=== PATIENT | female | born 1945 | race Caucasian/White ===

== ENCOUNTER 2016-02-08 14:08 | Emergency (ER) | payer MEDICARE, OTHER ==
[~2016-02-08 14:08] MED LIST: /AUGM875TA; /MOXI40TA; ALLE25CA; ALLO100T PO; ALPR0.5T3; AMLO5TAB2 PO; BENA25CA2 PO; BUSP10TA PO; CALC500T21 PO; CART240C PO; CLOB-24 TOP; CLOB0.0513 TOP; CLOB0.0515 EX; CYCL10TA PO; DILT180C53 PO; EPI PEN; FOLI1TAB2 PO; FURO40TA2 PO; GABA300T; HYDR-3644 PO; HYDR12.55 PO; HYDR25TA6; KLOR1TAB73 PO; LIDEX TOP; LISI20TA5; LISI40TAB PO; METH2.5TA PO; NABU500T; NEUR300C; NEUR300C PO; NEUR600T PO; NORV5TAB; NORV5TAB PO; OXYC1TAB30 PO; PEPC20TA2; PERC5TAB8; PRAV20TA2 PO; PRED10TA2; PRED20TA; PRED5TAB; SING10TA31; SING10TA32 PO; VARE05TA; VARE1TA; XANA0.5T; XANA0.5T PO; ZYBA150T; [UNRECOGNIZED DRUG - CODE] PO; [UNRECOGNIZED DRUG - CODE] TOP; [UNRECOGNIZED DRUG - OTHER]; [UNRECOGNIZED DRUG - OTHER] TOP; [UNRECOGNIZED DRUG - REMARK]; colestipol PO; combivent; potassium PO
[2016-02-08] MEDS ORDERED: PERCOCET 5MG/325MG TAB As Ordered ONE ×2 (15:42→15:45)
--- NOTE | 2016-02-08 16:20 | REP ---
Clinical: Back pain. Technique: AP, lateral, bilateral oblique and coned-down views of the lumbosacral spine. Comparison: 03/02/2013. Findings: Osteopenia along with stable moderate to advanced multilevel degenerative disc osteophyte complexes noted from the lower thoracic spine through the lumbosacral region. No acute fracture / compression injury or subluxation. Findings include osteophytosis, endplate sclerosis, and disc space narrowing along with hypertrophic facet changes. Atherosclerotic changes of the aorta noted. Impression: Osteopenia and relatively stable at the level degenerative changes. Signed by Carmelo Montiel MD 02/08/2016 04:11 P
--- NOTE | 2016-02-08 16:21 | REP ---
Clinical: Lower back pain. Technique: Single AP view of the pelvis. Findings: Age-related degenerative changes are appreciated. No acute fracture or dislocation identified. Hip joints are symmetric. Postsurgical changes in the right lower quadrant. Impression: Age-related degenerative changes. Signed by Carmelo Montiel MD 02/08/2016 04:12 P
[2016-02-08] MEDS ORDERED: predniSONE 20 MG TAB As Ordered ONE (17:27)
--- NOTE | 2016-02-08 17:37 | EDDOCDS ---
Nurse's Notes [facility] Name: Radha Chu Age: 70 yrs Sex: Female : 1945 Arrival Date: 02/08/2016 Time: 14:08 Bed PD Private MD: Timothy Bolton Diagnosis: Low back pain Presentation: 02/07 14:35 Presenting complaint: Patient states: Pt presents with left hip and leg pain onset dls yesterday denies injury. Adult Sepsis Screening: The patient does not have new or worsening altered mentation. Patient's respiratory rate is less than 22. Systolic blood pressure is greater than 100. Patient has a qSOFA score of 0- Negative Sepsis Screen. Suicide/Homicide risk assessment- the patient denies having any suicidal and/or homicidal ideations and does not present with any other emotional, behavioral or mental health complaints. 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 Transition of care: patient was not received from another setting of care. 14:35 Acuity: SURJIT Level 3 dls 14:35 Method Of Arrival: Wheelchair dls Triage Assessment: 14:38 General: Appears distressed, obese, Behavior is cooperative. Pain: Pain currently is 10 dls out of 10 on a pain scale. Historical: - Allergies: Cipro PO (Anaphylaxis); PENICILLINS (Swelling); surgery tape; - Home Meds: 1. amlodipine 5 mg Oral tab once daily 2. aspirin 81 mg Oral tab 1 tab once daily 3. atorvastatin 40 mg oral tab 1 tab once daily 4. chlorthalidone 25 mg Oral tab 0.5 tab once daily 5. cholestyramine (bulk) miscellaneous powd four times a day 6. dicyclomine 10 mg Oral cap 1 cap 3 times per day 7. meloxicam 7.5 mg oral tab 1 tab once daily 8. metformin 1,000 mg Oral tab 1 tab 2 times per day 9. nitrofurantoin macrocrystal 100 mg Oral cap bid 10. omeprazole 40 mg Oral cpDR 1 cap 2 times per day 11. Otezla 30 mg oral tab 1 tab 2 times per day 12. oxybutynin chloride 5 mg Oral tab daily 13. Vitamin D3 2,000 unit oral cap daily - PMHx: back pain; Diabetes - NIDDM: controlled; GERD; Hypertension; Sleep Apnea w/ CPAP; - PSHx: Cholecystectomy; - Social history: Smoking status: Patient/guardian denies using No barriers to communication noted, The patient speaks fluent Mohawk. - Family history: Not pertinent. - : The pt / caregiver states he / she is not on anticoagulants. Home medication list is obtained from the patient. - Exposure Risk Screening:: None identified. Screenin:33 Screening information is obtained from the patient. Fall risk: No risks identified. kcs Assistance ADL's: requires no assistance with activities of daily living. Abuse/DV Screen: The patient / caregiver reports he/she is: not in a situation that causes fear, pain or injury. Nutritional screening: No deficits noted. Advance Directives: Currently, there is no health care proxy. home support is adequate. Assessment: 16:51 Reassessment: Patient requesting another glass of water - given. States pain = 7/10.. kcs 17:33 Reassessment: Patient states pain is better at rest - still = 7/10.. General: Appears kcs comfortable, obese, well developed, well nourished, Behavior is cooperative, pleasant. Pain: Location: low back. Neurological: Level of Consciousness is awake, alert. Respiratory: Airway is patent Respiratory effort is even, unlabored, Respiratory pattern is regular, symmetrical. Derm: Skin is intact, is healthy with good turgor, Skin is dry, Skin is normal. Vital Signs: 14:09 BP 139 / 60; Pulse 92; Resp 22 S; Temp 96.3(O); Pulse Ox 96% on R/A; Weight 113.4 kg dd6 (R); Height 5 ft. 2 in. (157.48 cm) (R); 17:25 BP 128 / 58; Pulse 88; Resp 18; Temp 97.5(O); Pulse Ox 97% on R/A; Pain 7/10; ct3 14:09 Body Mass Index 45.73 (113.40 kg, 157.48 cm) dd6 Vitals: 14:09 Log In Time: February 08, 2016 at 14:07. dd6 ED Course: 14:09 Patient visited by Luis A Gil PCA. dd6 14:09 Timothy Bolton DO is Private Physician. dd6 14:09 Patient moved to Waiting dd6 14:11 Patient moved to Pre RCE dd6 14:36 Triage Initiated dls 15:20 Patient moved to Triage 1 ct3 15:26 Reagan Hale PA-C is PHCP. dk1 15:26 Nadia Bah MD is Attending Physician. dk1 15:27 Patient visited by Reagan Hale PA-C. dk1 15:32 Patient moved to PD2 / dk1 16:09 [facility] Payment Agreement was scanned into [employer] and attached to record. zo 16:19 Patient visited by Roselia Joe PCA. ct3 16:20 Spine. Lumbosacral, Complete Returned. EDMS 16:53 Pelvis Returned. EDMS 17:18 [facility] is Referral Physician. dk1 17:25 Patient visited by Roselia Joe PCA. ct3 17:33 The patient / caregiver is instructed regarding the plan of care and ED course. kcs 17:33 No IV's were initiated during this patient's visit. No procedures done that require kcs assistance. Administered Medications: 15:45 Drug: oxyCODONE-acetaminophen 2 tabs [oxycodone-acetaminophen 5 mg-325 mg tablet (2 kcs tabs)] Route: PO; 17:33 Drug: predniSONE 40 mg [prednisone 20 mg tablet (2 tabs)] Route: PO; kcs Order Results: Radiology Order: Spine. Lumbosacral, Complete Test: Spine. Lumbosacral, Complete REASON FOR EXAMINATION: back pain; Clinical: Back pain.; ; Technique: AP, lateral, bilateral oblique and coned-down views of the; lumbosacral spine.; ; Comparison: 03/02/2013.; ; Findings:; Osteopenia along with stable moderate to advanced multilevel degenerative disc; osteophyte complexes noted from the lower thoracic spine through the lumbosacral; region. No acute fracture / compression injury or subluxation. Findings include; osteophytosis, endplate sclerosis, and disc space narrowing along with; hypertrophic facet changes. Atherosclerotic changes of the aorta noted.; ; Impression:; Osteopenia and relatively stable at the level degenerative changes.; ; ; Signed by; Carmelo Montiel MD 02/08/2016 04:11 P; Radiology Order: Pelvis Test: Pelvis REASON FOR EXAMINATION: low back apin; Clinical: Lower back pain.; ; Technique: Single AP view of the pelvis.; ; Findings:; Age-related degenerative changes are appreciated. No acute fracture or; dislocation identified. Hip joints are symmetric. Postsurgical changes in the; right lower quadrant.; ; Impression:; Age-related degenerative changes.; ; ; Signed by; Carmelo Montiel MD 02/08/2016 04:12 P; Outcome: 17:18 Discharge ordered by Provider. dk1 17:33 Discharge Assessment: Patient awake, alert and oriented x 3. No cognitive and/or kcs functional deficits noted. Patient verbalized understanding of disposition instructions. Patient awake and alert. patient administered narcotics - yes. Pt provided with safe discharge. The following High Risk Discharge criteria are identified: None. Discharged to home via wheelchair, with significant other. Condition: stable. Discharge instructions given to patient, Instructed on discharge instructions, follow up and referral plans. medication usage, no driving heavy equipment, no drinking with medication, Demonstrated understanding of instructions, medications, Pt was receptive of discharge instructions/ teaching. No special radiology studies were completed. Property sent home with patient. 17:37 Patient left the ED. kcs Signatures: Dispatcher [employer] Judie Naik, MARYELLEN RN Kyra Cespedes RN RN dls Keyes, David, PA-Trent PA-C dk1 Elliott Pablo Daniell, MAT REPAIRER MAT REPAIRER dd6 Roselia Joe, MAT REPAIRER MAT REPAIRER ct3 MTDD
--- NOTE | 2016-02-08 17:37 | EDDOCDS ---
Physician Documentation [facility] Name: Radha Chu Age: 70 yrs Sex: Female : 1945 Arrival Date: 02/08/2016 Time: 14:08 Bed PD Private MD: Timothy Bolton Disposition: 02/08/16 17:18 Discharged to Home/Self Care. Impression: Low back pain. - Condition is Stable. - Discharge Instructions: Back Pain, Adult, Back Pain, Adult, [id number]. - Prescriptions for Zanaflex 4 mg Oral Tablet - take 1 tablet by ORAL route every 8 hours As needed; 20 tablet. Prednisone 20 mg Oral Tablet - take 2 tablet by ORAL route once daily for 5 days; 10 tablet. - Medication Reconciliation, Local Pharmacy Hours form. - Follow up: [facility]; When: 2 - 3 days; Reason: Continuance of care. Follow up: Emergency Department; When: As needed; Reason: Worsening of conditions. - Problem is an acute exacerbation. - Symptoms have improved. Historical: - Allergies: Cipro PO (Anaphylaxis); PENICILLINS (Swelling); surgery tape; - Home Meds: 1. amlodipine 5 mg Oral tab once daily 2. aspirin 81 mg Oral tab 1 tab once daily 3. atorvastatin 40 mg oral tab 1 tab once daily 4. chlorthalidone 25 mg Oral tab 0.5 tab once daily 5. cholestyramine (bulk) miscellaneous powd four times a day 6. dicyclomine 10 mg Oral cap 1 cap 3 times per day 7. meloxicam 7.5 mg oral tab 1 tab once daily 8. metformin 1,000 mg Oral tab 1 tab 2 times per day 9. nitrofurantoin macrocrystal 100 mg Oral cap bid 10. omeprazole 40 mg Oral cpDR 1 cap 2 times per day 11. Otezla 30 mg oral tab 1 tab 2 times per day 12. oxybutynin chloride 5 mg Oral tab daily 13. Vitamin D3 2,000 unit oral cap daily - PMHx: back pain; Diabetes - NIDDM: controlled; GERD; Hypertension; Sleep Apnea w/ CPAP; - PSHx: Cholecystectomy; - Social history: Smoking status: Patient/guardian denies using No barriers to communication noted, The patient speaks fluent Yakut. - Family history: Not pertinent. - : The pt / caregiver states he / she is not on anticoagulants. Home medication list is obtained from the patient. - Exposure Risk Screening:: None identified. Vital Signs: 02/07 14:09 BP 139 / 60; Pulse 92; Resp 22 S; Temp 96.3(O); Pulse Ox 96% on R/A; Weight 113.4 kg / dd6 250 lbs (R); Height 5 ft. 2 in. (157.48 cm) (R); 17:25 BP 128 / 58; Pulse 88; Resp 18; Temp 97.5(O); Pulse Ox 97% on R/A; Pain 7/10; ct3 14:09 Body Mass Index 45.73 (113.40 kg, 157.48 cm) dd6 MDM: 15:39 oxyCODONE-acetaminophen 5 mg-325 mg 2 tabs PO once ordered. dk1 15:40 Spine. Lumbosacral, Complete Ordered. EDMS 15:40 Pelvis Ordered. EDMS 15:46 Financial registration complete. zo 16:09 [facility] [place] was scanned into [employer] and attached to record. zo 17:19 predniSONE 40 mg PO once; administer with food or milk ordered. dk1 Administered Medications: 15:45 Drug: oxyCODONE-acetaminophen 2 tabs [oxycodone-acetaminophen 5 mg-325 mg tablet (2 kcs tabs)] Route: PO; 17:33 Drug: predniSONE 40 mg [prednisone 20 mg tablet (2 tabs)] Route: PO; kcs Signatures: Dispatcher [employer] EDJudie Robert RN RN kcs Scott, Debra, RN RN dls Keyes, David, PA-C PAElliott Chavez The chart was reviewed and I authenticate all verbal orders and agree with the evaluation and treatment provided.Attachments: 16:09 [facility] [place] zo FRANKO
--- NOTE | 2016-02-10 18:37 | EDDOCDS ---
Nurse's Notes [facility] Name: Radha Chu Age: 70 yrs Sex: Female : 1945 Arrival Date: 02/08/2016 Time: 14:08 Bed PD Private MD: Timothy Bolton Diagnosis: Low back pain Presentation: 02/07 14:35 Presenting complaint: Patient states: Pt presents with left hip and leg pain onset dls yesterday denies injury. Adult Sepsis Screening: The patient does not have new or worsening altered mentation. Patient's respiratory rate is less than 22. Systolic blood pressure is greater than 100. Patient has a qSOFA score of 0- Negative Sepsis Screen. Suicide/Homicide risk assessment- the patient denies having any suicidal and/or homicidal ideations and does not present with any other emotional, behavioral or mental health complaints. 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 Transition of care: patient was not received from another setting of care. 14:35 Acuity: SURJIT Level 3 dls 14:35 Method Of Arrival: Wheelchair dls Triage Assessment: 14:38 General: Appears distressed, obese, Behavior is cooperative. Pain: Pain currently is 10 dls out of 10 on a pain scale. Historical: - Allergies: Cipro PO (Anaphylaxis); PENICILLINS (Swelling); surgery tape; - Home Meds: 1. amlodipine 5 mg Oral tab once daily 2. aspirin 81 mg Oral tab 1 tab once daily 3. atorvastatin 40 mg oral tab 1 tab once daily 4. chlorthalidone 25 mg Oral tab 0.5 tab once daily 5. cholestyramine (bulk) miscellaneous powd four times a day 6. dicyclomine 10 mg Oral cap 1 cap 3 times per day 7. meloxicam 7.5 mg oral tab 1 tab once daily 8. metformin 1,000 mg Oral tab 1 tab 2 times per day 9. nitrofurantoin macrocrystal 100 mg Oral cap bid 10. omeprazole 40 mg Oral cpDR 1 cap 2 times per day 11. Otezla 30 mg oral tab 1 tab 2 times per day 12. oxybutynin chloride 5 mg Oral tab daily 13. Vitamin D3 2,000 unit oral cap daily - PMHx: back pain; Diabetes - NIDDM: controlled; GERD; Hypertension; Sleep Apnea w/ CPAP; - PSHx: Cholecystectomy; - Social history: Smoking status: Patient/guardian denies using No barriers to communication noted, The patient speaks fluent Sinhala. - Family history: Not pertinent. - : The pt / caregiver states he / she is not on anticoagulants. Home medication list is obtained from the patient. - Exposure Risk Screening:: None identified. Screenin:33 Screening information is obtained from the patient. Fall risk: No risks identified. kcs Assistance ADL's: requires no assistance with activities of daily living. Abuse/DV Screen: The patient / caregiver reports he/she is: not in a situation that causes fear, pain or injury. Nutritional screening: No deficits noted. Advance Directives: Currently, there is no health care proxy. home support is adequate. Assessment: 16:51 Reassessment: Patient requesting another glass of water - given. States pain = 7/10.. kcs 17:33 Reassessment: Patient states pain is better at rest - still = 7/10.. General: Appears kcs comfortable, obese, well developed, well nourished, Behavior is cooperative, pleasant. Pain: Location: low back. Neurological: Level of Consciousness is awake, alert. Respiratory: Airway is patent Respiratory effort is even, unlabored, Respiratory pattern is regular, symmetrical. Derm: Skin is intact, is healthy with good turgor, Skin is dry, Skin is normal. Vital Signs: 14:09 BP 139 / 60; Pulse 92; Resp 22 S; Temp 96.3(O); Pulse Ox 96% on R/A; Weight 113.4 kg dd6 (R); Height 5 ft. 2 in. (157.48 cm) (R); 17:25 BP 128 / 58; Pulse 88; Resp 18; Temp 97.5(O); Pulse Ox 97% on R/A; Pain 7/10; ct3 14:09 Body Mass Index 45.73 (113.40 kg, 157.48 cm) dd6 Vitals: 14:09 Log In Time: February 08, 2016 at 14:07. dd6 ED Course: 14:09 Patient visited by Luis A Gil PCA. dd6 14:09 Timothy Bolton DO is Private Physician. dd6 14:09 Patient moved to Waiting dd6 14:11 Patient moved to Pre RCE dd6 14:36 Triage Initiated dls 15:20 Patient moved to Triage 1 ct3 15:26 Reagan Hale PA-C is PHCP. dk1 15:26 Nadia Bah MD is Attending Physician. dk1 15:27 Patient visited by Reagan Hale PA-C. dk1 15:32 Patient moved to PD2 / dk1 16:09 [facility] Payment Agreement was scanned into [employer] and attached to record. zo 16:19 Patient visited by Roselia Joe PCA. ct3 16:20 Spine. Lumbosacral, Complete Returned. EDMS 16:53 Pelvis Returned. EDMS 17:18 [facility] is Referral Physician. dk1 17:25 Patient visited by Roselia Joe PCA. ct3 17:33 The patient / caregiver is instructed regarding the plan of care and ED course. kcs 17:33 No IV's were initiated during this patient's visit. No procedures done that require kcs assistance. 02/08 06:02 T-Sheet-- Draft Copy was scanned into [employer] and attached to record. lja Administered Medications: 02/07 15:45 Drug: oxyCODONE-acetaminophen 2 tabs [oxycodone-acetaminophen 5 mg-325 mg tablet (2 kcs tabs)] Route: PO; 17:33 Drug: predniSONE 40 mg [prednisone 20 mg tablet (2 tabs)] Route: PO; kcs Order Results: Radiology Order: Spine. Lumbosacral, Complete Test: Spine. Lumbosacral, Complete REASON FOR EXAMINATION: back pain; Clinical: Back pain.; ; Technique: AP, lateral, bilateral oblique and coned-down views of the; lumbosacral spine.; ; Comparison: 03/02/2013.; ; Findings:; Osteopenia along with stable moderate to advanced multilevel degenerative disc; osteophyte complexes noted from the lower thoracic spine through the lumbosacral; region. No acute fracture / compression injury or subluxation. Findings include; osteophytosis, endplate sclerosis, and disc space narrowing along with; hypertrophic facet changes. Atherosclerotic changes of the aorta noted.; ; Impression:; Osteopenia and relatively stable at the level degenerative changes.; ; ; Signed by; Carmelo Montiel MD 02/08/2016 04:11 P; Radiology Order: Pelvis Test: Pelvis REASON FOR EXAMINATION: low back apin; Clinical: Lower back pain.; ; Technique: Single AP view of the pelvis.; ; Findings:; Age-related degenerative changes are appreciated. No acute fracture or; dislocation identified. Hip joints are symmetric. Postsurgical changes in the; right lower quadrant.; ; Impression:; Age-related degenerative changes.; ; ; Signed by; Carmelo Montiel MD 02/08/2016 04:12 P; Outcome: 17:18 Discharge ordered by Provider. dk1 17:33 Discharge Assessment: Patient awake, alert and oriented x 3. No cognitive and/or kcs functional deficits noted. Patient verbalized understanding of disposition instructions. Patient awake and alert. patient administered narcotics - yes. Pt provided with safe discharge. The following High Risk Discharge criteria are identified: None. Discharged to home via wheelchair, with significant other. Condition: stable. Discharge instructions given to patient, Instructed on discharge instructions, follow up and referral plans. medication usage, no driving heavy equipment, no drinking with medication, Demonstrated understanding of instructions, medications, Pt was receptive of discharge instructions/ teaching. No special radiology studies were completed. Property sent home with patient. 17:37 Patient left the ED. kcs Signatures: Dispatcher [employer] EDMS Judie Abdul RN RN Kyra Cespedes RN RN dls Keyes, David, PA-Trent PA-C dk1 Elliott Pablo Daniell, CAST IRON DIPPER CAST IRON DIPPER dd6 Roselia Joe, CAST IRON DIPPER CAST IRON DIPPER ct3 Judith Wong Chart Complete MTDD
--- NOTE | 2016-02-10 18:37 | EDDOCDS ---
Physician Documentation [facility] Name: Radha Chu Age: 70 yrs Sex: Female : 1945 Arrival Date: 02/08/2016 Time: 14:08 Bed PD Private MD: Timothy Bolton Disposition: 02/08/16 17:18 Discharged to Home/Self Care. Impression: Low back pain. - Condition is Stable. - Discharge Instructions: Back Pain, Adult, Back Pain, Adult, [id number]. - Prescriptions for Zanaflex 4 mg Oral Tablet - take 1 tablet by ORAL route every 8 hours As needed; 20 tablet. Prednisone 20 mg Oral Tablet - take 2 tablet by ORAL route once daily for 5 days; 10 tablet. - Medication Reconciliation, Local Pharmacy Hours form. - Follow up: [facility]; When: 2 - 3 days; Reason: Continuance of care. Follow up: Emergency Department; When: As needed; Reason: Worsening of conditions. - Problem is an acute exacerbation. - Symptoms have improved. Historical: - Allergies: Cipro PO (Anaphylaxis); PENICILLINS (Swelling); surgery tape; - Home Meds: 1. amlodipine 5 mg Oral tab once daily 2. aspirin 81 mg Oral tab 1 tab once daily 3. atorvastatin 40 mg oral tab 1 tab once daily 4. chlorthalidone 25 mg Oral tab 0.5 tab once daily 5. cholestyramine (bulk) miscellaneous powd four times a day 6. dicyclomine 10 mg Oral cap 1 cap 3 times per day 7. meloxicam 7.5 mg oral tab 1 tab once daily 8. metformin 1,000 mg Oral tab 1 tab 2 times per day 9. nitrofurantoin macrocrystal 100 mg Oral cap bid 10. omeprazole 40 mg Oral cpDR 1 cap 2 times per day 11. Otezla 30 mg oral tab 1 tab 2 times per day 12. oxybutynin chloride 5 mg Oral tab daily 13. Vitamin D3 2,000 unit oral cap daily - PMHx: back pain; Diabetes - NIDDM: controlled; GERD; Hypertension; Sleep Apnea w/ CPAP; - PSHx: Cholecystectomy; - Social history: Smoking status: Patient/guardian denies using No barriers to communication noted, The patient speaks fluent Vietnamese. - Family history: Not pertinent. - : The pt / caregiver states he / she is not on anticoagulants. Home medication list is obtained from the patient. - Exposure Risk Screening:: None identified. Vital Signs: 02/07 14:09 BP 139 / 60; Pulse 92; Resp 22 S; Temp 96.3(O); Pulse Ox 96% on R/A; Weight 113.4 kg / dd6 250 lbs (R); Height 5 ft. 2 in. (157.48 cm) (R); 17:25 BP 128 / 58; Pulse 88; Resp 18; Temp 97.5(O); Pulse Ox 97% on R/A; Pain 7/10; ct3 14:09 Body Mass Index 45.73 (113.40 kg, 157.48 cm) dd6 MDM: 15:39 oxyCODONE-acetaminophen 5 mg-325 mg 2 tabs PO once ordered. dk1 15:40 Spine. Lumbosacral, Complete Ordered. EDMS 15:40 Pelvis Ordered. EDMS 15:46 Financial registration complete. zo 16:09 [facility] Payment Agreement was scanned into [employer] and attached to record. zo 17:19 predniSONE 40 mg PO once; administer with food or milk ordered. dk1 02/08 06:02 T-Sheet-- Draft Copy was scanned into [employer] and attached to record. lja Administered Medications: 02/07 15:45 Drug: oxyCODONE-acetaminophen 2 tabs [oxycodone-acetaminophen 5 mg-325 mg tablet (2 kcs tabs)] Route: PO; 17:33 Drug: predniSONE 40 mg [prednisone 20 mg tablet (2 tabs)] Route: PO; gurvinder Signatures: Dispatcher [employer] Judie Naik RN RN kcs Scott, Debra, RN RN dls Keyes, David, PA-C PA-C dk1 Olin, Zoeann zo Arel, Lisa lja The chart was reviewed and I authenticate all verbal orders and agree with the evaluation and treatment provided.Attachments: 16:09 [facility] Payment Agreement zo 02/08 06:02 T-Sheet-- Draft Copy ashley Chart Complete MTDD
--- NOTE | 2016-02-10 18:37 | EDDOCDS ---
Physician Documentation [facility] Name: Radha Chu Age: 70 yrs Sex: Female : 1945 Arrival Date: 02/08/2016 Time: 14:08 Bed PD Private MD: Timothy Bolton Disposition: 02/08/16 17:18 Discharged to Home/Self Care. Impression: Low back pain. - Condition is Stable. - Discharge Instructions: Back Pain, Adult, Back Pain, Adult, [id number]. - Prescriptions for Zanaflex 4 mg Oral Tablet - take 1 tablet by ORAL route every 8 hours As needed; 20 tablet. Prednisone 20 mg Oral Tablet - take 2 tablet by ORAL route once daily for 5 days; 10 tablet. - Medication Reconciliation, Local Pharmacy Hours form. - Follow up: [facility]; When: 2 - 3 days; Reason: Continuance of care. Follow up: Emergency Department; When: As needed; Reason: Worsening of conditions. - Problem is an acute exacerbation. - Symptoms have improved. Historical: - Allergies: Cipro PO (Anaphylaxis); PENICILLINS (Swelling); surgery tape; - Home Meds: 1. amlodipine 5 mg Oral tab once daily 2. aspirin 81 mg Oral tab 1 tab once daily 3. atorvastatin 40 mg oral tab 1 tab once daily 4. chlorthalidone 25 mg Oral tab 0.5 tab once daily 5. cholestyramine (bulk) miscellaneous powd four times a day 6. dicyclomine 10 mg Oral cap 1 cap 3 times per day 7. meloxicam 7.5 mg oral tab 1 tab once daily 8. metformin 1,000 mg Oral tab 1 tab 2 times per day 9. nitrofurantoin macrocrystal 100 mg Oral cap bid 10. omeprazole 40 mg Oral cpDR 1 cap 2 times per day 11. Otezla 30 mg oral tab 1 tab 2 times per day 12. oxybutynin chloride 5 mg Oral tab daily 13. Vitamin D3 2,000 unit oral cap daily - PMHx: back pain; Diabetes - NIDDM: controlled; GERD; Hypertension; Sleep Apnea w/ CPAP; - PSHx: Cholecystectomy; - Social history: Smoking status: Patient/guardian denies using No barriers to communication noted, The patient speaks fluent Kazakh. - Family history: Not pertinent. - : The pt / caregiver states he / she is not on anticoagulants. Home medication list is obtained from the patient. - Exposure Risk Screening:: None identified. Vital Signs: 02/07 14:09 BP 139 / 60; Pulse 92; Resp 22 S; Temp 96.3(O); Pulse Ox 96% on R/A; Weight 113.4 kg / dd6 250 lbs (R); Height 5 ft. 2 in. (157.48 cm) (R); 17:25 BP 128 / 58; Pulse 88; Resp 18; Temp 97.5(O); Pulse Ox 97% on R/A; Pain 7/10; ct3 14:09 Body Mass Index 45.73 (113.40 kg, 157.48 cm) dd6 MDM: 15:39 oxyCODONE-acetaminophen 5 mg-325 mg 2 tabs PO once ordered. dk1 15:40 Spine. Lumbosacral, Complete Ordered. EDMS 15:40 Pelvis Ordered. EDMS 15:46 Financial registration complete. zo 16:09 [facility] Payment Agreement was scanned into SureBooks and attached to record. zo 17:19 predniSONE 40 mg PO once; administer with food or milk ordered. dk1 02/08 06:02 T-Sheet-- Draft Copy was scanned into [employer] and attached to record. lja Administered Medications: 02/07 15:45 Drug: oxyCODONE-acetaminophen 2 tabs [oxycodone-acetaminophen 5 mg-325 mg tablet (2 kcs tabs)] Route: PO; 17:33 Drug: predniSONE 40 mg [prednisone 20 mg tablet (2 tabs)] Route: PO; gurvinder Signatures: Dispatcher [employer] Judie Naik RN RN kcs Scott, Debra, RN RN dls Keyes, David, PA-C PA-C dk1 Olin, Zoeann zo Arel, Lisa lja The chart was reviewed and I authenticate all verbal orders and agree with the evaluation and treatment provided.Attachments: 16:09 [facility] Payment Agreement zo 02/08 06:02 T-Sheet-- Draft Copy ashley Chart Complete MTDD
== END 2016-02-08 17:37 | disposition home or self-care (01) ==
LOC: M ED 14:08
DX: M54.5 Low back pain (principal); M85.88 Other specified disorders of bone density and structure, other site; E11.9 Type 2 diabetes mellitus without complications; K21.9 Gastro-esophageal reflux disease without esophagitis; I10 Essential (primary) hypertension; G47.30 Sleep apnea, unspecified; Z90.49 Acquired absence of other specified parts of digestive tract; Z79.82 Long term (current) use of aspirin; Z79.899 Other long term (current) drug therapy; Z88.0 Allergy status to penicillin; Z88.1 Allergy status to other antibiotic agents; Z91.09 Other allergy status, other than to drugs and biological substances

== ENCOUNTER → 2016-02-25 | Outpatient (CLI) | payer MEDICARE, BC, OTHER ==
--- NOTE | 2016-02-25 14:00 | REP ---
THREE-PHASE BONE SCAN OF THE KNEES: HISTORY: Osteoarthritis of the left knee. No comparison radiographs. TECHNIQUE: 21.5 mCi technetium 99m MDP is injected and standard three-phase imaging was acquired. SCINTIGRAPHIC FINDINGS: The anterior and posterior flow images and the blood pool images demonstrate moderate hyperemia about the left knee compared to the right. Delayed scan images demonstrate intensely increased uptake in the medial tibial plateau on the left and mildly increased uptake in the region of the tibial apophysis and lateral tibial plateau. There is slightly increased uptake in the distal femur at the knee on the left as well compared to the right side. There is an area of mildly increased soft tissue uptake in the left distal thigh laterally. Superficial venous varicosities are outlined bilaterally more prominent on the left. IMPRESSION: Hyperemia and increased uptake in the medial tibial plateau on the left. There is some asymmetric soft tissue uptake as well posterolaterally in the left thigh distally. This is nonspecific. Radiographic correlation is recommended. Medial tibial plateau fracture, aggressive bone lesion, and infection are all possibilities. Signed by Jaison Cantu MD 02/25/2016 03:10 P
== END ==
LOC: M RAD 10:09
PROVIDERS: ATTEND Orthopaedic Surgery
DX: M17.12 Unilateral primary osteoarthritis, left knee (principal)
CPT/HCPCS: 78315; A9503

== ENCOUNTER → 2016-03-08 | Outpatient (REF) | payer MEDICARE, OTHER ==
[2016-03-08 15:26] LABS: BLOOD UREA NITROGEN 18 MG/DL (7-18); CREATININE FOR GFR 0.74 MG/DL (0.55-1.02); GLOMERULAR FILTRATION RATE > 60.0 (>45)
== END ==
LOC: M LABDRAW1 13:06
PROVIDERS: ATTEND Physician Assistant
DX: M17.12 Unilateral primary osteoarthritis, left knee (principal)

== ENCOUNTER → 2016-03-10 | Outpatient (CLI) | payer MEDICARE, BC, OTHER ==
--- NOTE | 2016-03-11 11:35 | REP ---
MRI study left knee without and with IV gadolinium: History: Tibial plateau fracture versus mass. Right knee pain. No known injury. Comparison is made with three-phase bone scan from February 25, 2016. Technique: Sagittal, axial and coronal imaging planes were utilized for T1 proton density and T2-weighted scans obtain usual fashion with and without fat saturation. MRI findings: There is a subcortical irregular low T1 low T2 signal intensity fracture line in the medial tibial plateau. Since there is no history of trauma, this is indicative of an insufficiency fracture or a stress type fracture. There is surrounding marrow edema and some extra osseous soft tissue edema is seen. There is no evidence of collapse or articular surface discontinuity. Cortical and medullary bone signal intensity are otherwise normal. There is a large joint effusion. A small Salcido's cyst is seen. There is mild to moderate chondromalacia in the central patella and in the opposing femoral trochlear notch. Mild chondromalacia changes are seen in the medial femoral condyle and medial tibial plateau. There is a horizontal tear in the mid position of the medial meniscus. Abnormal signal intensity is also seen in the posterior horn of the medial meniscus indicating a degenerative tear in this position as well. There is minimal medial meniscal extrusion. There is no evidence of medial or lateral collateral ligament disruption. Patellar and quadriceps tendons are intact. Anterior and posterior cruciate ligaments have an intact appearance. No lateral meniscal tear is seen. Impression: 1. Nondisplaced subcortical insufficiency fracture in the medial tibial plateau with surrounding edema. 2. Large joint effusion small Salcido's cyst. 3. Degenerative tear midbody and posterior horn medial meniscus. 4. Medial and patellofemoral compartment chondromalacia. Signed by Jaison Cantu MD 03/11/2016 11:48 A
== END ==
LOC: M RAD 16:09
PROVIDERS: ATTEND Physician Assistant
DX: M17.2 Bilateral post-traumatic osteoarthritis of knee (principal); I10 Essential (primary) hypertension; E11.9 Type 2 diabetes mellitus without complications
CPT/HCPCS: 73723; A9576

== ENCOUNTER → 2016-03-30 | Outpatient (REF) | payer MEDICARE, OTHER ==
[~2016-03-30] MED LIST changes: +ASPI81TA85 PO; +ATOR40TA PO; +CHLO125TA PO; +CHOL4POW3 PO; +CLOB0.0513 EX; +CLOTRIMAZOLE ANTI12 TOP; +DICL1GEL3 TD; +DICY10SO PO; +LASI20TA PO; +MELO7.5T6 PO; +METF1000 PO; +OMEP40CA2 PO; +OTEZ1TAB3 PO; +OXYB10TA PO; +OXYC1TAB23 PO; +SPIR25TA2 PO; +VITA200015 PO; +[UNRECOGNIZED DRUG - OTHER]
[2016-03-30 12:45] LABS: ANION GAP 9 MEQ/L (8-16); BLOOD UREA NITROGEN 25 MG/DL (7-18); CALCIUM LEVEL 9.1 MG/DL (8.8-10.2); CARBON DIOXIDE LEVEL 30 MEQ/L (21-32); CHLORIDE LEVEL 99 MEQ/L (98-107); CREATININE FOR GFR 0.85 MG/DL (0.55-1.02); GLOMERULAR FILTRATION RATE > 60.0 (>45); GLUCOSE, FASTING 119 MG/DL (80-110); POTASSIUM SERUM 4.6 MEQ/L (3.5-5.1); SODIUM LEVEL 138 MEQ/L (136-145)
== END ==
LOC: M SFHCPLAZ 10:08
PROVIDERS: ATTEND Family Medicine
DX: I50.32 Chronic diastolic (congestive) heart failure (principal)
CPT/HCPCS: 36415; 80048; 83880; G0463

== ENCOUNTER 2016-04-18 15:42 | Inpatient (IN) | payer MEDICARE, OTHER ==
[~2016-04-18] VITALS: Ht 157.5 cm; Wt 113.4 kg
[2016-04-18] MEDS: MIRALAX *UNIT DOSE* 17GM PACKET PO SCH (09:00)
[~2016-04-18 15:42] MED LIST changes: -ASPI81TA85 PO; -ATOR40TA PO; -CHLO125TA PO; -CHOL4POW3 PO; -CLOB0.0513 EX; -CLOTRIMAZOLE ANTI12 TOP; -DICL1GEL3 TD; -DICY10SO PO; -LASI20TA PO; -MELO7.5T6 PO; -METF1000 PO; -OMEP40CA2 PO; -OTEZ1TAB3 PO; -OXYB10TA PO; -OXYC1TAB23 PO; -SPIR25TA2 PO; -VITA200015 PO; -[UNRECOGNIZED DRUG - OTHER]
[2016-04-18] MEDS ORDERED: [UNRECOGNIZED DRUG - OTHER] (16:33)
[2016-04-18] MEDS ORDERED: CHLO125TA PO (16:33)
[2016-04-18] MEDS ORDERED: CLOTRIMAZOLE ANTI12 TOP (16:33)
[2016-04-18] MEDS ORDERED: ATOR40TA PO (16:33)
[2016-04-18] MEDS ORDERED: DICY10SO PO (16:33)
[2016-04-18] MEDS ORDERED: OMEP40CA2 PO (16:33)
[2016-04-18] MEDS ORDERED: CHOL4POW3 PO (16:33)
[2016-04-18] MEDS ORDERED: OTEZ1TAB3 PO (16:33)
[2016-04-18] MEDS ORDERED: DICL1GEL3 TD (16:33)
[2016-04-18] MEDS ORDERED: MELO7.5T6 PO (16:33)
[2016-04-18] MEDS ORDERED: METF1000 PO (16:33)
[2016-04-18] MEDS ORDERED: VITA200015 PO (16:33)
[2016-04-18] MEDS ORDERED: LASI20TA PO (16:33)
[2016-04-18] MEDS ORDERED: ASPI81TA85 PO (16:33)
[2016-04-18 17:42] LABS: BASO % 0.5 % (0.0-1.0); EOS # 0.2 K/mm3 (0.0-0.50); EOS % 4.1 % (0.0-3.0); LARGE UNSTAINED CELL # 0.1 K/mm3 (0.0-0.4); LARGE UNSTAINED CELL % 1.7 % (0.0-4.0); LYMPH # 1.1 K/mm3 (1.5-4.5); LYMPH % 17.4 % (24.0-44.0); MEAN CORPUSCULAR HEMOGLOBIN 27.3 pg (27.0-33.0); MEAN CORPUSCULAR HGB CONC 33.3 g/dl (32.0-36.5); MEAN CORPUSCULAR VOLUME 82.1 fl (80.0-96.0); MONO # 0.4 K/mm3 (0.0-0.8); MONO % 6.4 % (0.0-5.0); NEUTROPHILS # 4.2 K/mm3 (1.8-7.7); NEUTROPHILS % 69.8 % (36.0-66.0); PLATELET COUNT, AUTOMATED 139 k/mm3 (150-450); RED CELL DISTRIBUTION WIDTH 13.3 % (11.5-14.5)
[2016-04-18 17:44] LABS: ANION GAP 7 MEQ/L (8-16); BLOOD UREA NITROGEN 38 MG/DL (7-18); CARBON DIOXIDE LEVEL 27 MEQ/L (21-32); CHLORIDE LEVEL 103 MEQ/L (98-107); CREATININE FOR GFR 1.12 MG/DL (0.55-1.02); GLOMERULAR FILTRATION RATE 51.3 (>45); GLUCOSE, FASTING 117 MG/DL (80-110); SODIUM LEVEL 137 MEQ/L (136-145)
[2016-04-18 17:46] LABS: POTASSIUM SERUM 5.3 MEQ/L (3.5-5.1)
[2016-04-18] MEDS ORDERED: ISOVUE-370 76% 100ML VIAL (Q9967) As Ordered ONE (18:12)
[2016-04-18] MEDS ORDERED: MORPHINE 4 MG/ML 1ML SYRINGE IV ONE (18:15)
--- NOTE | 2016-04-18 18:47 | REP ---
Portable chest x-ray: Single view: History: Dyspnea and cough. Comparison study 11/09/2015. Findings: The lungs are symmetrically aerated and clear. Pleural angles are sharp. Heart is not enlarged. The aorta is tortuous and calcific. No significant bony abnormality is seen. Impression: No acute disease seen. Signed by Jaison Cantu MD 04/18/2016 07:23 P
--- NOTE | 2016-04-18 19:47 | REP ---
CT abdomen and pelvis with IV but without oral contrast: History: Diffuse abdominal pain. Comparison CT study is from January 04, 2016. CT contrast dose: 100 ml of Isovue [address] findings: Digital preliminary raw silk grader radiograph demonstrates two loops of air-filled mildly dilated central abdominal small bowel. There is air and stool in the colon. The lung bases are clear. There is no evidence of pleural effusion. There is mild diffuse fatty infiltration of the liver. No focal liver lesion is seen. No splenic abnormalities observed other than an accessory splenule inferiorly. No adrenal lesion is seen on either side. No pancreatic abnormality is observed. Two loops of dilated air and fluid-filled proximal jejunum are seen in the left central abdomen corresponding with the raw silk grader radiographic findings. No obstructive lesion is seen. These may imply focal ileus. There are postoperative changes in the cecum consistent with previous appendectomy. There is left colonic diverticulosis in the sigmoid colon without CT evidence of diverticulitis. There is no evidence of free air. Urinary bladder is somewhat distended but intact. No abdominal wall defect is appreciated. The gallbladder is surgically absent. The kidneys enhance symmetrically and are morphologically intact. No intrarenal mass or calculus is observed. No hydronephrosis is seen. There are small cortical cysts noted bilaterally under a centimeter. Uterus is surgically absent. Impression: 1. Mild diffuse fatty infiltration of the liver. 2. There are two adjacent dilated loops of proximal jejunum, question localized ileus. 3. Left colonic diverticulosis without CT evidence of diverticulitis. 4. Status post hysterectomy, appendectomy and cholecystectomy. Signed by Jaison Cantu MD 04/18/2016 08:24 P
--- NOTE | 2016-04-18 19:55 | REP ---
CT pulmonary angiogram: With IV contrast. History: Chest pain and shortness of breath. Recent fracture. CT contrast dose: 100 ml of intravenous Isovue 370. Comparison studies: Comparison CT chest is from November 08, [address] [facility] technique: Helical scanning is acquired and overlapping 1.5 mm and contiguous 3 mm axial images are reformatted. In addition, a 3-D work station is deployed to generate thick slab maximum intensity projection images in sagittal and coronal imaging projections. CT pulmonary angiographic findings: There is good opacification of the pulmonary arterial tree. There is no CT evidence of pulmonary embolism. Maximal intensity projection images show no vessel cutoff or filling defect to suggest a pulmonary thrombus. The thoracic aorta is somewhat ectatic and tortuous with calcification, but no evidence of aneurysm or dissection is seen. No hilar or mediastinal mass or adenopathy is observed. No pleural or pericardial effusion is seen. Incidental finding is of a heterogeneous low density lesion in the right thyroid lobe at the thoracic inlet. This measures 2.7 cm in greatest diameter. It is not included in the imaging field of view of the November 08, 2012 prior study. There is a low-density lesion in the right thyroid lobe on June 10, [address] study and this is probably unchanged. No pulmonary nodule or mass lesion is seen. No infiltrate is noted. Impression: There is no CT evidence of pulmonary embolism. No active disease in the chest. Incidental note is made of a right thyroid low density lesion. This is a chronic finding. Signed by Jaison Cantu MD 04/18/2016 08:24 P
[2016-04-18] MEDS ORDERED: GLUCOSE 4 GM CHEW TABLET PO PRN (22:15)
[2016-04-18] MEDS ORDERED: SOD POLYSTYRENE SULFONATE SUSP 15 GM/60 ML UD PO ONE (22:15)
[2016-04-18] MEDS ORDERED: ONDANSETRON 4 MG TAB (S0181) PO PRN (22:15)
[2016-04-18] MEDS ORDERED: DEXTROSE 50% 50 ML SYRINGE IV PRN (22:15)
[2016-04-18] MEDS ORDERED: GLUCAGON FOR INJ 1 MG VIAL (J1610) SC PRN (22:15)
[2016-04-18] MEDS ORDERED: ACETAMINOPHEN TAB 650MG DOSE (2X325MG) PO PRN (22:15)
[2016-04-18] MEDS ORDERED: ONDANSETRON 4MG/2ML VIAL (J2405) IV PRN (22:15)
--- NOTE | 2016-04-18 22:23 | HPEPDOC ---
Medical History and Physical Date of Admission 04/18/2016 History and Physical HISTORY AND PHYSICAL Date of admission: 04/18/2016 PCP: Dr. Galicia Chief complaint: Lightheaded, and pain in her legs HPI: 70-year-old female with hypertension, psoriasis, diabetes mellitus type 2, COPD, obstructive sleep apnea noncompliant with CPAP, anxiety, history of recurrent GI bleeds, chronic fractures in her bilateral legs for which she follows with someone in orthopedics named J Carlos, who I suspect is one of the physician's assistants who presented to the emergency department after she was lightheaded and loopy after going to the bathroom today. She states, that she felt a little lightheaded and her family was concerned so they brought her to the emergency department. She also states, that her legs up and hurting her quite a bit. She evidently, has recently been diagnosed with a fracture in each leg and is following with orthopedics, who is currently recommended to her that she try to stay off her feet as much as possible, but when she needs to get up and move around, that she use a walker. Upon further questioning, she does endorse diffuse abdominal pain, but denies any nausea or vomiting. She reports a bowel movement this morning. She also reports dysuria. Past medical history: Hypertension, psoriasis, diabetes mellitus type 2, COPD, obstructive sleep apnea noncompliant with CPAP, anxiety, history of recurrent GI bleeds, chronic fractures in her bilateral legs Past surgical history: Appendectomy, hysterectomy, cholecystectomy, 1 foot of small bowel resection, tonsillectomy Family history: Diabetes mellitus, coronary artery disease, COPD Social history: The patient quit smoking approximately 10 years ago. She denies any alcohol use. She currently lives with her boyfriend. Allergies: Ciprofloxacin, lisinopril, penicillin, tape Review of systems: General: Negative for fever and chills Eyes: Negative for vision changes and ocular discharge ENT: Negative for sore throat and nose bleed Cardiovascular: Positive for palpitations. She denies any current chest pain, but does report that she intermittently has chest pain. Respiratory: Positive for cough and shortness of breath GI: Negative for nausea, vomiting. Positive for diarrhea and abdominal pain Musculoskeletal: Positive for bilateral leg pain and back pain Skin: Negative for any rashes other than her chronic psoriasis Neuro: Negative for headache, dizziness, numbness, tingling Psych: Negative for depression and suicidal ideation Endocrine: Negative for polyuria : Positive for dysuria Heme: Negative for bruising and bleeding Home meds: See below Physical exam: Vital signs: Vital Sign - Last 24 Hours 04/18/16 04/18/16 04/18/16 04/18/16 15:43 16:07 17:04 17:12 Temp 98.3 Pulse 93 86 Resp 26 B/P 151/74 132/60 Pulse Ox 99 96 O2 Delivery Room Air Room Air 04/18/16 04/18/16 04/18/16 04/18/16 17:15 17:30 17:42 17:47 Pulse 92 B/P 119/56 160/68 173/83 Pulse Ox 73 04/18/16 04/18/16 04/18/16 04/18/16 18:02 18:12 18:15 18:17 Pulse 88 Resp 21 B/P 194/78 197/84 Pulse Ox 99 99 O2 Delivery Room Air 04/18/16 04/18/16 04/18/16 04/18/16 18:27 18:30 18:42 18:45 Pulse 90 Resp 21 B/P 198/88 206/90 Pulse Ox 97 04/18/16 04/18/16 04/18/16 04/18/16 19:00 19:12 19:23 19:32 Pulse 92 Resp 20 B/P 207/79 209/88 194/86 04/18/16 04/18/16 04/18/16 04/18/16 19:40 19:45 20:00 20:10 Pulse 96 116 B/P 196/84 198/88 Pulse Ox 98 94 04/18/16 04/18/16 04/18/16 04/18/16 20:15 20:30 20:40 20:45 Pulse 100 B/P 169/87 141/66 151/72 Pulse Ox 93 04/18/16 04/18/16 04/18/16 21:00 21:15 21:30 B/P 154/70 140/70 140/63 Gen.: awake, alert, no acute distress Eyes: Extraocular movements intact, normal sclera ENT: Moist mucous membranes Cardiovascular: RRR, soft systolic murmur Lungs: clear to auscultation bilaterally, no rales, rhonchi, or wheeze Abdomen: Soft, diffuse TTP, normal BS Extremities: Pedal pulses intact Neuro: alert and oriented 3, normal speech, no focal deficits Psych: Normal mood with congruent affect Labs and radiology: See below CBC is unremarkable, as are lactate and BNP Potassium 5.3 BUN 38, creatinine 1.12 Chest x-ray unremarkable CT of the abdomen and pelvis shows fatty liver as well as possible ileus in the proximal jejunum CTA of the chest shows no PE, but does note a chronic finding of a right thyroid low-density lesion Assessment and plan: 70-year-old female with hypertension, psoriasis, diabetes mellitus type 2, COPD , obstructive sleep apnea noncompliant with CPAP, anxiety, history of recurrent GI bleeds, chronic fractures in her bilateral legs who presented for some lightheadedness, and has been found to have hyperkalemia, acute kidney injury, and possible ileus. 1. Hyperkalemia: The patient's potassium is 5.3. We will give her a dose of Kayexalate, and recheck in the morning. We will hold her home LEYDA inhibitor. 2. Acute kidney injury: The patient's baseline creatinine is usually less than 1. She presents with a BUN of 38 and creatinine of 1.12. We will hold her home LEYDA inhibitor, Lasix, metformin, and low back. We will start her on some IV fluid hydration and recheck in the morning. 3. Possible ileus: This is noted on the CT of the abdomen and pelvis. While the patient denies any nausea or vomiting, she does report some abdominal pain. We will make her nothing by mouth, and started on IV fluids. We also will start her on a bowel regimen to help move things along. 4. Right thyroid low-density lesion: This is noted on the CTA of the chest and is read as a chronic finding. The patient is unaware of any thyroid issues. We will check a TSH and free T4. 5. Intermittent chest pain: The patient denies any chest pain at the moment, but reports that she does occasionally have chest pain and has over the last several days. We will trend her troponins. 6. Dysuria: We will check a UA and urine culture. 7. Systolic murmur: We will check an echocardiogram. 8. Hypertension: Holding home LEYDA inhibitor and Lasix for hyperkalemia and acute kidney injury. We will continue home Norvasc and chlorthalidone. 9. Diabetes mellitus type 2: We will hold home metformin. Use sliding scale insulin while in-house. Continue home statin and aspirin 10. COPD: The patient's lungs are currently clear. She does not report any home medications for this. We'll continue to monitor. 11. Obstructive sleep apnea noncompliant with CPAP: The patient was asked to bring her home CPAP then, and she tells me she is not actually sure where it is. 12. Chronic fractures in her bilateral legs: The patient evidently follows with one of the local orthopedics for this. She is unable to tell me the doctor's name other than that his first name is J Carlos. I believe that this might be one of the physician's assistants with the local group. We will continue her home Neurontin and narcotic. She reports that her orthopedic is currently allowing her to use a walker to get around. DVT prophylaxis: Lovenox Dispo: admit as an inpatient to the service of Dr. Zimmerman CODE STATUS: Full code Vital Signs see above Laboratory Data Labs 24H Laboratory Tests 2 04/18/16 17:04: Anion Gap 7L, B-Type Natriuretic Peptide 8.9, White Blood Count 6.0, Red Blood Count 4.30, Hemoglobin 11.7L, Hematocrit 35.3L, Mean Corpuscular Volume 82.1, Mean Corpuscular Hemoglobin 27.3, Mean Corpuscular Hemoglobin Concent 33.3, Red Cell Distribution Width 13.3, Platelet Count 139L, Neutrophils (%) (Auto) 69.8H , Lymphocytes (%) (Auto) 17.4L, Monocytes (%) (Auto) 6.4H, Eosinophils (%) (Auto ) 4.1H, Basophils (%) (Auto) 0.5, Neutrophils # (Auto) 4.2, Lymphocytes # (Auto ) 1.1L, Monocytes # (Auto) 0.4, Eosinophils # (Auto) 0.2, Basophils # (Auto) 0.0 , Blood Urea Nitrogen 38H, Creatinine 1.12H, Sodium Level 137, Potassium Level 5.3H, Chloride Level 103, Carbon Dioxide Level 27, Calcium Level 9.0, Glomerular Filtration Rate 51.3, Large Unclassified Cells # 0.1, Large Unclassified Cells % 1.7 04/18/16 19:36: Lactic Acid (Sepsis) 1.1 CBC/BMP Laboratory Tests 04/18/16 17:04 Calcium Level 9.0, Red Blood Count 4.30, Mean Corpuscular Volume 82.1, Mean Corpuscular Hemoglobin 27.3, Mean Corpuscular Hemoglobin Concent 33.3, Red Cell Distribution Width 13.3, Neutrophils (%) (Auto) 69.8 H, Lymphocytes (%) (Auto) 17.4 L, Monocytes (%) (Auto) 6.4 H, Eosinophils (%) (Auto) 4.1 H, Basophils (%) (Auto) 0.5, Neutrophils # (Auto) 4.2, Lymphocytes # (Auto) 1.1 L, Monocytes # ( Auto) 0.4, Eosinophils # (Auto) 0.2, Basophils # (Auto) 0.0 Home Medications Scheduled (Diclofenac Sodium) 1 % Gel 1 % TD QAM ([Clobelsalic]) 6 % QAM Amlodipine Besylate (Norvasc) 5 Mg Tab 5 MG PO QAM Apremilast Base (Otezla) 30 Mg Tab 30 MG PO BID Aspirin (Aspir-81) 81 Mg Tab 81 MG PO DAILY Atorvastatin Calcium (Atorvastatin Calcium) 40 Mg Tab 40 MG PO QHS Cholecalciferol (Vitamin D) 2,000 Unit Tab 2,000 UNIT PO QAM Cholestyramine (Cholestyramine) 4 Gm/Dose Pow 4 GM PO TID Clotrimazole (Clotrimazole Antifungal) 1 % Cre 1 EA TOP QAM Dicyclomine Hcl (Dicyclomine HCl) 10 Mg/5 Ml Rosamaria 10 MG PO Q2H Furosemide (Lasix) 20 Mg Tab 20 MG PO DAILY Gabapentin (Neurontin) 600 Mg Tab 300 MG PO QHS Lisinopril (Lisinopril) 40 Mg Tab 40 MG PO DAILY Meloxicam (Meloxicam) 7.5 Mg Tab 7.5 MG PO QAM Metformin Hydrochloride (Metformin HCl) 1,000 Mg Tab 1,000 MG PO BID Omeprazole (Omeprazole) 40 Mg Cap 40 MG PO BID Scheduled PRN ([Clobe Salic Lotion]) 1 DOSE TOP BIDP PRN PRN PSORIASIS Apply to affected areas for itching Clobetasol Propionate (Clobex) 0.05 % Lot 0.05 % TOP BIDP PRN PRN scaling Appply to scalp and affected skin areas twice daily as needed for rash Oxycodone/Acetaminophen (Oxycodone/Acetaminophen 5-325 mg) 1 Ea Tab 1 EA PO Q6HP PRN PRN PAIN Miscellaneous Medications Chlorthalidone (Chlorthalidone) 12.5 Mg Halftab 12.5 MG PO Allergies Coded Allergies: Lisinopril (Verified Allergy, Severe, TOUNGE SWELLING, 08/06/13) Penicillins (Verified Allergy, Intermediate, SWELLING, 08/06/13) Penicillins Cross Reactors (Verified Allergy, Intermediate, SWELLING, ) Ciprofloxacin (Verified Allergy, Unknown, 06/14/13) TAPE (Verified Allergy, Unknown, SURGICAL TAPE, 06/14/13) MISSAEL ZIMMERMAN Apr 18, 2016 22:23
[2016-04-18] MEDS ORDERED: OXYC1TAB23 PO (22:33)
[2016-04-18] MEDS ORDERED: LISI40TAB PO (22:33)
[2016-04-18] MEDS ORDERED: CLOB0.0513 EX (22:33)
[2016-04-18] MEDS ORDERED: SPIR25TA2 PO (22:34)
[2016-04-18] MEDS ORDERED: OXYB10TA PO (22:34)
[2016-04-19] VITALS: BP 144/79
[2016-04-19] MEDS: NS 1,000 ML IV SCH ×3 (00:19→14:10)
[2016-04-19] MEDS: DOCUSATE SODIUM 100 MG CAP PO SCH ×2 (00:23→09:12)
[2016-04-19] MEDS: PERCOCET 5MG/325MG TAB PO PRN ×3 (02:17→16:00)
[2016-04-19 06:00] VITALS: BP 135/80
[2016-04-19] MEDS: HumaLOG INSULIN (NovoLOG) PER UNIT SC SCH ×4 (06:00→17:25)
[2016-04-19 07:19] LABS: BASO % 0.6 % (0.0-1.0); EOS # 0.1 K/mm3 (0.0-0.50); EOS % 3.2 % (0.0-3.0); LARGE UNSTAINED CELL # 0.1 K/mm3 (0.0-0.4); LYMPH # 1.2 K/mm3 (1.5-4.5); LYMPH % 26.9 % (24.0-44.0); MEAN CORPUSCULAR HEMOGLOBIN 26.4 pg (27.0-33.0); MEAN CORPUSCULAR HGB CONC 32.3 g/dl (32.0-36.5); MEAN CORPUSCULAR VOLUME 81.5 fl (80.0-96.0); MONO # 0.4 K/mm3 (0.0-0.8); MONO % 8.9 % (0.0-5.0); NEUTROPHILS # 2.4 K/mm3 (1.8-7.7); NEUTROPHILS % 57.4 % (36.0-66.0); PLATELET COUNT, AUTOMATED 152 k/mm3 (150-450); RED CELL DISTRIBUTION WIDTH 13.3 % (11.5-14.5); WHITE BLOOD COUNT 4.3 K/mm3 (4.0-10.0)
[2016-04-19 07:55] LABS: ANION GAP 11 MEQ/L (8-16); BLOOD UREA NITROGEN 23 MG/DL (7-18); CALCIUM LEVEL 8.6 MG/DL (8.8-10.2); CARBON DIOXIDE LEVEL 25 MEQ/L (21-32); CHLORIDE LEVEL 108 MEQ/L (98-107); GLOMERULAR FILTRATION RATE > 60.0 (>45); GLUCOSE, FASTING 125 MG/DL (80-110); MAGNESIUM LEVEL 1.4 MG/DL (1.8-2.4); POTASSIUM SERUM 4.1 MEQ/L (3.5-5.1); SODIUM LEVEL 144 MEQ/L (136-145); T UPTAKE 35 % (30-39); THYROXINE (T4) 8.6 UG/DL (4.5-12.0)
--- NOTE | 2016-04-19 08:34 | REP ---
Bilateral knee series: Eight views. History: History of medial tibial plateau fracture. Comparison radiographs are from May 03, 2011. Findings: There is mild diffuse osteopenia. Some vascular calcification is noted. There is early spurring at the superior pole of the left patella at the quadriceps tendon insertion. Minimal similar spurring is noted on the right. Four views of each knee show otherwise normal bones, joints, and soft tissues. Impression: Minimal patellar spurring. No acute bony abnormality. Signed by Jaison Cantu MD 04/19/2016 01:07 P
[2016-04-19] MEDS ORDERED: ENOXAPARIN 30 MG/0.3 ML SYR (J1650) SC SCH (09:00)
--- NOTE | 2016-04-19 09:03 | ECGEPIP ---
Stationary ECG Study [facility] - ED Test Date: 2016-04-18 Pat Name: ROOSEVELT MYERS Department: Room: [place] [address] Gender: F Legal Paraprofessional: lilian : 1945 Requested By: ROCKY Woodruff Order Number: [id number] Reading MD: June Lam Measurements Intervals [place] Rate: 92 P: 46 NV: 156 QRS: 47 QRSD: 94 T: 34 QT: 333 QTc: 413 Interpretive Statements SINUS RHYTHM POSSIBLE INFERIOR MYOCARDIAL INFARCTION, PROBABLY OLD NSTTW ABNORMALITY SIMILAR 01/04/16 Electronically Signed On 04-19-2016 9:03:24 EDT by June Lam
[2016-04-19] MEDS: MAG SULF 1GM/100ML (MAG RUN) 1 GM in APPROPRIATE DILUENT 1 EA IV SCH ×2 (09:13→10:48)
[2016-04-19] MEDS: MIRALAX *UNIT DOSE* 17GM PACKET PO SCH (09:13)
[2016-04-19 14:00] VITALS: BP 176/78
--- NOTE | 2016-04-19 14:08 | DS.PDOC ---
Discharge Summary General Date of Admission Apr 18, 2016 at 22:10 Date of Discharge 04/19/2016 Discharge Summary DATE OF ADMISSION: 04/18/2016 DATE OF DISCHARGE: 04/19/2016 PRIMARY CARE PHYSICIAN: Dr. Sepulveda DISCHARGE DIAGNOS(E)S: Hyperkalemia Acute kidney injury Ileus Right thyroid low-density lesion Systolic heart murmur HPI & HOSPITAL COURSE: 70-year-old female with hypertension, psoriasis, diabetes mellitus type 2, COPD , obstructive sleep apnea noncompliant with CPAP, anxiety, history of recurrent GI bleeds, chronic fractures in her bilateral legs who presented for some lightheadedness, and has been found to have hyperkalemia, acute kidney injury, and possible ileus. 1. Hyperkalemia: The patient's potassium was 5.3 on admit. She received one dose of Kayexalate, and K this AM was 4.1 We have held her home LEYDA inhibitor and spironolactone; she should not restart these until she and a BMP are reevaluated by her PCP. 2. Acute kidney injury: The patient's baseline creatinine is usually less than 1. She presented with a BUN of 38 and creatinine of 1.12. We held her home LEYDA inhibitor, Lasix, metformin, and spironolactone. With IVF hydration, this resolved. On discharge, we are restarting home lasix and metformin, but ACEI and spironolactone are on hold as above. 3. Possible ileus: This is noted on the CT of the abdomen and pelvis. While the patient denies any nausea or vomiting, she does report some abdominal pain. Overnight she was nothing by mouth, and started on IV fluids. We also started her on a bowel regimen to help move things along. Today, she has had a bowel movement and tolerated lunch. She was instructed to return if she begins vomiting. 4. Right thyroid low-density lesion: This is noted on the CTA of the chest and is read as a chronic finding. The patient is unaware of any thyroid issues. TSH was a bit low but free T4 was WNL. She will need outpatient follow up for this. 5. Intermittent chest pain: The patient denies any chest pain on admission, during admission, or on discharge, but reported that she does occasionally have chest pain and has over the last several days prior to admission. EKG and troponins were unremarkable. 6. Dysuria: UA was not indicative of infection; Ucx is pending. 7. Systolic murmur: Echo has been ordered and will be completed prior to discharge. She will need follow up with PCP for results. 8. Hypertension: Holding home LEYDA inhibitor and Lasix for hyperkalemia and acute kidney injury. We will continue home Norvasc and chlorthalidone. Lasix will be resumed at discharge; ACEI on hold until seen by PCP. 9. Diabetes mellitus type 2: We held home metformin. Use sliding scale insulin while in-house. Continue home statin and aspirin. Metformin will be resumed at discharge. 10. COPD: The patient's lungs are currently clear. She does not report any home medications for this. We'll continue to monitor. 11. Obstructive sleep apnea noncompliant with CPAP: The patient was asked to bring her home CPAP then, and she tells me she is not actually sure where it is. 12. Chronic fractures in her bilateral legs: The patient evidently follows with one of the local orthopedics for this. She is unable to tell me the doctor's name other than that his first name is J Carlos. I believe that this might be one of the physician's assistants with the local group. We will continue her home Neurontin and narcotic. She reports that her orthopedic is currently allowing her to use a walker to get around. DVT prophylaxis: Lovenox PHYSICAL EXAMINATION ON DISCHARGE: VITAL SIGNS: Vital Signs Date Time Temp Pulse Resp B/P Pulse Ox O2 Delivery O2 Flow Rate FiO2 04/19/16 09:42 16 Room Air 04/19/16 06:00 99.5 89 135/80 92 Gen.: awake, alert, no acute distress Eyes: Extraocular movements intact, normal sclera ENT: Moist mucous membranes Cardiovascular: RRR, soft systolic murmur Lungs: clear to auscultation bilaterally, no rales, rhonchi, or wheeze Abdomen: Soft, diffuse TTP, normal BS Extremities: Pedal pulses intact Neuro: alert and oriented 3, normal speech, no focal deficits Psych: Normal mood with congruent affect CONDITION ON DISCHARGE: The patient stated that she felt well. She denied any chest pain or trouble breathing. She tolerated lunch and did not have any nausea or vomiting. Secondary to the large snowstorm that was arriving, she really wanted to go home today, rather than wait tomorrow for her echo results. Since her admission was not for any cardiac concerns, and she reports that she has good follow-up with her PCP Dr. Sepulveda, the decision was made that the patient's echo would be completed while she was here in the hospital, but that she would see her PCP within the next week to follow up the results of this. DISPOSITION: Home DISCHARGE INSTRUCTIONS: Follow-up with PCP in one week. If symptoms return, or if you experience worsening of your symptoms ( particularly vomiting), please call your doctor or return to the emergency department. ITEMS THAT NEED OUTPATIENT FOLLOWUP: Echo results (systolic murmur heard on exam) Repeat BMP to assess K and Cr - determine if she should restart spironolactone and ACEI Further work up of thyroid low density Patient was seen and examined by me on the day of discharge, and I spent a total time of greater than 30 minutes on this discharge. Vital Signs/I&Os Vital Signs Date Time Temp Pulse Resp B/P Pulse Ox O2 Delivery O2 Flow Rate FiO2 04/19/16 09:42 16 Room Air 04/19/16 06:00 99.5 89 135/80 92 I&O- Last 24 Hours up to 6 AM 04/19/16 05:59 Intake Total 0 ml Output Total 800 ml Balance -800 ml Laboratory Data Labs 24H Laboratory Tests 2 04/18/16 17:04: Anion Gap 7L, B-Type Natriuretic Peptide 8.9, White Blood Count 6.0, Red Blood Count 4.30, Hemoglobin 11.7L, Hematocrit 35.3L, Mean Corpuscular Volume 82.1, Mean Corpuscular Hemoglobin 27.3, Mean Corpuscular Hemoglobin Concent 33.3, Red Cell Distribution Width 13.3, Platelet Count 139L, Neutrophils (%) (Auto) 69.8H , Lymphocytes (%) (Auto) 17.4L, Monocytes (%) (Auto) 6.4H, Eosinophils (%) (Auto ) 4.1H, Basophils (%) (Auto) 0.5, Neutrophils # (Auto) 4.2, Lymphocytes # (Auto ) 1.1L, Monocytes # (Auto) 0.4, Eosinophils # (Auto) 0.2, Basophils # (Auto) 0.0 , Blood Urea Nitrogen 38H, Creatinine 1.12H, Sodium Level 137, Potassium Level 5.3H, Chloride Level 103, Carbon Dioxide Level 27, Calcium Level 9.0, Total Creatine Kinase 31, Creatine Kinase MB 1.0, Creatine Kinase MB Relative Index 3.22, Glomerular Filtration Rate 51.3, Large Unclassified Cells # 0.1, Large Unclassified Cells % 1.7, Troponin I < 0.02 04/18/16 19:36: Lactic Acid (Sepsis) 1.1 04/19/16 00:12: Bedside Glucose (Misc Panel) 121H 04/19/16 06:47: Bedside Glucose (Misc Panel) 155H 04/19/16 06:51: Anion Gap 11, White Blood Count 4.3, Red Blood Count 4.07, Hemoglobin 10.7L, Hematocrit 33.1L, Mean Corpuscular Volume 81.5, Mean Corpuscular Hemoglobin 26.4L, Mean Corpuscular Hemoglobin Concent 32.3, Red Cell Distribution Width 13.3, Platelet Count 152, Neutrophils (%) (Auto) 57.4, Lymphocytes (%) (Auto) 26.9, Monocytes (%) (Auto) 8.9H, Eosinophils (%) (Auto) 3.2H, Basophils (%) ( Auto) 0.6, Neutrophils # (Auto) 2.4, Lymphocytes # (Auto) 1.2L, Monocytes # ( Auto) 0.4, Eosinophils # (Auto) 0.1, Basophils # (Auto) 0.0, Blood Urea Nitrogen 23H, Creatinine 0.80, Sodium Level 144#, Potassium Level 4.1#, Chloride Level 108H, Carbon Dioxide Level 25, Calcium Level 8.6L, Creatine Kinase MB 1.0, Creatine Kinase MB Relative Index 4.76H, Free Thyroxine Index 3.0 , Glomerular Filtration Rate > 60.0, Large Unclassified Cells # 0.1, Large Unclassified Cells % 3.0, Magnesium Level 1.4L, Thyroid Stimulating Hormone (TSH ) 0.190L, Thyroxine (T4) 8.6, Total Creatine Kinase 21L, Triiodothyronine (T3) Uptake 35, Troponin I < 0.02 04/19/16 11:58: Bedside Glucose (Misc Panel) 168H 04/19/16 12:18: Urine Amorphous Sediment , Urine Appearance CLEAR, Urine Color YELLOW, Urine pH 5.0, Urine Specific [place] 1.016, Urine Protein NEGATIVE, Urine Glucose (UA) NEGATIVE, Urine Ketones TRACEH, Urine Urobilinogen 0.2, Urine Bilirubin NEGATIVE , Urine Leukocyte Esterase NEGATIVE, Urine Bacteria (Auto) 1+H, Urine Blood NEGATIVE, Urine Calcium Carbonate Cryst(Auto) , Urine Calcium Oxalate Cryst ( Auto) , Urine Calcium Phosphate Yolanda (Auto) , Urine Cellular Casts , Urine Cystine Crystals , Urine Granular Casts (Auto) , Urine Hyaline Casts (Auto) 0, Urine Leucine Crystals , Urine Mucus (Auto) SMALL, Urine Nitrite NEGATIVE, Urine Oval Fat Bodies (Auto) , Urine RBC (Auto) 2, Urine Renal Epithelial Cells , Urine Sperm (Auto) , Urine Squamous Epithelial Cells 1, Urine Transitional Epithelial Cells , Urine Trichomonas (Auto) , Urine Triple Phosphate Cryst (Auto ) , Urine Tyrosine Crystals , Urine Uric Acid Crystals (Auto) , Urine WBC (Auto ) 2, Urine Waxy Casts (Auto) , Urine Yeast-Like Cells (Auto) CBC/BMP Laboratory Tests 04/18/16 17:04 Calcium Level 9.0, Total Creatine Kinase 31, Red Blood Count 4.30, Mean Corpuscular Volume 82.1, Mean Corpuscular Hemoglobin 27.3, Mean Corpuscular Hemoglobin Concent 33.3, Red Cell Distribution Width 13.3, Neutrophils (%) (Auto ) 69.8 H, Lymphocytes (%) (Auto) 17.4 L, Monocytes (%) (Auto) 6.4 H, Eosinophils (%) (Auto) 4.1 H, Basophils (%) (Auto) 0.5, Neutrophils # (Auto) 4.2 , Lymphocytes # (Auto) 1.1 L, Monocytes # (Auto) 0.4, Eosinophils # (Auto) 0.2, Basophils # (Auto) 0.0 04/19/16 06:51 Calcium Level 8.6 L, Red Blood Count 4.07, Mean Corpuscular Volume 81.5, Mean Corpuscular Hemoglobin 26.4 L, Mean Corpuscular Hemoglobin Concent 32.3, Red Cell Distribution Width 13.3, Neutrophils (%) (Auto) 57.4, Lymphocytes (%) (Auto ) 26.9, Monocytes (%) (Auto) 8.9 H, Eosinophils (%) (Auto) 3.2 H, Basophils (%) (Auto) 0.6, Neutrophils # (Auto) 2.4, Lymphocytes # (Auto) 1.2 L, Monocytes # ( Auto) 0.4, Eosinophils # (Auto) 0.1, Basophils # (Auto) 0.0 FSBS Laboratory Tests Test 04/19/16 00:12 04/19/16 06:47 04/19/16 11:58 Range/Units Bedside Glucose (Misc Panel) 121 155 168 80-115 MG/DL Microbiology Microbiology 04/19/16 Urine Culture, Received Pending Discharge Medications Scheduled Amlodipine Besylate (Norvasc) 5 Mg Tab 5 MG PO DAILY (Reported) Apremilast Base (Otezla) 30 Mg Tab 30 MG PO BID (Reported) Aspirin (Aspir-81) 81 Mg Tab 81 MG PO DAILY (Reported) Atorvastatin Calcium (Atorvastatin Calcium) 40 Mg Tab 40 MG PO QHS (Reported) Chlorthalidone (Chlorthalidone) 12.5 Mg Halftab 12.5 MG PO DAILY (Reported) Cholecalciferol (Vitamin D) 2,000 Unit Tab 2,000 UNIT PO DAILY (Reported) Furosemide (Lasix) 20 Mg Tab 20 MG PO DAILY (Reported) Gabapentin (Neurontin) 600 Mg Tab 300 MG PO QHS (Reported) Meloxicam (Meloxicam) 7.5 Mg Tab 7.5 MG PO DAILY (Reported) Metformin Hydrochloride (Metformin HCl) 1,000 Mg Tab 1,000 MG PO BID (Reported ) Omeprazole (Omeprazole) 40 Mg Cap 40 MG PO BID (Reported) Oxybutynin Chloride (Oxybutynin Chloride ER) 10 Mg Tab 10 MG PO DAILY (Reported ) Scheduled PRN (Diclofenac Sodium) 1 % Gel 1 DOSE TD QID PRN PRN ARTHRITIS (Reported) APPLIES TO HANDS Clobetasol Propionate (Clobex) 0.05 % Lot 0.05 % TOP BID PRN PRN PSORIASIS ( Reported) APPLY TO SCALP AND AFFECTED AREAS NEEDED Clobetasol Propionate (Clobex) 0.05 % Lot 1 DOSE EX BID PRN PRN PSORIASIS ( Reported) APPLIES TO AFFECTED AREAS THAT ITCHES Oxycodone/Acetaminophen (Oxycodone/Acetaminophen 5-325 mg) 1 Tab Tab 1 TAB PO TID PRN PRN PAIN (Reported) Allergies Coded Allergies: Lisinopril (Verified Allergy, Severe, TOUNGE SWELLING, 08/06/13) Penicillins (Verified Allergy, Intermediate, SWELLING, 08/06/13) Penicillins Cross Reactors (Verified Allergy, Intermediate, SWELLING, ) Ciprofloxacin (Verified Allergy, Unknown, 06/14/13) TAPE (Verified Allergy, Unknown, SURGICAL TAPE, 06/14/13) MISSAEL SWEENEY Apr 19, 2016 14:07
--- NOTE | 2016-04-20 15:59 | ECHO ---
DATE OF PROCEDURE: 04/19/2016 AGE: 70 GENDER: Female HEIGHT: 62 inches WEIGHT: 249 pounds BODY SURFACE AREA: 2.09 m2 PATIENT LOCATION: Inpatient, [address] [place] [address], room 5141 REFERRING PHYSICIAN: Stacy Zimmerman MD INDICATION: Murmur. 2-D MEASUREMENTS: RV: 4.0 cm LV: 4.0 cm Septum: 1.1 cm Posterior wall: 1.1 cm Aortic root: 3.1 cm LA: 4.0 cm LVEF: 75% DOPPLER MEASUREMENTS: AV: 2.4 m/s LVOT: 1.1 m/s LVOT diameter: 2.0 cm Mean AV systolic gradient: 12 mmHg MV-E: 86, A: 110, EA ratio: 0/8 Early mitral deceleration time: 95 ms E prime: 8.3, A prime: 14, E/A prime ratio: 10.3 PV: 1.2 m/s Pulmonary artery acceleration time: 67 ms RVSP: 56 mmHg IVC: 2.1 cm COMMENTS: Sinus tachycardia averaging 107 bpm. No intraventricular conduction disturbance. Mildly dilated left atrium, but normal left ventricular size. Right ventricle was at least borderline increased in size with mildly dilated right atrium. LV wall thickness was upper limits of normal. On real-time imaging from the parasternal and apical projections wall motion was symmetrical and hyperkinetic. Mildly thickened mitral annulus, but normal leaflet thickness and excursion with no posterior systolic buckling. Three equal size aortic cusps with mild - moderately thickened cusp edges, normal aortic root size. No apparent intracardiac mass and subtle fat pad, but no pericardial effusion. Color flow Doppler study taken from the parasternal and apical projection showed moderate tricuspid with trace mitral and no aortic insufficiency. Guided continuous wave Doppler of her aortic valve and pulsed Doppler study of her LV outflow tract taken from the apical long axis and five chamber projections showed an increased peak systolic velocity and mean gradient with dimensionless index of 0.41 - in keeping with a mild degree of calcific aortic stenosis. Pulsed and continuous wave Doppler of her LV inflow tract taken from the apical four-chamber projection showed normal diastolic filling velocities against mitral stenosis. There was more prominent late diastolic / atrial dependent filling pattern. A degree of LV diastolic dysfunction was confirmed using tissue Doppler of her mitral annulus with current estimated mean left atrial pressure still within normal limits. Pulsed and continuous wave Doppler of her pulmonary trunk showed a normal peak systolic velocity against RV outflow tract obstruction. Her pulmonary artery acceleration time was abbreviated consistent with an elevated pulmonary vascular resistance. Guided continuous wave Doppler of her tricuspid valve allowed our estimation of her right ventricular systolic pressure (moderately severely increased). Her IVC was upper limits of normal in size with adequate respiratory collapse suggestive of central venous pressure of approximately 10 mmHg. CONCLUSIONS: Mild calcific aortic stenosis. Mild mitral annular thickening, but no functional valvular abnormality. Normal left ventricular size and wall thickness with hyperkinetic wall motion. Mildly dilated left atrium with Doppler evidence of an impairment of LV diastolic function but currently normal estimated mean left atrial pressure. Borderline right ventricular enlargement with Doppler evidence of moderately severe pulmonary hypertension. Slightly dilated right atrium and IVC upper limits of normal in size with adequate respiratory collapse against a significantly elevated central venous pressure at this time. Based on the above test findings we would recommend a followup echocardiogram to reassess her left ventricle outflow tract obstruction in 2 years time.
== END 2016-04-19 20:30 | disposition home or self-care (01) | DRG 641 ==
LOC: M ED 17:14 → M ED INP 22:10 → M MS5PR 23:40
PROVIDERS: ADMIT Hospitalist; ATTEND Hospitalist
DX: E87.5 Hyperkalemia (principal); N17.9 Acute kidney failure, unspecified; K56.7 Ileus, unspecified; I10 Essential (primary) hypertension; L40.9 Psoriasis, unspecified; E11.9 Type 2 diabetes mellitus without complications; J44.9 Chronic obstructive pulmonary disease, unspecified; G47.33 Obstructive sleep apnea (adult) (pediatric); F41.9 Anxiety disorder, unspecified; Z90.49 Acquired absence of other specified parts of digestive tract; Z90.710 Acquired absence of both cervix and uterus; Z87.891 Personal history of nicotine dependence; Z88.0 Allergy status to penicillin; Z88.1 Allergy status to other antibiotic agents; Z88.8 Allergy status to other drugs, medicaments and biological substances; Z91.048 Other nonmedicinal substance allergy status; R30.0 Dysuria; Z79.82 Long term (current) use of aspirin; Z79.84 Long term (current) use of oral hypoglycemic drugs; Z79.899 Other long term (current) drug therapy; Z79.891 Long term (current) use of opiate analgesic

== ENCOUNTER → 2016-05-26 | Outpatient (CLI) | payer MEDICARE, OTHER ==
[~2016-05-26] MED LIST changes: +ASPI81TA85 PO; +ATOR40TA PO; +CHLO125TA PO; +CHOL4POW3 PO; +CLOB0.0513 EX; +CLOTRIMAZOLE ANTI12 TOP; +DICL1GEL3 TD; +DICY10SO PO; +LASI20TA PO; +MELO7.5T6 PO; +METF1000 PO; +OMEP40CA2 PO; +OTEZ1TAB3 PO; +OXYB10TA PO; +OXYC1TAB23 PO; +SPIR25TA2 PO; +VITA200015 PO; +[UNRECOGNIZED DRUG - OTHER]
[2016-05-26 13:27] LABS: CALCIUM LEVEL 9.2 MG/DL (8.8-10.2); CREATININE FOR GFR 1.22 MG/DL (0.55-1.02); GLOMERULAR FILTRATION RATE 46.5 (>45); POTASSIUM SERUM 5.1 MEQ/L (3.5-5.1)
== END ==
LOC: M WUC 09:32
PROVIDERS: ATTEND Family Medicine
DX: E87.5 Hyperkalemia (principal)

== ENCOUNTER → 2016-06-14 | Outpatient (REF) | payer MEDICARE, BC, OTHER ==
[~2016-06-14] MED LIST changes: -ATOR40TA PO; +ATOR40TA75 PO; -CART240C PO; +CART240C3 PO; +CARV3.12 PO; +CHLO25TA PO; +CLOT1CRE TOP; -DILT180C53 PO; +DILT180C71 PO; +FLUO0.0114 TOP; -FOLI1TAB2 PO; +FOLI1TAB4 PO; +GABA-282 PO; +LISI10TA4 PO; +MAG400TA PO; -MELO7.5T6 PO; +MELO7.5T7 PO; -METF1000 PO; +METF10004 PO; +MUPI2OI TOP; +MUPI30CR TOP; +RANI150T PO; +SENN8.6C PO; +SUCR1TAB56 PO; +VANC250C2 PO; +VITA200016 PO; +ZOFR4TAB3 PO
== END ==
LOC: M SFHCPLAZ 16:49
PROVIDERS: ATTEND Family Medicine
DX: L98.491 Non-pressure chronic ulcer of skin of other sites limited to breakdown of skin (principal); E11.40 Type 2 diabetes mellitus with diabetic neuropathy, unspecified; Z79.84 Long term (current) use of oral hypoglycemic drugs; Z79.82 Long term (current) use of aspirin
CPT/HCPCS: 87070; 87077; 87186; 87205; G0463

== ENCOUNTER 2016-06-19 13:08 | Inpatient (IN) | payer MEDICARE, BC, OTHER ==
[~2016-06-19] VITALS: Ht 157.5 cm; Wt 114.0 kg
[~2016-06-19 13:08] MED LIST changes: +ATOR40TA PO; -ATOR40TA75 PO; +CART240C PO; -CART240C3 PO; -CARV3.12 PO; -CHLO25TA PO; -CLOT1CRE TOP; +DILT180C53 PO; -DILT180C71 PO; -FLUO0.0114 TOP; +FOLI1TAB2 PO; -FOLI1TAB4 PO; -GABA-282 PO; -LISI10TA4 PO; -MAG400TA PO; +MELO7.5T6 PO; -MELO7.5T7 PO; +METF1000 PO; -METF10004 PO; -MUPI2OI TOP; -MUPI30CR TOP; -RANI150T PO; -SENN8.6C PO; -SUCR1TAB56 PO; -VANC250C2 PO; -VITA200016 PO; -ZOFR4TAB3 PO
[2016-06-19 15:03] LABS: BASO % 0.5 % (0.0-1.0); EOS # 0.1 K/mm3 (0.0-0.50); EOS % 1.6 % (0.0-3.0); LARGE UNSTAINED CELL # 0.1 K/mm3 (0.0-0.4); LARGE UNSTAINED CELL % 1.4 % (0.0-4.0); LYMPH # 1.4 K/mm3 (1.5-4.5); LYMPH % 18.8 % (24.0-44.0); MEAN CORPUSCULAR HGB CONC 32.2 g/dl (32.0-36.5); MEAN CORPUSCULAR VOLUME 83.7 fl (80.0-96.0); MONO # 0.5 K/mm3 (0.0-0.8); MONO % 6.7 % (0.0-5.0); NEUTROPHILS # 4.7 K/mm3 (1.8-7.7); NEUTROPHILS % 70.9 % (36.0-66.0); PLATELET COUNT, AUTOMATED 219 k/mm3 (150-450); RED CELL DISTRIBUTION WIDTH 14.6 % (11.5-14.5); WHITE BLOOD COUNT 6.6 K/mm3 (4.0-10.0)
[2016-06-19 15:22] LABS: ALBUMIN 3.2 GM/DL (3.2-5.2); ALBUMIN/GLOBULIN RATIO 0.94 (1.00-1.93); ALKALINE PHOSPHATASE 83 U/L (45-117); ALT/SGPT 13 U/L (12-78); ANION GAP 8 MEQ/L (8-16); AST/SGOT 10 U/L (15-37); BILIRUBIN,DIRECT < 0.1 MG/DL (0.0-0.2); BILIRUBIN,TOTAL 0.3 MG/DL (0.2-1.0); BLOOD UREA NITROGEN 63 MG/DL (7-18); CALCIUM LEVEL 8.3 MG/DL (8.8-10.2); CARBON DIOXIDE LEVEL 22 MEQ/L (21-32); CHLORIDE LEVEL 98 MEQ/L (98-107); CREATININE FOR GFR 2.41 MG/DL (0.55-1.02); GLOMERULAR FILTRATION RATE 21.1 (>39); GLUCOSE, FASTING 97 MG/DL (83-110); SODIUM LEVEL 128 MEQ/L (136-145); TOTAL PROTEIN 6.6 GM/DL (6.4-8.2)
[2016-06-19 15:24] LABS: POTASSIUM SERUM 6.2 MEQ/L (3.5-5.1)
[2016-06-19] MEDS ORDERED: HumuLIN R (REGULAR) INSULIN (NovoLIN R) **100U/ML** PER UNIT SC STA (15:25)
[2016-06-19] MEDS ORDERED: ALBUTEROL SULFATE 2.5 MG/0.5 ML INH NEB SOLN NEB ONE (15:30)
[2016-06-19] MEDS ORDERED: SOD POLYSTYRENE SULFONATE SUSP 15 GM/60 ML UD PO ONE (15:30)
[2016-06-19] MEDS ORDERED: DEXTROSE 50% 50 ML VIAL IV ONE (15:30)
[2016-06-19 17:47] LABS: CALCIUM LEVEL 8.6 MG/DL (8.8-10.2); CREATININE FOR GFR 2.28 MG/DL (0.55-1.02); GLOMERULAR FILTRATION RATE 22.5 (>39); POTASSIUM SERUM 4.8 MEQ/L (3.5-5.1)
[2016-06-19] MEDS ORDERED: GABA-282 PO (18:55)
[2016-06-19] MEDS ORDERED: MUPI30CR TOP (18:56)
[2016-06-19] MEDS ORDERED: MUPI2OI TOP (18:56)
[2016-06-19] MEDS ORDERED: LISI40TAB PO (18:57)
[2016-06-19] MEDS ORDERED: VANC250C2 PO (18:57)
[2016-06-19] MEDS ORDERED: SPIR25TA2 PO (18:57)
[2016-06-19] MEDS ORDERED: CLOTR1CR TOP (18:58)
[2016-06-19] MEDS ORDERED: FLUO0.0114 TOP (18:59)
[2016-06-19] MEDS ORDERED: ONDANSETRON 4MG/2ML VIAL (J2405) IV PRN (19:30)
[2016-06-19] MEDS ORDERED: ACETAMINOPHEN TAB 650MG DOSE (2X325MG) PO PRN (19:30)
[2016-06-19] MEDS ORDERED: DEXTROSE 50% 50 ML SYRINGE IV PRN (19:45)
[2016-06-19] MEDS ORDERED: GLUCOSE 4 GM CHEW TABLET PO PRN (19:45)
[2016-06-19] MEDS ORDERED: GLUCAGON FOR INJ 1 MG VIAL (J1610) SC PRN (19:45)
[2016-06-19] MEDS ORDERED: CLOTRIMAZOLE 1% TOPICAL CREAM 30GM TOP PRN (19:45)
[2016-06-19] MEDS: HumaLOG INSULIN (NovoLOG) PER UNIT SC SCH (21:00)
[2016-06-19 21:30] LABS: FREE T4 1.1 NG/DL (0.76-1.46)
[2016-06-19 21:40] VITALS: BP 124/79
[2016-06-19] MEDS: NYSTATIN 100,000 UNITS/GM TOPICAL PWD 15 GM TOP SCH (22:24)
[2016-06-19] MEDS: NS 1,000 ML IV SCH (22:24)
[2016-06-19] MEDS: GABAPENTIN 300 MG CAP PO SCH (22:24)
[2016-06-19] MEDS: OMEPRAZOLE 20 MG CAP PO SCH (22:24)
[2016-06-19] MEDS: HEPARIN SOD (PORCINE) 5000 UNITS/ML VIAL SC SCH (22:25)
[2016-06-19 23:36] LABS: CALCIUM LEVEL 8.4 MG/DL (8.8-10.2); CREATININE FOR GFR 1.82 MG/DL (0.55-1.02); GLOMERULAR FILTRATION RATE 29.2 (>39); POTASSIUM SERUM 4.8 MEQ/L (3.5-5.1)
[2016-06-20] VITALS: BP 104/60
[2016-06-20 04:00] VITALS: BP 122/58
[2016-06-20 05:16] LABS: MEAN CORPUSCULAR HEMOGLOBIN 27.3 pg (27.0-33.0); MEAN CORPUSCULAR HGB CONC 32.7 g/dl (32.0-36.5); MEAN CORPUSCULAR VOLUME 83.5 fl (80.0-96.0); RED CELL DISTRIBUTION WIDTH 14.9 % (11.5-14.5); WHITE BLOOD COUNT 5.3 K/mm3 (4.0-10.0)
[2016-06-20] MEDS: HEPARIN SOD (PORCINE) 5000 UNITS/ML VIAL SC SCH ×3 (05:18→21:15)
[2016-06-20 05:37] LABS: CALCIUM LEVEL 8.5 MG/DL (8.8-10.2); CREATININE FOR GFR 1.41 MG/DL (0.55-1.02); GLOMERULAR FILTRATION RATE 39.3 (>39)
[2016-06-20 05:40] LABS: POTASSIUM SERUM 5.3 MEQ/L (3.5-5.1)
[2016-06-20] MEDS ORDERED: SOD POLYSTYRENE SULFONATE SUSP 15 GM/60 ML UD PO ONE ×2 (07:30→14:00)
--- NOTE | 2016-06-20 07:34 | REP ---
CHEST, TWO VIEWS: Two views of the chest are performed and compared to prior studies most recent of which is 04/18/2016. There is interstitial fibrosis which is stable bilaterally. No acute infiltrate is seen. There is mild cardiomegaly and left ventricular prominence. There is mild calcification of the thoracic aorta. The mediastinal silhouette is unchanged. There are mild degenerative changes of the spine. IMPRESSION: Stable chronic findings without evidence of acute infiltrate. Signed by Driss Knapp MD 06/20/2016 12:17 P
[2016-06-20 07:50] LABS: MAGNESIUM LEVEL 1.5 MG/DL (1.8-2.4); PHOSPHORUS LEVEL 4.1 MG/DL (2.5-4.9)
[2016-06-20 08:00] VITALS: BP 132/67
[2016-06-20] MEDS: ASPIRIN 81 MG ENTERIC TAB PO SCH (08:02)
[2016-06-20] MEDS: VITAMIN D 1,000 INTERNATIONAL UNITS TABLET PO SCH (08:02)
[2016-06-20] MEDS: ATORVASTATIN 20 MG TAB PO SCH (08:02)
[2016-06-20] MEDS: OMEPRAZOLE 20 MG CAP PO SCH ×2 (08:02→21:15)
[2016-06-20] MEDS: amLODIPine 5 MG TAB PO SCH (08:06)
[2016-06-20] MEDS: MUPIROCIN 2% OINT 22 GM TUBE TOP SCH (08:06)
[2016-06-20] MEDS: NYSTATIN 100,000 UNITS/GM TOPICAL PWD 15 GM TOP SCH ×2 (08:07→21:17)
[2016-06-20] MEDS ORDERED: PANTOPRAZOLE 40MG TAB (PROTONIX) PO SCH (09:00)
[2016-06-20] MEDS: HumaLOG INSULIN (NovoLOG) PER UNIT SC SCH ×4 (09:25→20:43)
[2016-06-20] MEDS: NS 1,000 ML IV SCH ×2 (10:20→21:15)
[2016-06-20 12:00] VITALS: BP 142/73
[2016-06-20 12:55] LABS: CALCIUM LEVEL 9.3 MG/DL (8.8-10.2); CREATININE FOR GFR 1.08 MG/DL (0.55-1.02); GLOMERULAR FILTRATION RATE 53.4 (>39)
[2016-06-20 13:03] LABS: POTASSIUM SERUM 5.4 MEQ/L (3.5-5.1)
[2016-06-20 16:00] VITALS: BP 138/67
--- NOTE | 2016-06-20 16:24 | IPNPDOC ---
Text Note Date of Service The patient was seen on 06/20/16. NOTE Subjective: Patient is a 71 year old female with a PMHx of Diastolic CHF, HTN, NIDDM2, Hx of Gastric ulcer, and chronic lymphedema who presented to the ER dizziness. She was found to have SHAKA and Hyperkalemia and was admitted to telemetry. Patient was seen and examined at the bedside. Patient did not have any new complaints today. Objective: Vitals (See below) General: Lying in bed, no acute distress, comfortable, AAOx3 HEENT: NC, AT CVS: RRR, +S1S2 Lungs: Fair air entry b/l, -w/r/r Abdomen: Soft, ND, NT, +BSx4, R lower quadrant abdominal wound Extremities: +PPx4, No pitting lymphedema, - Calf tenderness Assessment and plan: 1. Acute kidney injury - likely 2/2 pre-renal etiology, less likely renal or post-renal etiology - History of recent C. diff colitis - has been on Vancomycin 250 QID since 2016 for 14 days - No reported diarrhea at this time - Presented with a Cr of 2.4; baseline Cr of 0.8 - Was hypokalemic upon presentation - Physical reveals no signs of fluid overload at this time - Creatinine has trended down to 1.08 - Will c/w IV fluid hydration with NS 2. Hyperkalemia - s/p Kayexalate 15g PO - will give additional Kayexalate now - will change diet to renal diet 3. Normocytic anemia - Hg baseline of 12-13 - Currently below baseline at 10 - No evidence of bleeding - Colonoscopy 03/2003: Diverticulosis and hemorrhoids - Will check stool for occult blood - Will monitor for now 4. Diastolic CHF - c/w Lisinopril - Spironolactone and Lasix daily from home has been on hold 5. HTN - c/w Amlodipine and Lisinopril with holding parameters 6. NIDDM2 - c/w ISS 7. DLP - c/w atorvastatin 8. Hx of Gastric ulcers - c/w omeprazole BID 9. Hx of C. diff colitis on treatment - c/w Vancomycin PO for 14 days (starting 06/09/2016 to 06/22/16) 10. Chronic lymphedema 11. DVT prophylaxis - c/w Heparin SQ VS,Fishbone, I+O VS, Fishbone, I+O Laboratory Tests 06/19/16 17:07 Calcium Level 8.6 L 06/19/16 22:53 Calcium Level 8.4 L 06/20/16 04:42 Calcium Level 8.5 L, Red Blood Count 3.70 L, Mean Corpuscular Volume 83.5, Mean Corpuscular Hemoglobin 27.3, Mean Corpuscular Hemoglobin Concent 32.7, Red Cell Distribution Width 14.9 H 06/20/16 12:08 Calcium Level 9.3 Vital Signs Date Time Temp Pulse Resp B/P (MAP) Pulse Ox O2 Delivery O2 Flow Rate FiO2 06/20/16 12:00 97.3 90 20 142/73 (96) 95 Room Air I&O- Last 24 Hours up to 6 AM 06/20/16 06:00 Intake Total 560 ml Output Total 400 ml Balance 160 ml JES MCNMAARA MD June 20, 2016 16:24
[2016-06-20] MEDS: VANCOMYCIN ORAL SOL 250MG/5ML ORAL SYRINGE PO SCH ×2 (18:00→23:45)
--- NOTE | 2016-06-20 18:54 | HPE ---
DATE OF ADMISSION: 06/19/2016 PRIMARY CARE PROVIDER: Dr. Nicanor Galicia HISTORY OF PRESENT ILLNESS: This patient is a 71-year-old female with a past medical history significant for cervical cancer, psoriasis, hypertension, diabetes, lymphedema, osteoporosis, gastric ulcer, presented to [facility] on 06/19/2016 for persistent nausea and vomiting. Patient stated she was visiting her healthcare provider, and she was told that she has fluid in the lung, and she was restarted on Lasix. For the past 2 days, patient is not feeling well. Patient started to have persistent nausea and vomiting for at least 3 days. Due to the vomiting, patient has very poor oral intake. Patient also noted to have loose stool for the past 2-3 days. Patient also complained of intermittent chest pain originating from the left chest, radiating to the back, each episode lasting for a few minutes, but patient does not remember any specific triggers. Nothing really makes the pain better. When patient arrived in emergency room, patient was found to have acute kidney injury and also hyperkalemia. The hospitalist team was called for admission. ALLERGIES: CIPRO (uncontrolled movement), PENICILLIN (throat swelling). PAST MEDICAL HISTORY: 1. Restless leg syndrome. 2. History of cervical cancer, status post hysterectomy and oophorectomy. 3. Foot surgery in 1976. 4. Psoriasis. 5. Hypertension. 6. Ocq-jvxbhsa-gdlabempy diabetes. 7. Chronic lymphedema. 8. Osteoporosis. 9. Gastric ulcers. PAST SURGICAL HISTORY: 1. Tonsillectomy. 2. Hysterectomy with oophorectomy. 3. Appendectomy. SOCIAL HISTORY: Patient quit drinking and smoking more than 10 years ago. Denied any recreational drug use. Patient is full code. HOME MEDICATIONS: - Norvasc 5 mg by mouth daily - Otezla - aspirin 81 mg p daily - atorvastatin 40 mg by mouth daily - chlorthalidone 12.5 mg by mouth daily - vitamin D 2000 units by mouth daily - Lasix 20 mg by mouth daily - gabapentin 600 mg by mouth at bedtime - lisinopril 40 mg by mouth daily - metformin 1000 mg by mouth twice a day - omeprazole 40 mg by mouth twice a day - Percocet one tablet by mouth three times a day as needed - spironolactone 25 mg by mouth daily REVIEW OF SYSTEMS: GENERAL: No fever. No chills. HEENT: No vision change. No auditory changes. CARDIOVASCULAR: Patient complained about intermittent sharp chest pain radiating from the left medial chest to the back without any significant triggers. Denies any palpitations. RESPIRATORY: No shortness of breath. No cough. No sputum production. GASTROINTESTINAL: Worsening nausea and vomiting for the past 3 days. Patient also complained about 2-3 loose bowel movements daily. MUSCULOSKELETAL: Chronic lymphedema, on chronic diuretic. NEUROLOGIC: No numbness. No tingling. OBJECTIVE: VITAL SIGNS: Temperature 96.4, pulse 86, respiratory rate 20, blood pressure 114/53, pulse oximetry 91% in room air. GENERAL: Morbidly obese, mild fatigue. No sign of acute distress. Alert and oriented times three. HEENT: Normocephalic, atraumatic. Extraocular motor grossly intact. CARDIOVASCULAR: Distant heart sounds. Positive S1, S2. Regular rate. LUNGS: Some fine crackles located in the right lower lobe. No wheezes appreciated. ABDOMEN: Obese. Some tender nodule on the superficial subcutaneous layer. There are some multiple small lesions located in the lower abdomen. There are also some macerations between the abdominal fold. EXTREMITIES: Lower extremities: Positive pitting edema bilaterally. No sign of cyanosis. NEUROLOGIC: Sensation to fine touch grossly intact. LABORATORY DATA: WBC 6.6, hemoglobin 10.2, hematocrit 31.6, platelet count is 219. Sodium is 133, potassium 4.8, chloride is 100, carbon dioxide is 22, BUN 62, creatinine is 2.28, GFR is 22.5, fasting glucose is 58, calcium is 8.6. IMAGING STUDY: Chest x-ray showed chronic changes. No active disease. ASSESSMENT AND PLAN: 1. Acute kidney injury. Patient admitted to progressive care unit (PCU) under inpatient status. At baseline, patient has normal renal function. In April 2016 patient had GFR greater than 60, creatinine of 0.8. Currently, patient's creatinine is .28 with a GFR of 22. From patient's history and physical exam, it seems the patient has significant dehydration. Will start patient on gentle hydration. Continue to follow with renal function. Patient did have chronic lymphedema and diastolic congestive heart failure, which we will be very cautious regarding patient's fluid status. At this moment, Lasix and spironolactone will be discontinued due to SHAKA. Metformin and lisinopril will be discontinued. 2. Chest pain. EKG reviewed. No ST-segment changes; however, troponin is now ordered in the emergency room. Will follow with cardiac enzymes. 3. Severe hyperkalemia. Patient presented to the emergency room with potassium of 6.2 without any significant EKG changes. Patient was given insulin with dextrose, and patient received albuterol nebulizer. Those measurements only showed the potassium inside the cell temporarily. Unfortunately, the diuretic and Kayexalate may not be appropriate at this moment due patient's acute kidney injury (SHAKA) from dehydration. We will closely monitor patient's potassium level, and this is one of the reasons patient requires cardiac monitoring, because patient may have recurrence of hyperkalemia. 4. Diarrhea. Patient's healthcare provider started patient on by mouth vancomycin. From [facility] history, we do not see patient has a history of Clostridium (C) difficile; however, due to patient's current diarrhea, will followup with C. difficile polymerase chain reaction (PCR). 5. Hypertension. Due to acute kidney injury, patient's diuretic and lisinopril will be on hold. Continue to monitor the patient. 6. Chronic lymphedema. Recommend leg elevation. Diuretics on hold due to ACUTE KIDNEY INJURY. 7. Gastric ulcer. Continue proton pump inhibitor (PPI). 8. Persistent nausea and vomiting, most likely due to patient's poor oral intake and SHAKA. 9. Restless leg syndrome. 10. Deep vein thrombosis (DVT) prophylaxis. Patient will be on heparin.
[2016-06-20 20:39] VITALS: BP 131/74
--- NOTE | 2016-06-20 20:56 | ECGEPIP ---
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
[2016-06-20] MEDS: GABAPENTIN 300 MG CAP PO SCH (21:16)
[2016-06-21] VITALS: BP 143/76
[2016-06-21 04:00] VITALS: BP 143/73
[2016-06-21] MEDS: VANCOMYCIN ORAL SOL 250MG/5ML ORAL SYRINGE PO SCH (05:15)
[2016-06-21] MEDS: HEPARIN SOD (PORCINE) 5000 UNITS/ML VIAL SC SCH ×3 (05:15→22:49)
[2016-06-21 05:49] LABS: MEAN CORPUSCULAR HEMOGLOBIN 27.2 pg (27.0-33.0); MEAN CORPUSCULAR HGB CONC 32.1 g/dl (32.0-36.5); MEAN CORPUSCULAR VOLUME 84.7 fl (80.0-96.0); RED CELL DISTRIBUTION WIDTH 14.9 % (11.5-14.5); WHITE BLOOD COUNT 4.2 K/mm3 (4.0-10.0)
[2016-06-21 06:11] LABS: ANION GAP 5 MEQ/L (8-16); BLOOD UREA NITROGEN 20 MG/DL (7-18); CALCIUM LEVEL 8.6 MG/DL (8.8-10.2); CARBON DIOXIDE LEVEL 29 MEQ/L (21-32); CHLORIDE LEVEL 108 MEQ/L (98-107); CREATININE FOR GFR 0.73 MG/DL (0.55-1.02); GLOMERULAR FILTRATION RATE > 60.0 (>39); GLUCOSE, FASTING 130 MG/DL (83-110); POTASSIUM SERUM 4.4 MEQ/L (3.5-5.1); SODIUM LEVEL 142 MEQ/L (136-145)
[2016-06-21 07:30] VITALS: BP 140/70
[2016-06-21] MEDS: ASPIRIN 81 MG ENTERIC TAB PO SCH (08:36)
[2016-06-21] MEDS: OMEPRAZOLE 20 MG CAP PO SCH ×2 (08:36→22:47)
[2016-06-21] MEDS: ATORVASTATIN 20 MG TAB PO SCH (08:36)
[2016-06-21] MEDS: VITAMIN D 1,000 INTERNATIONAL UNITS TABLET PO SCH (08:36)
[2016-06-21] MEDS: amLODIPine 5 MG TAB PO SCH (08:37)
[2016-06-21] MEDS: HumaLOG INSULIN (NovoLOG) PER UNIT SC SCH ×4 (08:37→22:48)
[2016-06-21] MEDS: MUPIROCIN 2% OINT 22 GM TUBE TOP SCH (08:38)
[2016-06-21] MEDS: NYSTATIN 100,000 UNITS/GM TOPICAL PWD 15 GM TOP SCH ×2 (08:38→22:50)
[2016-06-21] MEDS: NS 1,000 ML IV SCH (10:28)
--- NOTE | 2016-06-21 14:23 | IPNPDOC ---
Subjective Date Seen The patient was seen on 06/21/16. Subjective Chief Complaint/HPI The patient is a 71-year-old female admitted with a reason for visit of Acute Renal Failure, Hyperkalemia. General: Denies: Chills, Night Sweats Constitutional: Denies: Chills, Fever Eyes: Denies: Pain, Vision change ENT: Denies: Head Aches, Ear Pain Skin: Denies: Rash, Lesions Pulmonary: Denies: Dyspnea, Cough Cardiovascular: Denies: Chest Pain, Palpitations Gastrointestinal: Denies: Nausea, Vomiting Genitourinary: Denies: Dysuria, Frequency Hematologic: Denies: Bleeding Excessively Objective Physical Examination General Exam: Positive: Alert, Cooperative ENT Exam: Positive: Atraumatic, Mucous membr. moist/pink Neck Exam: Negative: JVD Chest Exam: Positive: Clear to auscultation, Normal air movement Heart Exam: Positive: Rate Normal, Normal S1, Normal S2 Abdomen Exam: Positive: Soft, Negative: Tenderness Extremity Exam: Negative: Tenderness, Swelling Psych Exam: Positive: Oriented x 3 Assessment /Plan Plan/VTE VTE Prophylaxis Ordered?: Yes Plan Acute kidney injury - likely 2/2 Diarrhea, Decreased PO Intake, and the Concomitant use of Diuretics, resolved Diarrhea has resolved S/P IVF Hydration Serum Cr has returned back to baseline Hx of C. diff colitis on treatment s/p Completion of Abx treatment No more episodes of Diarrhea here Repeat PCR for C. Diff negative here Normocytic anemia No evidence of bleeding here Chronic lymphedema Will restart Spironolactone and Lasix tomorrow if Kidney Function remains stable HTN cont Amlodipine and Lisinopril NIDDM2 Cont ISS DLP Cont atorvastatin Hx of Gastric ulcers cont omeprazole BID DVT prophylaxis cont Heparin SQ Dispo: Anticipate D/C in 24 hrs pending continued clinical improvement. VS, I&O, 24H, Fishbone Vital Signs/I&O Vital Signs Date Time Temp Pulse Resp B/P (MAP) Pulse Ox O2 Delivery O2 Flow Rate FiO2 06/21/16 08:37 87 140/70 06/21/16 07:30 97.8 20 95 Room Air I&O- Last 24 Hours up to 6 AM 06/21/16 06:00 Intake Total 3435 ml Output Total 3975 ml Balance -540 ml Laboratory Data 24H LABS Laboratory Tests 2 06/20/16 16:23: Bedside Glucose (Misc Panel) 135H 06/20/16 20:35: Bedside Glucose (Misc Panel) 130H 06/21/16 05:26: Anion Gap 5L, Glomerular Filtration Rate > 60.0, Blood Urea Nitrogen 20#H, Creatinine 0.73, Sodium Level 142, Potassium Level 4.4, Chloride Level 108H, Carbon Dioxide Level 29, Calcium Level 8.6L CBC/BMP Laboratory Tests 06/21/16 05:26 Red Blood Count 3.68 L, Mean Corpuscular Volume 84.7, Mean Corpuscular Hemoglobin 27.2, Mean Corpuscular Hemoglobin Concent 32.1, Red Cell Distribution Width 14.9 H, Calcium Level 8.6 L Microbiology Microbiology 06/20/16 Clostridium difficile (PCR) - Final, Complete ELE METCALF MD June 21, 2016 14:23
[2016-06-21 17:15] VITALS: BP 136/75
[2016-06-21 22:00] VITALS: BP 179/88
[2016-06-21] MEDS: PERCOCET 5MG/325MG TAB PO PRN (22:47)
[2016-06-21] MEDS: GABAPENTIN 300 MG CAP PO SCH (22:48)
[2016-06-22] MEDS: PERCOCET 5MG/325MG TAB PO PRN (04:48)
[2016-06-22] MEDS: HEPARIN SOD (PORCINE) 5000 UNITS/ML VIAL SC SCH (04:51)
[2016-06-22 06:00] VITALS: BP 144/67
[2016-06-22 06:54] LABS: MEAN CORPUSCULAR HEMOGLOBIN 27.8 pg (27.0-33.0); MEAN CORPUSCULAR HGB CONC 32.6 g/dl (32.0-36.5); MEAN CORPUSCULAR VOLUME 85.2 fl (80.0-96.0); RED CELL DISTRIBUTION WIDTH 14.8 % (11.5-14.5); WHITE BLOOD COUNT 5.6 K/mm3 (4.0-10.0)
[2016-06-22 07:12] LABS: ANION GAP 2 MEQ/L (8-16); BLOOD UREA NITROGEN 11 MG/DL (7-18); CALCIUM LEVEL 9.1 MG/DL (8.8-10.2); CARBON DIOXIDE LEVEL 33 MEQ/L (21-32); CHLORIDE LEVEL 105 MEQ/L (98-107); CREATININE FOR GFR 0.74 MG/DL (0.55-1.02); GLOMERULAR FILTRATION RATE > 60.0 (>39); GLUCOSE, FASTING 136 MG/DL (83-110); POTASSIUM SERUM 4.1 MEQ/L (3.5-5.1); SODIUM LEVEL 140 MEQ/L (136-145)
[2016-06-22] MEDS: HumaLOG INSULIN (NovoLOG) PER UNIT SC SCH (08:09)
[2016-06-22] MEDS: ASPIRIN 81 MG ENTERIC TAB PO SCH (08:09)
[2016-06-22 08:10] VITALS: BP 144/67
[2016-06-22] MEDS: OMEPRAZOLE 20 MG CAP PO SCH (08:10)
[2016-06-22] MEDS: amLODIPine 5 MG TAB PO SCH (08:10)
[2016-06-22] MEDS: ATORVASTATIN 20 MG TAB PO SCH (08:10)
[2016-06-22] MEDS: VITAMIN D 1,000 INTERNATIONAL UNITS TABLET PO SCH (08:11)
[2016-06-22] MEDS: NYSTATIN 100,000 UNITS/GM TOPICAL PWD 15 GM TOP SCH (08:13)
[2016-06-22] MEDS: MUPIROCIN 2% OINT 22 GM TUBE TOP SCH (08:13)
--- NOTE | 2016-06-22 15:23 | DS.PDOC ---
Discharge Summary General Date of Admission June 19, 2016 at 19:28 Date of Discharge 06/22/16 Discharge Summary PROCEDURES PERFORMED DURING STAY: None. ADMITTING DIAGNOSES: 1. . Acute kidney injury secondary to volume depletion from diarrhea/decreased by mouth intake, and concomitant diuretic use DISCHARGE DIAGNOSES: 1. . Acute kidney injury secondary to volume depletion from diarrhea/decreased by mouth intake, and concomitant diuretic use COMPLICATIONS/CHIEF COMPLAINT: Acute Renal Failure, Hyperkalemia. HISTORY OF PRESENT ILLNESS: . 71 year old female with a PMHx of HTN, NIDDM2, Hx of Gastric ulcer, and chronic lymphedema who presented to the ER with a chief complaint of persistent nausea, vomiting and associated fatigue with malaise. In addition, the patient states that she had been having diarrhea over the last few days for which she was started on antibiotics for. During this time, the patient states that she was having very poor oral intake and was continuously taking all of her diuretic medications. In the ER, the patient was noted to have an acute kidney injury with a serum creatinine of 2.41, and hyperkalemia with serum potassium of 6.2. The hospitalist team was called for admission for further evaluation and management. During hospitalization here, the patient was continued on her by mouth vancomycin antibiotics for presumptive C. difficile diarrhea. The patient was started on IV fluid hydration and all nephrotoxins were held. The patient's kidney function subsequently returned back to within normal limits and her potassium also normalized. At this time, the patient states that she is feeling much better and she has no longer had any more diarrhea. The patient did complete her by mouth vancomycin trial of antibiotics, and a repeat PCR C. difficile test was noted to be negative from admission. At this time, the patient states that she is feeling much better and is eager to return home. I' ve advised the patient to follow-up with her primary care physician within one week, and return to the ER if her symptoms return or worsen. DISCHARGE MEDICATIONS: Please see below. ALLERGIES: Please see below. PHYSICAL EXAMINATION ON DISCHARGE: VITAL SIGNS: Please see below. General Exam: Positive: Alert, Cooperative ENT Exam: Positive: Atraumatic, Mucous membr. moist/pink Neck Exam: Negative: JVD Chest Exam: Positive: Clear to auscultation, Normal air movement Heart Exam: Positive: Rate Normal, Normal S1, Normal S2 Abdomen Exam: Positive: Soft, Negative: Tenderness Extremity Exam: Negative: Tenderness, Swelling Psych Exam: Positive: Oriented x 3 LABORATORY DATA: Please see below. IMAGING: CHEST, TWO VIEWS: Two views of the chest are performed and compared to prior studies most recent of which is 04/18/2016. There is interstitial fibrosis which is stable bilaterally. No acute infiltrate is seen. There is mild cardiomegaly and left ventricular prominence. There is mild calcification of the thoracic aorta. The mediastinal silhouette is unchanged. There are mild degenerative changes of the spine. IMPRESSION: Stable chronic findings without evidence of acute infiltrate. PROGNOSIS: Medically stable ACTIVITY: As tolerated. DIET: . 2 g low sodium diet DISCHARGE PLAN: DISPOSITION: Home, Self-Care. DISCHARGE INSTRUCTIONS: 1. . Follow-up with primary care physician within one to 2 weeks 2. . Return to the ER if symptoms return or worsen DISCHARGE CONDITION: Stable. TIME SPENT ON DISCHARGE: Greater than 30 minutes. Vital Signs/I&Os Vital Signs Date Time Temp Pulse Resp B/P (MAP) Pulse Ox O2 Delivery O2 Flow Rate FiO2 06/22/16 08:10 76 144/67 06/22/16 08:00 Room Air 06/22/16 06:00 97.4 16 96 I&O- Last 24 Hours up to 6 AM 06/22/16 05:59 Intake Total 2720 ml Output Total 525 ml Balance 2195 ml Laboratory Data Labs 24H Laboratory Tests 2 06/21/16 16:41: Bedside Glucose (Misc Panel) 134H 06/21/16 20:45: Bedside Glucose (Misc Panel) 179H 06/22/16 06:19: Anion Gap 2L, Glomerular Filtration Rate > 60.0, Blood Urea Nitrogen 11, Creatinine 0.74, Sodium Level 140, Potassium Level 4.1, Chloride Level 105, Carbon Dioxide Level 33H, Calcium Level 9.1 CBC/BMP Laboratory Tests 06/22/16 06:19 Red Blood Count 3.74 L, Mean Corpuscular Volume 85.2, Mean Corpuscular Hemoglobin 27.8, Mean Corpuscular Hemoglobin Concent 32.6, Red Cell Distribution Width 14.8 H, Calcium Level 9.1 FSBS Laboratory Tests Test 06/21/16 16:41 06/21/16 20:45 Range/Units Bedside Glucose (Misc Panel) 134 179 83-110 MG/DL Microbiology Microbiology 06/20/16 Clostridium difficile (PCR) - Final, Complete Discharge Medications Scheduled Amlodipine Besylate (Norvasc) 5 Mg Tab, 5 MG PO DAILY, (Reported) Apremilast Base (Otezla) 30 Mg Tab, 30 MG PO BID, (Reported) Aspirin (Aspir-81) 81 Mg Tab, 81 MG PO DAILY, (Reported) Atorvastatin Calcium (Atorvastatin Calcium) 40 Mg Tab, 40 MG PO DAILY, (Reported ) Chlorthalidone (Chlorthalidone) 12.5 Mg Halftab, 12.5 MG PO DAILY, (Reported) Cholecalciferol (Vitamin D) 2,000 Unit Tab, 2,000 UNIT PO DAILY, (Reported) Furosemide (Lasix) 20 Mg Tab, 20 MG PO DAILY, (Reported) Gabapentin (Gabapentin) 300 Mg Cap, 600 MG PO QHS, (Reported) Lisinopril (Lisinopril) 40 Mg Tab, 40 MG PO DAILY, (Reported) Metformin Hydrochloride (Metformin HCl) 1,000 Mg Tab, 1,000 MG PO BID, (Reported ) Mupirocin (Mupirocin) 2 % Oin, 1 DOSE TOP DAILY, (Reported) APPLY TO BANDAGE WITH EACH CHANGE Omeprazole (Omeprazole) 40 Mg Cap, 40 MG PO BID, (Reported) Spironolactone (Spironolactone) 25 Mg Tab, 25 MG PO DAILY, (Reported) Scheduled PRN (Fluocinolone Acetonide) 0.01 % Oil, 1 DOSE TOP DAILY PRN for ITCHING, ( Reported) APPLY TO SCALP Clobetasol Propionate (Clobex) 0.05 % Lot, 0.05 % TOP BID PRN for PSORIASIS, ( Reported) APPLY TO SCALP AND AFFECTED AREAS NEEDED Clotrimazole (Clotrimazole) 1 % Cre, 1 DOSE TOP DAILY PRN for ITCHING, (Reported ) APPLY TO AREAS OF PSORIASIS Oxycodone/Acetaminophen (Oxycodone/Acetaminophen 5-325 mg) 1 Tab Tab, 1 TAB PO TID PRN for PAIN, (Reported) Allergies Coded Allergies: Lisinopril (Verified Allergy, Severe, TOUNGE SWELLING, 08/06/13) Penicillins (Verified Allergy, Intermediate, SWELLING, 08/06/13) Penicillins Cross Reactors (Verified Allergy, Intermediate, SWELLING, ) Ciprofloxacin (Verified Allergy, Unknown, 06/14/13) TAPE (Verified Allergy, Unknown, SURGICAL TAPE, 06/14/13) ELE METCALF MD June 22, 2016 15:23
== END 2016-06-22 08:58 | disposition home or self-care (01) | DRG 683 ==
LOC: M ED 14:07 → M ED INP 19:28 → M PCU 21:34 → M MS5PR 06-21 16:58
PROVIDERS: ADMIT Internal Medicine; ATTEND Internal Medicine
DX: N17.9 Acute kidney failure, unspecified (principal); I50.32 Chronic diastolic (congestive) heart failure; E87.5 Hyperkalemia; I11.0 Hypertensive heart disease with heart failure; M81.0 Age-related osteoporosis without current pathological fracture; G25.81 Restless legs syndrome; I89.0 Lymphedema, not elsewhere classified; K25.9 Gastric ulcer, unspecified as acute or chronic, without hemorrhage or perforation; E78.5 Hyperlipidemia, unspecified; E11.9 Type 2 diabetes mellitus without complications; Z79.82 Long term (current) use of aspirin; Z79.84 Long term (current) use of oral hypoglycemic drugs; Z79.899 Other long term (current) drug therapy; Z88.0 Allergy status to penicillin; Z88.1 Allergy status to other antibiotic agents; Z88.8 Allergy status to other drugs, medicaments and biological substances; Z91.048 Other nonmedicinal substance allergy status; Z85.41 Personal history of malignant neoplasm of cervix uteri; Z90.710 Acquired absence of both cervix and uterus; Z90.722 Acquired absence of ovaries, bilateral; Z87.891 Personal history of nicotine dependence

== ENCOUNTER 2016-06-28 17:24 | Inpatient (IN) | payer MEDICARE, BC, OTHER ==
[~2016-06-28] VITALS: Ht 157.5 cm; Wt 112.3 kg
[2016-06-28] MEDS ORDERED: NS 1,000 ML IV SCH (18:13)
--- NOTE | 2016-06-28 18:18 | ED PDOC ---
Post-Departure Follow-Up patient not seen by me - seen by Dr. Ayala as patient was sent in from resident clinic June Lam MD June 28, 2016 18:18
[2016-06-28] MEDS ORDERED: ONDANSETRON 4MG/2ML VIAL (J2405) IV PRN (19:15)
[2016-06-28] MEDS: NS 1,000 ML IV SCH (19:15)
[2016-06-28] MEDS ORDERED: GASTROGRAFIN SOLUTION 30ML (Q9963) PO ONE ×2 (19:15→19:45)
[2016-06-28] MEDS ORDERED: OXYB10TA PO (19:24)
[2016-06-28] MEDS ORDERED: DEXTROSE 50% 50 ML SYRINGE IV PRN (19:45)
[2016-06-28] MEDS ORDERED: CLOTRIMAZOLE 1% TOPICAL CREAM 30GM TOP PRN (19:45)
[2016-06-28] MEDS ORDERED: GLUCAGON FOR INJ 1 MG VIAL (J1610) SC PRN (19:45)
[2016-06-28] MEDS ORDERED: GLUCOSE 4 GM CHEW TABLET PO PRN (19:45)
[2016-06-28 19:55] LABS: FREE T4 1.33 NG/DL (0.76-1.46)
--- NOTE | 2016-06-28 20:34 | HPE ---
DATE OF ADMISSION: 06/28/2016 PRIMARY CARE PROVIDER: Dr. Nicanor Galicia CHIEF COMPLAINT: 1. Hyponatremia. 2. Nausea and vomiting. 3. Abdominal pain. HISTORY OF PRESENT ILLNESS: This is a 71-year-old female patient with underlying medical history of cervical cancer, psoriasis, hypertension, type 2 diabetes, dyslipidemia, osteoporosis, gastric ulcer, with a history of persistent nausea and vomiting and intermittent diarrhea, was recently discharged on 06/22/2016, admitted for acute renal failure with nausea, vomiting and diarrhea. Also with history of lymphedema. Patient returned after was found to be hyponatremic in acute renal failure again. Patient reported persistent nausea and vomiting that was worsening over the past 2-3 weeks, about one episode of vomiting, nonbloody, nonbilious today and two episodes yesterday, with two episodes of nonbloody, nonbilious watery diarrhea over the last 24 hours. Reported diffuse abdominal discomfort, aching, cramping pain, intermittent, comes and goes, usually in bilateral lower quadrants. Patient reported that symptoms have been chronic for the past 2-3 weeks. Recent new medications including Lasix for edema. Patient reported generalized weakness, poor oral intake. Denies any shortness of breath, chest pain, pressure or discomfort. Reported there is no relieving factor for the pain. Eating certainly makes the abdominal pain worse. Previously, the patient was admitted for acute kidney injury and hyperkalemia. Patient also reported lightheadedness. ALLERGIES: CIPRO, PENICILLIN. PAST MEDICAL HISTORY: 1. Restless leg syndrome. 2. History of cervical cancer status post hysterectomy with oophorectomy. 3. Foot surgery 1976. 4. Psoriasis. 5. Hypertension. 6. Ilb-maduwhv-tjezvqysh type 2 diabetes. 7. Chronic lymphedema. 8. Osteoporosis. 9. Gastric ulcer. PAST SURGICAL HISTORY: 1. Tonsillectomy. 2. Hysterectomy with oophorectomy. 3. Appendectomy. FAMILY HISTORY: Mother with Crohn's. SOCIAL HISTORY: Quit smoking more than 10 years ago. Denies recreational drug use. Denies alcohol use. REVIEW OF SYSTEMS: Reported nausea and vomiting, diarrhea, abdominal discomfort, intermittent occasional chest pressures. Other review of systems were negative. HOME MEDICATIONS: - Norvasc 5 mg by mouth daily - Otezla 30 mg by mouth twice a day - aspirin 81 mg by mouth daily - Lipitor 40 mg by mouth daily - chlorthalidone 12.5 mg by mouth daily - vitamin D 2000 units by mouth daily - Clobex 0.05% topical twice a day as needed - clotrimazole 1% cream topical daily - fluocinolone 0.01% ointment daily as needed - Lasix 20 mg by mouth twice a day - gabapentin 600 mg by mouth at bedtime - lisinopril 40 mg by mouth daily - metformin 1000 mg by mouth twice a day - mupirocin 2% ointment daily - omeprazole 40 mg by mouth twice a day - oxybutynin ER 10 mg by mouth daily - oxycodone/acetaminophen 5/325 mg three times a day as needed - spironolactone 25 mg by mouth daily PHYSICAL EXAMINATION: VITAL SIGNS: Temperature 97.4, pulse 95, respiration 18, blood pressure 155/68, pulse oximetry 97% on room air. GENERAL: Patient morbidly obese, alert and oriented times three, in no acute distress. HEENT: Normocephalic, atraumatic. Extraocular motors intact. CARDIOVASCULAR: Distant heart sounds. S1, S2. Regular. PULMONARY: Bilateral clear to auscultation. No wheezes, rales or rhonchi. ABDOMEN: Soft, obese. Minimum tenderness to palpation. No rebound. No guarding. Positive bowel sounds. EXTREMITIES: Trace edema bilateral lower extremities, nonpitting. NEUROLOGIC: Motor function bilateral upper and lower extremities intact. LABORATORY: WBC 7.8, hemoglobin and hematocrit (H H) 11.7/35.3, platelets 274. Chemistry: Sodium 121, potassium 4.2, chloride 80, bicarbonate 27, BUN 28, creatinine 1.5. Further workup for hyponatremia including urine studies, thyroid functions, osmolality, were pending. Stool studies were pending. ASSESSMENT AND PLAN: This is a 71-year-old female patient with underlying medical history of cervical cancer, psoriasis, hypertension, pla-ukuiprd-nwzfkygfz type 2 diabetes, lymphedema, osteoporosis, gastric ulcer, recently admitted for acute kidney injury with hyperkalemia, presented with hyponatremia, acute renal failure and nausea, vomiting, diarrhea and abdominal pain. PROBLEMS: 1. Hyponatremia and acute renal failure. Nephrology, Dr. Corcoran, has been consulted. Followup urine study. Osmolality, thyroid function, urine, electrolytes, are likely secondary to diuretics. Holding diuretics as of this time. Intravenous (IV) fluids for hydration. Strict intake and output (I O). Normal saline at 80. Followup basic metabolic panel every 4 hours. Daily weight. Follow up with nephrology for recommendations. 2. Acute kidney injury. IV fluids for hydration. Withholding diuretic. Withholding Angiotensin-converting enzyme (LEYDA) inhibitor. Continue to monitor kidney function. Speech Pathologist consulted. 3. Nausea, vomiting, diarrhea and abdominal pain. Follow up gastrointestinal (GI) studies, GI panel, stool studies, stool electrolytes. Follow up CT of the abdomen. Supportive care. Zofran. Clear liquid diet for now. 4. Hypertension. Withholding LEYDA and diuretics, spironolactone and Lasix, withhold for now. Will consider restarting alternative agents if patient's blood pressure is out of control. 5. Dyslipidemia. Continue statin. 6. History of psoriasis. Continue home medications. 7. Ubz-ybiqhep-pnohasrnw type 2 diabetes. Holding metformin given elevated creatinine. Insulin as per protocol. 8. Chronic lymphedema. Will continue to monitor. Diuretics have been on hold. 9. Gastric ulcer. Continue proton pump inhibitor (PPI). 10. Vitamin D deficiency. Continue supplementation. 11. Peripheral neuropathy. Continue current medication. 12. Deep venous thrombosis (DVT) prophylaxis. Heparin subcutaneously. DISPOSITION PLANNING: Pending nephrology consultation, clinical improvement.
[2016-06-28] MEDS: HumaLOG INSULIN (NovoLOG) PER UNIT SC SCH (21:00)
--- NOTE | 2016-06-28 21:00 | REPUSA ---
CT of the abdomen and pelvis without contrast Clinical statement: Pain. Technique: Multiple axial CT images were obtained from the base of the lungs to the floor of the pelv is utilizing 5 mm axial slices after administration of oral contrast. Coronal and sagittal reconstruc tions were also obtained. Comparison: 01/04/2016. Findings: Chest: The visualized lung bases are clear. Abdomen: The kidneys are normal in size bilaterally. There is no evidence of hydronephrosis or nephro lithiasis. The liver, spleen, pancreas, gallbladder and adrenal glands are unremarkable. The aorta de monstrates normal caliber and contour, with stable moderate diffuse atherosclerotic calcifications. T here is no abdominal lymphadenopathy or ascites. Pelvis: The bowel is unremarkable, with no obstructive or inflammatory changes. Sigmoid diverticulosi s is stable. The urinary bladder is within normal limits. There is no pelvic lymphadenopathy or ascit es. The other pelvic structures appear unremarkable. Bones: There are no suspicious osseous abnormalities seen. Impression: 1. No acute findings to explain the patient's pain. 2. Stable sigmoid diverticulosis. No obstructive or inflammatory bowel changes. 3. No evidence of hydronephrosis or nephrolithiasis.
[2016-06-28 21:10] VITALS: BP 152/67
[2016-06-28] MEDS: OMEPRAZOLE 20 MG CAP PO SCH (21:23)
[2016-06-28] MEDS: HEPARIN SOD (PORCINE) 5000 UNITS/ML VIAL SC SCH (21:23)
[2016-06-28] MEDS: GABAPENTIN 300 MG CAP PO SCH (21:24)
[2016-06-28 22:07] LABS: CALCIUM LEVEL 8.6 MG/DL (8.8-10.2); GLOMERULAR FILTRATION RATE 58.4 (>39); POTASSIUM SERUM 4.5 MEQ/L (3.5-5.1)
[2016-06-28] MEDS: PERCOCET 5MG/325MG TAB PO PRN (23:09)
[2016-06-29 00:47] VITALS: BP 111/52
[2016-06-29 02:23] LABS: ANION GAP 9 MEQ/L (8-16); BLOOD UREA NITROGEN 25 MG/DL (7-18); CALCIUM LEVEL 7.9 MG/DL (8.8-10.2); CARBON DIOXIDE LEVEL 28 MEQ/L (21-32); CHLORIDE LEVEL 85 MEQ/L (98-107); CREATININE FOR GFR 0.81 MG/DL (0.55-1.02); GLOMERULAR FILTRATION RATE > 60.0 (>39); GLUCOSE, FASTING 108 MG/DL (83-110); POTASSIUM SERUM 3.9 MEQ/L (3.5-5.1); SODIUM LEVEL 122 MEQ/L (136-145)
[2016-06-29 03:41] VITALS: BP 131/61
[2016-06-29] MEDS: ACETAMINOPHEN TAB 650MG DOSE (2X325MG) PO PRN (03:44)
[2016-06-29] MEDS: HEPARIN SOD (PORCINE) 5000 UNITS/ML VIAL SC SCH ×3 (05:15→21:07)
[2016-06-29 05:36] LABS: MEAN CORPUSCULAR HEMOGLOBIN 27.7 pg (27.0-33.0); MEAN CORPUSCULAR VOLUME 81.6 fl (80.0-96.0); RED CELL DISTRIBUTION WIDTH 13.9 % (11.5-14.5); WHITE BLOOD COUNT 5.8 K/mm3 (4.0-10.0)
[2016-06-29 05:45] LABS: ALBUMIN 2.9 GM/DL (3.2-5.2); ALBUMIN/GLOBULIN RATIO 0.97 (1.00-1.93); ALKALINE PHOSPHATASE 71 U/L (45-117); ALT/SGPT 23 U/L (12-78); ANION GAP 7 MEQ/L (8-16); AST/SGOT 14 U/L (15-37); BILIRUBIN,TOTAL 0.3 MG/DL (0.2-1.0); BLOOD UREA NITROGEN 22 MG/DL (7-18); CALCIUM LEVEL 8.1 MG/DL (8.8-10.2); CARBON DIOXIDE LEVEL 30 MEQ/L (21-32); CHLORIDE LEVEL 85 MEQ/L (98-107); CREATININE FOR GFR 0.85 MG/DL (0.55-1.02); GLOMERULAR FILTRATION RATE > 60.0 (>39); GLUCOSE, FASTING 108 MG/DL (83-110); MAGNESIUM LEVEL 1.2 MG/DL (1.8-2.4); POTASSIUM SERUM 3.9 MEQ/L (3.5-5.1); SODIUM LEVEL 122 MEQ/L (136-145); TOTAL PROTEIN 5.9 GM/DL (6.4-8.2)
[2016-06-29] MEDS: NS 1,000 ML IV SCH ×2 (06:18→17:22)
[2016-06-29 08:00] VITALS: BP 122/58
[2016-06-29] MEDS ORDERED: MAG SULF 1GM/100ML (MAG RUN) 1 GM in APPROPRIATE DILUENT 1 EA IV ONE (08:00)
[2016-06-29] MEDS ORDERED: PANTOPRAZOLE 40MG INJ (PROTONIX) (C9113) IV SCH (09:00)
[2016-06-29] MEDS: OMEPRAZOLE 20 MG CAP PO SCH (09:14)
[2016-06-29] MEDS: VITAMIN D 1,000 INTERNATIONAL UNITS TABLET PO SCH (09:14)
[2016-06-29] MEDS: ASPIRIN 81 MG ENTERIC TAB PO SCH (09:14)
[2016-06-29] MEDS: oxyBUTYnin *DITROPAN XL* 5 MG TABCR PO SCH (09:14)
[2016-06-29] MEDS: ATORVASTATIN 20 MG TAB PO SCH (09:14)
[2016-06-29] MEDS: HumaLOG INSULIN (NovoLOG) PER UNIT SC SCH ×4 (09:14→20:59)
[2016-06-29] MEDS: amLODIPine 5 MG TAB PO SCH (09:14)
[2016-06-29] MEDS: MAGNESIUM OXIDE 400 MG TAB (MAG-OX) PO SCH ×2 (09:15→21:07)
[2016-06-29 10:44] LABS: ANION GAP 8 MEQ/L (8-16); BLOOD UREA NITROGEN 19 MG/DL (7-18); CALCIUM LEVEL 8.5 MG/DL (8.8-10.2); CARBON DIOXIDE LEVEL 30 MEQ/L (21-32); CHLORIDE LEVEL 86 MEQ/L (98-107); CREATININE FOR GFR 0.91 MG/DL (0.55-1.02); GLOMERULAR FILTRATION RATE > 60.0 (>39); GLUCOSE, FASTING 192 MG/DL (83-110); POTASSIUM SERUM 4.4 MEQ/L (3.5-5.1); SODIUM LEVEL 124 MEQ/L (136-145)
[2016-06-29] MEDS ORDERED: SPIRONOLACTONE 25 MG TAB PO ONE (10:45)
--- NOTE | 2016-06-29 11:35 | IPNPDOC ---
Subjective Date Seen The patient was seen on 06/29/16. Subjective Chief Complaint/HPI The patient is a 71-year-old female admitted with a reason for visit of Acute Renal Failure,Hyponatremia. General: Denies: Chills, Night Sweats Constitutional: Denies: Chills, Fever Eyes: Denies: Pain ENT: Denies: Head Aches, Ear Pain Skin: Denies: Rash, Lesions Pulmonary: Denies: Dyspnea, Cough Gastrointestinal: Denies: Vomiting Genitourinary: Denies: Dysuria, Frequency Hematologic: Denies: Bruising, Bleeding Excessively Objective Physical Examination General Exam: Positive: Alert, Cooperative, No Acute Distress ENT Exam: Positive: Atraumatic, Mucous membr. moist/pink Neck Exam: Negative: JVD Chest Exam: Positive: Clear to auscultation, Normal air movement Heart Exam: Positive: Rate Normal, Normal S1, Normal S2 Abdomen Exam: Positive: Soft, Tenderness (Mild tenderness to deep palpation across the abdomen, no rebound tenderness, guarding, or rigidity noted.) Extremity Exam: Positive: Swelling (2+ pitting edema in the lower extremities bilaterally), Negative: Tenderness Psych Exam: Positive: Oriented x 3 Assessment /Plan Plan/VTE VTE Prophylaxis Ordered?: Yes Plan Hyponatremia Likely 2/2 Diarrhea, Concomitant Diuretic Use. Serum Na trending appropriately 119-124 over the last 12+ hours Cont Intravenous (IV) fluid hydration. Urine Lytes noted Will follow up basic metabolic panel every 4 hours Nephrology on board Acute kidney injury 2/2 Above, resolved Serum Cr back to baseline following IVF Hydration Spironolactone restarted as per Nephro Nephrology on board Nausea, vomiting, diarrhea and abdominal pain CT of the Abd with no acute findings GI panel, stool studies, stool electrolytes pending Diet advanced to Carb Consistent Supportive treatment for now Hypertension, stable Cont Regimen as ordered. Dyslipidemia Continue statin. [id number]-[id number] type 2 diabetes Cont ISS Hx of Chronic lymphedema Gastric ulcer Cont Protonix Vitamin D deficiency Continue Vit D supplementation. Deep venous thrombosis (DVT) prophylaxis Heparin subcutaneously. VS, I&O, 24H, Fishbone Vital Signs/I&O Vital Signs Date Time Temp Pulse Resp B/P (MAP) Pulse Ox O2 Delivery O2 Flow Rate FiO2 06/29/16 09:14 75 122/58 06/29/16 08:00 98.1 18 97 Room Air I&O- Last 24 Hours up to 6 AM 06/29/16 06:00 Intake Total 940 ml Output Total 950 ml Balance -10 ml Laboratory Data 24H LABS Laboratory Tests 2 06/28/16 19:01: Osmolality 251L, Thyroid Stimulating Hormone (TSH) 0.147L, Free Thyroxine 1.33 06/28/16 19:09: Urine Random Osmolality 308L, Urine Random Creatinine 65.6, Urine Random Sodium 35, Urine Random Potassium 12.3, Urine Random Chloride 24 06/28/16 21:26: Bedside Glucose (Misc Panel) 120H 06/28/16 21:41: Anion Gap 8, Glomerular Filtration Rate 58.4, Blood Urea Nitrogen 27H, Creatinine 1.00, Sodium Level 119*L, Potassium Level 4.5, Chloride Level 83L, Carbon Dioxide Level 28, Calcium Level 8.6L 06/29/16 01:55: Anion Gap 9, Glomerular Filtration Rate > 60.0, Blood Urea Nitrogen 25H, Creatinine 0.81, Sodium Level 122L, Potassium Level 3.9, Chloride Level 85L, Carbon Dioxide Level 28, Calcium Level 7.9L 06/29/16 05:14: Anion Gap 7L, Glomerular Filtration Rate > 60.0, Blood Urea Nitrogen 22H, Creatinine 0.85, Sodium Level 122L, Potassium Level 3.9, Chloride Level 85L, Carbon Dioxide Level 30, Calcium Level 8.1L, Aspartate Amino Transf (AST/SGOT) 14L, Alanine Aminotransferase (ALT/SGPT) 23, Alkaline Phosphatase 71, Total Bilirubin 0.3, Total Protein 5.9L, Albumin 2.9L, Magnesium Level 1.2L, Albumin/ Globulin Ratio 0.97L 06/29/16 10:03: Anion Gap 8, Glomerular Filtration Rate > 60.0, Blood Urea Nitrogen 19H, Creatinine 0.91, Sodium Level 124L, Potassium Level 4.4, Chloride Level 86L, Carbon Dioxide Level 30, Calcium Level 8.5L CBC/BMP Laboratory Tests 06/28/16 21:41 Calcium Level 8.6 L 06/29/16 01:55 Calcium Level 7.9 L 06/29/16 05:14 Calcium Level 8.1 L, Red Blood Count 3.50 L, Mean Corpuscular Volume 81.6, Mean Corpuscular Hemoglobin 27.7, Mean Corpuscular Hemoglobin Concent 34.0, Red Cell Distribution Width 13.9, Aspartate Amino Transf (AST/SGOT) 14 L, Alanine Aminotransferase (ALT/SGPT) 23, Alkaline Phosphatase 71, Total Bilirubin 0.3, Total Protein 5.9 L, Albumin 2.9 L 06/29/16 10:03 Calcium Level 8.5 L ELE METCALF MD June 29, 2016 11:35
[2016-06-29 12:00] VITALS: BP 133/68
[2016-06-29 14:15] LABS: ANION GAP 6 MEQ/L (8-16); BLOOD UREA NITROGEN 16 MG/DL (7-18); CALCIUM LEVEL 8.8 MG/DL (8.8-10.2); CARBON DIOXIDE LEVEL 30 MEQ/L (21-32); CHLORIDE LEVEL 88 MEQ/L (98-107); CREATININE FOR GFR 0.83 MG/DL (0.55-1.02); GLOMERULAR FILTRATION RATE > 60.0 (>39); GLUCOSE, FASTING 137 MG/DL (83-110); POTASSIUM SERUM 4.3 MEQ/L (3.5-5.1); SODIUM LEVEL 124 MEQ/L (136-145)
--- NOTE | 2016-06-29 15:39 | CR ---
DATE OF CONSULTATION: 06/29/2016 CONSULTATION REPORT FOR: Angela Ayala MD REASON FOR CONSULTATION: Hyponatremia. HISTORY OF PRESENT ILLNESS: Mrs. Chu is a 71-year-old female with known history of congestive heart failure, restless leg syndrome, hypertension, type 2 diabetes and osteoporosis. She was recently discharged from [facility] when she was admitted with congestive heart failure. Since discharge from the hospital she reports persistent vomiting and diarrhea. She was brought to emergency room yesterday and her sodium level was found to be 119. Dr. Ayala requested nephrology consultation. I discussed with him our care plan at that time. I also discussed with nursing staff through the night and have seen the patient this morning. PAST MEDICAL AND SURGICAL HISTORY: Significant for: 1. Hypertension. 2. Type 2 diabetes. 3. Chronic leg edema. 4. Osteoporosis. 5. History of gastric ulcer. 6. History of psoriasis. 7. Restless leg syndrome. 8. History of cervical cancer, status post hysterectomy and oophorectomy. Past surgical history is significant for tonsillectomy, hysterectomy with oophorectomy and appendectomy. ALLERGIES: She has allergy to CIPRO and PENICILLIN. HOME MEDICATIONS: Her home medications include Norvasc 5 mg daily, Otezla 30 mg twice a day, aspirin 81 mg daily, Lipitor 40 mg daily, chlorthalidone 12.5 mg daily, vitamin D 2000 units daily, Lasix 20 mg twice a day, gabapentin 600 mg at bedtime, lisinopril 40 mg daily, metformin 1000 mg twice a day, omeprazole 40 mg twice a day, oxybutynin ER 10 mg daily, oxycodone with acetaminophen 5/325 mg three times a day as needed for pain, and spironolactone 25 mg daily. PERSONAL AND SOCIAL HISTORY: The patient denies any alcohol or recreational drug use. She quit smoking about 10 years ago. FAMILY HISTORY: Mother has history of Crohn's disease. There is no family history for electrolyte abnormalities or renal failure. REVIEW OF SYSTEMS: The patient denies any fever or chills. Ears, nose and throat are unremarkable. Cardiovascular system is significant for congestive heart failure with diastolic dysfunction. She denies any dyspnea or chest pain at present. Respiratory system is significant for no shortness of breath. She denies any cough or hemoptysis. Gastrointestinal (GI) system is as per history of present illness. She reports vomiting and diarrhea for several days. At present she denies any abdominal pain. She last time vomited was yesterday and she also had a loose stool yesterday. Endocrine system is significant for type 2 diabetes and vitamin D deficiency. Neurological system is negative for seizures or stroke. Psychosocial system negative for depression or anxiety. Musculoskeletal system is significant for chronic leg edema. Hematological system is negative for easy bruising or excessive bleeding. PHYSICAL EXAMINATION: The patient is awake and alert at the time of my visit. Temperature 98 degrees Fahrenheit, heart rate 75 per minute and respiratory rate 18 per minute. Blood pressure 122/58 mmHg and oxygen saturation 97% on room air. Head is atraumatic. Pupils are equal and reactive to light and sclerae is anicteric. Ears, nose and throat are unremarkable. Neck is supple and jugular venous distention (JVD) is elevated at about 4-5 cm above sternal angle. Oral mucosa is moist and healthy. Heart sounds are regular and lungs sound clear. Abdomen is soft with mild generalized tenderness. Bowel sounds are normal and there is no palpable organomegaly. Extremities have no cyanosis or clubbing. Skin has no rash or ulcers. Neurologically she is awake, alert and oriented times three. LABORATORY DATA: Sodium 119 and potassium 4.5. Serum osmolality was 251 and calcium 8.6. BUN 27 and creatinine 1.0. A TSH level was 0.147 and free T4 1.33. Through the night her sodium has improved to 122. Her WBC count was 5.8, hemoglobin 9.7 and hematocrit 28.5. PROBLEMS: 1. Acute hyponatremia. The patient had normal electrolytes at the time of discharge just about 2 weeks ago. Hyponatremia is most likely related to her diarrhea and vomiting. She does not clinically look too dehydrated, however she must have a sodium deficit. She is being hydrated with IV normal saline at 80 mL/hour. Depending upon her electrolytes we will make adjustments to ensure that her sodium level does not get corrected more than 8 mEq in 24 hours. At present will continue to monitor every few hours while she is receiving normal saline. 2. History of gastric ulcer, vomiting and diarrhea. Her gastrointestinal (GI) symptoms are much improved. She tolerated her breakfast. I will cut down her proton pump inhibitor (PPI) to only Protonix 40 mg intravenously every 24 hours. Omeprazole is being stopped. 3. Acute kidney injury superimposed on chronic kidney disease. She had only mild renal dysfunction which is already corrected. This is likely to stay within normal range while she is receiving IV fluid. 4. Anemia, etiology is uncertain. We will investigate with iron studies, B12 and folate level as she does have history of gastric ulcer. Depending upon those results further steps will be taken. I thank you for involving me in the care of Mrs. Chu. I will follow her along with you.
[2016-06-29 16:00] VITALS: BP 140/62
[2016-06-29] MEDS: MUPIROCIN 2% OINT 22 GM TUBE TOP SCH (18:04)
[2016-06-29 18:45] LABS: ANION GAP 6 MEQ/L (8-16); BLOOD UREA NITROGEN 18 MG/DL (7-18); CALCIUM LEVEL 8.8 MG/DL (8.8-10.2); CARBON DIOXIDE LEVEL 28 MEQ/L (21-32); CHLORIDE LEVEL 92 MEQ/L (98-107); CREATININE FOR GFR 0.91 MG/DL (0.55-1.02); GLOMERULAR FILTRATION RATE > 60.0 (>39); GLUCOSE, FASTING 159 MG/DL (83-110); POTASSIUM SERUM 4.4 MEQ/L (3.5-5.1); SODIUM LEVEL 126 MEQ/L (136-145)
[2016-06-29 19:33] VITALS: BP 120/56
[2016-06-29] MEDS: GABAPENTIN 300 MG CAP PO SCH (21:11)
[2016-06-29 22:40] LABS: ANION GAP 5 MEQ/L (8-16); BLOOD UREA NITROGEN 18 MG/DL (7-18); CALCIUM LEVEL 8.5 MG/DL (8.8-10.2); CARBON DIOXIDE LEVEL 28 MEQ/L (21-32); CHLORIDE LEVEL 85 MEQ/L (98-107); CREATININE FOR GFR 0.88 MG/DL (0.55-1.02); GLOMERULAR FILTRATION RATE > 60.0 (>39); GLUCOSE, FASTING 128 MG/DL (83-110); POTASSIUM SERUM 4.8 MEQ/L (3.5-5.1); SODIUM LEVEL 118 MEQ/L (136-145)
[2016-06-30 00:09] VITALS: BP 104/52
[2016-06-30] MEDS: ACETAMINOPHEN TAB 650MG DOSE (2X325MG) PO PRN ×4 (01:46→23:15)
[2016-06-30 02:40] LABS: ANION GAP 6 MEQ/L (8-16); BLOOD UREA NITROGEN 16 MG/DL (7-18); CALCIUM LEVEL 8.4 MG/DL (8.8-10.2); CARBON DIOXIDE LEVEL 31 MEQ/L (21-32); CHLORIDE LEVEL 97 MEQ/L (98-107); CREATININE FOR GFR 0.79 MG/DL (0.55-1.02); GLOMERULAR FILTRATION RATE > 60.0 (>39); GLUCOSE, FASTING 123 MG/DL (83-110); POTASSIUM SERUM 4.3 MEQ/L (3.5-5.1); SODIUM LEVEL 134 MEQ/L (136-145)
[2016-06-30 03:30] VITALS: BP 122/57
[2016-06-30] MEDS: HEPARIN SOD (PORCINE) 5000 UNITS/ML VIAL SC SCH ×3 (06:00→21:57)
[2016-06-30 06:13] LABS: MEAN CORPUSCULAR HEMOGLOBIN 27.5 pg (27.0-33.0); MEAN CORPUSCULAR HGB CONC 33.5 g/dl (32.0-36.5); MEAN CORPUSCULAR VOLUME 82.3 fl (80.0-96.0); WHITE BLOOD COUNT 5.6 K/mm3 (4.0-10.0)
[2016-06-30 06:36] LABS: ALBUMIN 3.1 GM/DL (3.2-5.2); ALBUMIN/GLOBULIN RATIO 1.11 (1.00-1.93); ALKALINE PHOSPHATASE 77 U/L (45-117); ALT/SGPT 21 U/L (12-78); ANION GAP 6 MEQ/L (8-16); AST/SGOT 10 U/L (15-37); BILIRUBIN,TOTAL 0.3 MG/DL (0.2-1.0); BLOOD UREA NITROGEN 14 MG/DL (7-18); CALCIUM LEVEL 8.8 MG/DL (8.8-10.2); CARBON DIOXIDE LEVEL 29 MEQ/L (21-32); CHLORIDE LEVEL 96 MEQ/L (98-107); CREATININE FOR GFR 0.71 MG/DL (0.55-1.02); FERRITIN 49 NG/ML (8-252); GLOMERULAR FILTRATION RATE > 60.0 (>39); GLUCOSE, FASTING 123 MG/DL (83-110); MAGNESIUM LEVEL 1.5 MG/DL (1.8-2.4); PERCENT SATURATION 12.6 % (13.2-37.4); POTASSIUM SERUM 4.4 MEQ/L (3.5-5.1); SODIUM LEVEL 131 MEQ/L (136-145); TOTAL IRON BINDING CAPACITY 356 UG/DL (250-450); TOTAL PROTEIN 5.9 GM/DL (6.4-8.2)
[2016-06-30 08:00] VITALS: BP 137/66
[2016-06-30] MEDS: MUPIROCIN 2% OINT 22 GM TUBE TOP SCH (08:17)
[2016-06-30] MEDS: HumaLOG INSULIN (NovoLOG) PER UNIT SC SCH ×4 (08:18→21:00)
[2016-06-30] MEDS: VITAMIN D 1,000 INTERNATIONAL UNITS TABLET PO SCH (08:19)
[2016-06-30] MEDS: ATORVASTATIN 20 MG TAB PO SCH (08:19)
[2016-06-30] MEDS: amLODIPine 5 MG TAB PO SCH (08:19)
[2016-06-30] MEDS: ASPIRIN 81 MG ENTERIC TAB PO SCH (08:19)
[2016-06-30] MEDS: oxyBUTYnin *DITROPAN XL* 5 MG TABCR PO SCH (08:19)
[2016-06-30] MEDS: MAGNESIUM OXIDE 400 MG TAB (MAG-OX) PO SCH ×2 (08:20→21:54)
[2016-06-30] MEDS: PANTOPRAZOLE 40MG TAB (PROTONIX) PO SCH (08:20)
[2016-06-30] MEDS: SPIRONOLACTONE 25 MG TAB PO SCH (08:20)
[2016-06-30 09:30] LABS: FOLATE 10.1 NG/ML (>5.4); VITAMIN B12 LEVEL 201 PG/ML (247-911)
[2016-06-30] MEDS: NYSTATIN 100,000 UNITS/GM TOPICAL PWD 15 GM TOP SCH ×2 (11:21→21:56)
[2016-06-30 12:00] VITALS: BP 191/75
[2016-06-30 16:00] VITALS: BP 128/61
[2016-06-30] MEDS: PERCOCET 5MG/325MG TAB PO PRN ×2 (18:18→23:20)
[2016-06-30 20:00] VITALS: BP 147/65
--- NOTE | 2016-06-30 20:56 | IPN ---
DATE: 06/30/2016 Mrs. Chu is seen this morning on her bedside. She is sitting in the chair at the time of my visit. She denies any nausea or vomiting but continues to have loose stools. She denies any fever, chills, shortness of breath or cough. PHYSICAL EXAMINATION: Temperature 98.4 degrees Fahrenheit, heart rate 80 per minute and respiratory rate 20 per minute. Blood pressure 137/66 mmHg and oxygen saturation 100% on room air. Intake and output records from yesterday showed total intake 2165 and output 4275 mL. Head is atraumatic. Ears, nose and throat are unremarkable. Neck veins are mildly distended. She has no thyroid enlargement. Pupils are equal and reactive to light and sclerae is anicteric. Heart sounds are regular and lungs clear to auscultation. Abdomen soft and nontender. Bowel sounds are normal. Extremities have no cyanosis or clubbing. Skin has no rash or ulcers. Neurologically she is awake, alert and oriented times three. Today's labs show WBC count 5.6, hemoglobin 10.7 and hematocrit 32.0. Sodium 131 and potassium 4.4. Last evening her sodium was reported 118, however, later at 2 a.m. it was 134. Prior to 118, her sodium was 126 which makes it certain that 118 was a lab error. In any event nothing was changed and she remains on 50 mL normal saline per hour. PROBLEMS: 1. Hyponatremia. Sodium level has improved nicely. The patient continues to follow her oral fluid restriction. She has been started on spironolactone 25 mg daily. I am going to stop her IV fluid and we will monitor her for next 24 hours. Her electrolytes will be repeated again tomorrow morning. 2. Diarrhea. Etiology remains uncertain. Her stool panel was negative. She can probably be treated symptomatically. Other gastrointestinal (GI) problems like gluten enteropathy need to be ruled out. 3. History of congestive heart failure. The patient is known to have congestive heart failure by history. At present she is asymptomatic. She will be maintained on low-dose diuretic and we will monitor her intake and output.
[2016-06-30] MEDS: GABAPENTIN 300 MG CAP PO SCH (21:54)
[2016-06-30] MEDS: CYANOCOBALAMIN 500 MCG TAB PO SCH (21:55)
[2016-07-01] VITALS (7 sets, daily range): BP systolic 114–153; BP diastolic 56–88
[2016-07-01] MEDS: ACETAMINOPHEN TAB 650MG DOSE (2X325MG) PO PRN ×2 (02:39→10:26)
[2016-07-01 05:37] LABS: MEAN CORPUSCULAR HEMOGLOBIN 27.2 pg (27.0-33.0); MEAN CORPUSCULAR HGB CONC 32.8 g/dl (32.0-36.5); MEAN CORPUSCULAR VOLUME 83.1 fl (80.0-96.0); RED CELL DISTRIBUTION WIDTH 14.1 % (11.5-14.5); WHITE BLOOD COUNT 7.2 K/mm3 (4.0-10.0)
[2016-07-01] MEDS: HEPARIN SOD (PORCINE) 5000 UNITS/ML VIAL SC SCH ×3 (05:51→21:28)
[2016-07-01 05:54] LABS: ALBUMIN/GLOBULIN RATIO 0.88 (1.00-1.93); ALKALINE PHOSPHATASE 81 U/L (45-117); ALT/SGPT 20 U/L (12-78); ANION GAP 7 MEQ/L (8-16); AST/SGOT 10 U/L (15-37); BILIRUBIN,TOTAL 0.2 MG/DL (0.2-1.0); BLOOD UREA NITROGEN 21 MG/DL (7-18); CARBON DIOXIDE LEVEL 27 MEQ/L (21-32); CHLORIDE LEVEL 101 MEQ/L (98-107); CREATININE FOR GFR 0.81 MG/DL (0.55-1.02); GLOMERULAR FILTRATION RATE > 60.0 (>39); GLUCOSE, FASTING 128 MG/DL (83-110); MAGNESIUM LEVEL 1.5 MG/DL (1.8-2.4); POTASSIUM SERUM 4.5 MEQ/L (3.5-5.1); SODIUM LEVEL 135 MEQ/L (136-145); TOTAL PROTEIN 6.4 GM/DL (6.4-8.2)
[2016-07-01] MEDS: HumaLOG INSULIN (NovoLOG) PER UNIT SC SCH ×4 (09:02→21:33)
[2016-07-01] MEDS: VITAMIN D 1,000 INTERNATIONAL UNITS TABLET PO SCH (09:03)
[2016-07-01] MEDS: ASPIRIN 81 MG ENTERIC TAB PO SCH (09:03)
[2016-07-01] MEDS: PANTOPRAZOLE 40MG TAB (PROTONIX) PO SCH (09:03)
[2016-07-01] MEDS: ATORVASTATIN 20 MG TAB PO SCH (09:03)
[2016-07-01] MEDS: MAGNESIUM OXIDE 400 MG TAB (MAG-OX) PO SCH ×2 (09:03→21:27)
[2016-07-01] MEDS: SPIRONOLACTONE 25 MG TAB PO SCH (09:03)
[2016-07-01] MEDS: CYANOCOBALAMIN 500 MCG TAB PO SCH ×2 (09:03→21:27)
[2016-07-01] MEDS: amLODIPine 5 MG TAB PO SCH (09:04)
[2016-07-01] MEDS: MUPIROCIN 2% OINT 22 GM TUBE TOP SCH (09:04)
[2016-07-01] MEDS: NYSTATIN 100,000 UNITS/GM TOPICAL PWD 15 GM TOP SCH ×2 (09:05→22:11)
[2016-07-01] MEDS: oxyBUTYnin *DITROPAN XL* 5 MG TABCR PO SCH (10:26)
[2016-07-01] MEDS: PERCOCET 5MG/325MG TAB PO PRN ×3 (11:19→23:19)
--- NOTE | 2016-07-01 14:46 | REP ---
MRI THORACIC SPINE WITHOUT CONTRAST: HISTORY: Back pain. 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 A disc bulge and small left paracentral disc protrusion are present at the T4-5 level. There is minimal effacement of the thecal sac without spinal cord compression. A small right paracentral disc protrusion is present at the T5-6 level. The previously noted disc bulge is not seen. There is minimal effacement of the thecal sac without spinal cord compression. The T5 neural foramina are patent. There is no other disc bulge or herniation. The remaining neural foramina are patent. The spinal cord is normal in signal intensity. Normal signal intensity is present in the thoracic vertebral bodies. Anterior osteophytes are present throughout the thoracic spine. IMPRESSION: 1. Diffuse disc bulge and small disc protrusion at the T4-5 level without spinal cord compression. The disc protrusion is a new finding. 2. Small disc protrusion at the T5-6 level without spinal cord compression. The previously noted disc bulge is not seen. Signed by Nicanor Gross MD 07/01/2016 02:54 P
--- NOTE | 2016-07-01 15:59 | IPN ---
DATE: 07/01/2016 SUBJECTIVE: The patient is seen and examined in the room today. The patient stated she has acute on chronic mid lower back pain, and the pain is getting more significant. The patient continues to have multiple bowel movements. No overnight events reported. OBJECTIVE: VITAL SIGNS: Temperature is 97.1, pulse is 77, respirations 20, blood pressure 114/66, pulse oximetry 97% on room air. GENERAL: Fatigued, no sign of acute distress, alert and oriented times three. HEENT: Normocephalic, atraumatic. Extraocular motor grossly intact. CARDIOVASCULAR: Positive S1, S2. Regular rate. LUNGS: Clear to auscultation bilaterally. ABDOMEN: Soft, nontender, nondistended. Bowel sounds present. EXTREMITIES: There is some psoriatic patch located on the right lower extremity near the knee. Positive bilateral pitting edema. No sign of cyanosis. LABORATORY DATA: WBC is 7.2, hemoglobin 10.5, hematocrit 31.9, platelet count 268. Sodium 135, potassium 4.5, chloride 101, carbon dioxide 27, BUN 21, creatinine 0.81, GFR greater than 60, fasting glucose 128, calcium 9, magnesium is 1.5, total bilirubin 0.2, AST 10, ALT 20, alkaline phosphatase 81. C-reactive protein is less than 0.03. Total protein 6.4, albumin 3. ASSESSMENT AND PLAN: 1. Severe hyponatremia. Supervisor [employer], Dr. Corcoran has been assisting on the case. The patient came in here with sodium level of 119; currently the patient has a sodium level of 135. The patient's hyponatremia is improving. 2. Acute on chronic diarrhea. Etiology unknown at this moment. Gastrointestinal (GI) panel is negative. The patient's stool lactoferrin is positive. The patient did have a colonoscopy in December 2015. We will try to rule out celiac disease at this moment. 3. Diastolic congestive heart failure. Echocardiogram was performed 04/22. Currently the patient does not have sign of fluid overload, but the patient does have a history of chronic lymphedema that causes chronic swelling of the bilateral lower extremities. 4. Chronic bilateral lymphedema. The patient has a history of multiple abdominal surgeries and [employer] [place] surgery. The patient has been followed at lymphedema clinic in the outpatient setting. 5. Psoriasis. 6. Restless leg syndrome. 7. History of cervical cancer status post hysterectomy and (please clarify). 8. Bcx-[id number] diabetes. The patient will be on insulin regimen inpatient. Patient on consistent carbohydrate diet. 9. Gastric ulcer. The patient is on proton pump inhibitor (PPI). 10. History of hypertension. The patient is on aldactone, Norvasc. 11. Deep venous thrombosis (DVT) prophylaxis. The patient is on heparin.
--- NOTE | 2016-07-01 18:18 | IPN ---
DATE: 07/01/2016 SUBJECTIVE: Mrs. Chu is seen this morning on her bedside. She continues to have loose stools and also complains of severe pain in her back of chest last night. She denies any nausea or vomiting. She has no dyspnea or chest pain. PHYSICAL EXAMINATION: VITAL SIGNS: Temperature 97.7 degrees Fahrenheit, heart rate 78 per minute and respiratory rate 20 per minute. Blood pressure 148/88 mmHg and oxygen saturation 95% on room air. HEAD: Is atraumatic. NECK: Supple and without jugular venous distention (JVD) or thyroid enlargement. HEART/LUNGS: Heart sounds are regular and lungs clear to auscultation. ABDOMEN: Soft and nontender. Bowel sounds are normal. EXTREMITIES: Have no cyanosis or clubbing. SKIN: Has no rash or ulcers. NEUROLOGIC: She is awake, alert and oriented times three. LABORATORY DATA: Today's labs show sodium level 135 and potassium 4.5. BUN 21 and creatinine 0.81. Hemoglobin is 10.5, hematocrit 31.9. PROBLEMS: 1. Hyponatremia. Sodium level has corrected. She is off intravenous (IV) fluid. She will remain on fluid restriction and oral spironolactone 25 mg daily. 2. Diarrhea. This is an ongoing chronic issue. This is being worked up by hospitalist service. At present she does not look dehydrated as her diarrhea is not watery. She does get three loose stools. She is able to maintain her fluid intake and has no change in her weight for last three days. I will not consider giving her further IV fluid. 3. Anemia. Anemia is mild and stable. No intervention is indicated.
[2016-07-01] MEDS: GABAPENTIN 300 MG CAP PO SCH (21:27)
--- NOTE | 2016-07-01 23:30 | IPN ---
DATE OF VISIT: 06/30/2016 SUBJECTIVE: Patient seen and examined in the room today. Patient stated her nausea and vomiting has improved. No significant recurrence since the admission. Patient had two documented bowel movements in the last 24 hours. Gastrointestinal (GI) panel is negative. Patient stated she has continued to complain about her back pain. Otherwise, no overnight events reports. OBJECTIVE: VITAL SIGNS: Temperature is 98.4, pulse is 80, respirations 19, blood pressure is 137/66, pulse oximetry 100% in room air. GENERAL: Morbidly obese. No sign of acute distress. Alert, awake, and oriented times three. HEENT: Normocephalic, atraumatic. Extraocular motor grossly intact. CARDIOVASCULAR: Positive S1, S2. Regular rate. LUNGS: Clear to auscultation bilaterally. ABDOMEN: Soft. Mild tenderness to deep palpation throughout. No rebound. No guarding. Bowel sounds present. EXTREMITIES: Positive pitting edema bilaterally. No signs of cyanosis. LABORATORY DATA: WBC is 5.6, hemoglobin 10.7, hematocrit 32, platelet count is 251. Sodium is 131, potassium 4.4, chloride 96, carbon dioxide 29, BUN 14, creatinine 0.71, GFR greater than 60, fasting glucose 123, calcium is 8.8, magnesium 1.5, iron is 45, TIBC 356, ferritin is 49, total bilirubin 0.3, AST 10, ALT 21, alkaline phosphatase 77, total protein 5.9, albumin 3.1, vitamin B12 is 201, folic acid is 10.1. ASSESSMENT AND PLAN: 1. Severe hyponatremia. The construction director, Dr. Corcoran, has been consulted. We appreciate his assistance. Patient's sodium has been improving since admission. Will continue to follow the patient's sodium level. 2. History of acute kidney injury, resolved. Current renal function is within normal range. This is patient's baseline. 3. Nausea, vomiting, and diarrhea with bowel pain. CT is negative. A GI panel was negative. Continue with supportive care at this moment. 4. History of psoriasis. Continue to monitor. 5. History of hypertension. Currently, patient is on diuretic and Norvasc. Blood pressure has been in the satisfactory range. Continue to monitor. 6. Rem-exyjntr-kxtnbhulb type 2 diabetes. Patient is on sliding scale while the patient is an inpatient. 7. Chronic lymphedema. I will recommend leg elevations. Patient is on diuretic. 8. History of osteoporosis. 9. History of gastric ulcer. On Protonix. 10. History of restless leg syndrome. 11. History of peripheral neuropathy. On gabapentin. 12. Vitamin D deficiency. Continue with supplements. 13. B12 deficiency. Patient was started on B12 supplements. 14. Deep venous thrombosis (DVT) prophylaxis. Patient on heparin. MTDD
[2016-07-02] MEDS: HEPARIN SOD (PORCINE) 5000 UNITS/ML VIAL SC SCH ×2 (05:28→14:00)
[2016-07-02 06:00] VITALS: BP 142/65
[2016-07-02 06:10] LABS: MEAN CORPUSCULAR HEMOGLOBIN 27.2 pg (27.0-33.0); RED CELL DISTRIBUTION WIDTH 13.9 % (11.5-14.5); WHITE BLOOD COUNT 6.6 K/mm3 (4.0-10.0)
[2016-07-02 06:18] LABS: ALBUMIN 3.1 GM/DL (3.2-5.2); ALBUMIN/GLOBULIN RATIO 0.91 (1.00-1.93); ALKALINE PHOSPHATASE 80 U/L (45-117); ALT/SGPT 19 U/L (12-78); ANION GAP 5 MEQ/L (8-16); AST/SGOT 9 U/L (15-37); BILIRUBIN,TOTAL 0.2 MG/DL (0.2-1.0); BLOOD UREA NITROGEN 20 MG/DL (7-18); CALCIUM LEVEL 9.7 MG/DL (8.8-10.2); CARBON DIOXIDE LEVEL 31 MEQ/L (21-32); CHLORIDE LEVEL 100 MEQ/L (98-107); CREATININE FOR GFR 0.84 MG/DL (0.55-1.02); GLOMERULAR FILTRATION RATE > 60.0 (>39); GLUCOSE, FASTING 121 MG/DL (83-110); MAGNESIUM LEVEL 1.7 MG/DL (1.8-2.4); SODIUM LEVEL 136 MEQ/L (136-145); TOTAL PROTEIN 6.5 GM/DL (6.4-8.2)
[2016-07-02] MEDS: HumaLOG INSULIN (NovoLOG) PER UNIT SC SCH ×2 (08:08→11:59)
[2016-07-02] MEDS: ATORVASTATIN 20 MG TAB PO SCH (09:01)
[2016-07-02 09:02] VITALS: BP 142/65
[2016-07-02] MEDS: MAGNESIUM OXIDE 400 MG TAB (MAG-OX) PO SCH (09:02)
[2016-07-02] MEDS: VITAMIN D 1,000 INTERNATIONAL UNITS TABLET PO SCH (09:02)
[2016-07-02] MEDS: CYANOCOBALAMIN 500 MCG TAB PO SCH (09:02)
[2016-07-02] MEDS: ASPIRIN 81 MG ENTERIC TAB PO SCH (09:02)
[2016-07-02] MEDS: amLODIPine 5 MG TAB PO SCH (09:02)
[2016-07-02] MEDS: oxyBUTYnin *DITROPAN XL* 5 MG TABCR PO SCH (09:02)
[2016-07-02] MEDS: MUPIROCIN 2% OINT 22 GM TUBE TOP SCH (09:03)
[2016-07-02] MEDS: NYSTATIN 100,000 UNITS/GM TOPICAL PWD 15 GM TOP SCH (09:03)
[2016-07-02] MEDS: PANTOPRAZOLE 40MG TAB (PROTONIX) PO SCH (09:03)
[2016-07-02] MEDS: SPIRONOLACTONE 25 MG TAB PO SCH (09:03)
[2016-07-02] MEDS ORDERED: SPIR25TA2 PO (12:58)
[2016-07-02] MEDS ORDERED: MAG400TA PO (12:58)
[2016-07-02 14:00] VITALS: BP 147/87
--- NOTE | 2016-07-02 20:12 | DSES ---
DATE OF ADMISSION: 06/28/2016 DATE OF DISCHARGE: 07/02/2016 PRIMARY CARE PROVIDER: Dr. Robe Galicia CONSULTANTS: Nephrologists, Dr. Corcoran and Dr. Galicia. PROCEDURES: None. COMPLICATIONS: None. ADMISSION/DISCHARGE DIAGNOSES: 1. Severe hyponatremia. 2. Acute on chronic thoracic back pain. 3. Chronic diarrhea. 4. History of acute kidney injury. 5. History of psoriasis. 6. Hypertension. 7. Gaz-oflrzan-wqrykuuag diabetes. 8. Chronic lymphedema. 9. History of osteoporosis. 10. History of gastric ulcers. 11. History or restless leg syndrome. 12. History of peripheral neuropathy. 13. Vitamin D deficiency. HOSPITALIZATION COURSE: Patient is a 71-year-old female who presented to [facility] on 06/28/2016 for continued nausea, vomiting, and abdominal pain with diarrhea. During admission, patient was found to have a sodium level of 119, which is in the critical range, and the hospitalist team was called for admission. Due to severe hyponatremia, seed specialist has been consulted. Patient's fluid status, diuretic regimen, and salt intake have continued to be adjusted. With assistance patient had sodium level improve continuously. During admission patient also complained about acute worsening of the thoracic pain. An MRI was obtained, which later came back positive for disc protrusion without any neurological deficit. Later, the gastrointestinal (GI) panel came back negative, so patient it was determined the diarrhea, nausea, and vomiting were not due to infectious etiologies. Further workup was performed to rule out possible cause for patient's acute on chronic diarrhea. We will also try to attempt to obtain the record from outside hospital due to history of colectomy 2 years ago for colonic inflammation. On 07/01/2016, patient's sodium level had returned to normal range for at least 24-48 hours. Patient stated her GI symptoms have resolved for at least 48 hours, and patient determined safe for discharge with recommendation to followup with the primary care provider in 1 week. Patient recommended to establish with a GI specialist to rule out inflammatory bowel processes. Patient is recommended to followup per the hospital record for the celiac disease workup. OBJECTIVE: VITAL SIGNS: Temperature is 96.8, pulse is 77, respirations 18, blood pressure is 142/65, pulse oximetry 94% in room air. LABORATORY DATA: WBC 6.6, hemoglobin 11.3, hematocrit 34.9, platelet count is 275. Sodium is 136, potassium 5, chloride is 100, carbon dioxide 31, BUN 20, creatinine is 0.84, GFR is greater than 60, fasting glucose 121, calcium 9.7, magnesium 1.7. Total bilirubin 0.2, AST is 9, ALT is 19, alkaline phosphatase 80 , C-reactive protein is less than 0.3, total protein 6.5, albumin is 3.1. IgA level is 173, endomisio IgA antibody quantity is pending. Microbiology: GI panel is negative. Stool lactoferrin is positive. IMAGING STUDY: CT abdomen and pelvis without contrast showed no acute findings. Stable sigmoid diverticulosis. No obstructive inflammatory bowel changes. No evidence of hydronephrosis or nephrolithiasis. DISCHARGE MEDICATIONS: - magnesium 400 mg by mouth twice a day - spironolactone 12.5 mg by mouth every morning - Norvasc 5 mg by mouth daily - Otezla 30 mg by mouth twice a day - aspirin 81 mg by mouth daily - atorvastatin 40 mg by mouth daily - vitamin D 2000 units by mouth daily - clobetasol topical cream, 0.05% twice a day as needed for psoriasis - fluocinolone one dose topical daily for skin itchiness - gabapentin 600 mg by mouth at bedtime - metformin 1000 mg by mouth twice a day - omeprazole 40 mg by mouth twice a day - oxybutynin 10 mg by mouth daily - Percocet one tablet by mouth three times a day as needed for pain DISCHARGE INSTRUCTIONS: Discontinue line. Discharge home. Activity as tolerated. No-salt diet as tolerated. Patient should be on 1.8 liter fluid restriction on a daily basis. Patient should followup with primary care provider within a week. Patient should followup with the seed specialist in 1-2 weeks. Patient is recommended to establish with a GI specialist to continue the work for inflammatory bowel processes. Patient has chronic diarrhea. GI panel has been negative. Patient is in the process to rule out celiac disease; however, there is a strong suspicion patient needs further workup to rule out inflammatory bowel disease. Patient did have a colonoscopy in December 2015; however, per patient, the colonoscopy scope was inserted less than half a foot, and it was withdrawn due to significant sign of colitis. DISCHARGE CONDITION: Stable. DISCHARGE TIME: Greater than 30 minutes. [facility]
--- NOTE | 2016-07-02 21:47 | IPN ---
DATE: 07/02/2016 SUBJECTIVE: Patient was seen and examined at the bedside today morning. She is awake and alert, hemodynamically stable. Her renal function is better. Patient does not have any active complaints. She actually wants to go home. REVIEW OF SYSTEMS: Patient denies any fevers, chills, rigors, headache, nausea, vomiting, chest pain, shortness of breath, pain in abdomen, constipation, or diarrhea. Rest of review of systems is negative. OBJECTIVE: Vital signs: Temperature is 97.3 degrees Fahrenheit, blood pressure is 147/87, pulse is 90, respiratory rate of 18, saturating 98% on room air. Intake and output: Urine output recorded is 1.7 liters yesterday, 1100 mL so far today since overnight. Weight in the bed scale is 112.3 kg. PHYSICAL EXAMINATION: GENERAL: Patient is awake, alert, oriented times three, lying in bed in No apparent distress. HEAD AND NECK: Extraocular muscles intact. Pupils equally round and reactive to light. Neck is supple. There is no jugular venous distention (JVD). CARDIOVASCULAR: S1, S2, regular rate. No murmur, rub, or gallop. RESPIRATORY: Chest is clear to auscultation bilaterally. Bilateral equal air entry. No rales or rhonchi. ABDOMEN: Soft, obese, mildly tender to deep palpation in the left lower quadrant. EXTREMITIES: No clubbing or cyanosis. Patient has bulky legs. No edema of the bilateral lower extremities. SKIN: Patient has psoriatic rash on the right knee. CENTRAL NERVOUS SYSTEM: No focal neurological deficit. Power is 5/5 in all extremities. LABORATORY REVIEW: CBC showed a WBC 6.6, hemoglobin 11.2, platelets are 275. BMP showed sodium 136, potassium 5, chloride 100, bicarbonate 31, BUN is 20, creatinine is 0.84. Calcium 9.7, magnesium is 1.7, albumin is 3.1. CURRENT MEDICATIONS: Patient's medications were all reviewed by me. Patient is currently on spironolactone 25 mg by mouth daily. I have changed the dose to 12.5 mg by mouth daily. There is no other change in the medications today as compared with yesterday. ASSESSMENT: A 71-year-old female with hyponatremia and diarrhea along with hypertension. PLAN: 1. Hyponatremia. Patient's sodium level has improved. It is back to 136 now. She should not get the thiazide diuretic again. She has been restarted on spironolactone. I have decreased the dose to 12.5 mg by mouth daily, because potassium level is rising. 2. Diarrhea. Patient reports that her diarrhea is getting better. She denies any more loose stools. Primary team is working her up for possibility of inflammatory bowel disease. Rest of the workup will be done as outpatient. Her symptoms are improved. 3. Anemia. Patient had iron deficiency. Hemoglobin is improving to 11.2. Start the patient on oral iron supplementation. DISCHARGE PLANNING: It is okay to discharge the patient from nephrology standpoint. She can followup with nephrology service after discharge from the hospital. Plan of care was discussed with the hospitalist team, Dr. Yanet Sultana. FRANKO
[2016-07-03] MEDS ORDERED: SPIRONOLACTONE 12.5MG PER 1/2 TABLET PO SCH (09:00)
== END 2016-07-02 14:33 | disposition home or self-care (01) | DRG 641 ==
LOC: M ED 18:48 → M ED INP 19:15 → M PCU 20:58 → M MSPAV 07-01 21:56
PROVIDERS: ADMIT Hospitalist; ATTEND Internal Medicine
DX: E87.1 Hypo-osmolality and hyponatremia (principal); N17.9 Acute kidney failure, unspecified; R11.2 Nausea with vomiting, unspecified; R10.31 Right lower quadrant pain; R10.32 Left lower quadrant pain; L40.9 Psoriasis, unspecified; I10 Essential (primary) hypertension; E11.42 Type 2 diabetes mellitus with diabetic polyneuropathy; E78.5 Hyperlipidemia, unspecified; M81.0 Age-related osteoporosis without current pathological fracture; Z85.41 Personal history of malignant neoplasm of cervix uteri; G25.81 Restless legs syndrome; E55.9 Vitamin D deficiency, unspecified; K28.9 Gastrojejunal ulcer, unspecified as acute or chronic, without hemorrhage or perforation; I89.0 Lymphedema, not elsewhere classified; R19.7 Diarrhea, unspecified; Z87.891 Personal history of nicotine dependence; Z79.82 Long term (current) use of aspirin; Z88.0 Allergy status to penicillin; Z88.1 Allergy status to other antibiotic agents; Z79.84 Long term (current) use of oral hypoglycemic drugs; Z79.899 Other long term (current) drug therapy; Z79.891 Long term (current) use of opiate analgesic

== ENCOUNTER → 2016-06-28 | Outpatient (REF) | payer MEDICARE, OTHER ==
[~2016-06-28] MED LIST changes: +CLOTR1CR TOP; +FLUO0.0114 TOP; +GABA-282 PO; +MUPI2OI TOP; +MUPI30CR TOP; +VANC250C2 PO
[2016-06-28 12:31] LABS: BASO % 0.4 % (0.0-1.0); EOS # 0.1 K/mm3 (0.0-0.50); EOS % 1.1 % (0.0-3.0); LYMPH # 1.3 K/mm3 (1.5-4.5); LYMPH % 16.2 % (24.0-44.0); MEAN CORPUSCULAR HEMOGLOBIN 27.4 pg (27.0-33.0); MEAN CORPUSCULAR HGB CONC 33.1 g/dl (32.0-36.5); MEAN CORPUSCULAR VOLUME 82.8 fl (80.0-96.0); MONO # 0.6 K/mm3 (0.0-0.8); MONO % 7.2 % (0.0-5.0); NEUTROPHILS # 5.8 K/mm3 (1.8-7.7); NEUTROPHILS % 73.3 % (36.0-66.0); WHITE BLOOD COUNT 7.8 K/mm3 (4.0-10.0)
[2016-06-28 12:40] LABS: ALBUMIN 3.5 GM/DL (3.2-5.2); ALBUMIN/GLOBULIN RATIO 1.09 (1.00-1.93); BILIRUBIN,TOTAL 0.5 MG/DL (0.2-1.0); CALCIUM LEVEL 9.2 MG/DL (8.8-10.2); CREATININE FOR GFR 1.5 MG/DL (0.55-1.02); GLOMERULAR FILTRATION RATE 36.5 (>39); POTASSIUM SERUM 4.2 MEQ/L (3.5-5.1); TOTAL PROTEIN 6.7 GM/DL (6.4-8.2)
[2016-06-30 08:07] LABS: ALT 25 IU/L (0-40); GGT 18 IU/L (0-60); HAPTOGLOBIN 280 mg/dL (34-200); NECROINFLAM SCORE 0.09 (0.00-0.17); NECROINFLAMM GRADE A0-No activity (.); TOTAL BILIRUBIN 0.4 mg/dL (0.0-1.2)
== END ==
LOC: M LABDRAWP 11:24
PROVIDERS: ATTEND Internal Medicine Gastroenterology
DX: R19.7 Diarrhea, unspecified (principal); K76.0 Fatty (change of) liver, not elsewhere classified

== ENCOUNTER → 2016-07-05 | Outpatient (REF) | payer MEDICARE, BC, OTHER ==
[~2016-07-05] MED LIST changes: -ATOR40TA PO; +ATOR40TA75 PO; -CART240C PO; +CART240C3 PO; +CARV3.12 PO; +CHLO25TA PO; +CLOT1CRE TOP; -CLOTR1CR TOP; -DILT180C53 PO; +DILT180C71 PO; -FOLI1TAB2 PO; +FOLI1TAB4 PO; +LISI10TA4 PO; +MAG400TA PO; -MELO7.5T6 PO; +MELO7.5T7 PO; -METF1000 PO; +METF10004 PO; +RANI150T PO; +SENN8.6C PO; +SUCR1TAB56 PO; +VITA200016 PO; +ZOFR4TAB3 PO
== END ==
LOC: M LAB REF 11:35
PROVIDERS: ATTEND Internal Medicine Gastroenterology
DX: R19.7 Diarrhea, unspecified (principal); K76.0 Fatty (change of) liver, not elsewhere classified
CPT/HCPCS: 36415; 80048; 82656; 83630; 85027; 87493; G0463

== ENCOUNTER → 2016-07-05 | Outpatient (REF) | payer MEDICARE, OTHER ==
[~2016-07-05] MED LIST changes: +ATOR40TA PO; -ATOR40TA75 PO; +CART240C PO; -CART240C3 PO; -CARV3.12 PO; -CHLO25TA PO; -CLOT1CRE TOP; +CLOTR1CR TOP; +DILT180C53 PO; -DILT180C71 PO; +FOLI1TAB2 PO; -FOLI1TAB4 PO; -LISI10TA4 PO; +MELO7.5T6 PO; -MELO7.5T7 PO; +METF1000 PO; -METF10004 PO; -RANI150T PO; -SENN8.6C PO; -SUCR1TAB56 PO; -VITA200016 PO; -ZOFR4TAB3 PO
[2016-07-05 13:06] LABS: MEAN CORPUSCULAR HEMOGLOBIN 27.5 pg (27.0-33.0); MEAN CORPUSCULAR HGB CONC 31.7 g/dl (32.0-36.5); MEAN CORPUSCULAR VOLUME 86.6 fl (80.0-96.0); RED CELL DISTRIBUTION WIDTH 13.9 % (11.5-14.5)
[2016-07-05 13:35] LABS: ANION GAP 10 MEQ/L (8-16); BLOOD UREA NITROGEN 21 MG/DL (7-18); CALCIUM LEVEL 9.6 MG/DL (8.8-10.2); CARBON DIOXIDE LEVEL 28 MEQ/L (21-32); CHLORIDE LEVEL 99 MEQ/L (98-107); CREATININE FOR GFR 0.95 MG/DL (0.55-1.02); GLOMERULAR FILTRATION RATE > 60.0 (>39); GLUCOSE, FASTING 98 MG/DL (83-110); POTASSIUM SERUM 4.4 MEQ/L (3.5-5.1); SODIUM LEVEL 137 MEQ/L (136-145)
== END ==
LOC: M SFHCPLAZ 10:19
PROVIDERS: ATTEND Internal Medicine
DX: N17.9 Acute kidney failure, unspecified (principal); R19.7 Diarrhea, unspecified; K76.0 Fatty (change of) liver, not elsewhere classified

== ENCOUNTER → 2016-07-21 | Outpatient (CLI) | payer MEDICARE, OTHER | LOC: M WUC 10:12 | PROVIDERS: ATTEND Family Medicine | DX: E83.42 Hypomagnesemia (principal) ==

== ENCOUNTER → 2016-09-13 | Outpatient (REF) | payer MEDICARE, BC, OTHER ==
[~2016-09-13] MED LIST changes: -ATOR40TA PO; +ATOR40TA75 PO; -CART240C PO; +CART240C3 PO; +CARV3.12 PO; +CHLO25TA PO; +CLOT1CRE TOP; -CLOTR1CR TOP; -DILT180C53 PO; +DILT180C71 PO; -FOLI1TAB2 PO; +FOLI1TAB4 PO; +LISI10TA4 PO; -MELO7.5T6 PO; +MELO7.5T7 PO; -METF1000 PO; +METF10004 PO; +RANI150T PO; +SENN8.6C PO; +SUCR1TAB56 PO; +VITA200016 PO; +ZOFR4TAB3 PO
== END ==
LOC: M SFHCPLAZ 16:02
PROVIDERS: ATTEND Family Medicine
DX: E11.9 Type 2 diabetes mellitus without complications (principal); E61.2 Magnesium deficiency
CPT/HCPCS: 36415; 83036; 83735; G0463

== ENCOUNTER 2016-10-06 17:14 | Emergency (ER) | payer MEDICARE, BC, OTHER ==
[~2016-10-06 17:14] MED LIST changes: -CARV3.12 PO; -CHLO25TA PO; -LISI10TA4 PO; -RANI150T PO; -SENN8.6C PO; -SUCR1TAB56 PO; -VITA200016 PO; -ZOFR4TAB3 PO
[2016-10-06] MEDS ORDERED: GI COCKTAIL 50ML BTL(HYOSCYAMINE/MAALOX/LIDOCAINE VISCOUS)(1:3:1) As Ordered ONE (18:06)
[2016-10-06] MEDS ORDERED: ISOVUE-370 76% 100ML VIAL (Q9967) As Ordered ONE (18:23)
[2016-10-06] MEDS ORDERED: GASTROGRAFIN SOLUTION 30ML (Q9963) As Ordered ONE (18:25)
[2016-10-06 19:01] LABS: ALBUMIN 3.3 GM/DL (3.2-5.2); ALBUMIN/GLOBULIN RATIO 0.92 (1.00-1.93); ALKALINE PHOSPHATASE 84 U/L (45-117); ALT/SGPT 15 U/L (12-78); ANION GAP 8 MEQ/L (8-16); AST/SGOT 8 U/L (15-37); BILIRUBIN,DIRECT < 0.1 MG/DL (0.0-0.2); BILIRUBIN,TOTAL 0.3 MG/DL (0.2-1.0); BLOOD UREA NITROGEN 27 MG/DL (7-18); CALCIUM LEVEL 8.9 MG/DL (8.8-10.2); CARBON DIOXIDE LEVEL 27 MEQ/L (21-32); CHLORIDE LEVEL 99 MEQ/L (98-107); CREATININE FOR GFR 0.94 MG/DL (0.55-1.02); GLOMERULAR FILTRATION RATE > 60.0 (>39); GLUCOSE, FASTING 102 MG/DL (83-110); SODIUM LEVEL 134 MEQ/L (136-145); TOTAL PROTEIN 6.9 GM/DL (6.4-8.2)
[2016-10-06 19:02] LABS: POTASSIUM SERUM 5.3 MEQ/L (3.5-5.1)
[2016-10-06] MEDS ORDERED: DEXTROSE 50% 50 ML SYRINGE IV STA (19:37)
[2016-10-06] MEDS ORDERED: HumuLIN R (REGULAR) INSULIN (NovoLIN R) **100U/ML** PER UNIT IV ONE (19:45)
[2016-10-06] MEDS ORDERED: CALCIUM GLUCONATE 1,000 MG in D5W MINI-BAG PLUS 100 ML IV ONE (19:45)
[2016-10-06 20:56] LABS: BASO % 0.5 % (0.0-1.0); EOS % 1.8 % (0.0-3.0); LARGE UNSTAINED CELL % 1.1 % (0.0-4.0); LYMPH % 19.3 % (24.0-44.0); MEAN CORPUSCULAR HEMOGLOBIN 25.3 pg (27.0-33.0); MEAN CORPUSCULAR HGB CONC 31.2 g/dl (32.0-36.5); MEAN CORPUSCULAR VOLUME 81.2 fl (80.0-96.0); MONO % 4.9 % (0.0-5.0); NEUTROPHILS % 72.4 % (36.0-66.0); PLATELET COUNT, AUTOMATED 198 k/mm3 (150-450); RED CELL DISTRIBUTION WIDTH 13.4 % (11.5-14.5)
[2016-10-06 20:57] LABS: EOS # 0.2 K/mm3 (0.0-0.50); LARGE UNSTAINED CELL # 0.1 K/mm3 (0.0-0.4); LYMPH # 1.6 K/mm3 (1.5-4.5); MONO # 0.4 K/mm3 (0.0-0.8); NEUTROPHILS # 5.8 K/mm3 (1.8-7.7)
[2016-10-06 22:18] VITALS: BP 156/79
--- NOTE | 2016-10-07 08:21 | ECGEPIP ---
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
[2016-10-07] MEDS ORDERED: GABA-282 PO (14:18)
[2016-10-07] MEDS ORDERED: CHLO25TA PO (14:20)
[2016-10-07] MEDS ORDERED: SPIR25TA2 PO (14:20)
[2016-10-07] MEDS ORDERED: CARV3.12 PO (14:20)
[2016-10-07] MEDS ORDERED: ZOFR4TAB3 PO (16:06)
[2016-10-07] MEDS ORDERED: SENN8.6C PO (16:08)
[2016-10-13] MEDS ORDERED: LISI40TAB PO (13:55)
--- NOTE | 2016-10-13 15:20 | REP ---
Clinical: Acute upper abdominal pain. Technique: Axial contrast enhanced images from the lung bases to the pubic symphysis using oral and 100 ml Isovue 370 intravenous contrast material with coronal and sagittal re-formations. Comparison: 06/28/2016. Findings: Lung bases demonstrate chronic-appearing interstitial changes and scattered scarring. Visualized heart and pericardium demonstrate atherosclerotic changes to the coronary arteries. Liver, spleen, pancreas, bilateral adrenal glands and kidneys are normal / stable. Incidental note is made of a 1.7 cm exophytic left renal cyst unchanged from prior examination. There is no evidence for acute perinephric stranding or hydroureteronephrosis. The enteric system without obstruction or acute inflammatory process evidence for prior appendectomy noted in the right lower quadrant. Colonic and sigmoid diverticulosis noted without acute diverticulitis. Pelvis demonstrates normal bladder and evidence for prior hysterectomy. No pelvic fluid or ascites. No free air. No intraperitoneal or retroperitoneal adenopathy. Atherosclerotic changes of the aorta and vasculature noted without aneurysm or dissection. Surrounding musculoskeletal structures demonstrate age-related changes without focal osseous abnormality. Impression: 1. No acute abdominopelvic pathology appreciated. 2. Colonic diverticulosis without acute diverticulitis. 3. 1.7 cm left renal cyst unchanged. 4. No free fluid, adenopathy or mass lesion. 5. Chronic changes include bibasilar pulmonary scarring, atherosclerotic changes of the coronary arteries and aorta, and age-related degenerative changes to the musculoskeletal structures. Signed by Carmelo Montiel MD 10/06/2016 08:07 P
--- NOTE | 2016-10-13 15:24 | REP ---
CHEST, TWO VIEWS: Two views of the chest are performed and compared to a prior study of 06/19/2016. There are mild fibrotic changes bilaterally which are stable. The heart is upper limits of normal in size to slightly enlarged. There is calcification of the thoracic aorta. The mediastinal silhouette is unchanged. There are mild degenerative changes of the spine. IMPRESSION: Stable chronic findings without evidence of acute infiltrate. Signed by Driss Knapp MD 10/24/2016 04:59 P
[2016-11-22] MEDS ORDERED: RANI150T PO (08:06)
[2016-11-22] MEDS ORDERED: LISI10TA4 PO (08:06)
[2016-11-22] MEDS ORDERED: GABA-282 PO (08:06)
[2016-11-22] MEDS ORDERED: SUCR1TAB56 PO (08:06)
== END 2016-10-06 23:00 | disposition home or self-care (01) ==
LOC: M ED 17:14
DX: R10.9 Unspecified abdominal pain (principal); E87.5 Hyperkalemia; Z01.818 Encounter for other preprocedural examination; Z87.891 Personal history of nicotine dependence
CPT/HCPCS: 36415; 71020; 74177; 80048; 80076; 82550; 82553; 83690; 84132; 84484; 85025; 85027; 93005; 93041; 94760; 96374; 96375; 99285; J0610; Q9963; Q9967

== ENCOUNTER → 2016-10-06 | Outpatient (CLI) | payer MEDICARE, OTHER | LOC: M WUC 11:31 | PROVIDERS: ATTEND Family Medicine | DX: E87.5 Hyperkalemia (principal) ==

== ENCOUNTER → 2016-10-06 | Outpatient (CLI) | payer MEDICARE, OTHER ==
[2016-10-06 09:23] LABS: MEAN CORPUSCULAR HEMOGLOBIN 26.2 pg (27.0-33.0); MEAN CORPUSCULAR VOLUME 81.7 fl (80.0-96.0); RED CELL DISTRIBUTION WIDTH 13.4 % (11.5-14.5); WHITE BLOOD COUNT 6.9 K/mm3 (4.0-10.0)
[2016-10-06 10:24] LABS: CALCIUM LEVEL 9.1 MG/DL (8.8-10.2); CREATININE FOR GFR 1.2 MG/DL (0.55-1.02); GLOMERULAR FILTRATION RATE 47.3 (>39)
[2016-10-06 10:33] LABS: POTASSIUM SERUM 6.3 MEQ/L (3.5-5.1)
== END ==
LOC: M WUC 08:25
PROVIDERS: ATTEND Family Medicine
DX: Z01.818 Encounter for other preprocedural examination (principal)

== ENCOUNTER 2016-10-07 11:31 | Emergency (ER) | payer MEDICARE, BC, OTHER ==
[~2016-10-07] VITALS: Ht 157.5 cm; Wt 109.1 kg
[2016-10-07] MEDS ORDERED: NS 1,000 ML IV SCH (12:26)
[2016-10-07] MEDS ORDERED: MORPHINE 4 MG/ML 1ML SYRINGE IV ONE (12:30)
[2016-10-07] MEDS ORDERED: ONDANSETRON 4MG/2ML VIAL (J2405) IV ONE (12:30)
[2016-10-07] MEDS ORDERED: PANTOPRAZOLE 40MG INJ (PROTONIX) (C9113) IV ONE (12:45)
[2016-10-07 13:20] LABS: BASO % 0.3 % (0.0-1.0); EOS # 0.1 K/mm3 (0.0-0.50); EOS % 1.4 % (0.0-3.0); LARGE UNSTAINED CELL # 0.1 K/mm3 (0.0-0.4); LARGE UNSTAINED CELL % 1.3 % (0.0-4.0); LYMPH # 1.3 K/mm3 (1.5-4.5); LYMPH % 15.1 % (24.0-44.0); MEAN CORPUSCULAR HEMOGLOBIN 25.6 pg (27.0-33.0); MONO # 0.6 K/mm3 (0.0-0.8); MONO % 7.2 % (0.0-5.0); NEUTROPHILS # 5.8 K/mm3 (1.8-7.7); NEUTROPHILS % 74.8 % (36.0-66.0); PLATELET COUNT, AUTOMATED 208 k/mm3 (150-450); RED CELL DISTRIBUTION WIDTH 13.7 % (11.5-14.5); WHITE BLOOD COUNT 7.8 K/mm3 (4.0-10.0)
[2016-10-07 13:49] LABS: ALBUMIN 3.4 GM/DL (3.2-5.2); ALBUMIN/GLOBULIN RATIO 0.79 (1.00-1.93); ALKALINE PHOSPHATASE 99 U/L (45-117); ALT/SGPT 17 U/L (12-78); AMYLASE 55 U/L (25-115); ANION GAP 7 MEQ/L (8-16); AST/SGOT 11 U/L (15-37); BILIRUBIN,DIRECT < 0.1 MG/DL (0.0-0.2); BILIRUBIN,TOTAL 0.3 MG/DL (0.2-1.0); BLOOD UREA NITROGEN 13 MG/DL (7-18); CALCIUM LEVEL 9.4 MG/DL (8.8-10.2); CARBON DIOXIDE LEVEL 28 MEQ/L (21-32); CHLORIDE LEVEL 100 MEQ/L (98-107); CREATININE FOR GFR 0.76 MG/DL (0.55-1.02); GLOMERULAR FILTRATION RATE > 60.0 (>39); GLUCOSE, FASTING 98 MG/DL (83-110); POTASSIUM SERUM 4.3 MEQ/L (3.5-5.1); SODIUM LEVEL 135 MEQ/L (136-145); TOTAL PROTEIN 7.7 GM/DL (6.4-8.2)
[2016-10-07] MEDS ORDERED: GABA-282 PO (14:18)
[2016-10-07] MEDS ORDERED: SPIR25TA2 PO (14:20)
[2016-10-07] MEDS ORDERED: CARV3.12 PO (14:20)
[2016-10-07] MEDS ORDERED: CHLO25TA PO (14:20)
--- NOTE | 2016-10-07 15:28 | CR.PDOC ---
[facility] Consultation Consultation DATE OF CONSULTATION: Oct 07, 2016 at 11:31 PRIMARY CARE PHYSICIAN: Macy Restrepo DO REFERRING PROVIDER: Mohan Britt MD ATTENDING PHYSICIAN: Dr. Scanlon REASON FOR CONSULTATION/CHIEF COMPLAINT: Nausea, vomiting, epigastric pain HISTORY OF PRESENT ILLNESS: Patient is a 71-year-old female with past medical history significant for presented to the emergency room with nausea, vomiting and epigastric pain. Patient was recently seen in the emergency room 10/06/2016 for hyperkalemia. Patient received medication and had the potassium lowered. She received a CT scan of her abdomen that was scheduled to be performed today outpatient. Did not reveal anything significant. Patient was discharged home. This morning patient awoke and was having abdominal pain and nausea and dry heaving. Patient denies any vomiting today. This pain patient describes as similar to her chronic pain. Has been going on for the past 3 years. No changes. Last bowel movement was today and was loose. Patient describes it as a brown "whooshing ". She decided to call the office. The nurse answer the phone and recommended patient go to the hospital. Once patient arrived in the hospital she was given Protonix, Zofran and morphine. On exam patient states she feels a lot better. No pain. Like to go home. Patient scheduled to have a colonoscopy performed on October 18. Patient is having normal colonoscopy last year however she reports not having it fully done. Patient does have family history of Crohn's disease. ALLERGIES: Please see below. HOME MEDICATIONS: Please see below. PAST MEDICAL HISTORY: 1. Hypertension 2. Type 2 DM 3. MAHESH 4. CHF 5. Obesity PAST SURGICAL HISTORY: 1. History of colectomy 2. History of umbilical repair 3. Hysterectomy FAMILY HISTORY: Father: , suicide Mother: Alive, Crohn's disease, diverticulosis SOCIAL HISTORY: Marital status and/or living arrangements: . Employment: Retired Tobacco use:Former smoker, >10 years ago. ETOH: Deny Illicit drug use: Deny. IV drug use: Deny. REVIEW OF SYSTEMS: CONSTITUTIONAL: No fevers. Positive chills. CARDIOVASCULAR: Positive for twinges in her chest. They happen daily. No changes. PHYSICAL EXAMINATION: VITAL SIGNS: Please see below. GENERAL APPEARANCE: Lying comfortably in bed. No distress. HEENT: H [place]. No rhinorrhea. RESPIRATORY: Clear to auscultation. No wheezing or rhonchi.. CARDIOVASCULAR: Normal S1 and S2. No clicks rubs or gallops.. ABDOMEN: Round. Non-distended. Tenderness to palpation diffuse.. EXTREMITIES: Radial pulse 2/4 bilaterally. No lower extremity edema. NEUROLOGICAL: Speech intact. PSYCHIATRIC: Normal affect. LABORATORY DATA: Please see below. ASSESSMENT/PLAN: 1. Nausea vomiting Patient was given Zofran and Protonix in the ER. Patient is no longer nauseous. Patient last vomited a while ago. Starting patient on Maalox as needed. 2. Epigastric pain Patient had a CT abdomen yesterday. Revealed nothing acute. Patient was given morphine in the ER. Patient has been chronically on opioids for the past few years. She is not taking anything for bowel softener. Discussed starting something at this time. Patient agreed. Starting patient on Senokot-S 1 tab twice a day. Also prescribing patient's Zofran as needed for nausea. 3. Hyperkalemia, resolved Having patient hold her spironolactone at this time. Discussed her dietary habit of eating kinney tomatoes. Vital Signs/I&O Vital Signs Date Time Temp Pulse Resp B/P (MAP) Pulse Ox O2 Delivery O2 Flow Rate FiO2 10/07/16 14:07 10/07/16 13:21 18 10/07/16 13:11 98 10/07/16 11:36 98.3 88 Room Air Laboratory Data Labs 24H Laboratory Tests 2 10/07/16 12:57: White Blood Count 7.8, Red Blood Count 4.87, Hemoglobin 12.5, Hematocrit 39.0, Mean Corpuscular Volume 80.0, Mean Corpuscular Hemoglobin 25.6L, Mean Corpuscular Hemoglobin Concent 32.0, Red Cell Distribution Width 13.7, Platelet Count 208, Neutrophils (%) (Auto) 74.8H, Lymphocytes (%) (Auto) 15.1L, Monocytes (%) (Auto) 7.2H, Eosinophils (%) (Auto) 1.4, Basophils (%) (Auto) 0.3 , Neutrophils # (Auto) 5.8, Lymphocytes # (Auto) 1.3L, Monocytes # (Auto) 0.6, Eosinophils # (Auto) 0.1, Basophils # (Auto) 0.0, Large Unclassified Cells % 1.3 , Large Unclassified Cells # 0.1, Urine Appearance CLEAR, Urine Color STRAW, Urine pH 7.0, Urine Specific [place] 1.010, Urine Protein NEGATIVE, Urine Glucose (UA) NEGATIVE, Urine Ketones NEGATIVE, Urine Urobilinogen 0.2, Urine Bilirubin NEGATIVE, Urine Leukocyte Esterase NEGATIVE, Urine Blood NEGATIVE, Urine Nitrite NEGATIVE, Urine WBC (Auto) 0, Urine RBC (Auto) 2, Urine Hyaline Casts (Auto) 0, Urine Bacteria (Auto) NEGATIVE, Urine Squamous Epithelial Cells 0, Urine Sperm (Auto) , Anion Gap 7L, Glomerular Filtration Rate > 60.0, Lactic Acid Level 1.2, Calcium Level 9.4, Aspartate Amino Transf (AST/SGOT) 11L, Alanine Aminotransferase (ALT/SGPT) 17, Alkaline Phosphatase 99, Total Bilirubin 0.3, Direct Bilirubin < 0.1, Total Creatine Kinase 39, Creatine Kinase MB 1.0, Creatine Kinase MB Relative Index 2.56, Troponin I < 0.02, Total Protein 7.7, Albumin 3.4, Albumin/Globulin Ratio 0.79L, Amylase Level 55, Lipase 121 CBC/BMP Laboratory Tests 10/07/16 12:57 Red Blood Count 4.87, Mean Corpuscular Volume 80.0, Mean Corpuscular Hemoglobin 25.6 L, Mean Corpuscular Hemoglobin Concent 32.0, Red Cell Distribution Width 13.7, Neutrophils (%) (Auto) 74.8 H, Lymphocytes (%) (Auto) 15.1 L, Monocytes (% ) (Auto) 7.2 H, Eosinophils (%) (Auto) 1.4, Basophils (%) (Auto) 0.3, Neutrophils # (Auto) 5.8, Lymphocytes # (Auto) 1.3 L, Monocytes # (Auto) 0.6, Eosinophils # (Auto) 0.1, Basophils # (Auto) 0.0 Microbiology Microbiology 10/07/16 Urine Culture, Received Pending Allergies Coded Allergies: Lisinopril (Verified Allergy, Severe, TOUNGE SWELLING, 10/07/16) Penicillins (Verified Allergy, Intermediate, SWELLING, 10/07/16) Penicillins Cross Reactors (Verified Allergy, Intermediate, SWELLING, ) Ciprofloxacin (Verified Allergy, Unknown, 10/07/16) TAPE (Verified Allergy, Unknown, SURGICAL TAPE, 10/07/16) Home Medications Scheduled Amlodipine Besylate (Norvasc) 5 Mg Tab, 5 MG PO DAILY, (Reported) Apremilast Base (Otezla) 30 Mg Tab, 30 MG PO BID, (Reported) Aspirin (Aspir-81) 81 Mg Tab, 81 MG PO DAILY, (Reported) Atorvastatin Calcium (Atorvastatin Calcium) 40 Mg Tab, 40 MG PO DAILY, (Reported ) Carvedilol (Carvedilol) 3.125 Mg Tab, 3.125 MG PO BID, (Reported) Chlorthalidone (Chlorthalidone) 25 Mg Tab, 12.5 MG PO DAILY, (Reported) Cholecalciferol (Vitamin D) 2,000 Unit Tab, 2,000 UNIT PO DAILY, (Reported) Gabapentin (Gabapentin) 300 Mg Cap, 600 MG PO QHS, (Reported) Gabapentin (Gabapentin) 300 Mg Cap, 300 MG PO BID, (Reported) takes with lunch and dinner Metformin Hydrochloride (Metformin HCl) 1,000 Mg Tab, 1,000 MG PO BID, (Reported ) Omeprazole (Omeprazole) 40 Mg Cap, 40 MG PO BID, (Reported) Oxybutynin Chloride (Oxybutynin Chloride ER) 10 Mg Tab, 10 MG PO DAILY, ( Reported) Spironolactone (Spironolactone) 25 Mg Tab, 12.5 MG PO DAILY, (Reported) Scheduled PRN Clobetasol Propionate (Clobex) 0.05 % Lot, 0.05 % TOP BID PRN for PSORIASIS, ( Reported) APPLY TO SCALP AND AFFECTED AREAS NEEDED Ondansetron (Zofran Odt) 4 Mg Tab, 4 MG PO Q4H PRN for NAUSEA, #10 Oxycodone/Acetaminophen (Oxycodone/Acetaminophen 5-325 mg) 1 Tab Tab, 1 TAB PO TID PRN for PAIN, (Reported) Senna (Senna) 8.6 Mg Cap, 2 CAP PO DAILYPRN PRN for CONSTIPATION, #14 GME ATTESTATION GME ATTESTATION My preceptor for this patient encounter was physically present in the building during the encounter and was fully available. As needed, all aspects of the patient interview, examination, medical decision making process, and medical care plan development were reviewed and approved by the preceptor. Preceptor is aware and concurs with the plan as stated in the body of this note and will attest to such by his/her cosignature. ATTENDING NOTE Patient seen and examined. Case discussed with the resident in detail. Agree with above. MACY Lechuga MD, DO Oct 07, 2016 15:28 GANGA SCANLON MD Oct 10, 2016 11:46
[2016-10-07] MEDS ORDERED: ZOFR4TAB3 PO (16:06)
[2016-10-07] MEDS ORDERED: SENN8.6C PO (16:08)
[2016-10-07 16:16] VITALS: BP 130/64
--- NOTE | 2016-10-07 18:10 | REP ---
ABDOMINAL SERIES: Supine and erect views of the abdomen and pelvis demonstrate no free air and no compelling evidence for obstruction. There is contrast material in a nondilated colon status-post CT scan performed 1 day prior. I do not see significant small bowel dilatation. Surgical clips are seen in the pelvis. There are degenerative changes of the spine. An accompanying view of the chest demonstrates mild bibasilar fibro atelectatic change without acute infiltrate. Heart is upper limits of normal in size. There is calcification of the thoracic aorta. IMPRESSION: No free air or obstruction. No acute infiltrate in either lung. Signed by Driss Knapp MD 10/24/2016 04:58 P
--- NOTE | 2016-10-08 19:11 | ECGEPIP ---
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
[2016-10-13] MEDS ORDERED: LISI40TAB PO (13:55)
[2016-11-22] MEDS ORDERED: SUCR1TAB56 PO (08:06)
[2016-11-22] MEDS ORDERED: GABA-282 PO (08:06)
[2016-11-22] MEDS ORDERED: RANI150T PO (08:06)
[2016-11-22] MEDS ORDERED: LISI10TA4 PO (08:06)
== END 2016-10-07 17:02 | disposition home or self-care (01) ==
LOC: M ED 11:31
DX: R10.9 Unspecified abdominal pain (principal); I50.9 Heart failure, unspecified; E11.9 Type 2 diabetes mellitus without complications; I10 Essential (primary) hypertension; Z85.41 Personal history of malignant neoplasm of cervix uteri; Z87.891 Personal history of nicotine dependence
CPT/HCPCS: 74022; 80048; 80076; 81001; 82150; 82550; 82553; 83605; 83690; 84484; 85025; 87086; 93005; 93041; 96374; 96375; 99284; C9113; J2405

== ENCOUNTER → 2016-10-14 | Outpatient (REF) | payer MEDICARE, OTHER ==
[~2016-10-14] MED LIST changes: +CARV3.12 PO; +CHLO25TA PO; +LISI10TA4 PO; +RANI150T PO; +SENN8.6C PO; +SUCR1TAB56 PO; +VITA200016 PO; +ZOFR4TAB3 PO
[2016-10-14 16:35] LABS: INR 0.86
[2016-10-14 17:29] LABS: ALBUMIN 3.3 GM/DL (3.2-5.2); ALBUMIN/GLOBULIN RATIO 1.1 (1.00-1.93); BILIRUBIN,TOTAL 0.2 MG/DL (0.2-1.0); CALCIUM LEVEL 8.9 MG/DL (8.8-10.2); CREATININE FOR GFR 1.54 MG/DL (0.55-1.02); GLOMERULAR FILTRATION RATE 35.5 (>39); TOTAL PROTEIN 6.3 GM/DL (6.4-8.2)
[2016-10-14 17:30] LABS: POTASSIUM SERUM 5.3 MEQ/L (3.5-5.1)
== END ==
LOC: M SFHCPLAZ 10:37
PROVIDERS: ATTEND Family Medicine
DX: E87.5 Hyperkalemia (principal); Z01.818 Encounter for other preprocedural examination; R79.1 Abnormal coagulation profile

== ENCOUNTER 2016-10-15 17:14 | Emergency (ER) | payer MEDICARE, BC, OTHER ==
[~2016-10-15] VITALS: Ht 157.5 cm; Wt 109.1 kg
[~2016-10-15 17:14] MED LIST changes: -LISI10TA4 PO; -RANI150T PO; -SUCR1TAB56 PO; -VITA200016 PO
[2016-10-15] MEDS ORDERED: DICL1GEL3 TD (17:33)
[2016-10-15] MEDS ORDERED: OTEZ1TAB3 PO (17:33)
[2016-10-15] MEDS ORDERED: VITA200016 PO (17:33)
[2016-10-15] MEDS ORDERED: CLOB0.0515 EX (17:33)
[2016-10-15 18:57] LABS: ANION GAP 4 MEQ/L (8-16); BLOOD UREA NITROGEN 19 MG/DL (7-18); CALCIUM LEVEL 9.8 MG/DL (8.8-10.2); CARBON DIOXIDE LEVEL 30 MEQ/L (21-32); CHLORIDE LEVEL 99 MEQ/L (98-107); CREATININE FOR GFR 0.76 MG/DL (0.55-1.02); GLUCOSE, FASTING 105 MG/DL (83-110); POTASSIUM SERUM 5.1 MEQ/L (3.5-5.1); SODIUM LEVEL 133 MEQ/L (136-145)
[2016-10-15 19:06] LABS: GLOMERULAR FILTRATION RATE > 60.0 (>39)
[2016-10-15 19:39] VITALS: BP 136/91
--- NOTE | 2016-10-16 09:11 | ECGEPIP ---
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
[2016-11-22] MEDS ORDERED: RANI150T PO (08:06)
[2016-11-22] MEDS ORDERED: SUCR1TAB56 PO (08:06)
[2016-11-22] MEDS ORDERED: LISI10TA4 PO (08:06)
[2016-11-22] MEDS ORDERED: GABA-282 PO (08:06)
== END 2016-10-15 20:07 | disposition home or self-care (01) ==
LOC: M ED 17:14
DX: E87.5 Hyperkalemia (principal); N18.9 Chronic kidney disease, unspecified; E11.9 Type 2 diabetes mellitus without complications

== ENCOUNTER → 2016-10-17 | Outpatient (REF) | payer MEDICARE, OTHER ==
[~2016-10-17] MED LIST changes: +LISI10TA4 PO; +RANI150T PO; +SUCR1TAB56 PO; +VITA200016 PO
[2016-10-17 15:00] LABS: ANION GAP 7 MEQ/L (8-16); CALCIUM LEVEL 9.9 MG/DL (8.8-10.2); CARBON DIOXIDE LEVEL 31 MEQ/L (21-32); CHLORIDE LEVEL 89 MEQ/L (98-107); CREATININE FOR GFR 0.65 MG/DL (0.55-1.02); GLOMERULAR FILTRATION RATE > 60.0 (>39); GLUCOSE, FASTING 133 MG/DL (83-110); POTASSIUM SERUM 4.8 MEQ/L (3.5-5.1); SODIUM LEVEL 127 MEQ/L (136-145)
[2016-10-17 15:27] LABS: BLOOD UREA NITROGEN 7 MG/DL (7-18)
== END ==
LOC: M SFHCPLAZ 11:34
PROVIDERS: ATTEND Family Medicine
DX: E87.5 Hyperkalemia (principal)

== ENCOUNTER → 2016-10-25 | Outpatient (CLI) | payer MEDICARE, BC, OTHER ==
[2016-10-25 13:40] LABS: ANION GAP 7 MEQ/L (8-16); BLOOD UREA NITROGEN 17 MG/DL (7-18); CALCIUM LEVEL 9.5 MG/DL (8.8-10.2); CARBON DIOXIDE LEVEL 34 MEQ/L (21-32); CHLORIDE LEVEL 101 MEQ/L (98-107); CREATININE FOR GFR 0.83 MG/DL (0.55-1.02); GLOMERULAR FILTRATION RATE > 60.0 (>39); GLUCOSE, FASTING 135 MG/DL (83-110); POTASSIUM SERUM 4.7 MEQ/L (3.5-5.1); SODIUM LEVEL 142 MEQ/L (136-145)
== END ==
LOC: M WUC 10:15
PROVIDERS: ATTEND Family Medicine
DX: I10 Essential (primary) hypertension (principal); E87.1 Hypo-osmolality and hyponatremia
CPT/HCPCS: 36415; 80048; G0463

== ENCOUNTER 2016-11-24 06:18 | Day surgery (SDC) | payer MEDICARE, BC, OTHER ==
[~2016-11-24] VITALS: Ht 157.5 cm; Wt 109.3 kg
[2016-11-24] MEDS ORDERED: NS 1,000 ML IV ONE (06:30)
[2016-11-24] MEDS ORDERED: fentaNYL 100 MCG/2 ML INJECTION (J3010) As Ordered ONE (07:32)
[2016-11-24] MEDS ORDERED: LABETALOL HCL 100 MG/20 ML VIAL As Ordered ONE (07:35)
--- NOTE | 2016-11-24 07:52 | ROOR ---
Patient Name: Radha Chu Procedure Date: 11/24/2016 7:36 AM Date of : 1945 Age: 71 Room: [facility] Gender: Female Note Status: Finalized Procedure: Upper GI endoscopy Indications: Heartburn, Endoscopy to assess diarrhea in patient suspected of having disease of the small-bowel Providers: Reagan ZURITA MD Referring MD: Nicanor Restrepo DO Requesting Provider: Medicines: Monitored Anesthesia Care Complications: No immediate complications. Procedure: Pre-Anesthesia Assessment: - The heart rate, respiratory rate, oxygen saturations, blood pressure, adequacy of pulmonary ventilation, and response to care were monitored throughout the procedure. The Endoscope was introduced through the mouth, and advanced to the third part of duodenum. The upper GI endoscopy was accomplished without difficulty. The patient tolerated the procedure well. Findings: The esophagus was normal. The stomach was normal. (large compliant stomach, but otherwise normal) The examined duodenum was normal. Biopsies for histology were taken with a cold forceps for evaluation of celiac disease. Impression: - Normal esophagus. - Normal stomach. - Normal examined duodenum. Biopsied. Recommendation: - Observe patient's clinical course. - Follow an antireflux regimen. Reagan Zurita MD Reagan ZURITA MD 11/24/2016 7:51:59 AM This report has been signed electronically. Number of Addenda: 0 Note Initiated On: 11/24/2016 7:36 AM Estimated Blood Loss: Estimated blood loss: none.
[2016-11-24] MEDS ORDERED: PROPOFOL 200 MG/20 ML VIAL As Ordered ONE (07:55)
[2016-11-24] MEDS ORDERED: LIDOCAINE 2% INJ 100 MG/5 ML SDV (FOR ANES.) As Ordered ONE (07:55)
[2016-11-24] MEDS ORDERED: ONDANSETRON 4MG/2ML VIAL (J2405) As Ordered ONE (08:20)
--- NOTE | 2016-11-24 08:20 | ROOR ---
Patient Name: Radha Chu Procedure Date: 11/24/2016 7:37 AM Date of : 1945 Age: 71 Room: [facility] Gender: Female Note Status: Finalized Procedure: Colonoscopy Indications: 3-5 years with chronic diarrhea, resolved recently with constipation Providers: Reagan ZURITA MD Referring MD: Nicanor Restrepo DO Requesting Provider: Medicines: Monitored Anesthesia Care Complications: No immediate complications. Procedure: Pre-Anesthesia Assessment: - The heart rate, respiratory rate, oxygen saturations, blood pressure, adequacy of pulmonary ventilation, and response to care were monitored throughout the procedure. The Colonoscope was introduced through the anus and advanced to the ileocolonic anastomosis. The colonoscopy was performed without difficulty. The patient tolerated the procedure well. The quality of the bowel preparation was good. Findings: The perianal exam findings include non-thrombosed external hemorrhoids. Multiple medium-mouthed diverticula were found in the sigmoid colon. The exam was otherwise without abnormality. There was evidence of a prior end-to-end ileo-colonic anastomosis in the cecum. (complete cecum and ileocecal valve are present, however valve appears closed off. there is a small bowel/cecal anastomosis, that is widely patent. This was patent and was characterized by healthy appearing mucosa. The terminal ileum appeared normal. Biopsies for histology were taken with a cold forceps for evaluation of microscopic colitis. Impression: - Non-thrombosed external hemorrhoids found on perianal exam. - Moderate diverticulosis in the sigmoid colon. - Cecum appears intact with patent end-to-end ileo-cecal anastomosis, characterized by healthy appearing mucosa. - The colon examination was otherwise normal. - The examined portion of the rubén ileum was normal. - Biopsies were taken with a cold forceps for evaluation of microscopic colitis. Recommendation: - Continue present medications. - Telephone endoscopist for pathology results in 2 weeks. - If diarrhea returns, consider retrial on bile sequestrant such as questran, cholestid or welchol. Observe clinical course for now. Reagan Zurita MD Reagan ZURITA MD 11/24/2016 8:20:06 AM This report has been signed electronically. Number of Addenda: 0 Note Initiated On: 11/24/2016 7:37 AM Estimated Blood Loss: Estimated blood loss: none.
[2016-11-24] MEDS ORDERED: ONDANSETRON 4MG/2ML VIAL (J2405) IV ONE (08:45)
[2016-11-24 09:00] VITALS: BP 164/91
== END 2016-11-24 09:19 | disposition home or self-care (01) ==
LOC: M OPP 06:18 → EDSTATUS 15:30
PROVIDERS: ATTEND Internal Medicine Gastroenterology
DX: R19.7 Diarrhea, unspecified (principal); K59.00 Constipation, unspecified; K57.30 Diverticulosis of large intestine without perforation or abscess without bleeding; K64.4 Residual hemorrhoidal skin tags; Z98.0 Intestinal bypass and anastomosis status; R12 Heartburn; K21.9 Gastro-esophageal reflux disease without esophagitis; R00.8 Other abnormalities of heart beat; R07.89 Other chest pain; I11.0 Hypertensive heart disease with heart failure; E78.5 Hyperlipidemia, unspecified; R60.0 Localized edema; I89.0 Lymphedema, not elsewhere classified; E11.9 Type 2 diabetes mellitus without complications; K57.32 Diverticulitis of large intestine without perforation or abscess without bleeding; K25.9 Gastric ulcer, unspecified as acute or chronic, without hemorrhage or perforation; D64.9 Anemia, unspecified; M19.90 Unspecified osteoarthritis, unspecified site; M54.89 Other dorsalgia; M81.0 Age-related osteoporosis without current pathological fracture; L40.9 Psoriasis, unspecified; E66.01 Morbid (severe) obesity due to excess calories; Z85.42 Personal history of malignant neoplasm of other parts of uterus; R06.02 Shortness of breath; G47.30 Sleep apnea, unspecified; R06.83 Snoring; Z87.891 Personal history of nicotine dependence; Z88.1 Allergy status to other antibiotic agents; Z88.0 Allergy status to penicillin; Z91.048 Other nonmedicinal substance allergy status; Z79.84 Long term (current) use of oral hypoglycemic drugs; Z79.899 Other long term (current) drug therapy
CPT/HCPCS: 43239; 45380; 88305; J2405; J3010

== ENCOUNTER → 2016-11-28 | Outpatient (REF) | payer MEDICARE, OTHER ==
[2016-11-28 20:39] LABS: BASO % 0.4 % (0.0-1.0); EOS # 0.1 10^3/uL (0.0-0.50); EOS % 0.9 % (0.0-3.0); IMMATURE GRANULOCYTE % 0.3 % (0-0); LYMPH # 2.5 10^3/uL (1.5-4.5); LYMPH % 27.1 % (24.0-44.0); MEAN CORPUSCULAR HEMOGLOBIN 24.9 pg (27.0-33.0); MEAN CORPUSCULAR HGB CONC 30.9 g/dl (32.0-36.5); MEAN CORPUSCULAR VOLUME 80.5 fl (80.0-96.0); MONO # 0.9 10^3/uL (0.0-0.8); MONO % 9.8 % (0.0-5.0); NEUTROPHILS # 5.7 10^3/uL (1.8-7.7); NEUTROPHILS % 61.5 % (36.0-66.0); PLATELET COUNT, AUTOMATED 263 10^3/uL (150-450); RED CELL DISTRIBUTION WIDTH 15.4 % (11.5-14.5); WHITE BLOOD COUNT 9.2 10^3/uL (4.0-10.0)
== END ==
LOC: M SFHCPLAZ 15:11
PROVIDERS: ATTEND Family Medicine
DX: R10.84 Generalized abdominal pain (principal)

== ENCOUNTER → 2016-11-28 | Outpatient (CLI) | payer MEDICARE, BC, OTHER ==
[~2016-11-28] MED LIST changes: +MUCI600T37 PO; +VITA100066 PO
--- NOTE | 2016-11-28 17:20 | REP ---
KUB: Three views presented. History: Generalized abdominal pain. Findings: There are surgical clips in the left pelvis and anastomotic sutures are seen in the right lower abdomen. There are one or two loops of mildly dilated air and fluid-filled small bowel in the right mid abdomen. There is air and stool in the right colon. Psoas margins are symmetric. No mass or organomegaly is seen. Impression: Postoperative changes. Mildly dilated small bowel loop, nonspecific. Ileus versus partial obstruction. Signed by Jaison Cantu MD 11/29/2016 12:49 P
--- NOTE | 2016-11-28 17:27 | REP ---
Chest x-ray: Single view. History: Generalized abdominal pain. Findings: Upright chest radiograph shows no evidence of infiltrate. Pleural angles are sharp. There is a small zone of linear fibrosis in the left lateral pleural angle, unchanged. Heart size is borderline, unchanged. The aorta is calcific. Impression: Linear fibrosis left base. Borderline heart size. No acute disease. Signed by Jaison Cantu MD 11/29/2016 12:49 P
== END ==
LOC: M RAD 15:46
PROVIDERS: ATTEND Family Medicine
DX: R10.84 Generalized abdominal pain (principal); Z98.890 Other specified postprocedural states

== ENCOUNTER 2016-12-21 11:02 | Emergency (ER) | payer MEDICARE, BC, OTHER ==
[~2016-12-21] VITALS: Ht 157.5 cm; Wt 108.2 kg
[~2016-12-21 11:02] MED LIST changes: -MUCI600T37 PO; -VITA100066 PO
[2016-12-21] MEDS ORDERED: VITA100066 PO (11:14)
[2016-12-21] MEDS ORDERED: OTEZ1TAB3 PO (11:15)
--- NOTE | 2016-12-21 12:26 | REP ---
Chest two views HISTORY: Cough Comparison: 11/28/2016 The lungs are clear. The heart is normal in size. The pulmonary vasculature is normal in appearance. The bony structure is intact. IMPRESSION: No acute disease. Signed by Nicanor Gross MD 12/21/2016 12:18 P
[2016-12-21] MEDS ORDERED: MUCI600T37 PO (12:42)
[2016-12-21 12:54] VITALS: BP 134/72
== END 2016-12-21 13:00 | disposition home or self-care (01) ==
LOC: M ED 11:02
DX: J20.9 Acute bronchitis, unspecified (principal); B34.9 Viral infection, unspecified; I10 Essential (primary) hypertension; J45.909 Unspecified asthma, uncomplicated; I25.10 Atherosclerotic heart disease of native coronary artery without angina pectoris; E78.5 Hyperlipidemia, unspecified; G43.909 Migraine, unspecified, not intractable, without status migrainosus; Z85.41 Personal history of malignant neoplasm of cervix uteri; Z87.09 Personal history of other diseases of the respiratory system; Z79.899 Other long term (current) drug therapy; Z79.84 Long term (current) use of oral hypoglycemic drugs; Z88.0 Allergy status to penicillin; Z88.1 Allergy status to other antibiotic agents; Z87.891 Personal history of nicotine dependence
CPT/HCPCS: 71020; 99283; G0463

== ENCOUNTER → 2017-03-01 | Outpatient (CLI) | payer MEDICARE, BC, OTHER | LOC: M WUC 14:21 | DX: M25.731 Osteophyte, right wrist (principal); M79.89 Other specified soft tissue disorders; E55.9 Vitamin D deficiency, unspecified | CPT/HCPCS: 82306 ==

== ENCOUNTER → 2017-03-06 | Outpatient (CLI) | payer MEDICARE, BC | LOC: M WHC 09:35 | DX: Z12.31 Encounter for screening mammogram for malignant neoplasm of breast (principal) | CPT/HCPCS: 77067 ==

== ENCOUNTER → 2017-04-03 | Outpatient (CLI) | payer MEDICARE, OTHER, BC ==
[2017-04-03 13:45] LABS: ALBUMIN 3.5 GM/DL (3.2-5.2); ALBUMIN/GLOBULIN RATIO 1.21 (1.00-1.93); ALKALINE PHOSPHATASE 88 U/L (45-117); ALT/SGPT 14 U/L (12-78); AST/SGOT 9 U/L (7-37); BILIRUBIN,DIRECT 0.1 MG/DL (0.0-0.2); BILIRUBIN,TOTAL 0.3 MG/DL (0.2-1.0); CHOLESTEROL LEVEL 142 MG/DL (<200); HDL CHOLESTEROL 83 MG/DL (>40); LDL CHOLESTEROL 38.8 MG/DL (<100); NON-HDL-C 59 MG/DL; TOTAL PROTEIN 6.4 GM/DL (6.4-8.2); TRIGLYCERIDES LEVEL 101 MG/DL (<150)
== END ==
LOC: M WUC 08:43
DX: Z51.81 Encounter for therapeutic drug level monitoring (principal); Z79.899 Other long term (current) drug therapy; L40.0 Psoriasis vulgaris
CPT/HCPCS: 80076

== ENCOUNTER → 2017-04-05 | Outpatient (REF) | payer MEDICARE, OTHER ==
[2017-04-05 13:07] LABS: HEMATOCRIT 36.1 % (36.0-47.0); HEMOGLOBIN 11.3 g/dl (12.0-16.0); MEAN CORPUSCULAR HGB CONC 31.3 g/dl (32.0-36.5); MEAN CORPUSCULAR VOLUME 83.2 fl (80.0-96.0); PLATELET COUNT, AUTOMATED 225 10^3/uL (150-450); RED BLOOD COUNT 4.34 10^6/uL (4.00-5.40); RED CELL DISTRIBUTION WIDTH 12.9 % (11.5-14.5); WHITE BLOOD COUNT 6.3 10^3/uL (4.0-10.0)
[2017-04-05 13:22] LABS: ALBUMIN 3.5 GM/DL (3.2-5.2); ALBUMIN/GLOBULIN RATIO 1.21 (1.00-1.93); ALKALINE PHOSPHATASE 83 U/L (45-117); ALT/SGPT 15 U/L (12-78); ANION GAP 6 MEQ/L (8-16); AST/SGOT 12 U/L (7-37); BILIRUBIN,TOTAL 0.4 MG/DL (0.2-1.0); BLOOD UREA NITROGEN 20 MG/DL (7-18); CALCIUM LEVEL 8.8 MG/DL (8.8-10.2); CARBON DIOXIDE LEVEL 32 MEQ/L (21-32); CHLORIDE LEVEL 91 MEQ/L (98-107); CREATININE FOR GFR 0.88 MG/DL (0.55-1.30); FREE T4 1.05 NG/DL (0.76-1.46); GLOMERULAR FILTRATION RATE > 60.0 (>39); GLUCOSE, FASTING 110 MG/DL (70-100); MAGNESIUM LEVEL 2.1 MG/DL (1.8-2.4); POTASSIUM SERUM 4.5 MEQ/L (3.5-5.1); SODIUM LEVEL 129 MEQ/L (136-145); THYROID STIMULATING HORMONE 0.513 uIU/ML (0.358-3.740); TOTAL PROTEIN 6.4 GM/DL (6.4-8.2)
== END ==
LOC: M SFHCPLAZ 08:25
DX: R42 Dizziness and giddiness (principal); I10 Essential (primary) hypertension
CPT/HCPCS: 83735

== ENCOUNTER 2017-04-06 17:02 | Emergency (ER) | payer MEDICARE, OTHER ==
[2017-04-06 18:30] LABS: BASO # 0.1 10^3/uL (0.0-0.2); BASO % 0.8 % (0.0-1.0); EOS # 0.3 10^3/uL (0.0-0.50); EOS % 3.7 % (0.0-3.0); HEMATOCRIT 33.7 % (36.0-47.0); HEMOGLOBIN 10.6 g/dl (12.0-16.0); IMMATURE GRANULOCYTE % 0.6 % (0-3.0); LYMPH # 2.4 10^3/uL (1.5-4.5); LYMPH % 27.7 % (24.0-44.0); MEAN CORPUSCULAR HEMOGLOBIN 26.3 pg (27.0-33.0); MEAN CORPUSCULAR HGB CONC 31.5 g/dl (32.0-36.5); MEAN CORPUSCULAR VOLUME 83.6 fl (80.0-96.0); MONO # 1.1 10^3/uL (0.0-0.8); MONO % 12.5 % (0.0-5.0); NEUTROPHILS # 4.8 10^3/uL (1.8-7.7); NEUTROPHILS % 54.7 % (36.0-66.0); PLATELET COUNT, AUTOMATED 249 10^3/uL (150-450); RED BLOOD COUNT 4.03 10^6/uL (4.00-5.40); RED CELL DISTRIBUTION WIDTH 12.9 % (11.5-14.5); WHITE BLOOD COUNT 8.8 10^3/uL (4.0-10.0)
[2017-04-06 18:39] LABS: NT-PRO BNP 144 PG/ML (<125)
[2017-04-06 18:39] LABS: ALBUMIN 3.4 GM/DL (3.2-5.2); ALBUMIN/GLOBULIN RATIO 1.26 (1.00-1.93); ALKALINE PHOSPHATASE 82 U/L (45-117); ALT/SGPT 14 U/L (12-78); ANION GAP 9 MEQ/L (8-16); AST/SGOT 10 U/L (7-37); BILIRUBIN,DIRECT < 0.1 MG/DL (0.0-0.2); BILIRUBIN,TOTAL 0.3 MG/DL (0.2-1.0); BLOOD UREA NITROGEN 28 MG/DL (7-18); CALCIUM LEVEL 8.3 MG/DL (8.8-10.2); CARBON DIOXIDE LEVEL 29 MEQ/L (21-32); CHLORIDE LEVEL 90 MEQ/L (98-107); CPK CREATINE PHOSPHOKINASE 71 U/L (26-192); CREATININE FOR GFR 1.49 MG/DL (0.55-1.30); GLOMERULAR FILTRATION RATE 36.8 (>39); GLUCOSE, FASTING 115 MG/DL (70-100); LIPASE 166 U/L (73-393); POTASSIUM SERUM 4.2 MEQ/L (3.5-5.1); SODIUM LEVEL 128 MEQ/L (136-145); TOTAL PROTEIN 6.1 GM/DL (6.4-8.2); TROPONIN I < 0.02 NG/ML (< 0.10)
[2017-04-06] MEDS ORDERED: ISOVUE-370 76% 100ML VIAL (Q9967) As Ordered (19:44)
[2017-04-06] MEDS: NS 1,000 ML IV (20:04)
[2017-04-06 23:22] LABS: CPK CREATINE PHOSPHOKINASE 93 U/L (26-192); TROPONIN I < 0.02 NG/ML (< 0.10)
[2017-04-06 23:23] LABS: MB/CK RELATIVE INDEX 1.07 (< OR =4)
== END 2017-04-06 23:51 | disposition home or self-care (01) ==
LOC: M ED 17:02
DX: R55 Syncope and collapse (principal); J43.9 Emphysema, unspecified; I50.9 Heart failure, unspecified; I10 Essential (primary) hypertension; G89.29 Other chronic pain; M54.9 Dorsalgia, unspecified; G47.30 Sleep apnea, unspecified; G25.81 Restless legs syndrome; M81.0 Age-related osteoporosis without current pathological fracture; L40.9 Psoriasis, unspecified; K25.9 Gastric ulcer, unspecified as acute or chronic, without hemorrhage or perforation; Z85.41 Personal history of malignant neoplasm of cervix uteri; Z87.891 Personal history of nicotine dependence; Z82.49 Family history of ischemic heart disease and other diseases of the circulatory system; Z81.8 Family history of other mental and behavioral disorders; Z79.82 Long term (current) use of aspirin; Z79.84 Long term (current) use of oral hypoglycemic drugs; Z79.899 Other long term (current) drug therapy; Z88.0 Allergy status to penicillin; Z88.1 Allergy status to other antibiotic agents; Z91.89 Other specified personal risk factors, not elsewhere classified
CPT/HCPCS: Q9967

== ENCOUNTER → 2017-04-14 | Outpatient (CLI) | payer MEDICARE, BC, OTHER | LOC: M EKG 10:41 | DX: R00.2 Palpitations (principal) | CPT/HCPCS: 93225 ==

== ENCOUNTER 2017-04-23 16:00 | Emergency (ER) | payer MEDICARE, BC, OTHER ==
[2017-04-23 16:30] LABS: BASO # 0.1 10^3/uL (0.0-0.2); BASO % 0.7 % (0.0-1.0); EOS # 0.2 10^3/uL (0.0-0.50); EOS % 2.4 % (0.0-3.0); HEMATOCRIT 35.1 % (36.0-47.0); HEMOGLOBIN 11.2 g/dl (12.0-16.0); IMMATURE GRANULOCYTE % 0.7 % (0-3.0); LYMPH # 1.4 10^3/uL (1.5-4.5); LYMPH % 20.1 % (24.0-44.0); MEAN CORPUSCULAR HEMOGLOBIN 26.2 pg (27.0-33.0); MEAN CORPUSCULAR HGB CONC 31.9 g/dl (32.0-36.5); MONO # 0.6 10^3/uL (0.0-0.8); MONO % 8.3 % (0.0-5.0); NEUTROPHILS # 4.6 10^3/uL (1.8-7.7); NEUTROPHILS % 67.8 % (36.0-66.0); PLATELET COUNT, AUTOMATED 230 10^3/uL (150-450); RED BLOOD COUNT 4.28 10^6/uL (4.00-5.40); RED CELL DISTRIBUTION WIDTH 12.9 % (11.5-14.5); WHITE BLOOD COUNT 6.8 10^3/uL (4.0-10.0)
[2017-04-23] MEDS: ASPIRIN 81 MG CHEW TABLET PO (16:37)
[2017-04-23 16:54] LABS: ANION GAP 7 MEQ/L (8-16); BLOOD UREA NITROGEN 21 MG/DL (7-18); CARBON DIOXIDE LEVEL 30 MEQ/L (21-32); CHLORIDE LEVEL 94 MEQ/L (98-107); CPK CREATINE PHOSPHOKINASE 37 U/L (26-192); CREATININE FOR GFR 0.74 MG/DL (0.55-1.30); GLOMERULAR FILTRATION RATE > 60.0 (>39); GLUCOSE, FASTING 118 MG/DL (70-100); POTASSIUM SERUM 4.8 MEQ/L (3.5-5.1); SODIUM LEVEL 131 MEQ/L (136-145); TROPONIN I < 0.02 NG/ML (< 0.10)
[2017-04-23 16:55] LABS: ALBUMIN 3.5 GM/DL (3.2-5.2); ALBUMIN/GLOBULIN RATIO 1.13 (1.00-1.93); ALKALINE PHOSPHATASE 97 U/L (45-117); ALT/SGPT 16 U/L (12-78); AST/SGOT 13 U/L (7-37); BILIRUBIN,DIRECT < 0.1 MG/DL (0.0-0.2); BILIRUBIN,TOTAL 0.2 MG/DL (0.2-1.0); NT-PRO BNP 265 PG/ML (<125); TOTAL PROTEIN 6.6 GM/DL (6.4-8.2)
[2017-04-23 16:58] LABS: LACTIC ACID SEPSIS PROTOCOL 2.3 MMOL/L (0.4-2.0)
[2017-04-23] MEDS: FUROSEMIDE 40 MG/4 ML VIAL (J1940) IV (17:31)
[2017-04-23] MEDS: hydrALAZINE INJ 20 MG/ML VIAL IV (17:32)
[2017-04-23] MEDS: NS 500 ML IV (18:15)
[2017-04-23 19:01] LABS: INFLUENZA A AMPLIFICATION NEGATIVE (NEGATIVE); INFLUENZA B AMPLIFICATION NEGATIVE (NEGATIVE)
== END 2017-04-23 19:35 | disposition home or self-care (01) ==
LOC: M ED 16:00
DX: R42 Dizziness and giddiness (principal); R00.0 Tachycardia, unspecified; R94.31 Abnormal electrocardiogram [ECG] [EKG]; I50.9 Heart failure, unspecified; E11.9 Type 2 diabetes mellitus without complications; I10 Essential (primary) hypertension; G43.909 Migraine, unspecified, not intractable, without status migrainosus; K21.9 Gastro-esophageal reflux disease without esophagitis; K57.30 Diverticulosis of large intestine without perforation or abscess without bleeding; N18.6 End stage renal disease; M54.9 Dorsalgia, unspecified; Z85.42 Personal history of malignant neoplasm of other parts of uterus; Z98.61 Coronary angioplasty status; Z90.49 Acquired absence of other specified parts of digestive tract; Z87.891 Personal history of nicotine dependence; Z82.49 Family history of ischemic heart disease and other diseases of the circulatory system; Z79.82 Long term (current) use of aspirin; Z79.84 Long term (current) use of oral hypoglycemic drugs; Z79.899 Other long term (current) drug therapy; Z88.0 Allergy status to penicillin; Z88.1 Allergy status to other antibiotic agents; Z91.89 Other specified personal risk factors, not elsewhere classified
CPT/HCPCS: J1940

== ENCOUNTER → 2017-05-02 | Outpatient (CLI) | payer MEDICARE, BC, OTHER ==
[2017-05-02 16:50] LABS: ALBUMIN 3.6 GM/DL (3.2-5.2); ANION GAP 6 MEQ/L (8-16); BLOOD UREA NITROGEN 13 MG/DL (7-18); CARBON DIOXIDE LEVEL 31 MEQ/L (21-32); CHLORIDE LEVEL 93 MEQ/L (98-107); CREATININE FOR GFR 0.83 MG/DL (0.55-1.30); GLOMERULAR FILTRATION RATE > 60.0 (>39); GLUCOSE, FASTING 125 MG/DL (70-100); SODIUM LEVEL 130 MEQ/L (136-145)
== END ==
LOC: M WUC 14:06
DX: E87.1 Hypo-osmolality and hyponatremia (principal)
CPT/HCPCS: 80069

== ENCOUNTER → 2017-05-23 | Outpatient (CLI) | payer MEDICARE, BC, OTHER ==
[2017-05-23 17:02] LABS: ALBUMIN 3.7 GM/DL (3.2-5.2); ANION GAP 4 MEQ/L (8-16); BLOOD UREA NITROGEN 15 MG/DL (7-18); CALCIUM LEVEL 9.5 MG/DL (8.8-10.2); CARBON DIOXIDE LEVEL 32 MEQ/L (21-32); CHLORIDE LEVEL 100 MEQ/L (98-107); CREATININE FOR GFR 0.82 MG/DL (0.55-1.30); GLOMERULAR FILTRATION RATE > 60.0 (>39); GLUCOSE, FASTING 125 MG/DL (70-100); PHOSPHORUS LEVEL 4.2 MG/DL (2.5-4.9); POTASSIUM SERUM 5.1 MEQ/L (3.5-5.1); SODIUM LEVEL 136 MEQ/L (136-145)
[2017-05-23 17:31] LABS: ESTIMATED AVERAGE GLUCOSE 137 MG/DL (60-110); HEMOGLOBIN A1c 6.4 %
== END ==
LOC: M WUC 14:48
DX: E11.9 Type 2 diabetes mellitus without complications (principal); E87.1 Hypo-osmolality and hyponatremia
CPT/HCPCS: 80069

== ENCOUNTER 2017-08-08 14:56 | Emergency (ER) | payer MEDICARE, BC, OTHER | END 2017-08-08 17:36 | disposition home or self-care (01) | LOC: M ED 14:56 | DX: S73.101A Unspecified sprain of right hip, initial encounter (principal); X50.1XXA Overexertion from prolonged static or awkward postures, initial encounter; Y92.098 Other place in other non-institutional residence as the place of occurrence of the external cause; G43.909 Migraine, unspecified, not intractable, without status migrainosus; Z85.42 Personal history of malignant neoplasm of other parts of uterus; E78.00 Pure hypercholesterolemia, unspecified; I11.0 Hypertensive heart disease with heart failure; I50.9 Heart failure, unspecified; J44.9 Chronic obstructive pulmonary disease, unspecified; G47.30 Sleep apnea, unspecified; J45.909 Unspecified asthma, uncomplicated; K21.9 Gastro-esophageal reflux disease without esophagitis; K57.92 Diverticulitis of intestine, part unspecified, without perforation or abscess without bleeding; N17.9 Acute kidney failure, unspecified; E11.9 Type 2 diabetes mellitus without complications; M54.9 Dorsalgia, unspecified; M81.0 Age-related osteoporosis without current pathological fracture; Z88.0 Allergy status to penicillin; Z88.1 Allergy status to other antibiotic agents; Z91.048 Other nonmedicinal substance allergy status; Z79.899 Other long term (current) drug therapy; Z79.82 Long term (current) use of aspirin | CPT/HCPCS: 73502 ==

== ENCOUNTER → 2017-09-06 | Outpatient (CLI) | payer MEDICARE, BC, OTHER ==
[2017-09-06 12:20] LABS: BASO # 0.1 10^3/uL (0.0-0.2); BASO % 0.6 % (0.0-1.0); EOS # 0.2 10^3/uL (0.0-0.50); EOS % 2.7 % (0.0-3.0); HEMATOCRIT 38.1 % (36.0-47.0); HEMOGLOBIN 11.8 g/dl (12.0-15.5); IMMATURE GRANULOCYTE % 0.5 % (0-3.0); LYMPH # 1.9 10^3/uL (1.5-4.5); LYMPH % 24.5 % (24.0-44.0); MEAN CORPUSCULAR HEMOGLOBIN 25.6 pg (27.0-33.0); MEAN CORPUSCULAR VOLUME 82.6 fl (80.0-96.0); MONO # 0.9 10^3/uL (0.0-0.8); MONO % 11.3 % (0.0-5.0); NEUTROPHILS # 4.7 10^3/uL (1.8-7.7); NEUTROPHILS % 60.4 % (36.0-66.0); PLATELET COUNT, AUTOMATED 275 10^3/uL (150-450); RED BLOOD COUNT 4.61 10^6/uL (4.00-5.40); WHITE BLOOD COUNT 7.8 10^3/uL (4.0-10.0)
[2017-09-06 12:39] LABS: ALBUMIN 3.5 GM/DL (3.2-5.2); ANION GAP 9 MEQ/L (8-16); BLOOD UREA NITROGEN 30 MG/DL (7-18); CARBON DIOXIDE LEVEL 31 MEQ/L (21-32); CHLORIDE LEVEL 89 MEQ/L (98-107); CREATININE FOR GFR 1.21 MG/DL (0.55-1.30); FERRITIN 22 NG/ML (8-252); GLOMERULAR FILTRATION RATE 46.7 (>39); GLUCOSE, FASTING 109 MG/DL (70-100); IRON (FE) 59 UG/DL (50-170); PERCENT SATURATION 16.1 % (13.2-45.0); PHOSPHORUS LEVEL 4.7 MG/DL (2.5-4.9); SODIUM LEVEL 129 MEQ/L (136-145); TOTAL IRON BINDING CAPACITY 367 UG/DL (250-450)
[2017-09-06 12:40] LABS: POTASSIUM SERUM 5.2 MEQ/L (3.5-5.1)
[2017-09-06 12:41] LABS: VITAMIN B12 LEVEL 1033 PG/ML
[2017-09-06 12:42] LABS: FOLATE 9.1 NG/ML
== END ==
LOC: M WUC 08:25
DX: R25.2 Cramp and spasm (principal); M54.5 Low back pain; Z79.899 Other long term (current) drug therapy; Z79.82 Long term (current) use of aspirin
CPT/HCPCS: 82746

== ENCOUNTER 2017-09-07 17:24 | Emergency (ER) | payer MEDICARE, BC, OTHER ==
[2017-09-07 18:16] LABS: BASO # 0.1 10^3/uL (0.0-0.2); BASO % 0.8 % (0.0-1.0); EOS # 0.2 10^3/uL (0.0-0.50); EOS % 2.9 % (0.0-3.0); HEMATOCRIT 38.7 % (36.0-47.0); HEMOGLOBIN 12.3 g/dl (12.0-15.5); IMMATURE GRANULOCYTE % 0.6 % (0-3.0); LYMPH # 1.6 10^3/uL (1.5-4.5); LYMPH % 25.2 % (24.0-44.0); MEAN CORPUSCULAR HEMOGLOBIN 25.9 pg (27.0-33.0); MEAN CORPUSCULAR HGB CONC 31.8 g/dl (32.0-36.5); MEAN CORPUSCULAR VOLUME 81.5 fl (80.0-96.0); MONO # 0.7 10^3/uL (0.0-0.8); NEUTROPHILS % 60.5 % (36.0-66.0); PLATELET COUNT, AUTOMATED 262 10^3/uL (150-450); RED BLOOD COUNT 4.75 10^6/uL (4.00-5.40); RED CELL DISTRIBUTION WIDTH 14.5 % (11.5-14.5); WHITE BLOOD COUNT 6.5 10^3/uL (4.0-10.0)
[2017-09-07 18:27] LABS: PROTHROMBIN TIME 12.3 SECONDS (12.1-14.4)
[2017-09-07] MEDS: FAMOTIDINE IV BAG 20 MG in APPROPRIATE DILUENT 1 EA IV (18:38)
[2017-09-07] MEDS: ONDANSETRON 4MG/2ML VIAL (J2405) IV (18:38)
[2017-09-07] MEDS: NS 1,000 ML IV (18:38)
[2017-09-07 18:43] LABS: ALBUMIN 3.6 GM/DL (3.2-5.2); ALBUMIN/GLOBULIN RATIO 1.03 (1.00-1.93); ALKALINE PHOSPHATASE 92 U/L (45-117); ALT/SGPT 16 U/L (12-78); ANION GAP 11 MEQ/L (8-16); AST/SGOT 15 U/L (7-37); BILIRUBIN,DIRECT < 0.1 MG/DL (0.0-0.2); BILIRUBIN,TOTAL 0.2 MG/DL (0.2-1.0); BLOOD UREA NITROGEN 28 MG/DL (7-18); CARBON DIOXIDE LEVEL 28 MEQ/L (21-32); CHLORIDE LEVEL 92 MEQ/L (98-107); CK-MB VALUE MASS < 1.0 NG/ML (<3.6); CPK CREATINE PHOSPHOKINASE 44 U/L (26-192); CREATININE FOR GFR 1.19 MG/DL (0.55-1.30); GLOMERULAR FILTRATION RATE 47.6 (>39); GLUCOSE, FASTING 113 MG/DL (70-100); LIPASE 174 U/L (73-393); MB/CK RELATIVE INDEX 2.27 (< OR =4); SODIUM LEVEL 131 MEQ/L (136-145); TOTAL PROTEIN 7.1 GM/DL (6.4-8.2); TROPONIN I < 0.02 NG/ML (< 0.10)
[2017-09-07 18:58] LABS: KETONE, URINE AUTO RFX NEGATIVE (NEGATIVE); LEUKOCYTE ESTERASE UR AUTO RFX NEGATIVE (NEGATIVE); MUCUS, URINE RFX SMALL (NEGATIVE); NITRITE, URINE AUTO RFX NEGATIVE (NEGATIVE); RBC, URINE AUTO RFX 2 /HPF (0-3); SPECIFIC GRAVITY UR AUTO RFX 1.006 (1.002-1.035); SQUAM EPITHELIAL CELL UR AURFX 0 /HPF (0-6); WBC, URINE AUTO RFX 0 /HPF (0-3)
== END 2017-09-07 20:30 | disposition home or self-care (01) ==
LOC: M ED 17:24
DX: K29.70 Gastritis, unspecified, without bleeding (principal); I51.9 Heart disease, unspecified; I10 Essential (primary) hypertension; Z87.891 Personal history of nicotine dependence; Z82.49 Family history of ischemic heart disease and other diseases of the circulatory system; Z79.82 Long term (current) use of aspirin; Z79.84 Long term (current) use of oral hypoglycemic drugs; Z79.899 Other long term (current) drug therapy; Z88.1 Allergy status to other antibiotic agents; Z88.0 Allergy status to penicillin; Z91.89 Other specified personal risk factors, not elsewhere classified
CPT/HCPCS: J2405

== ENCOUNTER → 2017-09-12 | Outpatient (CLI) | payer MEDICARE, BC, OTHER | LOC: M LAB 09:52 | DX: R10.9 Unspecified abdominal pain (principal); Z53.8 Procedure and treatment not carried out for other reasons ==

== ENCOUNTER → 2017-09-21 | Outpatient (CLI) | payer MEDICARE, BC, OTHER | LOC: M RAD 08:13 | DX: E11.8 Type 2 diabetes mellitus with unspecified complications (principal) | CPT/HCPCS: 78264 ==

== ENCOUNTER 2017-11-25 14:04 | Inpatient (IN) | payer MEDICARE, BC, OTHER ==
[2017-11-25] MEDS ORDERED: ONDANSETRON 4MG/2ML VIAL (J2405) As Ordered (14:48)
[2017-11-25 14:51] LABS: BASO % 0.2 % (0.0-1.0); EOS % 0.1 % (0.0-3.0); HEMATOCRIT 45.1 % (36.0-47.0); HEMOGLOBIN 14.4 g/dl (12.0-15.5); IMMATURE GRANULOCYTE % 0.2 % (0-3.0); LYMPH # 0.6 10^3/uL (1.5-4.5); LYMPH % 4.4 % (24.0-44.0); MEAN CORPUSCULAR HGB CONC 31.9 g/dl (32.0-36.5); MEAN CORPUSCULAR VOLUME 84.5 fl (80.0-96.0); MONO # 0.8 10^3/uL (0.0-0.8); MONO % 5.9 % (0.0-5.0); NEUTROPHILS # 11.8 10^3/uL (1.8-7.7); NEUTROPHILS % 89.2 % (36.0-66.0); PLATELET COUNT, AUTOMATED 257 10^3/uL (150-450); RED BLOOD COUNT 5.34 10^6/uL (4.00-5.40); RED CELL DISTRIBUTION WIDTH 14.9 % (11.5-14.5); WHITE BLOOD COUNT 13.3 10^3/uL (4.0-10.0)
[2017-11-25] MEDS: ONDANSETRON 4MG/2ML VIAL (J2405) IV ×3 (14:52→23:35)
[2017-11-25] MEDS: ALBUTEROL SULFATE 2.5 MG/0.5 ML INH NEB SOLN INH (15:09)
[2017-11-25] MEDS: IPRATROPIUM 0.5MG/ALBUTEROL 2.5MG INH SOL UD 3ML (DUONEB)(J7620) NEB (15:09)
[2017-11-25 15:13] LABS: ALBUMIN 3.4 GM/DL (3.2-5.2); ALBUMIN/GLOBULIN RATIO 0.85 (1.00-1.93); ALKALINE PHOSPHATASE 94 U/L (45-117); ALT/SGPT 25 U/L (12-78); AMYLASE 72 U/L (25-115); ANION GAP 11 MEQ/L (8-16); AST/SGOT 23 U/L (7-37); BILIRUBIN,DIRECT 0.1 MG/DL (0.0-0.2); BILIRUBIN,TOTAL 0.4 MG/DL (0.2-1.0); BLOOD UREA NITROGEN 24 MG/DL (7-18); CALCIUM LEVEL 9.6 MG/DL (8.8-10.2); CARBON DIOXIDE LEVEL 27 MEQ/L (21-32); CHLORIDE LEVEL 99 MEQ/L (98-107); CK-MB VALUE MASS < 1.0 NG/ML (<3.6); CPK CREATINE PHOSPHOKINASE 32 U/L (26-192); CREATININE FOR GFR 0.94 MG/DL (0.55-1.30); GLOMERULAR FILTRATION RATE > 60.0 (>39); GLUCOSE, FASTING 151 MG/DL (70-100); LIPASE 98 U/L (73-393); MB/CK RELATIVE INDEX 3.12 (< OR =4); POTASSIUM SERUM 4.1 MEQ/L (3.5-5.1); SODIUM LEVEL 137 MEQ/L (136-145); TOTAL PROTEIN 7.4 GM/DL (6.4-8.2); TROPONIN I < 0.02 NG/ML (< 0.10)
[2017-11-25] MEDS: NS 1,000 ML IV (15:13)
[2017-11-25] MEDS: MORPHINE 2 MG/ML 1ML SYRINGE (J2270) IV (15:13)
[2017-11-25 15:22] LABS: ABG BASE EXCESS 2.7 (-2.0-2.0); ABG HCO3 28.4 MEQ/L (22.0-26.0); ABG O2 SATURATION 89.6 % (95.0-99.0); ABG PARTIAL PRESSURE CO2 47.6 mmHg (35.0-45.0); ABG PARTIAL PRESSURE O2 57.7 mmHg (75.0-100.0); ABG STANDARD HCO3 26.7 MEQ/L (22.0-26.0); ABG TOTAL CO2 29.9 MEQ/L (23.0-31.0); ABG pH (ARTERIAL) 7.394 UNITS (7.350-7.450)
[2017-11-25] MEDS ORDERED: ISOVUE-370 76% 100ML VIAL (Q9967) As Ordered (15:29)
[2017-11-25 15:51] LABS: LACTIC ACID SEPSIS PROTOCOL 1.7 MMOL/L (0.4-2.0)
[2017-11-25 16:01] LABS: INR 0.88
[2017-11-25 16:02] LABS: PARTIAL THROMBOPLASTIN TIME 27.3 SECONDS (25.4-37.6)
[2017-11-25] MEDS: fentaNYL 100 MCG/2 ML INJECTION (J3010) IV (16:15)
[2017-11-25] MEDS ORDERED: NS 1,000 ML IV (17:30)
[2017-11-25] MEDS ORDERED: MORPHINE 4 MG/ML 1ML VIAL/SYRINGE (J2270) IV (18:45)
[2017-11-25] MEDS: MORPHINE 4 MG/ML 1ML VIAL/SYRINGE (J2270) IV (20:45)
[2017-11-25] MEDS: PANTOPRAZOLE 40MG INJ (PROTONIX) (C9113) IV (20:45)
[2017-11-25] MEDS: LR 1,000 ML IV (20:48)
[2017-11-25] MEDS ORDERED: DEXTROSE 50% 50 ML SYRINGE IV (21:00)
[2017-11-25] MEDS ORDERED: GLUCOSE 4 GM CHEW TABLET PO (21:00)
[2017-11-25] MEDS ORDERED: HumaLOG INSULIN (NovoLOG) PER UNIT SC (21:00)
[2017-11-25] MEDS ORDERED: GLUCAGON FOR INJ 1 MG VIAL (J1610) SC (21:00)
[2017-11-25] MEDS ORDERED: METOPROLOL 5 MG/5 ML VIAL IV (21:30)
[2017-11-25] MEDS: LIDOCAINE 2% JELLY 30 ML TOP (22:00)
[2017-11-25 22:19] LABS: CK-MB VALUE MASS < 1.0 NG/ML (<3.6); CPK CREATINE PHOSPHOKINASE 33 U/L (26-192); MB/CK RELATIVE INDEX 3.03 (< OR =4); TROPONIN I < 0.02 NG/ML (< 0.10)
[2017-11-25] MEDS: AZITHROMYCIN INJ 500 MG, VIAL MATE ADAPTER 1 EACH in D5W 250 ML IV (22:53)
[2017-11-25] MEDS: HEPARIN SOD (PORCINE) 5000 UNITS/ML VIAL SC (23:12)
[2017-11-25 23:17] LABS: BEDSIDE GLUCOSE 218 MG/DL (83-110)
[2017-11-26] MEDS: AZTREONAM 1 GM in D5W MINI-BAG PLUS 50 ML IV ×4 (00:28→20:25)
[2017-11-26] MEDS: HumaLOG INSULIN (NovoLOG) PER UNIT SC ×4 (00:28→18:17)
[2017-11-26] MEDS: HEPARIN SOD (PORCINE) 5000 UNITS/ML VIAL SC ×3 (05:11→20:26)
[2017-11-26] MEDS: MORPHINE 4 MG/ML 1ML VIAL/SYRINGE (J2270) IV ×8 (05:12→23:35)
[2017-11-26 05:13] LABS: HEMATOCRIT 41.7 % (36.0-47.0); HEMOGLOBIN 13.1 g/dl (12.0-15.5); MEAN CORPUSCULAR HEMOGLOBIN 26.5 pg (27.0-33.0); MEAN CORPUSCULAR HGB CONC 31.4 g/dl (32.0-36.5); MEAN CORPUSCULAR VOLUME 84.4 fl (80.0-96.0); PLATELET COUNT, AUTOMATED 266 10^3/uL (150-450); RED BLOOD COUNT 4.94 10^6/uL (4.00-5.40); RED CELL DISTRIBUTION WIDTH 14.9 % (11.5-14.5); WHITE BLOOD COUNT 9.1 10^3/uL (4.0-10.0)
[2017-11-26 05:38] LABS: ANION GAP 8 MEQ/L (8-16); BLOOD UREA NITROGEN 39 MG/DL (7-18); CARBON DIOXIDE LEVEL 29 MEQ/L (21-32); CHLORIDE LEVEL 100 MEQ/L (98-107); CREATININE FOR GFR 1.05 MG/DL (0.55-1.30); GLUCOSE, FASTING 153 MG/DL (70-100); POTASSIUM SERUM 4.4 MEQ/L (3.5-5.1); SODIUM LEVEL 137 MEQ/L (136-145)
[2017-11-26 05:41] LABS: CK-MB VALUE MASS < 1.0 NG/ML (<3.6); CPK CREATINE PHOSPHOKINASE 28 U/L (26-192); MB/CK RELATIVE INDEX 3.57 (< OR =4); TROPONIN I < 0.02 NG/ML (< 0.10)
[2017-11-26] MEDS ORDERED: HumaLOG INSULIN (NovoLOG) PER UNIT SC (07:30)
[2017-11-26] MEDS: IPRATROPIUM 0.5MG/ALBUTEROL 2.5MG INH SOL UD 3ML (DUONEB)(J7620) NEB ×4 (07:39→20:06)
[2017-11-26 07:58] LABS: HEMATOCRIT 41.7 % (36.0-47.0); HEMOGLOBIN 13.1 g/dl (12.0-15.5); MEAN CORPUSCULAR HEMOGLOBIN 26.9 pg (27.0-33.0); MEAN CORPUSCULAR HGB CONC 31.4 g/dl (32.0-36.5); MEAN CORPUSCULAR VOLUME 85.6 fl (80.0-96.0); PLATELET COUNT, AUTOMATED 234 10^3/uL (150-450); RED BLOOD COUNT 4.87 10^6/uL (4.00-5.40); RED CELL DISTRIBUTION WIDTH 15.1 % (11.5-14.5); WHITE BLOOD COUNT 8.5 10^3/uL (4.0-10.0)
[2017-11-26 08:15] LABS: THYROID STIMULATING HORMONE 0.148 uIU/ML (0.358-3.740)
[2017-11-26 08:16] LABS: ADD MANUAL DIFFER YES; DIFF SLIDE NUMBER 63; POSITIVE MORPH POS FLAG
[2017-11-26 08:22] LABS: ANION GAP 8 MEQ/L (8-16); BLOOD UREA NITROGEN 40 MG/DL (7-18); CALCIUM LEVEL 9.1 MG/DL (8.8-10.2); CARBON DIOXIDE LEVEL 30 MEQ/L (21-32); CHLORIDE LEVEL 101 MEQ/L (98-107); CREATININE FOR GFR 1.09 MG/DL (0.55-1.30); GLOMERULAR FILTRATION RATE 52.7 (>39); GLUCOSE, FASTING 133 MG/DL (70-100); POTASSIUM SERUM 4.4 MEQ/L (3.5-5.1); SODIUM LEVEL 139 MEQ/L (136-145)
[2017-11-26] MEDS: PANTOPRAZOLE 40MG INJ (PROTONIX) (C9113) IV (08:26)
[2017-11-26] MEDS: ONDANSETRON 4MG/2ML VIAL (J2405) IV ×2 (08:26→13:58)
[2017-11-26 08:54] LABS: ATYPICAL LYMPH 3 % (0-5); BANDS 9 % (< 11); LYMPHOCYTES 15 % (16-52); MONOCYTES 1 % (0-8); NEUTROPHILS 72 % (35-75); PLATELET ESTIMATE NORMAL (NORMAL)
[2017-11-26 08:55] LABS: ANISOCYTOSIS 1+
[2017-11-26] MEDS: NYSTATIN 100,000 UNITS/GM TOPICAL PWD 15 GM TOP ×2 (09:00→20:27)
[2017-11-26] MEDS: LR 1,000 ML IV ×2 (10:00→21:30)
[2017-11-26 12:09] LABS: BEDSIDE GLUCOSE 154 MG/DL (83-110)
[2017-11-26 13:36] LABS: CK-MB VALUE MASS < 1.0 NG/ML (<3.6); CPK CREATINE PHOSPHOKINASE 22 U/L (26-192); MB/CK RELATIVE INDEX 4.55 (< OR =4); TROPONIN I < 0.02 NG/ML (< 0.10)
[2017-11-26 16:35] LABS: BEDSIDE GLUCOSE 141 MG/DL (83-110)
[2017-11-26] MEDS: AZITHROMYCIN INJ 500 MG, VIAL MATE ADAPTER 1 EACH in D5W 250 ML IV (20:26)
[2017-11-27 00:11] LABS: BEDSIDE GLUCOSE 128 MG/DL (83-110)
[2017-11-27] MEDS: MORPHINE 4 MG/ML 1ML VIAL/SYRINGE (J2270) IV ×4 (03:22→23:07)
[2017-11-27] MEDS: AZTREONAM 1 GM in D5W MINI-BAG PLUS 50 ML IV ×3 (05:07→23:06)
[2017-11-27] MEDS: HEPARIN SOD (PORCINE) 5000 UNITS/ML VIAL SC ×3 (05:08→21:26)
[2017-11-27] MEDS: LR 1,000 ML IV ×3 (05:08→14:55)
[2017-11-27 06:41] LABS: BEDSIDE GLUCOSE 136 MG/DL (83-110)
[2017-11-27] MEDS: HumaLOG INSULIN (NovoLOG) PER UNIT SC ×4 (06:45→18:25)
[2017-11-27 07:03] LABS: HEMATOCRIT 38.5 % (36.0-47.0); HEMOGLOBIN 11.7 g/dl (12.0-15.5); MEAN CORPUSCULAR HGB CONC 30.4 g/dl (32.0-36.5); MEAN CORPUSCULAR VOLUME 88.7 fl (80.0-96.0); PLATELET COUNT, AUTOMATED 215 10^3/uL (150-450); RED BLOOD COUNT 4.34 10^6/uL (4.00-5.40); RED CELL DISTRIBUTION WIDTH 15.2 % (11.5-14.5)
[2017-11-27] MEDS: IPRATROPIUM 0.5MG/ALBUTEROL 2.5MG INH SOL UD 3ML (DUONEB)(J7620) NEB ×3 (07:08→15:06)
[2017-11-27 07:26] LABS: ANION GAP 5 MEQ/L (8-16); BLOOD UREA NITROGEN 45 MG/DL (7-18); CALCIUM LEVEL 8.5 MG/DL (8.8-10.2); CARBON DIOXIDE LEVEL 30 MEQ/L (21-32); CHLORIDE LEVEL 105 MEQ/L (98-107); CREATININE FOR GFR 1.03 MG/DL (0.55-1.30); GLOMERULAR FILTRATION RATE 56.2 (>39); GLUCOSE, FASTING 137 MG/DL (70-100); POTASSIUM SERUM 4.6 MEQ/L (3.5-5.1); SODIUM LEVEL 140 MEQ/L (136-145)
[2017-11-27 07:36] LABS: T UPTAKE 38 % (30-39); THYROID STIMULATING HORMONE 0.254 uIU/ML (0.358-3.740); THYROXINE (T4) 7.9 UG/DL (4.5-12.0)
[2017-11-27] MEDS: PANTOPRAZOLE 40MG INJ (PROTONIX) (C9113) IV (08:38)
[2017-11-27] MEDS: NYSTATIN 100,000 UNITS/GM TOPICAL PWD 15 GM TOP ×2 (08:38→21:28)
[2017-11-27 12:23] LABS: BEDSIDE GLUCOSE 94 MG/DL (83-110)
[2017-11-27 18:24] LABS: BEDSIDE GLUCOSE 99 MG/DL (83-110)
[2017-11-27] MEDS: ONDANSETRON 4MG/2ML VIAL (J2405) IV (19:52)
[2017-11-27] MEDS: AZITHROMYCIN INJ 500 MG, VIAL MATE ADAPTER 1 EACH in D5W 250 ML IV (21:25)
[2017-11-27 23:59] LABS: BEDSIDE GLUCOSE 128 MG/DL (83-110)
[2017-11-28] MEDS: HumaLOG INSULIN (NovoLOG) PER UNIT SC ×4 (00:54→18:00)
[2017-11-28] MEDS: MORPHINE 4 MG/ML 1ML VIAL/SYRINGE (J2270) IV ×3 (04:33→14:02)
[2017-11-28] MEDS: ONDANSETRON 4MG/2ML VIAL (J2405) IV ×3 (04:38→23:45)
[2017-11-28 06:02] LABS: HEMATOCRIT 37.8 % (36.0-47.0); HEMOGLOBIN 11.3 g/dl (12.0-15.5); MEAN CORPUSCULAR HEMOGLOBIN 26.5 pg (27.0-33.0); MEAN CORPUSCULAR HGB CONC 29.9 g/dl (32.0-36.5); MEAN CORPUSCULAR VOLUME 88.5 fl (80.0-96.0); PLATELET COUNT, AUTOMATED 210 10^3/uL (150-450); RED BLOOD COUNT 4.27 10^6/uL (4.00-5.40); RED CELL DISTRIBUTION WIDTH 14.9 % (11.5-14.5)
[2017-11-28] MEDS: HEPARIN SOD (PORCINE) 5000 UNITS/ML VIAL SC (06:20)
[2017-11-28] MEDS: AZTREONAM 1 GM in D5W MINI-BAG PLUS 50 ML IV ×2 (06:20→13:21)
[2017-11-28 06:28] LABS: ANION GAP 5 MEQ/L (8-16); BLOOD UREA NITROGEN 22 MG/DL (7-18); CALCIUM LEVEL 8.1 MG/DL (8.8-10.2); CARBON DIOXIDE LEVEL 28 MEQ/L (21-32); CHLORIDE LEVEL 106 MEQ/L (98-107); CREATININE FOR GFR 0.53 MG/DL (0.55-1.30); GLOMERULAR FILTRATION RATE > 60.0 (>39); GLUCOSE, FASTING 86 MG/DL (70-100); POTASSIUM SERUM 4.2 MEQ/L (3.5-5.1); SODIUM LEVEL 139 MEQ/L (136-145)
[2017-11-28] MEDS: IPRATROPIUM 0.5MG/ALBUTEROL 2.5MG INH SOL UD 3ML (DUONEB)(J7620) NEB ×4 (07:20→20:00)
[2017-11-28] MEDS: LR 1,000 ML IV ×2 (07:45→23:04)
[2017-11-28] MEDS: NYSTATIN 100,000 UNITS/GM TOPICAL PWD 15 GM TOP ×2 (08:56→21:00)
[2017-11-28] MEDS: PANTOPRAZOLE 40MG INJ (PROTONIX) (C9113) IV (08:56)
[2017-11-28 12:04] LABS: BEDSIDE GLUCOSE 74 MG/DL (83-110)
[2017-11-28 13:00] LABS: BEDSIDE GLUCOSE 69 MG/DL (83-110)
[2017-11-28] MEDS: CHLORASEPTIC SPRAY MT (13:21)
[2017-11-28 15:41] LABS: BEDSIDE GLUCOSE 71 MG/DL (83-110)
[2017-11-28 16:45] LABS: BEDSIDE GLUCOSE 80 MG/DL (83-110)
[2017-11-28] MEDS ORDERED: fentaNYL 100 MCG/2 ML INJECTION (J3010) As Ordered ×3 (17:08→23:13)
[2017-11-28] MEDS ORDERED: ROCURONIUM BROMIDE 50 MG/5 ML VIAL As Ordered ×3 (17:08→20:39)
[2017-11-28] MEDS ORDERED: PROPOFOL 200 MG/20 ML VIAL As Ordered (17:08)
[2017-11-28] MEDS ORDERED: LIDOCAINE 2% INJ 100 MG/5 ML SDV (FOR ANES.) As Ordered (17:08)
[2017-11-28] MEDS ORDERED: ETOMIDATE INJ 20MG/10ML VIAL As Ordered (17:58)
[2017-11-28] MEDS ORDERED: LABETALOL HCL 100 MG/20 ML VIAL As Ordered (18:17)
[2017-11-28] MEDS ORDERED: SUCCINYLCHOLINE 100 MG/5 ML SYRINGE (J0330) As Ordered (18:32)
[2017-11-28] MEDS ORDERED: METOCLOPRAMIDE INJ 10MG/2ML VIAL (J2765) As Ordered (18:37)
[2017-11-28] MEDS ORDERED: HYDROmorphone HCL 2 MG/ML 1ML VIAL (J1170) As Ordered (18:42)
[2017-11-28] MEDS ORDERED: NEOSTIGMINE 10 MG/10 ML VIAL (J2710) As Ordered (20:40)
[2017-11-28] MEDS ORDERED: GLYCOPYRROLATE INJ 0.2 MG/ML 2 ML VIAL As Ordered ×2 (20:40)
[2017-11-28] MEDS ORDERED: ONDANSETRON 4MG/2ML VIAL (J2405) As Ordered ×2 (20:40→23:42)
[2017-11-28] MEDS ORDERED: DESFLURANE 240 ML INHALANT As Ordered (22:31)
[2017-11-28] MEDS: BUPIVACAINE HCL 0.25% 30 ML VIAL As Ordered (22:40)
[2017-11-28] MEDS: fentaNYL 100 MCG/2 ML INJECTION (J3010) IV ×4 (23:13→23:28)
[2017-11-28] MEDS ORDERED: diphenhydrAMINE INJ 50MG/ML VIAL (J1200) IV (23:15)
[2017-11-28] MEDS ORDERED: ONDANSETRON 4MG/2ML VIAL (J2405) IV (23:15)
[2017-11-28] MEDS ORDERED: MORPHINE 10 MG/ML 1ML VIAL (J2270) IV (23:15)
[2017-11-28] MEDS ORDERED: METOCLOPRAMIDE INJ 10MG/2ML VIAL (J2765) IV (23:15)
[2017-11-28] MEDS ORDERED: EPIDURAL/PCA KEYS XX (23:15)
[2017-11-28] MEDS ORDERED: NALOXONE INJ 0.4 MG/1 ML VIAL (J2310) IV (23:15)
[2017-11-28] MEDS ORDERED: NALBUPHINE HCL 10 MG/ML AMP (J2300) IV (23:15)
[2017-11-28] MEDS ORDERED: MORPHINE 1MG/ML IN 0.9% NACL 100ML IV BAG As Ordered (23:22)
[2017-11-28] MEDS: MORPHINE 1MG/ML IN 0.9% NACL 100ML IV BAG IV (23:30)
[2017-11-29 00:20] LABS: BEDSIDE GLUCOSE 96 MG/DL (83-110)
[2017-11-29] MEDS: AZTREONAM 1 GM in D5W MINI-BAG PLUS 50 ML IV ×4 (00:59→22:00)
[2017-11-29 05:47] LABS: BASO % 0.3 % (0.0-1.0); EOS % 0.2 % (0.0-3.0); HEMATOCRIT 40.7 % (36.0-47.0); IMMATURE GRANULOCYTE % 0.5 % (0-3.0); LYMPH # 0.8 10^3/uL (1.5-4.5); LYMPH % 7.3 % (24.0-44.0); MEAN CORPUSCULAR HEMOGLOBIN 26.5 pg (27.0-33.0); MEAN CORPUSCULAR HGB CONC 29.5 g/dl (32.0-36.5); MEAN CORPUSCULAR VOLUME 89.8 fl (80.0-96.0); MONO # 0.8 10^3/uL (0.0-0.8); MONO % 7.4 % (0.0-5.0); NEUTROPHILS # 9.1 10^3/uL (1.8-7.7); NEUTROPHILS % 84.3 % (36.0-66.0); PLATELET COUNT, AUTOMATED 220 10^3/uL (150-450); RED BLOOD COUNT 4.53 10^6/uL (4.00-5.40); RED CELL DISTRIBUTION WIDTH 14.8 % (11.5-14.5); WHITE BLOOD COUNT 10.8 10^3/uL (4.0-10.0)
[2017-11-29] MEDS: HumaLOG INSULIN (NovoLOG) PER UNIT SC ×4 (06:00→17:53)
[2017-11-29 06:12] LABS: ALBUMIN 2.1 GM/DL (3.2-5.2); ALKALINE PHOSPHATASE 62 U/L (45-117); ALT/SGPT 24 U/L (12-78); ANION GAP 9 MEQ/L (8-16); AST/SGOT 31 U/L (7-37); BILIRUBIN,TOTAL 0.7 MG/DL (0.2-1.0); BLOOD UREA NITROGEN 17 MG/DL (7-18); CALCIUM LEVEL 7.9 MG/DL (8.8-10.2); CARBON DIOXIDE LEVEL 22 MEQ/L (21-32); CHLORIDE LEVEL 111 MEQ/L (98-107); CREATININE FOR GFR 0.56 MG/DL (0.55-1.30); GLOMERULAR FILTRATION RATE > 60.0 (>39); GLUCOSE, FASTING 97 MG/DL (70-100); POTASSIUM SERUM 4.7 MEQ/L (3.5-5.1); SODIUM LEVEL 142 MEQ/L (136-145); TOTAL PROTEIN 5.1 GM/DL (6.4-8.2)
[2017-11-29] MEDS: LR 1,000 ML IV ×3 (06:38→20:28)
[2017-11-29] MEDS: IPRATROPIUM 0.5MG/ALBUTEROL 2.5MG INH SOL UD 3ML (DUONEB)(J7620) NEB ×3 (07:45→20:36)
[2017-11-29] MEDS: ALVIMOPAN 12 MG CAPSULE (ENTEREG) PO ×2 (08:50→20:28)
[2017-11-29] MEDS: PANTOPRAZOLE 40MG INJ (PROTONIX) (C9113) IV (08:50)
[2017-11-29] MEDS: NYSTATIN 100,000 UNITS/GM TOPICAL PWD 15 GM TOP ×2 (08:51→20:27)
[2017-11-29] MEDS: ENOXAPARIN 40 MG/0.4 ML SYRINGE (J1650) SC (08:51)
[2017-11-29 12:35] LABS: BEDSIDE GLUCOSE 108 MG/DL (83-110)
[2017-11-29] MEDS ORDERED: LIDOCAINE 1% MDV 20ML VIAL As Ordered (14:30)
[2017-11-29] MEDS: SODIUM CHLORIDE 0.9% INJ 10 ML SYR IV (16:39)
[2017-11-29 17:02] LABS: BEDSIDE GLUCOSE 116 MG/DL (83-110)
[2017-11-30 00:12] LABS: BEDSIDE GLUCOSE 137 MG/DL (83-110)
[2017-11-30] MEDS: LR 1,000 ML IV ×3 (01:37→14:23)
[2017-11-30] MEDS: AZTREONAM 1 GM in D5W MINI-BAG PLUS 50 ML IV ×3 (05:42→21:14)
[2017-11-30] MEDS: SODIUM CHLORIDE 0.9% INJ 10 ML SYR IV ×3 (05:42→17:36)
[2017-11-30] MEDS: HumaLOG INSULIN (NovoLOG) PER UNIT SC ×4 (06:00→17:37)
[2017-11-30 06:07] LABS: BEDSIDE GLUCOSE 147 MG/DL (83-110)
[2017-11-30] MEDS: IPRATROPIUM 0.5MG/ALBUTEROL 2.5MG INH SOL UD 3ML (DUONEB)(J7620) NEB ×4 (07:26→20:21)
[2017-11-30] MEDS: MORPHINE 1MG/ML IN 0.9% NACL 100ML IV BAG IV (07:41)
[2017-11-30] MEDS: ALVIMOPAN 12 MG CAPSULE (ENTEREG) PO ×2 (08:48→21:14)
[2017-11-30] MEDS: ENOXAPARIN 40 MG/0.4 ML SYRINGE (J1650) SC (08:48)
[2017-11-30] MEDS: PANTOPRAZOLE 40MG INJ (PROTONIX) (C9113) IV (08:48)
[2017-11-30] MEDS: NYSTATIN 100,000 UNITS/GM TOPICAL PWD 15 GM TOP ×2 (08:50→21:22)
[2017-11-30 11:40] LABS: BEDSIDE GLUCOSE 132 MG/DL (83-110)
[2017-11-30 12:33] LABS: HEMATOCRIT 37.2 % (36.0-47.0); HEMOGLOBIN 11.4 g/dl (12.0-15.5); MEAN CORPUSCULAR HEMOGLOBIN 27.3 pg (27.0-33.0); MEAN CORPUSCULAR HGB CONC 30.6 g/dl (32.0-36.5); PLATELET COUNT, AUTOMATED 223 10^3/uL (150-450); RED BLOOD COUNT 4.18 10^6/uL (4.00-5.40); RED CELL DISTRIBUTION WIDTH 15.1 % (11.5-14.5); WHITE BLOOD COUNT 11.9 10^3/uL (4.0-10.0)
[2017-11-30 12:56] LABS: ANION GAP 10 MEQ/L (8-16); BLOOD UREA NITROGEN 18 MG/DL (7-18); CALCIUM LEVEL 8.4 MG/DL (8.8-10.2); CARBON DIOXIDE LEVEL 27 MEQ/L (21-32); CHLORIDE LEVEL 108 MEQ/L (98-107); CREATININE FOR GFR 0.62 MG/DL (0.55-1.30); GLOMERULAR FILTRATION RATE > 60.0 (>39); GLUCOSE, FASTING 148 MG/DL (70-100); POTASSIUM SERUM 4.2 MEQ/L (3.5-5.1); SODIUM LEVEL 145 MEQ/L (136-145)
[2017-11-30 17:31] LABS: BEDSIDE GLUCOSE 137 MG/DL (83-110)
[2017-11-30] MEDS: ACETAMINOPHEN TAB 650MG DOSE (2X325MG) PO (17:39)
[2017-12-01 00:22] LABS: BEDSIDE GLUCOSE 121 MG/DL (83-110)
[2017-12-01] MEDS: HumaLOG INSULIN (NovoLOG) PER UNIT SC ×5 (00:24→23:55)
[2017-12-01] MEDS: AZTREONAM 1 GM in D5W MINI-BAG PLUS 50 ML IV ×2 (05:25→14:00)
[2017-12-01] MEDS: SODIUM CHLORIDE 0.9% INJ 10 ML SYR IV ×2 (05:26→17:19)
[2017-12-01 05:36] LABS: HEMATOCRIT 36.3 % (36.0-47.0); HEMOGLOBIN 10.9 g/dl (12.0-15.5); MEAN CORPUSCULAR HEMOGLOBIN 26.8 pg (27.0-33.0); MEAN CORPUSCULAR VOLUME 89.2 fl (80.0-96.0); PLATELET COUNT, AUTOMATED 219 10^3/uL (150-450); RED BLOOD COUNT 4.07 10^6/uL (4.00-5.40); RED CELL DISTRIBUTION WIDTH 15.1 % (11.5-14.5); WHITE BLOOD COUNT 9.8 10^3/uL (4.0-10.0)
[2017-12-01 06:12] LABS: ANION GAP 7 MEQ/L (8-16); BLOOD UREA NITROGEN 13 MG/DL (7-18); CALCIUM LEVEL 8.1 MG/DL (8.8-10.2); CARBON DIOXIDE LEVEL 30 MEQ/L (21-32); CHLORIDE LEVEL 111 MEQ/L (98-107); GLOMERULAR FILTRATION RATE > 60.0 (>39); GLUCOSE, FASTING 135 MG/DL (70-100); POTASSIUM SERUM 4.5 MEQ/L (3.5-5.1); SODIUM LEVEL 148 MEQ/L (136-145)
[2017-12-01] MEDS: IPRATROPIUM 0.5MG/ALBUTEROL 2.5MG INH SOL UD 3ML (DUONEB)(J7620) NEB ×2 (07:15→11:38)
[2017-12-01] MEDS: ENOXAPARIN 40 MG/0.4 ML SYRINGE (J1650) SC (09:26)
[2017-12-01] MEDS: PANTOPRAZOLE 40MG INJ (PROTONIX) (C9113) IV (09:26)
[2017-12-01] MEDS: ALVIMOPAN 12 MG CAPSULE (ENTEREG) PO ×2 (09:26→21:06)
[2017-12-01] MEDS: NYSTATIN 100,000 UNITS/GM TOPICAL PWD 15 GM TOP ×2 (09:26→21:07)
[2017-12-01 11:21] LABS: BEDSIDE GLUCOSE 113 MG/DL (83-110)
[2017-12-01] MEDS ORDERED: ACETAMINOPHEN TAB 650MG DOSE (2X325MG) PO (11:30)
[2017-12-01] MEDS: LR 1,000 ML IV (12:55)
[2017-12-01] MEDS: PERCOCET 5MG/325MG TAB PO ×2 (14:35→19:21)
[2017-12-01 16:59] LABS: BEDSIDE GLUCOSE 130 MG/DL (83-110)
[2017-12-01] MEDS: ATORVASTATIN 20 MG TAB PO (17:19)
[2017-12-01] MEDS: amLODIPine 10 MG TAB PO (17:19)
[2017-12-01] MEDS: ASPIRIN 81 MG ENTERIC TAB PO (17:21)
[2017-12-01] MEDS: BACTRIM 160MG/800MG DS TAB PO (21:06)
[2017-12-01 23:41] LABS: BEDSIDE GLUCOSE 125 MG/DL (83-110)
[2017-12-02] MEDS: PERCOCET 5MG/325MG TAB PO ×4 (01:54→20:46)
[2017-12-02] MEDS: SODIUM CHLORIDE 0.9% INJ 10 ML SYR IV ×3 (05:24→22:50)
[2017-12-02 05:27] LABS: BEDSIDE GLUCOSE 119 MG/DL (83-110)
[2017-12-02] MEDS: HumaLOG INSULIN (NovoLOG) PER UNIT SC ×4 (05:42→20:45)
[2017-12-02 05:47] LABS: HEMATOCRIT 36.6 % (36.0-47.0); HEMOGLOBIN 11.2 g/dl (12.0-15.5); MEAN CORPUSCULAR HGB CONC 30.6 g/dl (32.0-36.5); MEAN CORPUSCULAR VOLUME 88.2 fl (80.0-96.0); PLATELET COUNT, AUTOMATED 262 10^3/uL (150-450); RED BLOOD COUNT 4.15 10^6/uL (4.00-5.40); RED CELL DISTRIBUTION WIDTH 14.6 % (11.5-14.5); WHITE BLOOD COUNT 7.8 10^3/uL (4.0-10.0)
[2017-12-02 06:11] LABS: ANION GAP 7 MEQ/L (8-16); BLOOD UREA NITROGEN 8 MG/DL (7-18); CALCIUM LEVEL 8.1 MG/DL (8.8-10.2); CARBON DIOXIDE LEVEL 29 MEQ/L (21-32); CHLORIDE LEVEL 107 MEQ/L (98-107); CREATININE FOR GFR 0.45 MG/DL (0.55-1.30); GLOMERULAR FILTRATION RATE > 60.0 (>39); GLUCOSE, FASTING 115 MG/DL (70-100); POTASSIUM SERUM 3.6 MEQ/L (3.5-5.1); SODIUM LEVEL 143 MEQ/L (136-145)
[2017-12-02] MEDS: IPRATROPIUM 0.5MG/ALBUTEROL 2.5MG INH SOL UD 3ML (DUONEB)(J7620) NEB ×4 (08:10→20:16)
[2017-12-02] MEDS: PANTOPRAZOLE 40MG TAB (PROTONIX) PO (09:08)
[2017-12-02] MEDS: ATORVASTATIN 20 MG TAB PO (09:08)
[2017-12-02] MEDS: ASPIRIN 81 MG ENTERIC TAB PO (09:09)
[2017-12-02] MEDS: BACTRIM 160MG/800MG DS TAB PO ×2 (09:09→20:45)
[2017-12-02] MEDS: ALVIMOPAN 12 MG CAPSULE (ENTEREG) PO (09:09)
[2017-12-02] MEDS: ENOXAPARIN 40 MG/0.4 ML SYRINGE (J1650) SC (09:10)
[2017-12-02] MEDS: NYSTATIN 100,000 UNITS/GM TOPICAL PWD 15 GM TOP ×2 (09:13→20:46)
[2017-12-02] MEDS: LISINOPRIL 20 MG TAB PO (09:30)
[2017-12-02] MEDS: MORPHINE 4 MG/ML 1ML VIAL/SYRINGE (J2270) IV ×4 (12:16→22:49)
[2017-12-02 12:29] LABS: BEDSIDE GLUCOSE 120 MG/DL (83-110)
[2017-12-02 16:19] LABS: BEDSIDE GLUCOSE 138 MG/DL (83-110)
[2017-12-02 20:17] LABS: BEDSIDE GLUCOSE 183 MG/DL (83-110)
[2017-12-03] MEDS: PERCOCET 5MG/325MG TAB PO ×3 (02:17→12:39)
[2017-12-03] MEDS: SODIUM CHLORIDE 0.9% INJ 10 ML SYR IV ×2 (05:11→16:16)
[2017-12-03 05:26] LABS: HEMATOCRIT 33.8 % (36.0-47.0); HEMOGLOBIN 10.5 g/dl (12.0-15.5); MEAN CORPUSCULAR HEMOGLOBIN 26.5 pg (27.0-33.0); MEAN CORPUSCULAR HGB CONC 31.1 g/dl (32.0-36.5); MEAN CORPUSCULAR VOLUME 85.4 fl (80.0-96.0); PLATELET COUNT, AUTOMATED 252 10^3/uL (150-450); RED BLOOD COUNT 3.96 10^6/uL (4.00-5.40); RED CELL DISTRIBUTION WIDTH 14.5 % (11.5-14.5); WHITE BLOOD COUNT 7.8 10^3/uL (4.0-10.0)
[2017-12-03 06:00] LABS: ANION GAP 8 MEQ/L (8-16); BLOOD UREA NITROGEN 8 MG/DL (7-18); CALCIUM LEVEL 7.7 MG/DL (8.8-10.2); CARBON DIOXIDE LEVEL 29 MEQ/L (21-32); CHLORIDE LEVEL 107 MEQ/L (98-107); CREATININE FOR GFR 0.46 MG/DL (0.55-1.30); GLOMERULAR FILTRATION RATE > 60.0 (>39); GLUCOSE, FASTING 132 MG/DL (70-100); POTASSIUM SERUM 3.5 MEQ/L (3.5-5.1); SODIUM LEVEL 144 MEQ/L (136-145)
[2017-12-03 07:36] LABS: BEDSIDE GLUCOSE 127 MG/DL (83-110)
[2017-12-03] MEDS: HumaLOG INSULIN (NovoLOG) PER UNIT SC ×4 (08:07→21:21)
[2017-12-03] MEDS: ENOXAPARIN 40 MG/0.4 ML SYRINGE (J1650) SC (08:07)
[2017-12-03] MEDS: ATORVASTATIN 20 MG TAB PO (08:09)
[2017-12-03] MEDS: PANTOPRAZOLE 40MG TAB (PROTONIX) PO (08:09)
[2017-12-03] MEDS: BACTRIM 160MG/800MG DS TAB PO ×2 (08:09→21:20)
[2017-12-03] MEDS: ASPIRIN 81 MG ENTERIC TAB PO (08:09)
[2017-12-03] MEDS: LISINOPRIL 20 MG TAB PO (08:09)
[2017-12-03] MEDS: NYSTATIN 100,000 UNITS/GM TOPICAL PWD 15 GM TOP ×2 (08:10→21:21)
[2017-12-03] MEDS: MAGNESIUM OXIDE 400 MG TAB (MAG-OX) PO ×2 (08:25→21:21)
[2017-12-03] MEDS: VITAMIN D 1,000 INTERNATIONAL UNITS TABLET PO (08:25)
[2017-12-03] MEDS: PREGABALIN 50 MG CAP (LYRICA) PO ×3 (08:26→21:22)
[2017-12-03] MEDS: oxyBUTYnin *DITROPAN XL* 5 MG TABCR PO (08:26)
[2017-12-03] MEDS: POTASSIUM CHLORIDE 10 MEQ SR TABLET PO (08:26)
[2017-12-03] MEDS: CHLORTHALIDONE 12.5MG PER 1/2 TABLET PO (11:15)
[2017-12-03] MEDS: OMEGA-3 1000MG CAPSULE PO (11:15)
[2017-12-03] MEDS: CYCLOBENZAPRINE 10 MG TAB PO (11:15)
[2017-12-03] MEDS: MORPHINE 4 MG/ML 1ML VIAL/SYRINGE (J2270) IV ×3 (11:17→21:22)
[2017-12-03 11:50] LABS: BEDSIDE GLUCOSE 114 MG/DL (83-110)
[2017-12-03] MEDS: IPRATROPIUM 0.5MG/ALBUTEROL 2.5MG INH SOL UD 3ML (DUONEB)(J7620) NEB ×4 (14:22→20:05)
[2017-12-03 17:00] LABS: BEDSIDE GLUCOSE 101 MG/DL (83-110)
[2017-12-03 20:21] LABS: BEDSIDE GLUCOSE 127 MG/DL (83-110)
[2017-12-03] MEDS: MIRALAX *UNIT DOSE* 17GM PACKET PO (21:21)
[2017-12-04] MEDS: CYCLOBENZAPRINE 10 MG TAB PO (00:42)
[2017-12-04] MEDS: SODIUM CHLORIDE 0.9% INJ 10 ML SYR IV ×2 (05:35→17:44)
[2017-12-04] MEDS: PERCOCET 5MG/325MG TAB PO (05:36)
[2017-12-04 05:50] LABS: HEMATOCRIT 34.8 % (36.0-47.0); MEAN CORPUSCULAR HGB CONC 31.6 g/dl (32.0-36.5); MEAN CORPUSCULAR VOLUME 85.5 fl (80.0-96.0); PLATELET COUNT, AUTOMATED 266 10^3/uL (150-450); RED BLOOD COUNT 4.07 10^6/uL (4.00-5.40); RED CELL DISTRIBUTION WIDTH 14.3 % (11.5-14.5); WHITE BLOOD COUNT 9.7 10^3/uL (4.0-10.0)
[2017-12-04 06:22] LABS: ANION GAP 7 MEQ/L (8-16); BLOOD UREA NITROGEN 8 MG/DL (7-18); CALCIUM LEVEL 7.8 MG/DL (8.8-10.2); CARBON DIOXIDE LEVEL 28 MEQ/L (21-32); CHLORIDE LEVEL 105 MEQ/L (98-107); CREATININE FOR GFR 0.52 MG/DL (0.55-1.30); GLOMERULAR FILTRATION RATE > 60.0 (>39); GLUCOSE, FASTING 122 MG/DL (70-100); POTASSIUM SERUM 3.7 MEQ/L (3.5-5.1); SODIUM LEVEL 140 MEQ/L (136-145)
[2017-12-04] MEDS: IPRATROPIUM 0.5MG/ALBUTEROL 2.5MG INH SOL UD 3ML (DUONEB)(J7620) NEB ×4 (07:03→20:00)
[2017-12-04] MEDS: NYSTATIN 100,000 UNITS/GM TOPICAL PWD 15 GM TOP ×2 (07:58→20:20)
[2017-12-04] MEDS: ATORVASTATIN 20 MG TAB PO (07:59)
[2017-12-04] MEDS: CHLORTHALIDONE 12.5MG PER 1/2 TABLET PO (07:59)
[2017-12-04] MEDS: LISINOPRIL 20 MG TAB PO (08:00)
[2017-12-04] MEDS: PREGABALIN 50 MG CAP (LYRICA) PO ×3 (08:00→20:20)
[2017-12-04] MEDS: ENOXAPARIN 40 MG/0.4 ML SYRINGE (J1650) SC ×3 (08:00→08:14)
[2017-12-04] MEDS: BACTRIM 160MG/800MG DS TAB PO (08:00)
[2017-12-04] MEDS: oxyBUTYnin *DITROPAN XL* 5 MG TABCR PO (08:01)
[2017-12-04] MEDS: OMEGA-3 1000MG CAPSULE PO (08:01)
[2017-12-04] MEDS: POTASSIUM CHLORIDE 10 MEQ SR TABLET PO (08:01)
[2017-12-04] MEDS: MAGNESIUM OXIDE 400 MG TAB (MAG-OX) PO (08:01)
[2017-12-04] MEDS: VITAMIN D 1,000 INTERNATIONAL UNITS TABLET PO (08:02)
[2017-12-04] MEDS: ASPIRIN 81 MG ENTERIC TAB PO (08:02)
[2017-12-04] MEDS: PANTOPRAZOLE 40MG TAB (PROTONIX) PO (08:02)
[2017-12-04] MEDS: HumaLOG INSULIN (NovoLOG) PER UNIT SC ×4 (08:03→21:00)
[2017-12-04 11:51] LABS: BEDSIDE GLUCOSE 119 MG/DL (83-110)
[2017-12-04] MEDS: LR 1,000 ML IV (14:00)
[2017-12-04] MEDS ORDERED: ONDANSETRON 4MG/2ML VIAL (J2405) As Ordered (15:36)
[2017-12-04] MEDS: ONDANSETRON 4MG/2ML VIAL (J2405) IV ×2 (15:40→21:06)
[2017-12-04 16:43] LABS: BEDSIDE GLUCOSE 120 MG/DL (83-110)
[2017-12-04] MEDS: FLEET ENEMA PR (17:42)
[2017-12-04] MEDS: MORPHINE 4 MG/ML 1ML VIAL/SYRINGE (J2270) IV (18:29)
[2017-12-04] MEDS ORDERED: GLUCAGON FOR INJ 1 MG VIAL (J1610) SC (21:00)
[2017-12-04] MEDS ORDERED: DEXTROSE 50% 50 ML SYRINGE IV (21:00)
[2017-12-04] MEDS ORDERED: GLUCOSE 4 GM CHEW TABLET PO (21:00)
[2017-12-05 00:09] LABS: BEDSIDE GLUCOSE 118 MG/DL (83-110)
[2017-12-05] MEDS: HumaLOG INSULIN (NovoLOG) PER UNIT SC ×5 (00:17→23:36)
[2017-12-05] MEDS: LR 1,000 ML IV ×3 (02:15→18:05)
[2017-12-05] MEDS: SODIUM CHLORIDE 0.9% INJ 10 ML SYR IV ×3 (05:33→18:07)
[2017-12-05 05:58] LABS: HEMATOCRIT 37.4 % (36.0-47.0); HEMOGLOBIN 11.8 g/dl (12.0-15.5); MEAN CORPUSCULAR HEMOGLOBIN 26.9 pg (27.0-33.0); MEAN CORPUSCULAR HGB CONC 31.6 g/dl (32.0-36.5); MEAN CORPUSCULAR VOLUME 85.2 fl (80.0-96.0); PLATELET COUNT, AUTOMATED 347 10^3/uL (150-450); RED BLOOD COUNT 4.39 10^6/uL (4.00-5.40); RED CELL DISTRIBUTION WIDTH 14.6 % (11.5-14.5)
[2017-12-05 06:14] LABS: ANION GAP 9 MEQ/L (8-16); BLOOD UREA NITROGEN 9 MG/DL (7-18); CALCIUM LEVEL 8.4 MG/DL (8.8-10.2); CARBON DIOXIDE LEVEL 25 MEQ/L (21-32); CHLORIDE LEVEL 104 MEQ/L (98-107); CREATININE FOR GFR 0.67 MG/DL (0.55-1.30); GLOMERULAR FILTRATION RATE > 60.0 (>39); GLUCOSE, FASTING 123 MG/DL (70-100); SODIUM LEVEL 138 MEQ/L (136-145)
[2017-12-05] MEDS: IPRATROPIUM 0.5MG/ALBUTEROL 2.5MG INH SOL UD 3ML (DUONEB)(J7620) NEB ×4 (07:06→19:10)
[2017-12-05] MEDS: LISINOPRIL 20 MG TAB PO (10:33)
[2017-12-05] MEDS: ATORVASTATIN 20 MG TAB PO (10:34)
[2017-12-05] MEDS: VITAMIN D 1,000 INTERNATIONAL UNITS TABLET PO (10:34)
[2017-12-05] MEDS: CHLORTHALIDONE 12.5MG PER 1/2 TABLET PO (10:35)
[2017-12-05] MEDS: PANTOPRAZOLE 40MG TAB (PROTONIX) PO (10:35)
[2017-12-05] MEDS: ASPIRIN 81 MG ENTERIC TAB PO (10:35)
[2017-12-05] MEDS: oxyBUTYnin *DITROPAN XL* 5 MG TABCR PO (10:35)
[2017-12-05] MEDS: PREGABALIN 50 MG CAP (LYRICA) PO ×3 (10:36→20:14)
[2017-12-05] MEDS: NYSTATIN 100,000 UNITS/GM TOPICAL PWD 15 GM TOP ×2 (10:36→20:14)
[2017-12-05 11:40] LABS: BEDSIDE GLUCOSE 129 MG/DL (83-110)
[2017-12-05] MEDS: ONDANSETRON 4MG/2ML VIAL (J2405) IV (13:13)
[2017-12-05 16:49] LABS: BEDSIDE GLUCOSE 130 MG/DL (83-110)
[2017-12-05] MEDS: METOCLOPRAMIDE INJ 10MG/2ML VIAL (J2765) IV (18:30)
[2017-12-05 23:35] LABS: BEDSIDE GLUCOSE 111 MG/DL (83-110)
[2017-12-06 05:40] LABS: BEDSIDE GLUCOSE 112 MG/DL (83-110)
[2017-12-06] MEDS: HumaLOG INSULIN (NovoLOG) PER UNIT SC ×3 (05:43→17:42)
[2017-12-06] MEDS: SODIUM CHLORIDE 0.9% INJ 10 ML SYR IV ×2 (06:16→17:46)
[2017-12-06 06:53] LABS: ANION GAP 10 MEQ/L (8-16); BLOOD UREA NITROGEN 7 MG/DL (7-18); CALCIUM LEVEL 7.9 MG/DL (8.8-10.2); CARBON DIOXIDE LEVEL 25 MEQ/L (21-32); CHLORIDE LEVEL 106 MEQ/L (98-107); CREATININE FOR GFR 0.56 MG/DL (0.55-1.30); GLOMERULAR FILTRATION RATE > 60.0 (>39); GLUCOSE, FASTING 100 MG/DL (70-100); HEMATOCRIT 34.9 % (36.0-47.0); HEMOGLOBIN 10.9 g/dl (12.0-15.5); MEAN CORPUSCULAR HEMOGLOBIN 26.8 pg (27.0-33.0); MEAN CORPUSCULAR HGB CONC 31.2 g/dl (32.0-36.5); PLATELET COUNT, AUTOMATED 345 10^3/uL (150-450); POTASSIUM SERUM 3.6 MEQ/L (3.5-5.1); RED BLOOD COUNT 4.06 10^6/uL (4.00-5.40); RED CELL DISTRIBUTION WIDTH 14.7 % (11.5-14.5); SODIUM LEVEL 141 MEQ/L (136-145); WHITE BLOOD COUNT 12.8 10^3/uL (4.0-10.0)
[2017-12-06] MEDS: IPRATROPIUM 0.5MG/ALBUTEROL 2.5MG INH SOL UD 3ML (DUONEB)(J7620) NEB ×4 (07:12→19:19)
[2017-12-06] MEDS: VITAMIN D 1,000 INTERNATIONAL UNITS TABLET PO (08:22)
[2017-12-06] MEDS: LISINOPRIL 20 MG TAB PO (08:27)
[2017-12-06] MEDS: oxyBUTYnin *DITROPAN XL* 5 MG TABCR PO (08:27)
[2017-12-06] MEDS: PREGABALIN 50 MG CAP (LYRICA) PO ×3 (08:28→21:57)
[2017-12-06] MEDS: ATORVASTATIN 20 MG TAB PO (08:28)
[2017-12-06] MEDS: PANTOPRAZOLE 40MG TAB (PROTONIX) PO (08:28)
[2017-12-06] MEDS: CHLORTHALIDONE 12.5MG PER 1/2 TABLET PO (08:28)
[2017-12-06] MEDS: ASPIRIN 81 MG ENTERIC TAB PO (08:29)
[2017-12-06] MEDS: NYSTATIN 100,000 UNITS/GM TOPICAL PWD 15 GM TOP ×2 (08:29→21:58)
[2017-12-06] MEDS: ONDANSETRON 4MG/2ML VIAL (J2405) IV (08:29)
[2017-12-06] MEDS: ENOXAPARIN 40 MG/0.4 ML SYRINGE (J1650) SC (08:30)
[2017-12-06 11:31] LABS: BEDSIDE GLUCOSE 86 MG/DL (83-110)
[2017-12-06] MEDS: LR 1,000 ML IV (13:15)
[2017-12-06 16:32] LABS: BEDSIDE GLUCOSE 98 MG/DL (83-110)
[2017-12-06 20:11] LABS: BEDSIDE GLUCOSE 81 MG/DL (83-110)
[2017-12-06 23:59] LABS: BEDSIDE GLUCOSE 105 MG/DL (83-110)
[2017-12-07] MEDS: HumaLOG INSULIN (NovoLOG) PER UNIT SC ×4 (00:17→17:25)
[2017-12-07] MEDS: SODIUM CHLORIDE 0.9% INJ 10 ML SYR IV ×2 (06:08→17:26)
[2017-12-07] MEDS: LR 1,000 ML IV (06:09)
[2017-12-07 06:14] LABS: BEDSIDE GLUCOSE 81 MG/DL (83-110)
[2017-12-07 06:28] LABS: BASO % 0.3 % (0.0-1.0); EOS # 0.1 10^3/uL (0.0-0.50); EOS % 1.2 % (0.0-3.0); HEMATOCRIT 31.1 % (36.0-47.0); HEMOGLOBIN 9.8 g/dl (12.0-15.5); IMMATURE GRANULOCYTE % 1.1 % (0-3.0); LYMPH # 1.3 10^3/uL (1.5-4.5); LYMPH % 14.4 % (24.0-44.0); MEAN CORPUSCULAR HEMOGLOBIN 27.3 pg (27.0-33.0); MEAN CORPUSCULAR HGB CONC 31.5 g/dl (32.0-36.5); MEAN CORPUSCULAR VOLUME 86.6 fl (80.0-96.0); MONO # 0.8 10^3/uL (0.0-0.8); MONO % 9.5 % (0.0-5.0); NEUTROPHILS # 6.5 10^3/uL (1.8-7.7); NEUTROPHILS % 73.5 % (36.0-66.0); PLATELET COUNT, AUTOMATED 324 10^3/uL (150-450); RED BLOOD COUNT 3.59 10^6/uL (4.00-5.40); RED CELL DISTRIBUTION WIDTH 14.7 % (11.5-14.5); WHITE BLOOD COUNT 8.8 10^3/uL (4.0-10.0)
[2017-12-07] MEDS: IPRATROPIUM 0.5MG/ALBUTEROL 2.5MG INH SOL UD 3ML (DUONEB)(J7620) NEB ×4 (06:54→21:20)
[2017-12-07 06:57] LABS: ALBUMIN 1.9 GM/DL (3.2-5.2); ALBUMIN/GLOBULIN RATIO 0.68 (1.00-1.93); ALKALINE PHOSPHATASE 75 U/L (45-117); ALT/SGPT 18 U/L (12-78); ANION GAP 9 MEQ/L (8-16); AST/SGOT 15 U/L (7-37); BILIRUBIN,TOTAL 0.3 MG/DL (0.2-1.0); BLOOD UREA NITROGEN 6 MG/DL (7-18); CALCIUM LEVEL 7.9 MG/DL (8.8-10.2); CARBON DIOXIDE LEVEL 26 MEQ/L (21-32); CHLORIDE LEVEL 106 MEQ/L (98-107); CREATININE FOR GFR 0.49 MG/DL (0.55-1.30); GLOMERULAR FILTRATION RATE > 60.0 (>39); GLUCOSE, FASTING 84 MG/DL (70-100); POTASSIUM SERUM 3.6 MEQ/L (3.5-5.1); SODIUM LEVEL 141 MEQ/L (136-145); TOTAL PROTEIN 4.7 GM/DL (6.4-8.2)
[2017-12-07] MEDS: NYSTATIN 100,000 UNITS/GM TOPICAL PWD 15 GM TOP ×2 (09:00→20:16)
[2017-12-07] MEDS: PREGABALIN 50 MG CAP (LYRICA) PO ×3 (10:27→20:16)
[2017-12-07] MEDS: ATORVASTATIN 20 MG TAB PO (10:27)
[2017-12-07] MEDS: VITAMIN D 1,000 INTERNATIONAL UNITS TABLET PO (10:27)
[2017-12-07] MEDS: ASPIRIN 81 MG ENTERIC TAB PO (10:28)
[2017-12-07] MEDS: PANTOPRAZOLE 40MG TAB (PROTONIX) PO (10:28)
[2017-12-07] MEDS: CHLORTHALIDONE 12.5MG PER 1/2 TABLET PO (10:28)
[2017-12-07] MEDS: oxyBUTYnin *DITROPAN XL* 5 MG TABCR PO (10:28)
[2017-12-07] MEDS: LISINOPRIL 20 MG TAB PO (10:36)
[2017-12-07] MEDS: ENOXAPARIN 40 MG/0.4 ML SYRINGE (J1650) SC (10:38)
[2017-12-07 11:57] LABS: BEDSIDE GLUCOSE 132 MG/DL (83-110)
[2017-12-07] MEDS: DOCUSATE SODIUM 100 MG CAP PO ×2 (12:02→20:16)
[2017-12-07 16:25] LABS: BEDSIDE GLUCOSE 109 MG/DL (83-110)
[2017-12-07 23:35] LABS: BEDSIDE GLUCOSE 132 MG/DL (83-110)
[2017-12-08] MEDS: HumaLOG INSULIN (NovoLOG) PER UNIT SC ×4 (00:22→18:22)
[2017-12-08] MEDS: SODIUM CHLORIDE 0.9% INJ 10 ML SYR IV ×3 (06:03→18:21)
[2017-12-08] MEDS: PERCOCET 5MG/325MG TAB PO ×3 (06:03→18:21)
[2017-12-08 06:12] LABS: BEDSIDE GLUCOSE 136 MG/DL (83-110)
[2017-12-08] MEDS: IPRATROPIUM 0.5MG/ALBUTEROL 2.5MG INH SOL UD 3ML (DUONEB)(J7620) NEB ×4 (07:40→20:10)
[2017-12-08] MEDS: DOCUSATE SODIUM 100 MG CAP PO ×2 (09:11→20:33)
[2017-12-08] MEDS: oxyBUTYnin *DITROPAN XL* 5 MG TABCR PO (09:11)
[2017-12-08] MEDS: ENOXAPARIN 40 MG/0.4 ML SYRINGE (J1650) SC (09:11)
[2017-12-08] MEDS: PANTOPRAZOLE 40MG TAB (PROTONIX) PO (09:11)
[2017-12-08] MEDS: CHLORTHALIDONE 12.5MG PER 1/2 TABLET PO (09:12)
[2017-12-08] MEDS: LISINOPRIL 20 MG TAB PO (09:12)
[2017-12-08] MEDS: NYSTATIN 100,000 UNITS/GM TOPICAL PWD 15 GM TOP ×2 (09:15→20:34)
[2017-12-08] MEDS: ATORVASTATIN 20 MG TAB PO (10:30)
[2017-12-08] MEDS: ASPIRIN 81 MG ENTERIC TAB PO (10:30)
[2017-12-08] MEDS: PREGABALIN 50 MG CAP (LYRICA) PO ×3 (10:30→20:33)
[2017-12-08] MEDS: VITAMIN D 1,000 INTERNATIONAL UNITS TABLET PO (10:30)
[2017-12-08 11:32] LABS: BEDSIDE GLUCOSE 127 MG/DL (83-110)
[2017-12-08] MEDS: ONDANSETRON 4MG/2ML VIAL (J2405) IV (15:00)
[2017-12-08] MEDS: CYCLOBENZAPRINE 10 MG TAB PO (15:02)
[2017-12-08 18:16] LABS: BEDSIDE GLUCOSE 134 MG/DL (83-110)
[2017-12-08 23:45] LABS: BEDSIDE GLUCOSE 156 MG/DL (83-110)
[2017-12-08] MEDS ORDERED: NOREPINEPHRINE 4 MG/4 ML AMP As Ordered (23:46)
[2017-12-09] MEDS: NOREPINEPHRINE BITARTRATE 8 MG in D5W 492 ML IV
[2017-12-09] MEDS: ONDANSETRON 4MG/2ML VIAL (J2405) IV (00:41)
[2017-12-09] MEDS: MEROPENEM INJ 1 GM in APPROPRIATE DILUENT 1 EA IV ×3 (00:42→17:20)
[2017-12-09] MEDS: HumaLOG INSULIN (NovoLOG) PER UNIT SC ×4 (00:42→17:44)
[2017-12-09] MEDS: VANCOMYCIN HCL 1,000 MG, VIAL MATE ADAPTER 1 EACH in D5W 250 ML IV ×3 (00:42→20:08)
[2017-12-09 00:57] LABS: HEMATOCRIT 36.9 % (36.0-47.0); HEMOGLOBIN 11.5 g/dl (12.0-15.5); MEAN CORPUSCULAR HEMOGLOBIN 26.9 pg (27.0-33.0); MEAN CORPUSCULAR HGB CONC 31.2 g/dl (32.0-36.5); MEAN CORPUSCULAR VOLUME 86.4 fl (80.0-96.0); PLATELET COUNT, AUTOMATED 435 10^3/uL (150-450); RED BLOOD COUNT 4.27 10^6/uL (4.00-5.40); RED CELL DISTRIBUTION WIDTH 14.9 % (11.5-14.5); WHITE BLOOD COUNT 13.1 10^3/uL (4.0-10.0)
[2017-12-09] MEDS: NS 1,000 ML IV ×4 (01:21→14:27)
[2017-12-09 01:40] LABS: LACTIC ACID SEPSIS PROTOCOL 0.9 MMOL/L (0.4-2.0)
[2017-12-09 01:42] LABS: ALBUMIN 2.2 GM/DL (3.2-5.2); ALBUMIN/GLOBULIN RATIO 0.69 (1.00-1.93); ALKALINE PHOSPHATASE 90 U/L (45-117); ALT/SGPT 14 U/L (12-78); ANION GAP 11 MEQ/L (8-16); AST/SGOT 14 U/L (7-37); BILIRUBIN,TOTAL 0.4 MG/DL (0.2-1.0); BLOOD UREA NITROGEN 3 MG/DL (7-18); CALCIUM LEVEL 8.2 MG/DL (8.8-10.2); CARBON DIOXIDE LEVEL 26 MEQ/L (21-32); CHLORIDE LEVEL 105 MEQ/L (98-107); CK-MB VALUE MASS < 1.0 NG/ML (<3.6); CPK CREATINE PHOSPHOKINASE 15 U/L (26-192); CREATININE FOR GFR 0.88 MG/DL (0.55-1.30); GLOMERULAR FILTRATION RATE > 60.0 (>39); GLUCOSE, FASTING 154 MG/DL (70-100); MB/CK RELATIVE INDEX 6.67 (< OR =4); SODIUM LEVEL 142 MEQ/L (136-145); TOTAL PROTEIN 5.4 GM/DL (6.4-8.2); TROPONIN I < 0.02 NG/ML (< 0.10)
[2017-12-09] MEDS: MORPHINE 4 MG/ML 1ML VIAL/SYRINGE (J2270) IV ×2 (03:22→17:21)
[2017-12-09] MEDS: KCL 20MEQ IN 100ML SWI (KRUN) 20 MEQ in APPROPRIATE DILUENT 1 EA IV (03:23)
[2017-12-09 05:49] LABS: BEDSIDE GLUCOSE 149 MG/DL (83-110)
[2017-12-09] MEDS: SODIUM CHLORIDE 0.9% INJ 10 ML SYR IV ×2 (06:03→17:40)
[2017-12-09] MEDS ORDERED: ISOVUE-370 76% 100ML VIAL (Q9967) As Ordered ×2 (07:05)
[2017-12-09 07:30] LABS: TROPONIN I < 0.02 NG/ML (< 0.10)
[2017-12-09] MEDS: IPRATROPIUM 0.5MG/ALBUTEROL 2.5MG INH SOL UD 3ML (DUONEB)(J7620) NEB ×4 (07:43→19:41)
[2017-12-09 08:56] LABS: HEMATOCRIT 35.3 % (36.0-47.0); MEAN CORPUSCULAR HGB CONC 31.2 g/dl (32.0-36.5); MEAN CORPUSCULAR VOLUME 86.5 fl (80.0-96.0); PLATELET COUNT, AUTOMATED 359 10^3/uL (150-450); RED BLOOD COUNT 4.08 10^6/uL (4.00-5.40); RED CELL DISTRIBUTION WIDTH 15.4 % (11.5-14.5); WHITE BLOOD COUNT 11.7 10^3/uL (4.0-10.0)
[2017-12-09 09:04] LABS: ANION GAP 9 MEQ/L (8-16); BLOOD UREA NITROGEN 5 MG/DL (7-18); CALCIUM LEVEL 8.3 MG/DL (8.8-10.2); CARBON DIOXIDE LEVEL 27 MEQ/L (21-32); CHLORIDE LEVEL 103 MEQ/L (98-107); CREATININE FOR GFR 0.84 MG/DL (0.55-1.30); GLOMERULAR FILTRATION RATE > 60.0 (>39); GLUCOSE, FASTING 164 MG/DL (70-100); POTASSIUM SERUM 3.7 MEQ/L (3.5-5.1); SODIUM LEVEL 139 MEQ/L (136-145)
[2017-12-09] MEDS: ENOXAPARIN 40 MG/0.4 ML SYRINGE (J1650) SC (09:50)
[2017-12-09] MEDS: NYSTATIN 100,000 UNITS/GM TOPICAL PWD 15 GM TOP ×2 (09:50→20:08)
[2017-12-09] MEDS: PANTOPRAZOLE 40MG INJ (PROTONIX) (C9113) IV (10:47)
[2017-12-09] MEDS: ATORVASTATIN 20 MG TAB PO (10:47)
[2017-12-09 12:39] LABS: BEDSIDE GLUCOSE 112 MG/DL (83-110)
[2017-12-09] MEDS: POTASSIUM CHLORIDE INJ 40 MEQ in AMINO AC/ELECTROLYTE/DEX/CALC 2,000 ML IV (17:39)
[2017-12-09] MEDS: FAT EMULSION IV 20% 500 ML IV (17:39)
[2017-12-09 17:45] LABS: BEDSIDE GLUCOSE 110 MG/DL (83-110)
[2017-12-10 00:28] LABS: BEDSIDE GLUCOSE 200 MG/DL (83-110)
[2017-12-10] MEDS: MORPHINE 4 MG/ML 1ML VIAL/SYRINGE (J2270) IV ×3 (00:35→22:06)
[2017-12-10] MEDS: MEROPENEM INJ 1 GM in APPROPRIATE DILUENT 1 EA IV ×3 (00:35→17:00)
[2017-12-10] MEDS: HumaLOG INSULIN (NovoLOG) PER UNIT SC ×4 (00:35→18:28)
[2017-12-10] MEDS: SODIUM CHLORIDE 0.9% INJ 10 ML SYR IV ×2 (06:00→18:00)
[2017-12-10 06:20] LABS: BEDSIDE GLUCOSE 236 MG/DL (83-110)
[2017-12-10 06:29] LABS: HEMATOCRIT 30.6 % (36.0-47.0); HEMOGLOBIN 9.5 g/dl (12.0-15.5); MEAN CORPUSCULAR VOLUME 86.9 fl (80.0-96.0); PLATELET COUNT, AUTOMATED 355 10^3/uL (150-450); RED BLOOD COUNT 3.52 10^6/uL (4.00-5.40); RED CELL DISTRIBUTION WIDTH 14.7 % (11.5-14.5); WHITE BLOOD COUNT 5.9 10^3/uL (4.0-10.0)
[2017-12-10 07:04] LABS: ANION GAP 5 MEQ/L (8-16); BLOOD UREA NITROGEN 11 MG/DL (7-18); CALCIUM LEVEL 7.8 MG/DL (8.8-10.2); CARBON DIOXIDE LEVEL 30 MEQ/L (21-32); CHLORIDE LEVEL 104 MEQ/L (98-107); CREATININE FOR GFR 0.61 MG/DL (0.55-1.30); GLOMERULAR FILTRATION RATE > 60.0 (>39); GLUCOSE, FASTING 203 MG/DL (70-100); POTASSIUM SERUM 3.8 MEQ/L (3.5-5.1); SODIUM LEVEL 139 MEQ/L (136-145)
[2017-12-10] MEDS: IPRATROPIUM 0.5MG/ALBUTEROL 2.5MG INH SOL UD 3ML (DUONEB)(J7620) NEB ×4 (07:58→20:05)
[2017-12-10] MEDS: ENOXAPARIN 40 MG/0.4 ML SYRINGE (J1650) SC (08:20)
[2017-12-10] MEDS: NYSTATIN 100,000 UNITS/GM TOPICAL PWD 15 GM TOP ×2 (08:21→20:27)
[2017-12-10] MEDS: PANTOPRAZOLE 40MG INJ (PROTONIX) (C9113) IV (10:32)
[2017-12-10] MEDS: FUROSEMIDE 40 MG/4 ML VIAL (J1940) IV (10:32)
[2017-12-10 11:47] LABS: BEDSIDE GLUCOSE 176 MG/DL (83-110)
[2017-12-10] MEDS: VANCOMYCIN HCL 1,000 MG, VIAL MATE ADAPTER 1 EACH in D5W 250 ML IV (13:14)
[2017-12-10 17:56] LABS: BEDSIDE GLUCOSE 152 MG/DL (83-110)
[2017-12-10] MEDS: FAT EMULSION IV 20% 500 ML IV (18:00)
[2017-12-10] MEDS: POTASSIUM CHLORIDE INJ 40 MEQ in AMINO AC/ELECTROLYTE/DEX/CALC 2,000 ML IV (18:00)
[2017-12-11 00:04] LABS: BEDSIDE GLUCOSE 187 MG/DL (83-110)
[2017-12-11] MEDS: MEROPENEM INJ 1 GM in APPROPRIATE DILUENT 1 EA IV ×3 (00:08→17:54)
[2017-12-11] MEDS: HumaLOG INSULIN (NovoLOG) PER UNIT SC ×4 (00:09→17:55)
[2017-12-11 06:23] LABS: BEDSIDE GLUCOSE 184 MG/DL (83-110)
[2017-12-11] MEDS: SODIUM CHLORIDE 0.9% INJ 10 ML SYR IV ×2 (07:01→18:48)
[2017-12-11 07:20] LABS: HEMATOCRIT 34.1 % (36.0-47.0); HEMOGLOBIN 10.6 g/dl (12.0-15.5); MEAN CORPUSCULAR HEMOGLOBIN 26.8 pg (27.0-33.0); MEAN CORPUSCULAR HGB CONC 31.1 g/dl (32.0-36.5); MEAN CORPUSCULAR VOLUME 86.1 fl (80.0-96.0); PLATELET COUNT, AUTOMATED 384 10^3/uL (150-450); RED BLOOD COUNT 3.96 10^6/uL (4.00-5.40); RED CELL DISTRIBUTION WIDTH 14.1 % (11.5-14.5); WHITE BLOOD COUNT 7.3 10^3/uL (4.0-10.0)
[2017-12-11 07:40] LABS: ANION GAP 5 MEQ/L (8-16); BLOOD UREA NITROGEN 13 MG/DL (7-18); CALCIUM LEVEL 7.8 MG/DL (8.8-10.2); CARBON DIOXIDE LEVEL 33 MEQ/L (21-32); CHLORIDE LEVEL 100 MEQ/L (98-107); CREATININE FOR GFR 0.53 MG/DL (0.55-1.30); GLOMERULAR FILTRATION RATE > 60.0 (>39); GLUCOSE, FASTING 154 MG/DL (70-100); POTASSIUM SERUM 4.2 MEQ/L (3.5-5.1); SODIUM LEVEL 138 MEQ/L (136-145)
[2017-12-11] MEDS: IPRATROPIUM 0.5MG/ALBUTEROL 2.5MG INH SOL UD 3ML (DUONEB)(J7620) NEB ×4 (07:41→20:00)
[2017-12-11] MEDS: ENOXAPARIN 40 MG/0.4 ML SYRINGE (J1650) SC (08:33)
[2017-12-11] MEDS: VANCOMYCIN HCL 1,000 MG, VIAL MATE ADAPTER 1 EACH in D5W 250 ML IV (08:33)
[2017-12-11] MEDS: PANTOPRAZOLE 40MG INJ (PROTONIX) (C9113) IV (08:34)
[2017-12-11] MEDS: NYSTATIN 100,000 UNITS/GM TOPICAL PWD 15 GM TOP ×2 (08:34→20:04)
[2017-12-11 09:18] LABS: VANCOMYCIN LEVEL TROUGH 9.3 UG/ML (10.0-20.0)
[2017-12-11 11:52] LABS: BEDSIDE GLUCOSE 173 MG/DL (83-110)
[2017-12-11] MEDS: MORPHINE 4 MG/ML 1ML VIAL/SYRINGE (J2270) IV ×2 (15:36→20:04)
[2017-12-11] MEDS: FUROSEMIDE 40 MG/4 ML VIAL (J1940) IV (15:36)
[2017-12-11 17:45] LABS: BEDSIDE GLUCOSE 176 MG/DL (83-110)
[2017-12-11] MEDS ORDERED: FAT EMULSION IV 20% 500 ML IV (18:00)
[2017-12-11] MEDS ORDERED: AMINO AC/ELECTROLYTE/DEX/CALC 2,000 ML IV (18:00)
[2017-12-11] MEDS: AMINO AC/ELECTROLYTE/DEX/CALC 2,000 ML IV (19:05)
[2017-12-11] MEDS: FAT EMULSION IV 20% 500 ML IV (19:06)
[2017-12-12 00:04] LABS: BEDSIDE GLUCOSE 158 MG/DL (83-110)
[2017-12-12] MEDS: MORPHINE 4 MG/ML 1ML VIAL/SYRINGE (J2270) IV ×3 (00:04→19:54)
[2017-12-12] MEDS: MEROPENEM INJ 1 GM in APPROPRIATE DILUENT 1 EA IV ×3 (00:15→17:25)
[2017-12-12] MEDS: HumaLOG INSULIN (NovoLOG) PER UNIT SC ×4 (00:15→18:22)
[2017-12-12] MEDS: SODIUM CHLORIDE 0.9% INJ 10 ML SYR IV ×2 (05:30→17:25)
[2017-12-12 06:04] LABS: HEMATOCRIT 35.2 % (36.0-47.0); MEAN CORPUSCULAR HGB CONC 31.3 g/dl (32.0-36.5); MEAN CORPUSCULAR VOLUME 86.5 fl (80.0-96.0); PLATELET COUNT, AUTOMATED 313 10^3/uL (150-450); RED BLOOD COUNT 4.07 10^6/uL (4.00-5.40); WHITE BLOOD COUNT 6.7 10^3/uL (4.0-10.0)
[2017-12-12 06:29] LABS: ANION GAP 6 MEQ/L (8-16); BLOOD UREA NITROGEN 15 MG/DL (7-18); CALCIUM LEVEL 8.3 MG/DL (8.8-10.2); CARBON DIOXIDE LEVEL 33 MEQ/L (21-32); CHLORIDE LEVEL 96 MEQ/L (98-107); CREATININE FOR GFR 0.59 MG/DL (0.55-1.30); GLOMERULAR FILTRATION RATE > 60.0 (>39); GLUCOSE, FASTING 147 MG/DL (70-100); POTASSIUM SERUM 3.8 MEQ/L (3.5-5.1); SODIUM LEVEL 135 MEQ/L (136-145)
[2017-12-12] MEDS: IPRATROPIUM 0.5MG/ALBUTEROL 2.5MG INH SOL UD 3ML (DUONEB)(J7620) NEB ×4 (07:45→20:00)
[2017-12-12] MEDS: ENOXAPARIN 40 MG/0.4 ML SYRINGE (J1650) SC (09:28)
[2017-12-12] MEDS: PANTOPRAZOLE 40MG INJ (PROTONIX) (C9113) IV (09:28)
[2017-12-12] MEDS: NYSTATIN 100,000 UNITS/GM TOPICAL PWD 15 GM TOP ×2 (09:29→21:40)
[2017-12-12 11:51] LABS: BEDSIDE GLUCOSE 152 MG/DL (83-110)
[2017-12-12 18:17] LABS: BEDSIDE GLUCOSE 148 MG/DL (83-110)
[2017-12-12] MEDS: AMINO AC/ELECTROLYTE/DEX/CALC 2,000 ML IV (18:21)
[2017-12-12] MEDS: FAT EMULSION IV 20% 500 ML IV (18:21)
[2017-12-12] MEDS: GABAPENTIN 100 MG CAP PO (21:39)
[2017-12-13 00:12] LABS: BEDSIDE GLUCOSE 169 MG/DL (83-110)
[2017-12-13] MEDS: HumaLOG INSULIN (NovoLOG) PER UNIT SC ×5 (00:28→23:49)
[2017-12-13] MEDS: MORPHINE 4 MG/ML 1ML VIAL/SYRINGE (J2270) IV ×5 (00:29→21:16)
[2017-12-13] MEDS: ONDANSETRON 4MG/2ML VIAL (J2405) IV ×2 (00:35→11:34)
[2017-12-13] MEDS: SODIUM CHLORIDE 0.9% INJ 10 ML SYR IV ×4 (05:37→17:04)
[2017-12-13 06:18] LABS: BASO # 0.1 10^3/uL (0.0-0.2); EOS # 0.2 10^3/uL (0.0-0.50); EOS % 3.5 % (0.0-3.0); HEMATOCRIT 35.3 % (36.0-47.0); HEMOGLOBIN 11.1 g/dl (12.0-15.5); LYMPH # 1.1 10^3/uL (1.5-4.5); MEAN CORPUSCULAR HEMOGLOBIN 26.9 pg (27.0-33.0); MEAN CORPUSCULAR HGB CONC 31.4 g/dl (32.0-36.5); MEAN CORPUSCULAR VOLUME 85.7 fl (80.0-96.0); MONO # 0.7 10^3/uL (0.0-0.8); MONO % 12.9 % (0.0-5.0); NEUTROPHILS # 3.1 10^3/uL (1.8-7.7); NEUTROPHILS % 59.6 % (36.0-66.0); PLATELET COUNT, AUTOMATED 358 10^3/uL (150-450); RED BLOOD COUNT 4.12 10^6/uL (4.00-5.40); RED CELL DISTRIBUTION WIDTH 13.9 % (11.5-14.5); WHITE BLOOD COUNT 5.2 10^3/uL (4.0-10.0)
[2017-12-13 06:45] LABS: ALBUMIN/GLOBULIN RATIO 0.54 (1.00-1.93); ALKALINE PHOSPHATASE 88 U/L (45-117); ALT/SGPT 11 U/L (12-78); ANION GAP 4 MEQ/L (8-16); AST/SGOT 15 U/L (7-37); BILIRUBIN,TOTAL 0.2 MG/DL (0.2-1.0); BLOOD UREA NITROGEN 16 MG/DL (7-18); CALCIUM LEVEL 8.6 MG/DL (8.8-10.2); CARBON DIOXIDE LEVEL 35 MEQ/L (21-32); CHLORIDE LEVEL 97 MEQ/L (98-107); CREATININE FOR GFR 0.58 MG/DL (0.55-1.30); GLOMERULAR FILTRATION RATE > 60.0 (>39); GLUCOSE, FASTING 123 MG/DL (70-100); SODIUM LEVEL 136 MEQ/L (136-145); TOTAL PROTEIN 5.7 GM/DL (6.4-8.2)
[2017-12-13] MEDS: IPRATROPIUM 0.5MG/ALBUTEROL 2.5MG INH SOL UD 3ML (DUONEB)(J7620) NEB ×4 (07:33→20:00)
[2017-12-13] MEDS: NYSTATIN 100,000 UNITS/GM TOPICAL PWD 15 GM TOP ×2 (09:00→21:24)
[2017-12-13] MEDS: PANTOPRAZOLE 40MG INJ (PROTONIX) (C9113) IV (09:00)
[2017-12-13] MEDS: ENOXAPARIN 40 MG/0.4 ML SYRINGE (J1650) SC (09:00)
[2017-12-13 12:01] LABS: BEDSIDE GLUCOSE 143 MG/DL (83-110)
[2017-12-13 16:45] LABS: BEDSIDE GLUCOSE 139 MG/DL (83-110)
[2017-12-13] MEDS: FAT EMULSION IV 20% 500 ML IV (17:53)
[2017-12-13] MEDS: AMINO AC/ELECTROLYTE/DEX/CALC 2,000 ML IV (17:54)
[2017-12-13] MEDS: GABAPENTIN 300 MG CAP PO (21:15)
[2017-12-13 23:44] LABS: BEDSIDE GLUCOSE 171 MG/DL (83-110)
[2017-12-14] MEDS: MORPHINE 4 MG/ML 1ML VIAL/SYRINGE (J2270) IV ×2 (01:05→05:47)
[2017-12-14] MEDS: IPRATROPIUM 0.5MG/ALBUTEROL 2.5MG INH SOL UD 3ML (DUONEB)(J7620) NEB ×5 (01:14→19:45)
[2017-12-14] MEDS: SODIUM CHLORIDE 0.9% INJ 10 ML SYR IV ×2 (05:47→18:17)
[2017-12-14 06:35] LABS: BEDSIDE GLUCOSE 144 MG/DL (83-110)
[2017-12-14] MEDS: HumaLOG INSULIN (NovoLOG) PER UNIT SC ×4 (06:36→18:05)
[2017-12-14 06:43] LABS: ALBUMIN 1.9 GM/DL (3.2-5.2); ALBUMIN/GLOBULIN RATIO 0.53 (1.00-1.93); ALKALINE PHOSPHATASE 83 U/L (45-117); ALT/SGPT 10 U/L (12-78); ANION GAP 6 MEQ/L (8-16); AST/SGOT 16 U/L (7-37); BILIRUBIN,TOTAL 0.2 MG/DL (0.2-1.0); BLOOD UREA NITROGEN 19 MG/DL (7-18); CALCIUM LEVEL 8.4 MG/DL (8.8-10.2); CARBON DIOXIDE LEVEL 30 MEQ/L (21-32); CHLORIDE LEVEL 99 MEQ/L (98-107); GLOMERULAR FILTRATION RATE > 60.0 (>39); GLUCOSE, FASTING 147 MG/DL (70-100); POTASSIUM SERUM 4.1 MEQ/L (3.5-5.1); SODIUM LEVEL 135 MEQ/L (136-145); TOTAL PROTEIN 5.5 GM/DL (6.4-8.2)
[2017-12-14] MEDS: ERTAPENEM 1 GM INJ (INVanz) (J1335) As Ordered (07:57)
[2017-12-14] MEDS ORDERED: ROCURONIUM BROMIDE 50 MG/5 ML VIAL As Ordered ×4 (08:10→13:00)
[2017-12-14] MEDS ORDERED: fentaNYL 100 MCG/2 ML INJECTION (J3010) As Ordered ×2 (08:10→08:40)
[2017-12-14] MEDS ORDERED: dexameTHASONE 4 MG/ML 1ML VIAL (J1100) As Ordered (08:10)
[2017-12-14] MEDS ORDERED: PROPOFOL 200 MG/20 ML VIAL As Ordered (08:10)
[2017-12-14] MEDS ORDERED: MIDAZOLAM INJ 2 MG/2 ML VIAL (J2250) As Ordered (08:10)
[2017-12-14] MEDS ORDERED: PHENYLephrine HCL 500 MCG/5 ML (100MCG/ML) SYRINGE (J2370) As Ordered (08:11)
[2017-12-14] MEDS ORDERED: PHENYLEPHRINE INJ 10MG/ML VIAL (J2370) As Ordered (08:14)
[2017-12-14] MEDS ORDERED: DESFLURANE 240 ML INHALANT As Ordered (08:59)
[2017-12-14] MEDS ORDERED: HYDROmorphone HCL 2 MG/ML 1ML VIAL (J1170) As Ordered (11:21)
[2017-12-14] MEDS ORDERED: KETOROLAC 60 MG/2 ML VIAL (J1885) As Ordered (12:28)
[2017-12-14] MEDS ORDERED: ONDANSETRON 4MG/2ML VIAL (J2405) As Ordered (13:34)
[2017-12-14] MEDS ORDERED: SUGAMMADEX SODIUM 500 MG/5 ML VIAL (BRIDION) As Ordered (13:53)
[2017-12-14] MEDS ORDERED: METOCLOPRAMIDE INJ 10MG/2ML VIAL (J2765) As Ordered (14:16)
[2017-12-14] MEDS ORDERED: LEVALBUTEROL 1.25 MG/0.5 ML CONCENTRATE NEB As Ordered (14:23)
[2017-12-14] MEDS: LEVALBUTEROL 1.25 MG/0.5 ML CONCENTRATE NEB INH ×2 (14:25→15:26)
[2017-12-14] MEDS ORDERED: NS 1,000 ML IV (14:28)
[2017-12-14] MEDS ORDERED: NALBUPHINE HCL 10 MG/ML AMP (J2300) IV (14:30)
[2017-12-14] MEDS ORDERED: NALOXONE INJ 0.4 MG/1 ML VIAL (J2310) IV (14:30)
[2017-12-14] MEDS ORDERED: diphenhydrAMINE INJ 50MG/ML VIAL (J1200) IV (14:30)
[2017-12-14] MEDS ORDERED: EPIDURAL/PCA KEYS XX (14:30)
[2017-12-14] MEDS ORDERED: ONDANSETRON 4MG/2ML VIAL (J2405) IV ×2 (14:30→14:45)
[2017-12-14] MEDS ORDERED: HYDROMORPHONE HCL 0.5 MG/ 0.5 ML SYRINGE (J1170 PER 1) As Ordered ×4 (14:32→15:00)
[2017-12-14] MEDS: NYSTATIN 100,000 UNITS/GM TOPICAL PWD 15 GM TOP ×2 (14:37→21:03)
[2017-12-14] MEDS: PANTOPRAZOLE 40MG INJ (PROTONIX) (C9113) IV (14:37)
[2017-12-14] MEDS: HYDROMORPHONE HCL 0.5 MG/ 0.5 ML SYRINGE (J1170 PER 1) IV ×5 (14:37→15:10)
[2017-12-14] MEDS ORDERED: fentaNYL 100 MCG/2 ML INJECTION (J3010) IV (14:45)
[2017-12-14] MEDS: LR 1,000 ML IV (14:45)
[2017-12-14] MEDS ORDERED: LABETALOL HCL 100 MG/20 ML VIAL As Ordered (14:59)
[2017-12-14] MEDS: LABETALOL HCL 100 MG/20 ML VIAL IV ×5 (15:00→16:05)
[2017-12-14] MEDS ORDERED: MORPHINE 1MG/ML IN 0.9% NACL 100ML IV BAG As Ordered (15:32)
[2017-12-14] MEDS: MORPHINE 1MG/ML IN 0.9% NACL 100ML IV BAG IV (15:50)
[2017-12-14 17:09] LABS: BEDSIDE GLUCOSE 262 MG/DL (83-110)
[2017-12-14] MEDS: FAT EMULSION IV 20% 500 ML IV (18:16)
[2017-12-14] MEDS: AMINO AC/ELECTROLYTE/DEX/CALC 2,000 ML IV (18:16)
[2017-12-14] MEDS: GABAPENTIN 300 MG CAP PO (21:00)
[2017-12-14] MEDS: ALVIMOPAN 12 MG CAPSULE (ENTEREG) PO (21:02)
[2017-12-14] MEDS: KETOROLAC 30 MG/ML VIAL (J1885) IV (21:02)
[2017-12-15 00:57] LABS: BEDSIDE GLUCOSE 178 MG/DL (83-110)
[2017-12-15] MEDS: HumaLOG INSULIN (NovoLOG) PER UNIT SC ×7 (01:00→17:47)
[2017-12-15] MEDS: NS 1,000 ML IV ×2 (01:01→14:58)
[2017-12-15] MEDS: ONDANSETRON 4MG/2ML VIAL (J2405) IV (03:25)
[2017-12-15] MEDS: KETOROLAC 30 MG/ML VIAL (J1885) IV ×3 (04:59→21:31)
[2017-12-15] MEDS: SODIUM CHLORIDE 0.9% INJ 10 ML SYR IV ×2 (06:00→17:48)
[2017-12-15 06:04] LABS: BASO % 0.2 % (0.0-1.0); EOS % 0.2 % (0.0-3.0); HEMATOCRIT 33.5 % (36.0-47.0); HEMOGLOBIN 10.3 g/dl (12.0-15.5); LYMPH # 0.7 10^3/uL (1.5-4.5); MEAN CORPUSCULAR HEMOGLOBIN 27.2 pg (27.0-33.0); MEAN CORPUSCULAR HGB CONC 30.7 g/dl (32.0-36.5); MEAN CORPUSCULAR VOLUME 88.4 fl (80.0-96.0); MONO % 9.3 % (0.0-5.0); NEUTROPHILS # 8.7 10^3/uL (1.8-7.7); NEUTROPHILS % 82.3 % (36.0-66.0); PLATELET COUNT, AUTOMATED 274 10^3/uL (150-450); RED BLOOD COUNT 3.79 10^6/uL (4.00-5.40); RED CELL DISTRIBUTION WIDTH 13.8 % (11.5-14.5); WHITE BLOOD COUNT 10.5 10^3/uL (4.0-10.0)
[2017-12-15 06:30] LABS: ANION GAP 4 MEQ/L (8-16); BLOOD UREA NITROGEN 38 MG/DL (7-18); CALCIUM LEVEL 7.9 MG/DL (8.8-10.2); CARBON DIOXIDE LEVEL 29 MEQ/L (21-32); CHLORIDE LEVEL 104 MEQ/L (98-107); CREATININE FOR GFR 0.93 MG/DL (0.55-1.30); GLOMERULAR FILTRATION RATE > 60.0 (>39); GLUCOSE, FASTING 180 MG/DL (70-100); POTASSIUM SERUM 4.5 MEQ/L (3.5-5.1); SODIUM LEVEL 137 MEQ/L (136-145)
[2017-12-15] MEDS: IPRATROPIUM 0.5MG/ALBUTEROL 2.5MG INH SOL UD 3ML (DUONEB)(J7620) NEB ×4 (07:30→19:57)
[2017-12-15] MEDS: ALVIMOPAN 12 MG CAPSULE (ENTEREG) PO ×2 (08:47→21:31)
[2017-12-15] MEDS: NYSTATIN 100,000 UNITS/GM TOPICAL PWD 15 GM TOP ×2 (08:47→21:32)
[2017-12-15] MEDS: ENOXAPARIN 40 MG/0.4 ML SYRINGE (J1650) SC (08:47)
[2017-12-15] MEDS: MORPHINE 1MG/ML IN 0.9% NACL 100ML IV BAG IV (09:53)
[2017-12-15] MEDS: PANTOPRAZOLE 40MG INJ (PROTONIX) (C9113) IV (09:57)
[2017-12-15] MEDS: ERTAPENEM SODIUM 1 GM in NS MINI-BAG PLUS 50 ML IV (09:58)
[2017-12-15 11:42] LABS: BEDSIDE GLUCOSE 153 MG/DL (83-110)
[2017-12-15 16:50] LABS: BEDSIDE GLUCOSE 188 MG/DL (83-110)
[2017-12-15] MEDS: FAT EMULSION IV 20% 500 ML IV (18:28)
[2017-12-15] MEDS: AMINO AC/ELECTROLYTE/DEX/CALC 2,000 ML IV (18:28)
[2017-12-15] MEDS: GABAPENTIN 300 MG CAP PO (21:31)
[2017-12-16 00:25] LABS: BEDSIDE GLUCOSE 195 MG/DL (83-110)
[2017-12-16] MEDS: NS 1,000 ML IV ×3 (00:35→21:00)
[2017-12-16] MEDS: KETOROLAC 30 MG/ML VIAL (J1885) IV ×3 (05:15→20:54)
[2017-12-16] MEDS: SODIUM CHLORIDE 0.9% INJ 10 ML SYR IV ×2 (06:00→18:00)
[2017-12-16] MEDS: HumaLOG INSULIN (NovoLOG) PER UNIT SC ×4 (06:00→18:44)
[2017-12-16 06:29] LABS: BEDSIDE GLUCOSE 149 MG/DL (83-110)
[2017-12-16 07:05] LABS: HEMATOCRIT 29.4 % (36.0-47.0); HEMOGLOBIN 9.1 g/dl (12.0-15.5); MEAN CORPUSCULAR HEMOGLOBIN 27.3 pg (27.0-33.0); MEAN CORPUSCULAR VOLUME 88.3 fl (80.0-96.0); PLATELET COUNT, AUTOMATED 262 10^3/uL (150-450); RED BLOOD COUNT 3.33 10^6/uL (4.00-5.40); WHITE BLOOD COUNT 12.4 10^3/uL (4.0-10.0)
[2017-12-16 07:36] LABS: ANION GAP 7 MEQ/L (8-16); BLOOD UREA NITROGEN 62 MG/DL (7-18); CALCIUM LEVEL 7.7 MG/DL (8.8-10.2); CARBON DIOXIDE LEVEL 25 MEQ/L (21-32); CHLORIDE LEVEL 102 MEQ/L (98-107); CREATININE FOR GFR 1.97 MG/DL (0.55-1.30); GLOMERULAR FILTRATION RATE 26.6 (>39); GLUCOSE, FASTING 169 MG/DL (70-100); POTASSIUM SERUM 4.5 MEQ/L (3.5-5.1); SODIUM LEVEL 134 MEQ/L (136-145)
[2017-12-16] MEDS: IPRATROPIUM 0.5MG/ALBUTEROL 2.5MG INH SOL UD 3ML (DUONEB)(J7620) NEB ×4 (08:00→19:53)
[2017-12-16] MEDS: PANTOPRAZOLE 40MG INJ (PROTONIX) (C9113) IV (10:13)
[2017-12-16] MEDS: ALVIMOPAN 12 MG CAPSULE (ENTEREG) PO ×2 (10:13→20:54)
[2017-12-16] MEDS: NYSTATIN 100,000 UNITS/GM TOPICAL PWD 15 GM TOP ×2 (10:14→20:54)
[2017-12-16] MEDS: ENOXAPARIN 40 MG/0.4 ML SYRINGE (J1650) SC (10:14)
[2017-12-16 11:47] LABS: BEDSIDE GLUCOSE 156 MG/DL (83-110)
[2017-12-16] MEDS: NORCO, ANEXSIA 5/325MG TABLET (HYDROcodone/ACETAMINOPHEN) PO ×2 (14:17→23:22)
[2017-12-16] MEDS: MORPHINE 4 MG/ML 1ML VIAL/SYRINGE (J2270) IV ×3 (15:54→17:22)
[2017-12-16 18:21] LABS: BEDSIDE GLUCOSE 148 MG/DL (83-110)
[2017-12-16] MEDS: FAT EMULSION IV 20% 500 ML IV (18:44)
[2017-12-16] MEDS: AMINO AC/ELECTROLYTE/DEX/CALC 2,000 ML IV (18:44)
[2017-12-16] MEDS: GABAPENTIN 300 MG CAP PO (20:54)
[2017-12-17 00:04] LABS: BEDSIDE GLUCOSE 163 MG/DL (83-110)
[2017-12-17] MEDS: HumaLOG INSULIN (NovoLOG) PER UNIT SC ×5 (00:07→21:52)
[2017-12-17] MEDS: KETOROLAC 30 MG/ML VIAL (J1885) IV ×3 (05:00→20:12)
[2017-12-17] MEDS: SODIUM CHLORIDE 0.9% INJ 10 ML SYR IV ×2 (05:29→17:45)
[2017-12-17 05:58] LABS: HEMATOCRIT 28.7 % (36.0-47.0); HEMOGLOBIN 8.8 g/dl (12.0-15.5); MEAN CORPUSCULAR HEMOGLOBIN 26.7 pg (27.0-33.0); MEAN CORPUSCULAR HGB CONC 30.7 g/dl (32.0-36.5); PLATELET COUNT, AUTOMATED 235 10^3/uL (150-450); RED CELL DISTRIBUTION WIDTH 13.7 % (11.5-14.5); WHITE BLOOD COUNT 9.1 10^3/uL (4.0-10.0)
[2017-12-17 06:04] LABS: BEDSIDE GLUCOSE 175 MG/DL (83-110)
[2017-12-17 06:18] LABS: ANION GAP 6 MEQ/L (8-16); BLOOD UREA NITROGEN 44 MG/DL (7-18); CALCIUM LEVEL 8.2 MG/DL (8.8-10.2); CARBON DIOXIDE LEVEL 26 MEQ/L (21-32); CHLORIDE LEVEL 106 MEQ/L (98-107); CREATININE FOR GFR 0.85 MG/DL (0.55-1.30); GLOMERULAR FILTRATION RATE > 60.0 (>39); GLUCOSE, FASTING 175 MG/DL (70-100); POTASSIUM SERUM 4.4 MEQ/L (3.5-5.1); SODIUM LEVEL 138 MEQ/L (136-145)
[2017-12-17] MEDS: IPRATROPIUM 0.5MG/ALBUTEROL 2.5MG INH SOL UD 3ML (DUONEB)(J7620) NEB ×4 (08:37→19:40)
[2017-12-17] MEDS: amLODIPine 5 MG TAB PO (09:22)
[2017-12-17] MEDS: PANTOPRAZOLE 40MG INJ (PROTONIX) (C9113) IV (09:22)
[2017-12-17] MEDS: ALVIMOPAN 12 MG CAPSULE (ENTEREG) PO ×2 (09:23→20:11)
[2017-12-17] MEDS: ENOXAPARIN 40 MG/0.4 ML SYRINGE (J1650) SC (09:23)
[2017-12-17] MEDS: MORPHINE 4 MG/ML 1ML VIAL/SYRINGE (J2270) IV (10:16)
[2017-12-17] MEDS: ONDANSETRON 4MG/2ML VIAL (J2405) IV (11:33)
[2017-12-17 11:52] LABS: BEDSIDE GLUCOSE 197 MG/DL (83-110)
[2017-12-17 17:36] LABS: BEDSIDE GLUCOSE 177 MG/DL (83-110)
[2017-12-17] MEDS: NYSTATIN 100,000 UNITS/GM TOPICAL PWD 15 GM TOP ×2 (17:46→20:12)
[2017-12-17] MEDS: NORCO, ANEXSIA 5/325MG TABLET (HYDROcodone/ACETAMINOPHEN) PO (17:51)
[2017-12-17] MEDS: GABAPENTIN 300 MG CAP PO (20:11)
[2017-12-17 22:59] LABS: BEDSIDE GLUCOSE 117 MG/DL (83-110)
[2017-12-18] MEDS: MORPHINE 4 MG/ML 1ML VIAL/SYRINGE (J2270) IV (00:07)
[2017-12-18] MEDS: NS 1,000 ML IV (00:45)
[2017-12-18] MEDS: KETOROLAC 30 MG/ML VIAL (J1885) IV (05:04)
[2017-12-18] MEDS: SODIUM CHLORIDE 0.9% INJ 10 ML SYR IV ×2 (05:04→18:41)
[2017-12-18 06:10] LABS: HEMATOCRIT 28.4 % (36.0-47.0); HEMOGLOBIN 8.7 g/dl (12.0-15.5); MEAN CORPUSCULAR HEMOGLOBIN 26.5 pg (27.0-33.0); MEAN CORPUSCULAR HGB CONC 30.6 g/dl (32.0-36.5); MEAN CORPUSCULAR VOLUME 86.6 fl (80.0-96.0); PLATELET COUNT, AUTOMATED 269 10^3/uL (150-450); RED BLOOD COUNT 3.28 10^6/uL (4.00-5.40); RED CELL DISTRIBUTION WIDTH 13.6 % (11.5-14.5); WHITE BLOOD COUNT 9.1 10^3/uL (4.0-10.0)
[2017-12-18 06:29] LABS: ANION GAP 7 MEQ/L (8-16); BLOOD UREA NITROGEN 27 MG/DL (7-18); CALCIUM LEVEL 8.5 MG/DL (8.8-10.2); CARBON DIOXIDE LEVEL 26 MEQ/L (21-32); CHLORIDE LEVEL 106 MEQ/L (98-107); CREATININE FOR GFR 0.82 MG/DL (0.55-1.30); GLOMERULAR FILTRATION RATE > 60.0 (>39); GLUCOSE, FASTING 110 MG/DL (70-100); SODIUM LEVEL 139 MEQ/L (136-145)
[2017-12-18] MEDS: IPRATROPIUM 0.5MG/ALBUTEROL 2.5MG INH SOL UD 3ML (DUONEB)(J7620) NEB ×3 (07:31→20:25)
[2017-12-18] MEDS: amLODIPine 5 MG TAB PO (07:43)
[2017-12-18] MEDS: ENOXAPARIN 40 MG/0.4 ML SYRINGE (J1650) SC (07:44)
[2017-12-18] MEDS: HumaLOG INSULIN (NovoLOG) PER UNIT SC ×4 (07:44→20:18)
[2017-12-18] MEDS: NYSTATIN 100,000 UNITS/GM TOPICAL PWD 15 GM TOP ×2 (07:45→20:19)
[2017-12-18] MEDS: ALVIMOPAN 12 MG CAPSULE (ENTEREG) PO (07:45)
[2017-12-18] MEDS: NORCO, ANEXSIA 5/325MG TABLET (HYDROcodone/ACETAMINOPHEN) PO ×3 (08:54→23:13)
[2017-12-18] MEDS: PANTOPRAZOLE 40MG TAB (PROTONIX) PO (09:09)
[2017-12-18] MEDS: PREGABALIN 50 MG CAP (LYRICA) PO ×3 (11:19→20:17)
[2017-12-18 11:40] LABS: BEDSIDE GLUCOSE 113 MG/DL (83-110)
[2017-12-18] MEDS: IBUPROFEN 600 MG TAB PO (16:09)
[2017-12-18 16:48] LABS: BEDSIDE GLUCOSE 97 MG/DL (83-110)
[2017-12-18 20:20] LABS: BEDSIDE GLUCOSE 127 MG/DL (83-110)
[2017-12-19] MEDS: MORPHINE 4 MG/ML 1ML VIAL/SYRINGE (J2270) IV ×3 (03:02→20:50)
[2017-12-19] MEDS: SODIUM CHLORIDE 0.9% INJ 10 ML SYR IV ×3 (05:22→17:33)
[2017-12-19] MEDS: NORCO, ANEXSIA 5/325MG TABLET (HYDROcodone/ACETAMINOPHEN) PO ×3 (05:25→17:15)
[2017-12-19 06:47] LABS: ANION GAP 5 MEQ/L (8-16); BLOOD UREA NITROGEN 13 MG/DL (7-18); CALCIUM LEVEL 8.4 MG/DL (8.8-10.2); CARBON DIOXIDE LEVEL 24 MEQ/L (21-32); CHLORIDE LEVEL 109 MEQ/L (98-107); CREATININE FOR GFR 0.68 MG/DL (0.55-1.30); GLOMERULAR FILTRATION RATE > 60.0 (>39); GLUCOSE, FASTING 126 MG/DL (70-100); POTASSIUM SERUM 4.5 MEQ/L (3.5-5.1); SODIUM LEVEL 138 MEQ/L (136-145)
[2017-12-19] MEDS: IPRATROPIUM 0.5MG/ALBUTEROL 2.5MG INH SOL UD 3ML (DUONEB)(J7620) NEB ×4 (07:23→20:55)
[2017-12-19] MEDS: IBUPROFEN 600 MG TAB PO (08:13)
[2017-12-19] MEDS: NYSTATIN 100,000 UNITS/GM TOPICAL PWD 15 GM TOP ×2 (08:13→20:50)
[2017-12-19] MEDS: PREGABALIN 50 MG CAP (LYRICA) PO ×3 (08:13→20:49)
[2017-12-19] MEDS: PANTOPRAZOLE 40MG TAB (PROTONIX) PO (08:13)
[2017-12-19] MEDS: amLODIPine 5 MG TAB PO (08:13)
[2017-12-19] MEDS: HumaLOG INSULIN (NovoLOG) PER UNIT SC ×4 (08:14→20:19)
[2017-12-19] MEDS: ENOXAPARIN 40 MG/0.4 ML SYRINGE (J1650) SC (08:15)
[2017-12-19 09:02] LABS: HEMATOCRIT 26.3 % (36.0-47.0); HEMOGLOBIN 8.4 g/dl (12.0-15.5); MEAN CORPUSCULAR HEMOGLOBIN 27.1 pg (27.0-33.0); MEAN CORPUSCULAR HGB CONC 31.9 g/dl (32.0-36.5); MEAN CORPUSCULAR VOLUME 84.8 fl (80.0-96.0); PLATELET COUNT, AUTOMATED 236 10^3/uL (150-450); RED CELL DISTRIBUTION WIDTH 13.6 % (11.5-14.5); WHITE BLOOD COUNT 6.9 10^3/uL (4.0-10.0)
[2017-12-19 11:38] LABS: BEDSIDE GLUCOSE 111 MG/DL (83-110)
[2017-12-19 16:50] LABS: BEDSIDE GLUCOSE 126 MG/DL (83-110)
[2017-12-19 20:29] LABS: BEDSIDE GLUCOSE 125 MG/DL (83-110)
[2017-12-20] MEDS: NORCO, ANEXSIA 5/325MG TABLET (HYDROcodone/ACETAMINOPHEN) PO ×3 (01:10→14:36)
[2017-12-20] MEDS: IBUPROFEN 600 MG TAB PO ×2 (03:37→20:20)
[2017-12-20] MEDS: SODIUM CHLORIDE 0.9% INJ 10 ML SYR IV ×2 (05:14→16:52)
[2017-12-20 06:28] LABS: HEMATOCRIT 25.7 % (36.0-47.0); HEMOGLOBIN 8.2 g/dl (12.0-15.5); MEAN CORPUSCULAR HGB CONC 31.9 g/dl (32.0-36.5); MEAN CORPUSCULAR VOLUME 84.5 fl (80.0-96.0); PLATELET COUNT, AUTOMATED 227 10^3/uL (150-450); RED BLOOD COUNT 3.04 10^6/uL (4.00-5.40); RED CELL DISTRIBUTION WIDTH 13.6 % (11.5-14.5); WHITE BLOOD COUNT 6.4 10^3/uL (4.0-10.0)
[2017-12-20 06:45] LABS: ANION GAP 5 MEQ/L (8-16); BLOOD UREA NITROGEN 9 MG/DL (7-18); CALCIUM LEVEL 8.3 MG/DL (8.8-10.2); CARBON DIOXIDE LEVEL 28 MEQ/L (21-32); CHLORIDE LEVEL 107 MEQ/L (98-107); CREATININE FOR GFR 0.64 MG/DL (0.55-1.30); GLOMERULAR FILTRATION RATE > 60.0 (>39); GLUCOSE, FASTING 120 MG/DL (70-100); POTASSIUM SERUM 4.3 MEQ/L (3.5-5.1); SODIUM LEVEL 140 MEQ/L (136-145)
[2017-12-20] MEDS: IPRATROPIUM 0.5MG/ALBUTEROL 2.5MG INH SOL UD 3ML (DUONEB)(J7620) NEB ×4 (07:39→20:50)
[2017-12-20] MEDS: PANTOPRAZOLE 40MG TAB (PROTONIX) PO (07:59)
[2017-12-20] MEDS: amLODIPine 5 MG TAB PO (07:59)
[2017-12-20] MEDS: PREGABALIN 50 MG CAP (LYRICA) PO ×3 (07:59→20:20)
[2017-12-20] MEDS: HumaLOG INSULIN (NovoLOG) PER UNIT SC ×4 (07:59→21:00)
[2017-12-20] MEDS: ENOXAPARIN 40 MG/0.4 ML SYRINGE (J1650) SC (08:00)
[2017-12-20] MEDS: NYSTATIN 100,000 UNITS/GM TOPICAL PWD 15 GM TOP ×2 (08:00→20:21)
[2017-12-20 11:57] LABS: BEDSIDE GLUCOSE 123 MG/DL (83-110)
[2017-12-20 16:40] LABS: BEDSIDE GLUCOSE 139 MG/DL (83-110)
[2017-12-20 18:18] LABS: HEMATOCRIT 25.9 % (36.0-47.0)
[2017-12-20 21:01] LABS: BEDSIDE GLUCOSE 165 MG/DL (83-110)
[2017-12-21] MEDS: IBUPROFEN 600 MG TAB PO ×2 (05:08→19:00)
[2017-12-21] MEDS: SODIUM CHLORIDE 0.9% INJ 10 ML SYR IV ×2 (05:08→18:11)
[2017-12-21 06:56] LABS: BASO % 0.5 % (0.0-1.0); EOS # 0.1 10^3/uL (0.0-0.50); EOS % 2.6 % (0.0-3.0); HEMATOCRIT 26.5 % (36.0-47.0); HEMOGLOBIN 8.2 g/dl (12.0-15.5); IMMATURE GRANULOCYTE % 4.4 % (0-3.0); LYMPH # 1.1 10^3/uL (1.5-4.5); LYMPH % 19.9 % (24.0-44.0); MEAN CORPUSCULAR HEMOGLOBIN 26.5 pg (27.0-33.0); MEAN CORPUSCULAR HGB CONC 30.9 g/dl (32.0-36.5); MEAN CORPUSCULAR VOLUME 85.5 fl (80.0-96.0); MONO # 0.6 10^3/uL (0.0-0.8); MONO % 11.5 % (0.0-5.0); NEUTROPHILS # 3.4 10^3/uL (1.8-7.7); NEUTROPHILS % 61.1 % (36.0-66.0); PLATELET COUNT, AUTOMATED 219 10^3/uL (150-450); RED CELL DISTRIBUTION WIDTH 13.6 % (11.5-14.5); WHITE BLOOD COUNT 5.5 10^3/uL (4.0-10.0)
[2017-12-21 07:19] LABS: ALBUMIN 1.7 GM/DL (3.2-5.2); ALBUMIN/GLOBULIN RATIO 0.49 (1.00-1.93); ALKALINE PHOSPHATASE 100 U/L (45-117); ALT/SGPT 10 U/L (12-78); ANION GAP 6 MEQ/L (8-16); AST/SGOT 8 U/L (7-37); BILIRUBIN,TOTAL 0.2 MG/DL (0.2-1.0); BLOOD UREA NITROGEN 7 MG/DL (7-18); CARBON DIOXIDE LEVEL 27 MEQ/L (21-32); CHLORIDE LEVEL 109 MEQ/L (98-107); CREATININE FOR GFR 0.69 MG/DL (0.55-1.30); GLOMERULAR FILTRATION RATE > 60.0 (>39); GLUCOSE, FASTING 126 MG/DL (70-100); POTASSIUM SERUM 3.8 MEQ/L (3.5-5.1); SODIUM LEVEL 142 MEQ/L (136-145); TOTAL PROTEIN 5.2 GM/DL (6.4-8.2)
[2017-12-21] MEDS: IPRATROPIUM 0.5MG/ALBUTEROL 2.5MG INH SOL UD 3ML (DUONEB)(J7620) NEB ×4 (07:45→19:55)
[2017-12-21] MEDS: HumaLOG INSULIN (NovoLOG) PER UNIT SC ×4 (08:59→20:29)
[2017-12-21] MEDS: PREGABALIN 50 MG CAP (LYRICA) PO ×4 (09:00→20:32)
[2017-12-21] MEDS: PANTOPRAZOLE 40MG TAB (PROTONIX) PO (09:00)
[2017-12-21] MEDS: NYSTATIN 100,000 UNITS/GM TOPICAL PWD 15 GM TOP ×2 (09:02→20:32)
[2017-12-21] MEDS: amLODIPine 5 MG TAB PO (09:08)
[2017-12-21 12:00] LABS: BEDSIDE GLUCOSE 84 MG/DL (83-110)
[2017-12-21 17:29] LABS: BEDSIDE GLUCOSE 110 MG/DL (83-110)
[2017-12-21 20:21] LABS: BEDSIDE GLUCOSE 123 MG/DL (83-110)
[2017-12-21] MEDS: NORCO, ANEXSIA 5/325MG TABLET (HYDROcodone/ACETAMINOPHEN) PO (21:31)
[2017-12-22] MEDS: IBUPROFEN 600 MG TAB PO (00:51)
[2017-12-22] MEDS: SODIUM CHLORIDE 0.9% INJ 10 ML SYR IV (05:33)
[2017-12-22 06:18] LABS: BEDSIDE GLUCOSE 107 MG/DL (83-110)
[2017-12-22] MEDS: IPRATROPIUM 0.5MG/ALBUTEROL 2.5MG INH SOL UD 3ML (DUONEB)(J7620) NEB ×2 (07:27→11:11)
[2017-12-22] MEDS: PREGABALIN 50 MG CAP (LYRICA) PO (08:33)
[2017-12-22] MEDS: HumaLOG INSULIN (NovoLOG) PER UNIT SC ×2 (08:33→12:00)
[2017-12-22] MEDS: NYSTATIN 100,000 UNITS/GM TOPICAL PWD 15 GM TOP (08:33)
[2017-12-22] MEDS: PANTOPRAZOLE 40MG TAB (PROTONIX) PO (08:33)
[2017-12-22] MEDS: amLODIPine 5 MG TAB PO (08:33)
[2017-12-22 11:45] LABS: BEDSIDE GLUCOSE 100 MG/DL (83-110)
== END 2017-12-22 14:36 | disposition home or self-care (01) | DRG 329 ==
LOC: M MSPAV 12-08 19:38 → M MS4PR 12-10 14:45 → M MSPAV 12-12 14:29 → M ICU 12-08 23:51 → M ED 14:04 → M MS4PR 12-10 14:50 → M ED INP 18:45 → M PCU 20:20
PROC: 0DQ80ZZ Repair Small Intestine, Open Approach (ICD-10-PCS; principal; 2017-11-28 15:00)
PROC: 0DNU0ZZ Release Omentum, Open Approach (ICD-10-PCS; 2017-11-28 15:00)
PROC: 0DN80ZZ Release Small Intestine, Open Approach (ICD-10-PCS; 2017-11-28 15:00)
PROC: 0DB80ZZ Excision of Small Intestine, Open Approach (ICD-10-PCS; 2017-11-28 18:06)
PROC: 0DBK0ZZ Excision of Ascending Colon, Open Approach (ICD-10-PCS; 2017-11-28 18:06)
PROC: 0DBU0ZZ Excision of Omentum, Open Approach (ICD-10-PCS; 2017-11-28 18:06)
PROC: 02HV33Z Insertion of Infusion Device into Superior Vena Cava, Percutaneous Approach (ICD-10-PCS; 2017-11-28 18:06)
DX: K56.50 Intestinal adhesions [bands], unspecified as to partial versus complete obstruction (principal); J18.9 Pneumonia, unspecified organism; J69.0 Pneumonitis due to inhalation of food and vomit; I50.32 Chronic diastolic (congestive) heart failure; R00.0 Tachycardia, unspecified; I11.0 Hypertensive heart disease with heart failure; G47.33 Obstructive sleep apnea (adult) (pediatric); L40.9 Psoriasis, unspecified; I25.10 Atherosclerotic heart disease of native coronary artery without angina pectoris; N32.81 Overactive bladder; G25.81 Restless legs syndrome; E78.5 Hyperlipidemia, unspecified; M54.5 Low back pain; E11.9 Type 2 diabetes mellitus without complications; J44.9 Chronic obstructive pulmonary disease, unspecified; Z79.82 Long term (current) use of aspirin; Z79.84 Long term (current) use of oral hypoglycemic drugs; Z79.891 Long term (current) use of opiate analgesic; Z79.899 Other long term (current) drug therapy; Z88.0 Allergy status to penicillin; Z91.048 Other nonmedicinal substance allergy status; Z88.1 Allergy status to other antibiotic agents; Z87.891 Personal history of nicotine dependence; Z90.49 Acquired absence of other specified parts of digestive tract; Z90.710 Acquired absence of both cervix and uterus; Z90.722 Acquired absence of ovaries, bilateral; Z85.42 Personal history of malignant neoplasm of other parts of uterus; Z53.31 Laparoscopic surgical procedure converted to open procedure

== ENCOUNTER → 2017-12-29 | Outpatient (REF) | payer MEDICARE, BC, OTHER | LOC: M LAB REF 09:00 | DX: R19.7 Diarrhea, unspecified (principal) | CPT/HCPCS: 87493 ==

== ENCOUNTER → 2018-01-17 | Outpatient (REF) | payer MEDICARE, OTHER ==
[2018-01-17 20:30] LABS: APPEARANCE, URINE CLOUDY (CLEAR); BACTERIA, URINE AUTO 3+ (NEGATIVE); BILIRUBIN, URINE AUTO NEGATIVE (NEGATIVE); BLOOD, URINE BLOOD NEGATIVE (NEGATIVE); COLOR, URINE YELLOW (YELLOW); GLUCOSE, URINE (UA) AUTO NEGATIVE (NEGATIVE); KETONE, URINE AUTO NEGATIVE (NEGATIVE); LEUKOCYTE ESTERASE, URINE AUTO 3+ (NEGATIVE); MUCUS, URINE SMALL (NEGATIVE); NITRITE, URINE AUTO POSITIVE (NEGATIVE); PROTEIN, URINE AUTO NEGATIVE (NEGATIVE); RBC, URINE AUTO 4 /HPF (0-3); SPECIFIC GRAVITY URINE AUTO 1.013 (1.002-1.035); SQUAMOUS EPITHELIAL CELL UR AU 1 /HPF (0-6); UROBILINOGEN, URINE AUTO 0.2 mg/dL (0.0-2.0); WBC, URINE AUTO TNTC /HPF (0-3)
== END ==
LOC: M SFHCPLAZ 19:16
DX: R30.0 Dysuria (principal)
CPT/HCPCS: 81001

== ENCOUNTER → 2018-04-02 | Outpatient (CLI) | payer MEDICARE, BC, OTHER ==
[~2018-04-02] MED LIST changes: -AMLO5TAB2 PO; +AMLO5TAB6; +AMLO5TAB6 PO; +ASPI1TAB PO; +CHLO125TA; +CLOB0.0515 TOP; +DICL1GEL3 TOP; +DILT180C22 PO; -DILT180C71 PO; +FISH1000 PO; +FLUO0.0118 TOP; +FOLI1TAB11 PO; -FOLI1TAB4 PO; -GABA-282 PO; +GABA-843 PO; -LASI20TA PO; +LASI20TA3 PO; +LISI-538 PO; +LISI40TA PO; +LORA-243 PO; +MAGN400T5 PO; +METH2.5T48 PO; -METH2.5TA PO; +MIRA3350 PO; +MUCI600T37 PO; +ONDA4TAB5 PO; +POTA10CA32 PO; +PREG50CA PO; +SPIR-10 PO; -SPIR25TA2 PO; +VALA500T5 PO; +VITA100066 PO; +ZOFR4TAB14 PO; -ZOFR4TAB3 PO
--- NOTE | 2018-04-02 13:44 | REP ---
Clinical: Bilateral lower extremity pain . Technique: Knapp scale and color Doppler evaluation using linear high frequency transducer. Findings: Ultrasound examination of the right and left lower extremity deep venous structures from the common femoral vein to the popliteal vein demonstrates normal compressibility flow and wave patterns in response to respiration and augmentation. There is no evidence for deep venous thrombosis. Impression: No evidence for deep venous thrombosis. Electronically Signed by Carmelo Montiel MD 04/02/2018 01:35 P
--- NOTE | 2018-04-02 13:58 | REP ---
Clinical: Bilateral lower extremity pain. Symptoms related to atherosclerotic disease and intermittent claudication. Technique: Real time knapp scale and color Doppler evaluation of the bilateral lower extremity arterial vasculature using linear high frequency transducer. Findings: Knapp scale and color images demonstrate mild to moderate amounts of bilateral atheromatous plaquing with areas of minimal stenosis of the bilateral posterior tibial and anterior tibial arteries. Doppler interrogation demonstrates triphasic and biphasic wave patterns and velocities as described below. Peak systolic velocities (cm/sec) RIGHT LEFT Common femoral artery 164 triphasic 139 triphasic Profunda femoris 116 triphasic 107 triphasic SFA (proximal) 87.8 triphasic 94.6 triphasic SFA (mid) 92.5 triphasic 81.8 triphasic SFA (distal) 102 triphasic 91.6 triphasic Popliteal artery 107 biphasic 91.1 biphasic TESSA (prox.) 61.9 biphasic 52.7 biphasic Tibioperoneal trunk 74.5 biphasic 50.5 biphasic [employer] (prox.) 43.1 monophasic 34.6 biphasic [employer] (distal) 68.2 biphasic 90.0 biphasic TESSA (distal) 103 biphasic 118 biphasic Impression: Atheromatous changes with areas of mild stenosis of the bilateral posterior tibial and anterior tibial arteries. Electronically Signed by Carmelo Montiel MD 04/02/2018 01:50 P
== END ==
LOC: M RAD 11:25
PROVIDERS: ATTEND Family Medicine
DX: I70.203 Unspecified atherosclerosis of native arteries of extremities, bilateral legs (principal); M79.604 Pain in right leg

== ENCOUNTER → 2018-04-16 | Outpatient (CLI) | payer MEDICARE, BC ==
--- NOTE | 2018-04-16 18:19 | REPMRS ---
Patient History The patient states she has not had a clinical breast exam in over a year. Patient is postmenopausal and has history of other cancer at age 31. Family history of colorectal cancer at age 45 in brother. Digital Woman Screen Mammo: April 16, 2018 - Exam #: [id number] Bilateral CC and MLO view(s) were taken. Technologist: Ivette Noriega, Technologist Prior study comparison: March 06, 2017, digital woman screen mammo performed at [facility]. August 27, 2014, digital woman screen mammo performed at [facility]. FINDINGS: There are scattered fibroglandular densities. There has been no change in the appearance of the mammogram from the prior studies. There is a mild amount of residual fibroglandular tissue which is fairly symmetric. There is no interval development of dominant mass, architectural distortion, or clustered microcalcification suggestive of malignancy. There are scattered, small, benign calcifications of doubtful clinical significance. Scattered lymph nodes are seen in the axilla. There are scattered, small, benign calcifications of doubtful clinical significance. 3-D tomosynthesis shows no additional findings. No significant changes when compared with prior studies. Assessment: BI-RADS/ACR category 2 mammogram. Benign Findings. Recommendation Routine screening mammogram in 1 year (for women over age 40). This mammogram was interpreted with the aid of an FDA-approved computer-aided dectection system. A. Negative x-ray reports should not delay biopsy if a dominant or clinically suspicious mass is present. B. Four to eight percent of cancers are not identified by mammography. C. Adenosis and dense breast may obscure an underlying neoplasm. Electronically Signed By: Yuri Donnelly MD 04/16/18 [id number]
== END ==
LOC: M WHC 14:14
PROVIDERS: ATTEND Family Medicine
DX: Z12.31 Encounter for screening mammogram for malignant neoplasm of breast (principal); Z78.0 Asymptomatic menopausal state; Z85.89 Personal history of malignant neoplasm of other organs and systems; R92.1 Mammographic calcification found on diagnostic imaging of breast

== ENCOUNTER → 2018-05-02 | Outpatient (REF) | payer MEDICARE, OTHER | LOC: M LABDRAWP 10:02 | PROVIDERS: ATTEND Nurse Practitioner Family | DX: L40.0 Psoriasis vulgaris (principal); Z51.81 Encounter for therapeutic drug level monitoring; Z79.899 Other long term (current) drug therapy ==

== ENCOUNTER → 2018-05-02 | Outpatient (REF) | payer MEDICARE, OTHER ==
[2018-05-02 11:38] LABS: HEMOGLOBIN 13.2 g/dl (12.0-15.5)
[2018-05-02 12:06] LABS: BLOOD UREA NITROGEN 27 MG/DL (7-18); CALCIUM LEVEL 8.8 MG/DL (8.8-10.2); CARBON DIOXIDE LEVEL 21 MEQ/L (21-32); CHLORIDE LEVEL 105 MEQ/L (98-107); CREATININE FOR GFR 1.16 MG/DL (0.55-1.30); GLUCOSE, FASTING 93 MG/DL (70-100); POTASSIUM SERUM 5.3 MEQ/L (3.5-5.1); SODIUM LEVEL 133 MEQ/L (136-145)
[2018-05-02 12:08] LABS: HEMOGLOBIN A1c 6.4 %
[2018-05-02 12:11] LABS: VITAMIN B12 LEVEL 484 PG/ML (247-911)
== END ==
LOC: M SFHCPLAZ 09:34
PROVIDERS: ATTEND Family Medicine
DX: E11.40 Type 2 diabetes mellitus with diabetic neuropathy, unspecified (principal); M79.604 Pain in right leg; M79.605 Pain in left leg; M65.4 Radial styloid tenosynovitis [de Quervain]

== ENCOUNTER → 2018-05-18 | Outpatient (CLI) | payer MEDICARE, BC, OTHER ==
[~2018-05-18] MED LIST changes: -/MOXI40TA; -ASPI1TAB PO; +ASPI81TA26 PO; +AVEL1TAB2; -DILT180C22 PO; +DILT180C78 PO; +LISI40TA52 PO; -LISI40TAB PO; -VANC250C2 PO; +VANC250C3 PO
[2018-05-18 14:37] LABS: BASO % 0.4 % (0.0-1.0); EOS # 0.1 10^3/uL (0.0-0.50); EOS % 0.9 % (0.0-3.0); HEMATOCRIT 42.6 % (36.0-47.0); HEMOGLOBIN 13.1 g/dl (12.0-15.5); LYMPH # 2.1 10^3/uL (1.5-4.5); LYMPH % 21.2 % (24.0-44.0); MEAN CORPUSCULAR HGB CONC 30.8 g/dl (32.0-36.5); MEAN CORPUSCULAR VOLUME 84.7 fl (80.0-96.0); MONO # 0.7 10^3/uL (0.0-0.8); MONO % 6.8 % (0.0-5.0); NEUTROPHILS # 6.8 10^3/uL (1.8-7.7); NEUTROPHILS % 70.4 % (36.0-66.0); PLATELET COUNT, AUTOMATED 234 10^3/uL (150-450); RED BLOOD COUNT 5.03 10^6/uL (4.00-5.40); WHITE BLOOD COUNT 9.7 10^3/uL (4.0-10.0)
--- NOTE | 2018-05-18 15:40 | REP ---
PA and lateral chest: Comparison is 12/21/2016. The lung modi are clear. The cardiac size is normal. The darrell, mediastinum, and skeletal structures are unremarkable. Impression: Negative PA and lateral chest. There is no interval change. Electronically Signed by Driss Hernandez MD 05/18/2018 03:31 P
== END ==
LOC: M LAB 14:13
PROVIDERS: ATTEND Nurse Practitioner Family
DX: L40.0 Psoriasis vulgaris (principal)

== ENCOUNTER 2018-07-14 19:52 | Inpatient (IN) | payer MEDICARE, BC, OTHER ==
[~2018-07-14] VITALS: Ht 157.5 cm; Wt 104.5 kg
[2018-07-14] MEDS ORDERED: METOCLOPRAMIDE INJ 10MG/2ML VIAL (J2765) IV ONE (20:30)
[2018-07-14] MEDS ORDERED: NS 500 ML IV ONE (20:30)
[2018-07-14] MEDS ORDERED: MORPHINE 4 MG/ML 1ML VIAL/SYRINGE (J2270) IV ONE (20:30)
[2018-07-14 20:32] LABS: BASO % 0.4 % (0.0-1.0); EOS % 0.4 % (0.0-3.0); HEMATOCRIT 46.9 % (36.0-47.0); HEMOGLOBIN 14.4 g/dl (12.0-15.5); LYMPH # 2.1 10^3/uL (1.5-4.5); LYMPH % 19.1 % (24.0-44.0); MEAN CORPUSCULAR HEMOGLOBIN 27.8 pg (27.0-33.0); MEAN CORPUSCULAR HGB CONC 30.7 g/dl (32.0-36.5); MEAN CORPUSCULAR VOLUME 90.5 fl (80.0-96.0); MONO # 1.1 10^3/uL (0.0-0.8); MONO % 10.3 % (0.0-5.0); NEUTROPHILS # 7.5 10^3/uL (1.8-7.7); NEUTROPHILS % 69.5 % (36.0-66.0); PLATELET COUNT, AUTOMATED 246 10^3/uL (150-450); RED BLOOD COUNT 5.18 10^6/uL (4.00-5.40); WHITE BLOOD COUNT 10.8 10^3/uL (4.0-10.0)
[2018-07-14] MEDS: GASTROGRAFIN SOLUTION 30ML PO SCH ×2 (20:36→21:15)
[2018-07-14 20:44] LABS: INR 0.98; PROTHROMBIN TIME 13.1 SECONDS (12.1-14.4)
[2018-07-14 20:45] LABS: PARTIAL THROMBOPLASTIN TIME 28.6 SECONDS (25.4-37.6)
[2018-07-14] MEDS ORDERED: HALOPERIDOL 5 MG/ML VIAL (J1630) IV STA (20:53)
[2018-07-14] MEDS ORDERED: diphenhydrAMINE INJ 50MG/ML VIAL (J1200) IV STA (20:53)
[2018-07-14 21:16] LABS: ALBUMIN 3.5 GM/DL (3.2-5.2); BILIRUBIN,DIRECT 0.1 MG/DL (0.0-0.2); BILIRUBIN,TOTAL 0.4 MG/DL (0.2-1.0); CALCIUM LEVEL 9.1 MG/DL (8.8-10.2); CREATININE FOR GFR 1.09 MG/DL (0.55-1.30); GLOMERULAR FILTRATION RATE 52.5 (>39); POTASSIUM SERUM 4.8 MEQ/L (3.5-5.1); TOTAL PROTEIN 7.3 GM/DL (6.4-8.2)
[2018-07-14] MEDS ORDERED: ISOVUE-370 76% 100ML VIAL (Q9967) As Ordered ONE (21:59)
[2018-07-14] MEDS ORDERED: NS 1,000 ML IV SCH (23:02)
[2018-07-14] MEDS ORDERED: GLUCAGON FOR INJ 1 MG VIAL (J1610) SC PRN (23:15)
[2018-07-14] MEDS ORDERED: GLUCOSE 4 GM CHEW TABLET PO PRN (23:15)
[2018-07-14] MEDS ORDERED: MORPHINE 4 MG/ML 1ML VIAL/SYRINGE (J2270) IV PRN (23:15)
[2018-07-14] MEDS ORDERED: IPRATROPIUM 0.5MG/ALBUTEROL 2.5MG INH SOL UD 3ML (DUONEB)(J7620) NEB PRN (23:15)
[2018-07-14] MEDS ORDERED: ONDANSETRON 4MG/2ML VIAL (J2405) IV PRN (23:15)
[2018-07-14] MEDS ORDERED: DEXTROSE 50% 50 ML SYRINGE IV PRN (23:15)
[2018-07-14] MEDS ORDERED: FERR325T3 PO (23:19)
[2018-07-14] MEDS ORDERED: ONDA4TAB5 PO (23:19)
[2018-07-14] MEDS ORDERED: PROBCAP14 PO (23:19)
[2018-07-14] MEDS ORDERED: HUMI40KI2 SC (23:19)
[2018-07-14] MEDS ORDERED: KP F1200 PO (23:19)
[2018-07-14] MEDS ORDERED: VITA10002 PO (23:19)
[2018-07-14] MEDS ORDERED: ACET-897 PO (23:19)
[2018-07-14] MEDS ORDERED: MAGN50TA PO (23:19)
[2018-07-14] MEDS ORDERED: METF10004 PO (23:19)
[2018-07-14] MEDS ORDERED: OMEP-221 PO (23:19)
[2018-07-14] MEDS ORDERED: VITA500045 PO (23:19)
[2018-07-14] MEDS ORDERED: SPIR-10 PO (23:19)
--- NOTE | 2018-07-14 23:19 | HPEPDOC ---
[facility] Medical History & Physical Date of Admission Jul 14, 2018 Date of Service: Jul 14, 2018 History and Physical CHIEF COMPLAINT: Abdominal pain HISTORY OF PRESENT ILLNESS: Patient is a 73-year-old female past medical history of small bowel obstruction, diabetes mellitus, COPD, hypertension, CHF presents to ER with complaint of nausea vomiting and abdominal discomfort. Patient states this symptom has occurred for the past several days and has progressively worsened. She even mentioned that she thinks she has a small bowel obstruction as she has similar symptoms last year for the same condition. She said her stool texture had changed and became more chalky several days prior and then completely stopped having bowel movements. She denies any fever, chills, or any other symptoms. PAST MEDICAL HISTORY: Refer to [facility] PAST SURGICAL HISTORY: Small bowel resection secondary to GI bleed in 2013 Tonsillectomy Cholecystectomy Hysterectomy Appendectomy SOCIAL HISTORY: Former smoker. Denies alcohol or illicit drug use. FAMILY HISTORY: Mother passed, had Crohn's disease, diverticulitis, CAD ALLERGIES: Please see below. REVIEW OF SYSTEMS: 10 point review of system negative except as stated in [facility] HOME MEDICATIONS: Please see below. PHYSICAL EXAMINATION: General: Mild to moderate distress from nausea and abdominal discomfort. Eyes: Normal sclera, EOMI, RUBY HENT: Atraumatic, neck supple, moist mucous membranes Cardiovascular: Normal rate, normal rhythm. Pulmonary: Clear to auscultation b/l, no wheezing GI: Soft, hypoactive bowel sounds, mildly tender on palpation periumbilical. Skin: Warm and dry Neuro: CN grossly intact. No focal deficits. Strengths equal b/l. Psych: oriented x 3 LABORATORY DATA: See below. IMAGING: CT scan- f/u official read MICROBIOLOGY: Please see below. ASSESSMENT AND PLAN: 1. SBO - Likely 2/2 adhesions. History of multiple abdominal surgery and SBO in 2018. - No bowel movements with severe nausea/vomiting. - IVF support. Zofran for nausea and pain management. - C/w NGT suction and keep NPO at this time. - Surgery notified, will place official consult to following along. 2. DM - Hold oral glycemic meds. - Accuchecks. ISS. 3. HTN - Monitor BP. - IV med if needed. Hold po medication as patient is NPO at this time. 4. COPD? - Not in exacerbation. - Duonebs PRN for SOB. 5. MAHESH - Not on home CPAP. DVT ppx: HSQ and SCD Code status: Full code Vital Signs Vital Signs Date Time Temp Pulse Resp B/P (MAP) Pulse Ox O2 Delivery O2 Flow Rate FiO2 07/14/18 22:51 97 20 153/81 (105) 94 Room Air 07/14/18 22:03 2.0 07/14/18 19:53 97.4 Laboratory Data Labs 24H Laboratory Tests 2 07/14/18 20:21: Immature Granulocyte % (Auto) 0.3, White Blood Count 10.8H, Red Blood Count 5.18, Hemoglobin 14.4, Hematocrit 46.9, Mean Corpuscular Volume 90.5, Mean Corpuscular Hemoglobin 27.8, Mean Corpuscular Hemoglobin Concent 30.7L, Red Cell Distribution Width 14.1, Platelet Count 246, Neutrophils (%) (Auto) 69.5H, Lymphocytes (%) (Auto) 19.1L, Monocytes (%) (Auto) 10.3H, Eosinophils (%) (Auto) 0.4, Basophils (%) (Auto) 0.4, Neutrophils # (Auto) 7.5, Lymphocytes # (Auto) 2.1, Monocytes # (Auto) 1.1H, Eosinophils # (Auto) 0.0, Basophils # (Auto) 0.0, Nucleated Red Blood Cells % (auto) 0.0, Prothrombin Time 13.1, Prothromb Time International Ratio 0.98, Activated Partial Thromboplast Time 28.6, Anion Gap 11, Glomerular Filtration Rate 52.5, Calcium Level 9.1, Aspartate Amino Transf (AST/SGOT) 25, Alanine Aminotransferase (ALT/SGPT) 24, Alkaline Phosphatase 107, Total Bilirubin 0.4, Direct Bilirubin 0.1, Total Protein 7.3, Albumin 3.5, Alb umin/Globulin Ratio 0.92L, Lipase 81 CBC/BMP Laboratory Tests 07/14/18 20:21 Red Blood Count 5.18, Mean Corpuscular Volume 90.5, Mean Corpuscular Hemoglobin 27.8, Mean Corpuscular Hemoglobin Concent 30.7 L, Red Cell Distribution Width 14.1, Neutrophils (%) (Auto) 69.5 H, Lymphocytes (%) (Auto) 19.1 L, Monocytes (%) (Auto) 10.3 H, Eosinophils (%) (Auto) 0.4, Basophils (%) (Auto) 0.4, Neutrophils # (Auto) 7.5, Lymphocytes # (Auto) 2.1, Monocytes # (Auto) 1.1 H, Eosinophils # (Auto) 0.0, Basophils # (Auto) 0.0 Home Medications Scheduled Apremilast (Otezla) 30 Mg Tab, 30 MG PO BID Aspirin (Aspirin EC) 81 Mg Tab, 81 MG PO DAILY Atorvastatin Calcium (Atorvastatin Calcium) 40 Mg Tab, 40 MG PO DAILY Cholecalciferol (Vitamin D3) (Vitamin D3) 1,000 Unit Tab, 3,000 UNIT PO DAILY Lisinopril (Lisinopril) 20 Mg Tab, 20 MG PO DAILY Magnesium Oxide (Magnesium Oxide 400) 400 Mg Tab, 400 MG PO BID Metformin HCl (Metformin HCl) 1,000 Mg Tab, 1,000 MG PO BID [place]-3 Fatty Acids/Fish Oil (Fish Oil 1,000 mg Capsule) 1,000 Mg Cap, 1,000 MG PO DAILY Oxybutynin Chloride (Oxybutynin Chloride ER) 10 Mg Tab, 10 MG PO DAILY Pregabalin (Lyrica) 50 Mg Cap, 50 MG PO TID Valacyclovir HCl (Valacyclovir) 500 Mg Tab, 500 MG PO DAILY Scheduled PRN Clobetasol Propionate (Clobex) 0.05 % Lot, 0.05 % TOP BID PRN for PSORIASIS APPLY TO SCALP AND AFFECTED AREAS NEEDED Clobetasol Propionate (Clobex) 0.05 % Spr, 1 DOSE TOP DAILY PRN for ITCHING Cyclobenzaprine HCl (Cyclobenzaprine HCl) 10 Mg Tab, 10 MG PO TID PRN for MUSCLE SPASMS Diclofenac Sodium (Diclofenac Sodium) 1 % Gel, 1 DOSE TOP Q8H PRN for PAIN Ondansetron HCl (Ondansetron HCl) 4 Mg Tab, 4 MG PO Q4H PRN for NAUSEA Oxycodone HCl/Acetaminophen (Oxycodone-Acetaminophen 5-325) 1 Tab Tab, 1 TAB PO TID PRN for PAIN Polyethylene Glycol 3350 (Miralax) 1 Pow Pow, 1 DOSE PO DAILY PRN for CONSTIPATION Allergies Coded Allergies: Penicillins (Verified Allergy, Intermediate, SWELLING, 07/14/18) ciprofloxacin (Verified Allergy, Intermediate, "FLOP AROUND', 07/14/18) TAPE (Verified Allergy, Unknown, SURGICAL TAPE, 12/21/16) A-FIB/CHADSVASC A-FIB History Current/History of A-Fib/PAF?: No YARELI LOBO MD Jul 14, 2018 23:19
--- NOTE | 2018-07-14 23:52 | REPVR ---
EXAM: CT Abdomen and Pelvis With Contrast EXAM DATE/TIME: 07/14/2018 10:05 PM CLINICAL HISTORY: 73 years old, female; Signs and symptoms; Nausea and vomiting; Additional info: Eval obstruct TECHNIQUE: Imaging protocol: Axial computed tomography images of the abdomen and pelvis with intravenous contrast. Coronal and sagittal reformatted images were created and reviewed. Radiation optimization: All CT scans at this facility use at least one of these dose optimization techniques: automated exposure control; mA and/or kV adjustment per patient size (includes targeted exams where dose is matched to clinical indication); or iterative reconstruction. Other technique: ISOVUE 370; Contrast volume: 100 ml; Contrast route: IV COMPARISON: CT ABD PELVIS WITH CONTRAST 12/09/2017 8:27 AM FINDINGS: Lungs: Mild bibasilar interstitial prominence with minimal fibro-atelectatic change. ABDOMEN: Liver: The liver attenuation is 81 Hounsfield units and the spleen is 101 Hounsfield units. Gallbladder and bile ducts: Absent gallbladder. Mild biliary dilation which is attributed to prior cholecystectomy and is likely physiologic. The CBD measures 11 mm. Pancreas: Normal. No ductal dilation. Spleen: Normal. No splenomegaly. Adrenals: Normal. No mass. Kidneys and ureters: There are bilateral renal cysts measuring up to 14 mm on the left. Stomach and bowel: Partial ascending colectomy with ileocolic anastomosis in the lateral right abdomen. There is colonic diverticulosis without evidence of diverticulitis. Borderline distention stomach with fluid and gas. Slight diffuse colonic wall thickening Distention of small bowel with air-fluid levels which extends into the ileocolic anastomosis. There is slight wall thickening of the distal small bowel just proximal to the anastomosis which may reflect distal ileitis. There is stool-like material in the lumen of the distorted distal ileum. Appendix: The appendix is absent. PELVIS: Bladder: Unremarkable as visualized. Reproductive: Status post hysterectomy. ABDOMEN and PELVIS: Intraperitoneal space: Normal. No free air. No significant fluid collection. Bones/joints: Mild degenerative change in the lumbar spine. Soft tissues: Unremarkable. Vasculature: There is moderate atherosclerotic calcification of the abdominal aorta with extension into the iliac arteries. Lymph nodes: Normal. No enlarged lymph nodes. IMPRESSION: 1. Status post partial ascending colectomy with ileocolic anastomosis in the lateral right abdomen. 2. Small bowel obstruction to the level of the distal ileum and ileocolic anastomosis. The distal ileum demonstrates slight distortion with slight wall thickening which is confluent with adjacent segments consistent with distal ileitis. There is stool-like material within segment suggesting adynamic segment or multifocal points of obstruction. There is fluid distention of the proximal small bowel which is a similar appearance to 12/09/2017. 3. Mild bibasilar interstitial prominence with minimal fibro-atelectatic change which is slightly improved since the prior study. 4. Colonic diverticulosis without evidence of diverticulitis. 5. There has been prior cholecystectomy and hysterectomy. Electronically signed by: Jordi Becerril On 07/14/2018 23:52:25 PM
[2018-07-15] VITALS (7 sets, daily range): BP systolic 111–133; BP diastolic 58–70
[2018-07-15] MEDS: HEPARIN SOD (PORCINE) 5000 UNITS/ML VIAL SC SCH ×3 (05:49→21:41)
[2018-07-15] MEDS: HumaLOG INSULIN (NovoLOG) PER UNIT SC SCH ×4 (06:00→17:30)
[2018-07-15 06:37] LABS: HEMATOCRIT 40.9 % (36.0-47.0); HEMOGLOBIN 12.5 g/dl (12.0-15.5); MEAN CORPUSCULAR HEMOGLOBIN 28.1 pg (27.0-33.0); MEAN CORPUSCULAR HGB CONC 30.6 g/dl (32.0-36.5); MEAN CORPUSCULAR VOLUME 91.9 fl (80.0-96.0); PLATELET COUNT, AUTOMATED 212 10^3/uL (150-450); RED BLOOD COUNT 4.45 10^6/uL (4.00-5.40); WHITE BLOOD COUNT 7.1 10^3/uL (4.0-10.0)
[2018-07-15 06:58] LABS: CALCIUM LEVEL 7.6 MG/DL (8.8-10.2); CREATININE FOR GFR 1.26 MG/DL (0.55-1.30); GLOMERULAR FILTRATION RATE 44.4 (>39); POTASSIUM SERUM 4.5 MEQ/L (3.5-5.1)
[2018-07-15] MEDS ORDERED: HumaLOG INSULIN (NovoLOG) PER UNIT SC SCH ×3 (07:30→21:00)
--- NOTE | 2018-07-15 08:04 | REP ---
Chest one-view HISTORY: NG tube placement Comparison: 05/18/2018 Linear density is present in the left lower lobe consistent with scar. The right lung is clear. The heart is normal in size. The pulmonary vasculature is normal in appearance. An NG tube is present. The distal tip of the NG tube is not seen in the present radiograph. Impression: No acute disease. Electronically Signed by Nicanor Gross MD 07/15/2018 07:56 A
--- NOTE | 2018-07-15 10:22 | REP ---
ABDOMEN, FLAT UPRIGHT, PA CHEST, THREE VIEWS: HISTORY: Small bowel obstruction. COMPARISON: 07/14/2018 Contrast material is present in the urinary bladder from a recent CT examination. There are several minimally dilated loops of intestine. Several air fluid levels are present. There is no pneumoperitoneum. An NG tube is present in the stomach. Linear density is present in the left lower lobe consistent with scar. IMPRESSION: The above findings are consistent with small bowel obstruction that are decreased compared to the previous study. Electronically Signed by Nicanor Gross MD 07/15/2018 10:36 A
--- NOTE | 2018-07-15 13:54 | IPNPDOC ---
Subjective Date Seen The patient was seen on 07/15/18. Subjective Chief Complaint/HPI Feeling better today. Had 2 bowel movements. abdominal pain has improved. No more nausea or vomiting. AXR shows decreased obstruction pattrn Objective Physical Examination General Exam: Positive: Alert, Cooperative, No Acute Distress Eye Exam: Positive: PERRLA, Conjunctiva & lids normal, EOMI; Negative: Sclera icteric ENT Exam: Positive: Atraumatic, Mucous membr. moist/pink, Pharynx Normal Neck Exam: Positive: Supple; Negative: JVD, thyromegaly Chest Exam: Positive: Clear to auscultation, Normal air movement Heart Exam: Positive: Rate Normal, Regular Rhythm, Normal S1, Normal S2; Negative: Murmurs, Rubs Telemetry: Positive: No significant arrhythmia Abdomen Exam: Positive: BS Hypoactive, Soft Extremity Exam: Positive: Normal pulses; Negative: Clubbing, Cyanosis, Edema Skin Exam: Positive: Nl turgor and temperature; Negative: Rash, Breakdown Assessment /Plan Assessment Patient is a 73-year-old female past medical history of multiple abdominal surgeries, small bowel obstruction, diabetes mellitus, COPD, hypertension, morbid obesity, CHF presents to ER with complaint of nausea, vomiting and abdominal discomfort and found to have small bowel obstruction. SBO Likely 2/2 adhesions. History of multiple abdominal surgeries and SBO in 2018. now seems to have resolved diet advanced to regular by surgery IVF fluid stopped. DM Accuchecks. ISS. HTN Monitor BP. BP well controlled at this point.will restart home meds when it starts rising. COPD Not in exacerbation. Duonebs PRN for SOB. Morbid obesity and MAHESH Not on home CPAP. Plan/VTE VTE Prophylaxis Ordered?: Yes VS, I&O, 24H, Fishbone Vital Signs/I&O Vital Signs Date Time Temp Pulse Resp B/P (MAP) Pulse Ox O2 Delivery O2 Flow Rate FiO2 07/15/18 10:00 97.4 89 20 111/59 (76) 94 07/15/18 00:19 Room Air 07/14/18 22:03 2.0 I&O- Last 24 Hours up to 6 AM 07/15/18 06:00 Intake Total 625 ml Output Total 50 ml Balance 575 ml Laboratory Data 24H LABS Laboratory Tests 2 07/14/18 20:21: Immature Granulocyte % (Auto) 0.3, White Blood Count 10.8H, Red Blood Count 5.18, Hemoglobin 14.4, Hematocrit 46.9, Mean Corpuscular Volume 90.5, Mean Corpuscular Hemoglobin 27.8, Mean Corpuscular Hemoglobin Concent 30.7L, Red Cell Distribution Width 14.1, Platelet Count 246, Neutrophils (%) (Auto) 69.5H, Lymphocytes (%) (Auto) 19.1L, Monocytes (%) (Auto) 10.3H, Eosinophils (%) (Auto) 0.4, Basophils (%) (Auto) 0.4, Neutrophils # (Auto) 7.5, Lymphocytes # (Auto) 2.1, Monocytes # (Auto) 1.1H, Eosinophils # (Auto) 0.0, Basophils # (Auto) 0.0, Nucleated Red Blood Cells % (auto) 0.0, Prothrombin Time 13.1, Prothromb Time International Ratio 0.98, Activated Partial Thromboplast Time 28.6, Anion Gap 11, Glomerular Filtration Rate 52.5, Calcium Level 9.1, Aspartate Amino Transf (AST/SGOT) 25, Alanine Aminotransferase (ALT/SGPT) 24, Alkaline Phosphatase 107, Total Bilirubin 0.4, Direct Bilirubin 0.1, Total Protein 7.3, Albumin 3.5, Albumin/Globulin Ratio 0.92L, Lipase 81 07/15/18 01:46: Bedside Glucose (Misc Panel) 140H 07/15/18 06:09: Nucleated Red Blood Cells % (auto) 0.0, Anion Gap 10, Glomerular Filtration Rate 44.4, Calcium Level 7.6#L, Blood Urea Nitrogen 33H, Creatinine 1.26, Sodium Level 138, Potassium Level 4.5, Chloride Level 105, Carbon Dioxide Level 23 07/15/18 06:34: Bedside Glucose (Misc Panel) 142H 07/15/18 12:40: Bedside Glucose (Misc Panel) 101 CBC/BMP Laboratory Tests 07/14/18 20:21 Red Blood Count 5.18, Mean Corpuscular Volume 90.5, Mean Corpuscular Hemoglobin 27.8, Mean Corpuscular Hemoglobin Concent 30.7 L, Red Cell Distribution Width 14.1, Neutrophils (%) (Auto) 69.5 H, Lymphocytes (%) (Auto) 19.1 L, Monocytes (%) (Auto) 10.3 H, Eosinophils (%) (Auto) 0.4, Basophils (%) (Auto) 0.4, Neutrophils # (Auto) 7.5, Lymphocytes # (Auto) 2.1, Monocytes # (Auto) 1.1 H, Eosinophils # (Auto) 0.0, Basophils # (Auto) 0.0 07/15/18 06:09 Red Blood Count 4.45, Mean Corpuscular Volume 91.9, Mean Corpuscular Hemoglobin 28.1, Mean Corpuscular Hemoglobin Concent 30.6 L, Red Cell Distribution Width 14.1, Calcium Level 7.6 #L REGINA ENRIQUE MD Jul 15, 2018 13:54
--- NOTE | 2018-07-15 21:02 | CR ---
DATE OF CONSULTATION: 07/15/2018 CHIEF COMPLAINT: Small bowel obstruction. BRIEF HISTORY OF PRESENT ILLNESS: The patient is a 73-year-old female who has had a previous small bowel obstruction and presented with crampy abdominal pain, nausea and vomiting, and evidence of dilated small bowel with probable transition point seen on study. In any case, appeared to have a small bowel obstruction, was admitted with a nasogastric tube that was placed. She has had a small bowel resection in the past with a gastrointestinal bleed, but otherwise since having her nasogastric tube placed last night she notes that her abdominal pain has improved substantially and had a small bowel movement. She is not having any more crampy abdominal pain and has of yet undergone her x-rays for the day. PAST MEDICAL HISTORY: Significant for: 1. History of diabetes mellitus. 2. History of small bowel obstruction. 3. History of chronic obstructive pulmonary disease (COPD). 4. History of hypertension. 5. History of congestive heart failure (CHF). 6. History of tonsillectomy. 7. Cholecystectomy. 8. Hysterectomy. 9. Appendectomy. MEDICATIONS: - Otezla - aspirin - atorvastatin - vitamin D - Lisinopril - magnesium - metformin - fish oil - oxybutynin - Lyrica - Valtrex She does have multiple other as needed medications for constipation, pain. PHYSICAL EXAMINATION: Reveals an obese, white female who looks her stated age. HEENT: Unremarkable. NECK: Supple without adenopathy. LUNGS: Clear to auscultation without crackles, wheezes or rhonchi. HEART: Regular without murmur. ABDOMEN: Softly distended. No tenderness is appreciated on her abdominal examination. No guarding. No rebound. There is some mild distention. IMPRESSION/PLAN: The patient has a small bowel obstruction, probably secondary to adhesions. I agree with her being nothing by mouth. However, with the bowel movement this morning, no abdominal pain or discomfort, I am wondering if she has resolved this. We will see what the x-ray shows and determine her next course of action. The patient underwent a KUB and upright abdominal examination and after she returned from that had a large bowel movement and essentially no nasogastric tube output. After discussing with her, she has no abdominal pain whatsoever, no pain, no discomfort, and her abdomen was soft. The patient has resolved her small bowel obstruction. We will start her on a clear liquid diet and advance her diet as tolerated. From my standpoint, when she is tolerating a regular diet, she can be discharged to home with a followup with her primary care provider and followup with surgery on an as needed basis.
[2018-07-16] MEDS ORDERED: PERCOCET 5MG/325MG TAB PO PRN (01:30)
[2018-07-16 02:00] VITALS: BP 129/66
[2018-07-16] MEDS: HEPARIN SOD (PORCINE) 5000 UNITS/ML VIAL SC SCH (05:49)
[2018-07-16 06:00] VITALS: BP 128/67
[2018-07-16 06:01] LABS: BASO % 0.6 % (0.0-1.0); EOS # 0.1 10^3/uL (0.0-0.50); HEMATOCRIT 37.9 % (36.0-47.0); HEMOGLOBIN 11.7 g/dl (12.0-15.5); LYMPH # 2.4 10^3/uL (1.5-4.5); MEAN CORPUSCULAR HEMOGLOBIN 28.3 pg (27.0-33.0); MEAN CORPUSCULAR HGB CONC 30.9 g/dl (32.0-36.5); MEAN CORPUSCULAR VOLUME 91.8 fl (80.0-96.0); MONO # 0.6 10^3/uL (0.0-0.8); MONO % 12.9 % (0.0-5.0); NEUTROPHILS # 1.6 10^3/uL (1.8-7.7); NEUTROPHILS % 33.3 % (36.0-66.0); PLATELET COUNT, AUTOMATED 188 10^3/uL (150-450); RED BLOOD COUNT 4.13 10^6/uL (4.00-5.40); WHITE BLOOD COUNT 4.7 10^3/uL (4.0-10.0)
[2018-07-16 06:33] LABS: BLOOD UREA NITROGEN 21 MG/DL (7-18); CALCIUM LEVEL 8.2 MG/DL (8.8-10.2); CARBON DIOXIDE LEVEL 25 MEQ/L (21-32); CHLORIDE LEVEL 111 MEQ/L (98-107); CREATININE FOR GFR 0.74 MG/DL (0.55-1.30); GLOMERULAR FILTRATION RATE > 60.0 (>39); GLUCOSE, FASTING 107 MG/DL (70-100); POTASSIUM SERUM 4.4 MEQ/L (3.5-5.1); SODIUM LEVEL 141 MEQ/L (136-145)
[2018-07-16] MEDS: HumaLOG INSULIN (NovoLOG) PER UNIT SC SCH (07:30)
--- NOTE | 2018-07-16 10:59 | DS.PDOC ---
Discharge Summary General Date of Admission Jul 14, 2018 at 23:02 Date of Discharge 07/16/18 Discharge Summary PROCEDURES PERFORMED DURING STAY: [None]. DISCHARGE DIAGNOSES: Small bowel obstruction Secondary Diagnosis: Diabetes mellitus, COPD, hypertension, CAD, chronic diastolic CHF, restless leg syndrome, Psoriasis on Humira, Morbid obesity with BMI of 42.2, MAHESH, Chronic low back pain on chronic narcotics, COMPLICATIONS/CHIEF COMPLAINT: Obstructive Sleep Apnea/ Small Bowel Obstuction. HISTORY OF PRESENT ILLNESS:Please see history and physical HOSPITAL COURSE: Patient is a 73-year-old female past medical history of multiple abdominal surgeries, recurrent small bowel obstructions, diabetes me llitus, COPD, hypertension, morbid obesity, diastolic CHF, restless leg syndrome, Psoriasis on Humira, Morbid obesity, MAHESH on CPAP, Chronic low back pain on chronic narcotics, presents to ER with complaint of nausea, vomiting and abdominal discomfort and found to have small bowel obstruction. Now it has resolved. pateint has had multiple bowel movements over the past 24 hours. SBO Likely 2/2 adhesions. History of multiple abdominal surgeries and SBO in 2018. now has resolved with conservative management diet advanced to regular by surgery DM restart metformin CHF not in any exacerbation restart spironolactone in 2 days. HTN restart lisinopril COPD Not in exacerbation. Morbid obesity with BMI of 42.2 and MAHESH Not on home CPAP. HSV 1 infection restart valcyclovir. DISCHARGE MEDICATIONS: Please see below. ALLERGIES: Please see below. PHYSICAL EXAMINATION ON DISCHARGE: VITAL SIGNS: Please see below. General Exam: Positive: Alert, Cooperative, No Acute Distress Eye Exam: Positive: PERRLA, Conjunctiva & lids normal, EOMI; Negative: Sclera icteric ENT Exam: Positive: Atraumatic, Mucous membr. moist/pink, Pharynx Normal Neck Exam: Positive: Supple; Negative: JVD, thyromegaly Chest Exam: Positive: Clear to auscultation, Normal air movement Heart Exam: Positive: Rate Normal, Regular Rhythm, Normal S1, Normal S2; Negative: Murmurs, Rubs Abdomen Exam: Positive: Normal bowel sounds, nondender, soft , not distended. Extremity Exam: Positive: Normal pulses; Negative: Clubbing, Cyanosis, Edema Skin Exam: Positive: Nl turgor and temperature; Negative: Rash, Breakdown LABORATORY DATA: Please see below. ACTIVITY: [As tolerated]. DIET: regular DISCHARGE PLAN: Home DISPOSITION: Home DISCHARGE INSTRUCTIONS: Follow up PMD in 2 weeks Follow up Surgeon as needed. DISCHARGE CONDITION: [Stable]. TIME SPENT ON DISCHARGE: 40 minutes. Vital Signs/I&Os Vital Signs Date Time Temp Pulse Resp B/P (MAP) Pulse Ox O2 Delivery O2 Flow Rate FiO2 07/15/18 22:00 97.9 89 18 128/70 (89) 95 07/15/18 00:19 Room Air 07/14/18 22:03 2.0 I&O- Last 24 Hours up to 6 AM 07/16/18 06:00 Intake Total 1500 ml Output Total 1100 ml Balance 400 ml Laboratory Data Labs 24H Laboratory Tests 2 07/15/18 01:46: Bedside Glucose (Misc Panel) 140H 07/15/18 06:09: Nucleated Red Blood Cells % (auto) 0.0, Anion Gap 10, Glomerular Filtration Rate 44.4, Blood Urea Nitrogen 33H, Creatinine 1.26, Sodium Level 138, Potassium Level 4.5, Chloride Level 105, Carbon Dioxide Level 23, Calcium Level 7.6#L 07/15/18 06:34: Bedside Glucose (Misc Panel) 142H 07/15/18 12:40: Bedside Glucose (Misc Panel) 101 07/15/18 16:38: Bedside Glucose (Misc Panel) 105 07/15/18 19:41: Bedside Glucose (Misc Panel) 125H CBC/BMP Laboratory Tests 07/15/18 06:09 Red Blood Count 4.45, Mean Corpuscular Volume 91.9, Mean Corpuscular Hemoglobin 28.1, Mean Corpuscular Hemoglobin Concent 30.6 L, Red Cell Distribution Width 14.1, Calcium Level 7.6 #L FSBS Laboratory Tests Test 07/15/18 01:46 07/15/18 06:34 07/15/18 12:40 07/15/18 16:38 Range/Units Bedside Glucose (Misc Panel) 140 142 101 105 83-110 MG/DL Test 07/15/18 19:41 Range/Units Bedside Glucose (Misc Panel) 125 83-110 MG/DL Discharge Medications Scheduled Adalimumab (Humira Pen) 40 Mg/0.8 Ml Pen.[email or web address].kit, 40 MG SC Q2WK, (Reported) Aspirin (Aspirin EC) 81 Mg Tab, 81 MG PO DAILY, (Reported) Cholecalciferol (Vitamin D3) (Vitamin D3) 1,000 Unit Tab, 1,000 UNIT PO DAILY, (Reported) Cyanocobalamin (Vitamin B-12) (Vitamin B-12) 1,000 Mcg Tablet, 1,000 MCG PO DAILY, (Reported) Ergocalciferol (Vitamin D2) (Vitamin D2) 50,000 Unit Capsule, 50,000 UNIT PO QWEEK, (Reported) THURSDAYS Ferrous Sulfate (Ferrous Sulfate) 325 Mg Tablet.dr, 325 MG PO DAILY, (Reported) Fish Oil/Dha/Epa (Fish Oil 1,200 mg Fish Oil) 1 Each Capsule, 1,200 MG PO TID, (Reported) Lactobacillus Acidophilus (Probiotic) 1 Each Capsule, 1 CAP PO DAILY, (Reported) Lisinopril (Lisinopril) 20 Mg Tab, 20 MG PO DAILY, (Reported) Magnesium Gluconate (Mag-G) 27 Mg Tablet, 500 MG PO BID, (Reported) Metformin HCl (Metformin HCl) 1,000 Mg Tablet, 1,000 MG PO BID, (Reported) Omeprazole (Omeprazole) 40 Mg Capsule.dr, 40 MG PO DAILY, (Reported) Oxybutynin Chloride (Oxybutynin Chloride ER) 10 Mg Tab, 10 MG PO DAILY, (Reported) Spironolactone (Spironolactone) 25 Mg Tablet, 25 MG PO DAILY, (Reported) Valacyclovir HCl (Valacyclovir) 500 Mg Tab, 500 MG PO QPM, (Reported) Scheduled PRN Acetaminophen (Tylenol Extra Strength) 500 Mg Tablet, 1,000 MG PO Q6H PRN for PAIN / FEVER, (Reported) Ondansetron HCl (Ondansetron HCl) 4 Mg Tablet, 4 MG PO QID PRN for NAUSEA OR VOMITING, (Reported) Oxycodone HCl/Acetaminophen (Oxycodone-Acetaminophen 5-325) 1 Tab Tab, 1 TAB PO TID PRN for PAIN, (Reported) Polyethylene Glycol 3350 (Miralax) 1 Pow Pow, 1 DOSE PO DAILY PRN for CONSTIPATION, (Reported) Allergies Coded Allergies: Penicillins (Verified Allergy, Intermediate, SWELLING, 07/14/18) ciprofloxacin (Verified Allergy, Intermediate, "FLOP AROUND', 07/14/18) TAPE (Verified Allergy, Unknown, SURGICAL TAPE, 12/21/16) latex (Verified Allergy, Unknown, 07/15/18) sulfamethoxazole (Verified Allergy, Unknown, 07/14/18) trimethoprim (Verified Allergy, Unknown, 07/14/18) REGINA ENRIQUE MD Jul 16, 2018 00:40
== END 2018-07-16 09:10 | disposition home or self-care (01) | DRG 389 ==
LOC: M ED 19:52 → M ED INP 23:02 → M MS5PR 07-15 00:30
PROVIDERS: ADMIT Student in an Organized Health Care Education/Training Program; ATTEND Internal Medicine Nephrology
DX: K56.50 Intestinal adhesions [bands], unspecified as to partial versus complete obstruction (principal); I50.32 Chronic diastolic (congestive) heart failure; Z68.41 Body mass index [BMI] 40.0-44.9, adult; E11.9 Type 2 diabetes mellitus without complications; J44.9 Chronic obstructive pulmonary disease, unspecified; I11.0 Hypertensive heart disease with heart failure; E66.01 Morbid (severe) obesity due to excess calories; G47.33 Obstructive sleep apnea (adult) (pediatric); M54.5 Low back pain; G25.81 Restless legs syndrome; L40.9 Psoriasis, unspecified; Z90.49 Acquired absence of other specified parts of digestive tract; Z90.710 Acquired absence of both cervix and uterus; Z87.891 Personal history of nicotine dependence; Z79.82 Long term (current) use of aspirin; Z79.899 Other long term (current) drug therapy; Z79.84 Long term (current) use of oral hypoglycemic drugs; Z88.0 Allergy status to penicillin; Z88.1 Allergy status to other antibiotic agents; Z91.048 Other nonmedicinal substance allergy status; Z79.891 Long term (current) use of opiate analgesic

== ENCOUNTER → 2018-09-24 | Outpatient (CLI) | payer MEDICARE, BC, OTHER ==
[~2018-09-24] MED LIST changes: +ACET-897 PO; +CYAN100049 PO; +FERR325T3 PO; +HUMI40KI2 SC; +KP F1200 PO; +MAGN50TA PO; +OMEP-221 PO; -OXYB10TA PO; +OXYB10TA2 PO; +PROBCAP14 PO; +VITA500045 PO
--- NOTE | 2018-09-24 15:15 | REP ---
REASON: Joint pain. COMPARISON: None. Standing bilateral AP view of the knees shows bilateral medial compartmental narrowing with medial compartmental marginal osteophytosis, left slightly greater than right, and seen in conjunction with mild subchondral sclerosis. IMPRESSION: Chronic changes, as described above. Electronically Signed by Oc Muller DO 09/24/2018 04:39 P
--- NOTE | 2018-09-24 15:21 | REP ---
REASON: Arthritis with foot pain bilaterally. PRIORS: None. RIGHT FOOT: Moderate degenerative changes are seen throughout the right foot with joint space narrowing. The bones appears somewhat demineralized. There is a tiny retrocalcaneal heel spur. IMPRESSION: Chronic changes. LEFT FOOT: Mild degenerative changes are seen throughout the left foot in a fashion similar to the right. There are no heel spurs. There is no acute fracture. IMPRESSION: Chronic changes. Electronically Signed by Oc Muller DO 09/24/2018 04:46 P
== END ==
LOC: M WUC 10:22
PROVIDERS: ATTEND Internal Medicine Rheumatology
DX: M19.071 Primary osteoarthritis, right ankle and foot (principal); M19.072 Primary osteoarthritis, left ankle and foot; M17.0 Bilateral primary osteoarthritis of knee; M25.50 Pain in unspecified joint

== ENCOUNTER → 2018-09-24 | Outpatient (CLI) | payer MEDICARE, BC | LOC: M WHC 14:40 | PROVIDERS: ATTEND Family Medicine | DX: Z13.820 Encounter for screening for osteoporosis (principal) ==

== ENCOUNTER 2018-11-25 13:42 | Emergency (ER) | payer MEDICARE, BC, OTHER ==
[~2018-11-25] VITALS: Ht 157.5 cm; Wt 111.3 kg
[~2018-11-25 13:42] MED LIST changes: -OMEP40CA2 PO; +OMEP40CA97 PO
[2018-11-25] MEDS ORDERED: CARB1TAB20 (14:19)
[2018-11-25] MEDS ORDERED: MAGN500T2 (14:19)
[2018-11-25] MEDS ORDERED: CYCL10TA (14:19)
--- NOTE | 2018-11-25 16:02 | REP ---
CT brain without contrast: History: Syncope. Comparison brain CT study January 04, 2016. Findings: Digital preliminary technical applications scientist radiograph is unremarkable. Bone window settings demonstrate an intact bony calvarium. Visualized paranasal sinuses are clear. There is vascular calcification in the distal internal carotid arteries bilaterally. There is a calcific density at the posterior skull lateral margin of each ocular globe unchanged from the prior study. No acute intraorbital abnormality is appreciated. There is no evidence of intracranial hemorrhage. There are scattered low density areas in the periventricular white matter bilaterally consistent with small vessel atherosclerotic changes. These are most pronounced in the frontal lobes and are unchanged from the comparison study. There is no evidence of acute infarction. No mass, extra-axial fluid collection, or midline shift is seen. Impression: Small vessel changes and vascular calcification again noted. No acute intracranial abnormality. Electronically Signed by Jaison Cantu MD 11/25/2018 03:54 P
[2018-11-25] MEDS ORDERED: LABETALOL HCL 100 MG/20 ML VIAL IV STA ×2 (16:26→17:37)
[2018-11-25 16:34] LABS: BASO % 0.5 % (0.0-1.0); EOS # 0.1 10^3/uL (0.0-0.5); EOS % 1.4 % (0.0-3.0); HEMATOCRIT 39.8 % (36.0-47.0); HEMOGLOBIN 12.7 g/dl (12.0-15.5); LYMPH # 1.8 10^3/uL (1.5-5.0); LYMPH % 31.8 % (24.0-44.0); MEAN CORPUSCULAR HEMOGLOBIN 28.1 pg (27.0-33.0); MEAN CORPUSCULAR HGB CONC 31.9 g/dl (32.0-36.5); MEAN CORPUSCULAR VOLUME 88.1 fl (80.0-96.0); MONO # 0.5 10^3/uL (0.0-0.8); NEUTROPHILS # 3.3 10^3/uL (1.5-8.5); NEUTROPHILS % 57.9 % (36.0-66.0); PLATELET COUNT, AUTOMATED 193 10^3/uL (150-450); RED BLOOD COUNT 4.52 10^6/uL (4.00-5.40); WHITE BLOOD COUNT 5.7 10^3/uL (4.0-10.0)
--- NOTE | 2018-11-25 16:52 | REP ---
Chest x-ray: Two views. History: Dizziness. Comparison chest x-ray: July 15, 2018. Findings: There is mild linear fibrosis in the left base. Lungs are otherwise well inflated and clear. Heart size is borderline unchanged. Pulmonary vasculature is not increased. No significant bony abnormality is seen. Impression: Borderline heart size unchanged. No active disease. Electronically Signed by Jaison Cantu MD 11/25/2018 04:44 P
[2018-11-25 16:58] LABS: BLOOD UREA NITROGEN 11 MG/DL (7-18); CALCIUM LEVEL 9.3 MG/DL (8.8-10.2); CARBON DIOXIDE LEVEL 25 MEQ/L (21-32); CHLORIDE LEVEL 105 MEQ/L (98-107); CK-MB VALUE MASS 1.1 NG/ML (<3.6); CPK CREATINE PHOSPHOKINASE 38 U/L (26-192); CREATININE FOR GFR 0.67 MG/DL (0.55-1.30); GLOMERULAR FILTRATION RATE > 60.0 (>39); GLUCOSE, FASTING 102 MG/DL (70-100); MB/CK RELATIVE INDEX 2.89 (< OR =4); SODIUM LEVEL 139 MEQ/L (136-145); THYROID STIMULATING HORMONE 0.402 uIU/ML (0.358-3.740); TROPONIN I < 0.02 NG/ML (< 0.10)
[2018-11-25 17:11] LABS: INFLUENZA A AMPLIFICATION NEGATIVE (NEGATIVE); INFLUENZA B AMPLIFICATION NEGATIVE (NEGATIVE)
[2018-11-25] MEDS ORDERED: NITROGLYCERIN 0.4 MG SUBL TABLET SL STA (17:37)
[2018-11-25] MEDS ORDERED: ACETAMINOPHEN 325 MG TAB PO ONE (19:00)
--- NOTE | 2018-11-25 19:13 | ECGEPIP ---
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
[2018-11-25 19:31] VITALS: BP 183/95
== END 2018-11-25 19:33 | disposition home or self-care (01) ==
LOC: M ED 13:42
DX: I11.9 Hypertensive heart disease without heart failure (principal); E11.9 Type 2 diabetes mellitus without complications; Z79.82 Long term (current) use of aspirin; Z79.84 Long term (current) use of oral hypoglycemic drugs; Z79.899 Other long term (current) drug therapy; Z88.0 Allergy status to penicillin; Z91.040 Latex allergy status; Z91.048 Other nonmedicinal substance allergy status

== ENCOUNTER → 2018-12-05 | Outpatient (CLI) | payer MEDICARE, BC, OTHER ==
[~2018-12-05] MED LIST changes: +CARB1TAB20; +CYCL10TA; +MAGN500T2
--- NOTE | 2018-12-05 09:35 | REP ---
Clinical: Essential Hypertension and chronic medical renal disease. Technique: Knapp scale and color Doppler evaluation of the kidneys and renal vasculature using curved array transducer. Findings: The kidneys are essentially normal in contour size and echogenicity and reniform shape without hydronephrosis, nephrolithiasis, cystic or renal mass lesion. Right kidney measures 11.6 x 4.8 x 4.5 cm . Left kidney measures 12.3 x 3.9 x 4.6 cm. Bladder is incompletely distended and grossly normal by current evaluation. Color Doppler evaluation of the renal vasculature demonstrates arterial wave patterns with normal resistive indices and acceleration times. There is asymmetric elevation to the main right renal artery along with subtle parvus tardus intrarenal arterial wave forms raising the possibility of asymmetric right renal stenosis. Right Kidney: Peak arterial velocity: 167 cm/sec . Renal aortic ratio: 2.2 . Resistive indices: 0.72 - 0.78 . Acceleration times: 0.022 - 0.025 . Left kidney: Peak arterial velocity: 76 cm/sec . Renal aortic ratio: 1.0 . Resistive indices: 0.71 - 0.75 . Acceleration times: 0.020 - 0.025 . Impression: 1. Essentially normal appearance the bilateral kidneys without hydronephrosis. 2. Asymmetric findings regarding the right kidney raise the possibility of right renal artery stenosis. Follow-up MRA of the renal arteries may be warranted for more definitive evaluation. Electronically Signed by Carmelo Montiel MD 12/05/2018 09:26 A
[2018-12-08 14:58] LABS: METANEPHRINE PLASMA 36 pg/mL (0-62); NORMETANEPHRINE PLASMA 284 pg/mL (0-145)
== END ==
LOC: M RAD 08:06
PROVIDERS: ATTEND Family Medicine
DX: I16.0 Hypertensive urgency (principal)

== ENCOUNTER → 2018-12-27 | Outpatient (CLI) | payer MEDICARE, BC, OTHER ==
[~2018-12-27] MED LIST changes: +ISOVUE-370 76% 100ML VIAL (Q9967) As Ordered ONE
--- NOTE | 2018-12-27 16:11 | REP ---
CT angiography of the abdominal aorta with IV contrast: History: Asymmetric stenosis of the right renal artery. A symptomatic hypertensive urgency. CT contrast dose: 100 ml of intravenous Isovue 370. Comparison CT study July 14, 2018. Nonvascular CT findings: There is a small accessory splenule. There is a small left renal cyst. These findings are unchanged from the July 14, 2018 study. The gallbladder is surgically absent. There is prior right colectomy with ileal ascending enterostomy. Vascular findings: There is some calcification and plaquing at the origin of the celiac and superior mesenteric axes. There is moderate narrowing of the SMA origin. Approximately 50%. There is calcific plaquing at the origin of the right and left renal artery. The renal arteries are singular. No high-grade stenosis is seen on either side. The inferior mesenteric artery is patent. Common iliac arteries are heavily calcified. The distal aorta is heavily calcified and narrowed. Impression: No evidence of significant renal artery stenosis on either side. 50% narrowing of the origin of the superior mesenteric artery. Fairly heavy calcific plaquing most pronounced at the aortoiliac region. Electronically Signed by Jaison Cantu MD 12/27/2018 04:36 P
== END ==
LOC: M RAD 11:39
PROVIDERS: ATTEND Family Medicine
DX: I16.0 Hypertensive urgency (principal)
CPT/HCPCS: 74175; Q9967

== ENCOUNTER → 2019-09-25 | Outpatient (CLI) | payer MEDICARE, BC, OTHER ==
[~2019-09-25] MED LIST changes: +AMLO1TAB24; +AMLO1TAB24 PO; -AMLO5TAB6; -AMLO5TAB6 PO; -ASPI81TA85 PO; +ASPI81TA86 PO; -CLOT1CRE TOP; +CLOT1CRE51 TOP; +CYCL-707; +CYCL-707 PO; -CYCL10TA; -CYCL10TA PO; -ISOVUE-370 76% 100ML VIAL (Q9967) As Ordered ONE; +ONDA-83 PO; -ONDA4TAB5 PO; -OXYB10TA2 PO; +OXYB10TA23 PO
[2019-09-25 19:58] LABS: BASO % 0.6 % (0.0-1.0); EOS # 0.1 10^3/uL (0.0-0.5); EOS % 1.9 % (0.0-3.0); HEMATOCRIT 43.2 % (36.0-47.0); HEMOGLOBIN 13.1 g/dl (12.0-15.5); LYMPH # 2.8 10^3/uL (1.5-5.0); LYMPH % 43.1 % (24.0-44.0); MEAN CORPUSCULAR HEMOGLOBIN 27.2 pg (27.0-33.0); MEAN CORPUSCULAR HGB CONC 30.3 g/dl (32.0-36.5); MEAN CORPUSCULAR VOLUME 89.8 fl (80.0-96.0); MONO # 0.6 10^3/uL (0.0-0.8); MONO % 9.7 % (0.0-5.0); NEUTROPHILS # 2.9 10^3/uL (1.5-8.5); NEUTROPHILS % 44.2 % (36.0-66.0); PLATELET COUNT, AUTOMATED 222 10^3/uL (150-450); RED BLOOD COUNT 4.81 10^6/uL (4.00-5.40); WHITE BLOOD COUNT 6.5 10^3/uL (4.0-10.0)
[2019-09-25 20:25] LABS: ALBUMIN 3.4 GM/DL (3.2-5.2); ALT/SGPT 14 U/L (12-78); BILIRUBIN,DIRECT < 0.1 MG/DL (0.0-0.2); BILIRUBIN,TOTAL 0.1 MG/DL (0.2-1.0); BLOOD UREA NITROGEN 15 MG/DL (7-18); CREATININE FOR GFR 0.98 MG/DL (0.55-1.30); GLOMERULAR FILTRATION RATE 59.2 (>39); TOTAL PROTEIN 6.6 GM/DL (6.4-8.2)
--- NOTE | 2019-11-01 13:59 | REP ---
CHEST X-RAY: 2-VIEWS HISTORY: Psoriasis. COMPARISON: Chest x-ray 11/25/2018. FINDINGS: The patient is rotated slightly to the right. The lungs are symmetrically aerated and clear. Pleural angles are sharp. Heart size is borderline. The aorta is calcific and somewhat tortuous. Pulmonary vasculature is not increased. No evidence of interstitial lung disease. There are mild degenerative changes in the thoracic spine. IMPRESSION: No active disease MTDD
== END ==
LOC: M WUC 14:18
PROVIDERS: ATTEND Nurse Practitioner Family
DX: L40.0 Psoriasis vulgaris (principal)

== ENCOUNTER → 2019-11-22 | Outpatient (CLI) | payer MEDICARE, BC ==
--- NOTE | 2019-11-22 12:46 | REP ---
INDICATION: R22.1 LOCALIZED AREA SWELLING LT SIDE OF FACE/NECK COMPARISON: None. TECHNIQUE: Grayscale and color evaluation using a linear high-frequency transducer. FINDINGS: Directed ultrasound examination along the left side of the face and neck based on the patient's localized swelling and palpable mass demonstrates normal subcutaneous tissue, glandular tissue, and musculature. No adenopathy, abnormal fluid collection, or mass lesion is appreciated. IMPRESSION: Normal directed ultrasound examination along the left side of the face/neck. No sonographic abnormalities are identified. <Electronically signed by Carmelo Montiel > 11/22/19 [id number]
== END ==
LOC: M WHC 11:44
PROVIDERS: ATTEND Family Medicine
DX: R22.1 Localized swelling, mass and lump, neck (principal)

== ENCOUNTER → 2020-01-29 | Outpatient (REF) | payer MEDICARE, OTHER ==
[2020-01-29 15:44] LABS: CHOLESTEROL RISK RATIO 3.508 (<5)
[2020-01-29 15:52] LABS: HEMOGLOBIN A1c 5.8 %
== END ==
LOC: M SFHCPLAZ 13:14
PROVIDERS: ATTEND Family Medicine
DX: E11.9 Type 2 diabetes mellitus without complications (principal)

== ENCOUNTER → 2020-04-17 | Outpatient (REF) | payer MEDICARE, OTHER ==
[~2020-04-17] MED LIST changes: +GABA-282 PO; -GABA-843 PO; -LISI-538 PO; +LISI10TA22 PO; -LISI10TA4 PO; +LISI20TA33 PO; -LISI40TA PO; +LISI40TA4 PO; -MAG400TA PO; +MAGN400T35 PO
== END ==
LOC: M LAB REF 18:41
PROVIDERS: ATTEND Nurse Practitioner Family
DX: I50.9 Heart failure, unspecified (principal)

== ENCOUNTER 2020-05-21 15:22 | Observation (INO) | payer MEDICARE, OTHER ==
[~2020-05-21] VITALS: Ht 157.5 cm; Wt 116.0 kg
[~2020-05-21 15:22] MED LIST changes: -CARB1TAB20; +CARB1TAB20 PO; -CYCL-707; -MAGN500T2; +MAGN500T2 PO; +carBAMazepine 200MG TABLET PO SCH
[2020-05-21] MEDS ORDERED: NORV5TAB PO (15:47)
--- NOTE | 2020-05-21 16:47 | REP ---
INDICATION: DYSPNEA/COUGH. COMPARISON: Comparison chest x-ray September 25, 2019. TECHNIQUE: Portable upright AP chest radiograph. FINDINGS: The lungs are well inflated and free of infiltrate. Pleural angles are sharp. Heart size is normal. Pulmonary vasculature is not increased. Monitoring electrodes are present. IMPRESSION: No active disease. <Electronically signed by Félix Cantu > 05/21/20 [id number]
[2020-05-21 17:04] LABS: BASO % 0.6 % (0.0-1.0); EOS # 0.1 10^3/uL (0.0-0.5); HEMATOCRIT 41.4 % (36.0-47.0); HEMOGLOBIN 12.3 g/dl (12.0-15.5); LYMPH # 1.9 10^3/uL (1.5-5.0); LYMPH % 29.2 % (24.0-44.0); MEAN CORPUSCULAR HEMOGLOBIN 28.6 pg (27.0-33.0); MEAN CORPUSCULAR HGB CONC 29.7 g/dl (32.0-36.5); MEAN CORPUSCULAR VOLUME 96.3 fl (80.0-96.0); MONO # 0.5 10^3/uL (0.0-0.8); MONO % 8.2 % (2.0-8.0); NEUTROPHILS # 3.8 10^3/uL (1.5-8.5); NEUTROPHILS % 59.5 % (36.0-66.0); PLATELET COUNT, AUTOMATED 197 10^3/uL (150-450); WHITE BLOOD COUNT 6.4 10^3/uL (4.0-10.0)
[2020-05-21 17:42] LABS: ALT/SGPT 15 IU/L (0-32); BILIRUBIN,DIRECT < 0.1 MG/DL (0.0-0.2); BILIRUBIN,TOTAL 0.2 MG/DL (0.2-1.0); TOTAL PROTEIN 6.7 GM/DL (6.4-8.2)
[2020-05-21 17:43] LABS: ALBUMIN 3.3 GM/DL (3.2-5.2); NT-PRO BNP 137 PG/ML (<125); THYROID STIMULATING HORMONE 0.666 uIU/ML (0.358-3.740); THYROXINE (T4) 7.4 UG/DL (4.5-12.0)
[2020-05-21] MEDS ORDERED: ALBUTEROL SULFATE 2.5 MG/0.5 ML INH NEB SOLN INH ONE (18:00)
[2020-05-21] MEDS ORDERED: IPRATROPIUM 0.5MG/ALBUTEROL 2.5MG INH SOL UD 3ML (DUONEB) NEB ONE ×2 (18:00→20:25)
[2020-05-21] MEDS ORDERED: CARVedilol 12.5 MG TAB PO ONE (18:05)
[2020-05-21] MEDS ORDERED: methylPREDNISolone 125MG 2ML VIAL IV ONE (18:05)
[2020-05-21] MEDS ORDERED: amLODIPine 5 MG TAB PO ONE (18:05)
[2020-05-21] MEDS ORDERED: methylPREDNISolone 40MG 1ML VIAL IV ONE (18:05)
[2020-05-21 18:32] VITALS: BP 141/95
[2020-05-21] MEDS ORDERED: ISOVUE-370 76% 100ML VIAL As Ordered ONE (18:57)
--- NOTE | 2020-05-21 19:27 | REPVR ---
PROCEDURE INFORMATION: Exam: CTA Chest With Contrast Exam date and time: 05/21/2020 7:08 PM Age: 74 years old Clinical indication: Shortness of breath; Additional info: SOB TECHNIQUE: Imaging protocol: Computed tomographic angiography of the chest with contrast. 3D rendering (Not supervised by radiologist): MIP and/or 3D reconstructed images were created by the technologist. Radiation optimization: All CT scans at this facility use at least one of these dose optimization techniques: automated exposure control; mA and/or kV adjustment per patient size (includes targeted exams where dose is matched to clinical indication); or iterative reconstruction. Contrast material: ISOVUE 370; Contrast volume: 75 ml; Contrast route: INTRAVENOUS (IV); COMPARISON: CT ANGIO CHEST 11/25/2017 4:36 PM FINDINGS: Pulmonary arteries: There is enlargement of the central pulmonary arteries, findings which can be associated with pulmonary arterial hypertension which should be correlated clinically. There are no pulmonary emboli. Aorta: There is moderate atherosclerosis in the thoracic aorta. There is no aortic dissection or aneurysm. Thyroid: Nodular appearance of the thyroid gland with asymmetrically enlarged right lobe. Correlation with thyroid ultrasound could be considered. Lungs: Centrilobular and paraseptal emphysema most pronounced in the upper lung zones. Findings are stable in comparison to 11/25/2017. Bibasilar atelectasis. Pleural spaces: Unremarkable. No pneumothorax. No pleural effusion. Heart: There is mild atherosclerotic calcification of the coronary arteries. Lymph nodes: Unremarkable. No enlarged lymph nodes. Bones/joints: The spine demonstrates mild degenerative changes. Soft tissues: Unremarkable. IMPRESSION: 1. Centrilobular and paraseptal emphysema most pronounced in the upper lung zones. Findings are stable in comparison to 11/25/2017. 2. Nodular appearance of the thyroid gland with asymmetrically enlarged right lobe. Correlation with thyroid ultrasound could be considered. 3. There is no aortic dissection or aneurysm. 4. There is enlargement of the central pulmonary arteries, findings which can be associated with pulmonary arterial hypertension which should be correlated clinically. 5. There are no pulmonary emboli. Electronically signed by: Usman Pratt On 05/21/2020 19:27:35 PM
[2020-05-21] MEDS ORDERED: VITA50005 PO (20:49)
[2020-05-21] MEDS ORDERED: FURO20TA2 PO (20:56)
[2020-05-21] MEDS ORDERED: CLOB0.057 TOP (20:56)
[2020-05-21] MEDS ORDERED: CORE12.5 PO (20:56)
[2020-05-21] MEDS ORDERED: PERCOCET 5MG/325MG TAB PO PRN (21:00)
[2020-05-21] MEDS ORDERED: CLOBETASOL PROP 0.05% OINT 30 GM TOP PRN (21:15)
[2020-05-21] MEDS ORDERED: MOM 30ML SUSPENSION UDC PO PRN (21:15)
[2020-05-21] MEDS ORDERED: FUROSEMIDE 40MG/4ML VIAL (J1940) IV ONE (21:15)
[2020-05-21] MEDS ORDERED: VITAMIN D 50,000 UNITS CAPSULE (ERGOCALCIFEROL 1.25MG) PO SCH (21:15)
[2020-05-21] MEDS ORDERED: ACETAMINOPHEN TAB 650MG DOSE (2X325MG) PO PRN (21:15)
[2020-05-21] MEDS ORDERED: MAALOX 30 ML SUSP *UDC PO PRN (21:15)
[2020-05-21] MEDS ORDERED: ONDANSETRON 4 MG TAB PO PRN (21:15)
--- NOTE | 2020-05-21 21:49 | HPEPDOC ---
[facility] Medical History & Physical Date of Admission May 21, 2020 Date of Service: May 21, 2020 Attending Physician: NELDA CORBIN MD History and Physical CHIEF COMPLAINT: [This is a 74 y/o female with c/c of increasing sob x1 month] HISTORY OF PRESENT ILLNESS: [This is a 74 y/o female with a pmh of COPD, diastolic HF, pulmonary htn, psoriasis, htn, dm2, htn and gerd who presents to the ED today complaining of increasing sob x1 month. Patient states that she has noticed over the past month she has noticed she has a decreased exercise tolerance and is increasingly sob when she does less and less. Patient states that it is beginning to affect her daily life and routine. Patient states that she is also having a cough, that is worse at night when she lays down, and is associated with some yellow-colored sputum. Patient states that she is worried she is in heart failure due to these symptoms and having some increased edema of her legs. Patient states that she has been told she has copd but has never been prescribed an inhaler. Patient states that her thighs are chronically edematous, but feels as though her edema now is worse as her ankles are puffy and thinks her thighs are worse. Patient admits to mild chest pain that she describes as "a twinge" that comes and goes without obvious precipitating event. Patient denies fever, chills, nausea, vomiting, diarrhea, syncope, diaphoresis, constipation, dysuria, confusion.] PAST MEDICAL HISTORY: 1. [See HPI PAST SURGICAL HISTORY: 1. [Heart cath - 2010?]. 2. [Bowel resection x2-3 - [facility]]. 3. [Cholecystectomy 4. Appendectomy 5. Hysterectomy]. SOCIAL HISTORY: Marital status: [Boyfriend]. Resides in: [Home with boyfriend] Tobacco use:[Quit 12 years ago, endorses approx 40 pack year hx] ETOH: [Denies] Illicit drug use: [Indigo] FAMILY HISTORY: Father: [Heart dz] Mother: [Unspecified gi dz] Siblings: [Brothers - heart dz] ALLERGIES: Please see below. REVIEW OF SYSTEMS: CONSTITUTIONAL: [Patient complains of some dizziness with position change]. HEENT: [See HPI]. CARDIOVASCULAR: [See HPI]. RESPIRATORY: [See HPI. GASTROINTESTINAL: [See HPI]. GENITOURINARY: [See HPI]. SKIN: [Denies rash]. MUSCULOSKELETAL: [Admits to some aching pain in the legs]. NEUROLOGICAL: [Denies paresthesias]. ENDOCRINE: [Hx of DM]. HEMATOLOGIC/LYMPHATIC: [Denies easy bruising]. HOME MEDICATIONS: Please see below. PHYSICAL EXAMINATION: VITAL SIGNS: Please see below GENERAL APPEARANCE: [This is an obese appearing 74 year old female. She is resting in bed in no apparent respiratory distress]. HEENT: [No mass or lesion. EOMI. No scleral icterus or conjunctival erythema. Nares patent. Oral mucosa moist and without erythema.]. CARDIOVASCULAR: [Regular rate, rhythm. No murmurs, rubs or gallops]. LUNGS: [Mild rales heard at b/l lung bases and lingula. ]. ABDOMEN: [Soft-non tender]. MUSCULOSKELETAL: [No joint deformity]. EXTREMITIES: [Mild edema noted at b/l ankles. Prominent edema located superior to the knees. No overlying erythema or obvious skin changes. Pulses intact. No clubbing, cyanosis]. NEUROLOGICAL: [Sensation intact. Speech clear. A+Ox3. No focal deficits]. PSYCHIATRIC: [Mood and affect appear appropriate]. LABORATORY DATA: See below. IMAGING: [Chest x-ray: FINDINGS: The lungs are well inflated and free of infiltrate. Pleural angles are sharp. Heart size is normal. Pulmonary vasculature is not increased. Monitoring electrodes are present. IMPRESSION: No active disease. CT angio chest: FINDINGS: Pulmonary arteries: There is enlargement of the central pulmonary arteries, findings which can be associated with pulmonary arterial hypertension which should be correlated clinically. There are no pulmonary emboli. Aorta: There is moderate atherosclerosis in the thoracic aorta. There is no aortic dissection or aneurysm. Thyroid: Nodular appearance of the thyroid gland with asymmetrically enlarged right lobe. Correlation with thyroid ultrasound could be considered. Lungs: Centrilobular and paraseptal emphysema most pronounced in the upper lung zones. Findings are stable in comparison to 11/25/2017. Bibasilar atelectasis. Pleural spaces: Unremarkable. No pneumothorax. No pleural effusion. Heart: There is mild atherosclerotic calcification of the coronary arteries. Lymph nodes: Unremarkable. No enlarged lymph nodes. Bones/joints: The spine demonstrates mild degenerative changes. Soft tissues: Unremarkable. IMPRESSION: 1. Centrilobular and paraseptal emphysema most pronounced in the upper lung zones. Findings are stable in comparison to 11/25/2017. 2. Nodular appearance of the thyroid gland with asymmetrically enlarged right lobe. Correlation with thyroid ultrasound could be considered. 3. There is no aortic dissection or aneurysm. 4. There is enlargement of the central pulmonary arteries, findings which can be associated with pulmonary arterial hypertension which should be correlated clinically. 5. There are no pulmonary emboli. ] MICROBIOLOGY: Please see below. ASSESSMENT: [This is a 74 year old female with a hx of COPD, CHF and pulmonary HTN who presents to the ED with a complaint of increasing SOB over approx a month's time. Patient currently takes no daily inhalers for her COPD. Patient was concerned that her symptoms were being brought about by another bought of heart failure, which she has been admitted for in the past. Patient states she has improved dramatically with breathing treatments and steroids given in the ED. ]. . PLAN: 1. [Acute COPD Exacerbation - Patient has clear chest x-ray, cta shows only pulmonary htn, existing emphysema. Patient takes no inhalers at home, so it seems likely that over time patient has had progression of her copd along with probably obesity hypoventilation syndrome that have caused her breathing ability to decrease overtime. I feel as though patient would benefit greatly from at home inhalers starting with a prn BETTY and daily LABA. - Will admit to obs overnight on tele, pulse ox to monitor - Begin duonebs prn, prednisone 40mg, oxygen therapy as needed titrated to 88-9 2%, formoterol - I do not feel as though antibiotics are indicated with this patients clinical picture, and her not having a white count or constitutional symptoms that would imply infection 2. CHF - Patient's BNP only mildly elevated at 137, along with only soft signs of fluid overload, it seems much less likely that patient's heart failure is causing her current symptoms - Patients upper leg edema is chronic per patient - has been dealing with this for over 5 years - Will give one dose of 40mg lasix tonight to help with her current edema and will continue her at home lasix as well - Will recheck bnp in the morning - Will repeat echo as it has been over 1 year per pt - continue at home lisinopril, carvedilol, asa 3. Pulm HTN - Seems chronic, could also be contributory to patient's current symptoms 4. Hypomagnesemia - Also seems chronic, patient on daily mag supplementation - Will give her a bigger dose while in the hospital, 800mg instead of 500mg 5. DM2 - Stable, patient takes no meds at home - Will recheck bs on bmp in the morning 6. HTN - Continue amlodipine 7. Gerd - continue omeprazole, zofran 8. Psoriasis - continue clobetasol topical 9. Chronic back pain - continue percocet, carbemazepine]. 10. MAHESH - Continue at home cpap 11. BMI 47.7 - Unfortunately complicated care, likely adds to respiratory symptoms 12. DVT prophylaxis - lovenox, teds Vital Signs Vital Signs Date Time Temp Pulse Resp B/P (MAP) Pulse Ox O2 Delivery O2 Flow Rate FiO2 05/21/20 20:24 83 Room Air 05/21/20 19:30 78 152/56 (88) 05/21/20 18:38 22 05/21/20 15:23 97.4 Laboratory Data Labs 24H Laboratory Tests 2 05/21/20 16:49: Immature Granulocyte % (Auto) 0.5, Neutrophils (%) (Auto) 59.5, Lymphocytes (%) (Auto) 29.2, Monocytes (%) (Auto) 8.2H, Eosinophils (%) (Auto) 2.0, Basophils (%) (Auto) 0.6, Neutrophils # (Auto) 3.8, Lymphocytes # (Auto) 1.9, Monocytes # (Auto) 0.5, Eosinophils # (Auto) 0.1, Basophils # (Auto) 0.0, Nucleated Red Blood Cells % (auto) 0.0, Magnesium Level 1.5L, Total Bilirubin 0.2, Direct Bilirubin < 0.1, Aspartate Amino Transf (AST/SGOT) 15, Alanine Aminotransferase (ALT/SGPT) 15, Alkaline Phosphatase 115, FQ-Laj-I-Type Natriuretic Peptide 137H, Total Protein 6.7, Albumin 3.3, Albumin/Globulin Ratio 1.0L, Thyroid Stimulating Hormone (TSH) 0.666, Thyroxine (T4) 7.4 05/21/20 16:52: POC Glucose (Misc Panel) 109H, POC Sodium (Misc Panel) 140, POC Potassium (Misc Panel) 4.0, POC Chloride (Misc Panel) 98, POC Total CO2 (Misc Panel) 32.0H, POC Blood Urea Nitrogen (Misc Panel 14, POC Ionized Calcium (Misc Panel) 4.6, POC Creatinine (Misc Panel) 0.9, POC Hematocrit (Misc Panel) 41.0 05/21/20 16:54: POC Troponin I (Misc) 0.00 CBC/BMP Laboratory Tests 05/21/20 16:49 Microbiology Microbiology 05/21/20 Respiratory Virus Panel (PCR) ([facility]) - Final, Complete Home Medications Scheduled Adalimumab (Humira Pen) 40 Mg/0.8 Ml [email or web address], 40 MG SC Q2WK EVERY OTHER MONDAY Amlodipine Besylate (Norvasc) 5 Mg Tablet, 5 MG PO DAILY Aspirin (Aspirin EC) 81 Mg Tab, 81 MG PO QHS Carbamazepine (Carbamazepine) 200 Mg Tablet, 200 MG PO Q2D Carvedilol (Coreg) 12.5 Mg Tablet, 25 MG PO DAILY Cyanocobalamin (Vitamin B-12) (Vitamin B-12) 1,000 Mcg Tablet, 1,000 MCG PO DAILY Cyclobenzaprine HCl (Cyclobenzaprine HCl) 10 Mg Tablet, 10 MG PO TID Ergocalciferol (Vitamin D2) (Vitamin D2) 50,000 Units Cap, 50,000 UNITS PO QWEEK THURSDAYS Ferrous Sulfate (Ferrous Sulfate) 325 Mg Tablet.dr, 325 MG PO DAILY Fish Oil/Dha/Epa (Fish Oil 1,200 mg Fish Oil) 1 Each Capsule, 1,200 MG PO DAILY Furosemide (Furosemide) 20 Mg Tablet, 20 MG PO DAILY Lisinopril (Lisinopril) 20 Mg Tab, 20 MG PO BID Magnesium Oxide (Magnesium Oxide) 500 Mg Tablet, 500 MG PO DAILY Omeprazole (Omeprazole) 40 Mg Capsule.dr, 40 MG PO DAILY Oxybutynin Chloride (Oxybutynin Chloride ER) 10 Mg Tab, 10 MG PO DAILY Scheduled PRN Acetaminophen (Tylenol Extra Strength) 500 Mg Tablet, 1,000 MG PO Q6H PRN for PAIN / FEVER Clobetasol Propionate (Clobetasol Propionate) 0.05% 50ML Solution, 1 DOSE TOP BID PRN for PSORIASIS ARMS Ondansetron HCl (Ondansetron HCl) 4 Mg Tablet, 4 MG PO QID PRN for NAUSEA OR VOMITING Oxycodone HCl/Acetaminophen (Oxycodone-Acetaminophen 5-325) 1 Tab Tab, 1 TAB PO TID PRN for PAIN Allergies Coded Allergies: Penicillins (Verified Allergy, Intermediate, SWELLING, 07/14/18) ciprofloxacin (Verified Allergy, Intermediate, "FLOP AROUND', 07/14/18) TAPE (Verified Allergy, Unknown, SURGICAL TAPE, 12/21/16) latex (Verified Allergy, Unknown, 07/15/18) sulfamethoxazole (Verified Allergy, Unknown, 07/14/18) trimethoprim (Verified Allergy, Unknown, 07/14/18) A-FIB/CHADSVASC A-FIB History Current/History of A-Fib/PAF?: No Attending Note Attending Note time of service 910pm Is a 74 yr old w a hx of emphysema, obesity, HFpEF, HTN, DM and Ps oriasis who is admitted for acute COPD. Rest per TOMASA Oliveira's H&P KIARA OLIVEIRA May 21, 2020 21:49 NELDA CORBIN MD May 22, 2020 07:03
[2020-05-21 23:45] VITALS: BP 174/98
[2020-05-22 00:15] VITALS: BP 158/80
[2020-05-22] MEDS ORDERED: SLF 3 ML SYR IV PRN (00:25)
[2020-05-22] MEDS ORDERED: ALBUTEROL SULFATE 2.5 MG/0.5 ML INH NEB SOLN NEB PRN ×2 (02:05→09:40)
[2020-05-22 03:20] VITALS: BP 138/66; O2SAT 92
[2020-05-22] MEDS ORDERED: SLF 3 ML SYR IV SCH (06:00)
[2020-05-22 06:01] LABS: HEMATOCRIT 39.6 % (36.0-47.0); HEMOGLOBIN 11.9 g/dl (12.0-15.5); MEAN CORPUSCULAR HEMOGLOBIN 28.2 pg (27.0-33.0); MEAN CORPUSCULAR HGB CONC 30.1 g/dl (32.0-36.5); MEAN CORPUSCULAR VOLUME 93.8 fl (80.0-96.0); PLATELET COUNT, AUTOMATED 197 10^3/uL (150-450); RED BLOOD COUNT 4.22 10^6/uL (4.00-5.40); WHITE BLOOD COUNT 6.7 10^3/uL (4.0-10.0)
[2020-05-22 06:31] LABS: BLOOD UREA NITROGEN 14 MG/DL (7-18); CALCIUM LEVEL 9.4 MG/DL (8.8-10.2); CARBON DIOXIDE LEVEL 31 MEQ/L (21-32); CHLORIDE LEVEL 100 MEQ/L (98-107); CREATININE FOR GFR 0.83 MG/DL (0.55-1.30); GLOMERULAR FILTRATION RATE > 60.0 (>39); GLUCOSE, FASTING 151 MG/DL (70-100); MAGNESIUM LEVEL 1.3 MG/DL (1.8-2.4); NT-PRO BNP 194 PG/ML (<125); POTASSIUM SERUM 3.8 MEQ/L (3.5-5.1); SODIUM LEVEL 137 MEQ/L (136-145)
[2020-05-22 08:00] VITALS: BP 131/58
[2020-05-22] MEDS ORDERED: FORMOTEROL FUMARATE 20 MCG/2 ML INHALATION SOLUTION (PERFOROMIST) NEB SCH (08:00)
[2020-05-22] MEDS ORDERED: ENOXAPARIN 40MG/0.4ML SYRINGE (J1650 PER 10MG) SC SCH (09:00)
[2020-05-22] MEDS ORDERED: MAGNESIUM OXIDE 400MG TAB (MAG-OX) PO SCH (09:00)
[2020-05-22] MEDS ORDERED: FERROUS SULFATE 325MG TAB PO SCH (09:00)
[2020-05-22] MEDS ORDERED: DOCUSATE SODIUM 100MG CAPSULE PO SCH (09:00)
[2020-05-22] MEDS ORDERED: oxyBUTYnin *DITROPAN XL* 5 MG TABCR PO SCH (09:00)
[2020-05-22] MEDS ORDERED: PANTOPRAZOLE 40MG TAB (PROTONIX) PO SCH (09:00)
[2020-05-22] MEDS ORDERED: OMEPRAZOLE 20 MG CAP PO SCH (09:00)
[2020-05-22] MEDS ORDERED: CYANOCOBALAMIN 500 MCG TAB PO SCH (09:00)
[2020-05-22] MEDS ORDERED: CYCLOBENZAPRINE 10MG TABLET PO SCH (09:00)
[2020-05-22] MEDS ORDERED: predniSONE 20 MG TAB PO SCH (09:00)
[2020-05-22] MEDS ORDERED: FUROSEMIDE 20 MG TAB PO SCH (09:00)
[2020-05-22] MEDS ORDERED: amLODIPine 5 MG TAB PO SCH (09:00)
[2020-05-22] MEDS ORDERED: CARVedilol 12.5 MG TAB PO SCH (09:00)
[2020-05-22] MEDS ORDERED: PRED20TA PO (12:06)
[2020-05-22] MEDS ORDERED: PROAAER10 INH (12:06)
[2020-05-22] MEDS ORDERED: COMBAER6 INH (12:06)
--- NOTE | 2020-05-22 14:08 | IPNPDOC ---
Text Note Date of Service The patient was seen on 05/22/20. NOTE SUBJECTIVE: -No acute complaints, on room air PHYSICAL EXAMINATION: VITAL SIGNS: Please see below GENERAL APPEARANCE: 74 year old W, resting in bed in NAD HEENT: NCAT, No scleral icterus, MMM CARDIOVASCULAR: RRR, no m/r/g LUNGS: Bibasilar crackles, no wheezing this AM, no rhonchi ABDOMEN: Normoactive bowel sounds, soft, NTND EXTREMITIES: Mild edema noted at b/l ankles. Prominent edema located superior to the knees. No overlying erythema or obvious skin changes. Pulses intact. NEUROLOGICAL:Speech clear. A+Ox3. CN 2-12 intact. No focal deficits PSYCHIATRIC: AOx3, Mood and affect appear appropriate LABORATORY DATA: reviewed WBC 6.7 hgb 11.9 platelets 197 Na 137 K 3.8 Cr 0.83 IMAGING: Chest x-ray: The lungs are well inflated and free of infiltrate. Pleural angles are sharp. Heart size is normal. Pulmonary vasculature is not increased. Monitoring electrodes are present. IMPRESSION: No active disease. CT angio chest: FINDINGS: Pulmonary arteries: There is enlargement of the central pulmonary arteries, findings which can be associated with pulmonary arterial hypertension which should be correlated clinically. There are no pulmonary emboli. Aorta: There is moderate atherosclerosis in the thoracic aorta. There is no aortic dissection or aneurysm. Thyroid: Nodular appearance of the thyroid gland with asymmetrically enlarged right lobe. Correlation with thyroid ultrasound could be considered. Lungs: Centrilobular and paraseptal emphysema most pronounced in the upper lung zones. Findings are stable in comparison to 11/25/2017. Bibasilar atelectasis. Pleural spaces: Unremarkable. No pneumothorax. No pleural effusion. Heart: There is mild atherosclerotic calcification of the coronary arteries. Lymph nodes: Unremarkable. No enlarged lymph nodes. Bones/joints: The spine demonstrates mild degenerative changes. Soft tissues: Unremarkable. IMPRESSION: 1. Centrilobular and paraseptal emphysema most pronounced in the upper lung zones. Findings are stable in comparison to 11/25/2017. 2. Nodular appearance of the thyroid gland with asymmetrically enlarged right lobe. Correlation with thyroid ultrasound could be considered. 3. There is no aortic dissection or aneurysm. 4. There is enlargement of the central pulmonary arteries, findings which can be associated with pulmonary arterial hypertension which should be correlated clinically. 5. There are no pulmonary emboli. MICROBIOLOGY: Please see below. ASSESSMENT: 74 year old W with a hx of COPD, CHF and pulmonary HTN who presents to the ED with a complaint of increasing SOB over approx 1 month with no daily inhalers for her COPD now admitted for COPD exacerbation. PLAN: Acute COPD Exacerbation - Patient has clear chest x-ray, cta shows only pulmonary htn, showing existing emphysema. - Standing duonebs, prednisone 40mg, oxygen therapy as needed titrated to 88-92% - will need home mdis 2. CHF - Patient's BNP only mildly elevated at 137, along with only soft signs of fluid overload, it seems much less likely that patient's heart failure is causing her current symptoms - Patients upper leg edema is chronic per patient - has been dealing with this for over 5 years - continue her at home lasix - continue at home lisinopril, carvedilol, asa 3. Hypomagnesemia - Chronic, patient on daily mag supplementation 5. DM2 - Stable, patient takes no meds at home - Will recheck blood glucose on bmp with AM labs 6. HTN - Continue amlodipine 7. Gerd - continue omeprazole, zofran 8. Psoriasis - continue clobetasol topical 9. Chronic back pain - continue percocet, carbemazepine. 10. MAHESH - Continue at home cpap 11. BMI 47.7 - Complicates care, likely adds to respiratory symptoms 12. DVT prophylaxis - lovenox, teds VS,Fishbone, I+O VS, Fishbone, I+O Laboratory Tests 05/21/20 16:49 05/22/20 05:34 Vital Signs Date Time Temp Pulse Resp B/P (MAP) Pulse Ox O2 Delivery O2 Flow Rate FiO2 05/22/20 08:00 97.7 86 18 131/58 (82) 95 Nasal Cannula 2.0 I&O- Last 24 Hours up to 6 AM 05/22/20 06:00 Intake Total 0 ml Output Total 775 ml Balance -775 ml SCOTT ERAZO MD May 22, 2020 09:57
--- NOTE | 2020-05-22 14:25 | DS.PDOC ---
Discharge Summary General Date of Admission May 22, 2020 at 00:30 Date of Discharge 05/22/2020 Attending Physician: SCOTT ERAZO MD Discharge Summary PROCEDURES PERFORMED DURING STAY: None ADMITTING DIAGNOSES: COPD exacerbation DISCHARGE DIAGNOSES: Mild HFpEF exacerbation COPD exacerbation Pulmonary HTN Psoriasis HTN GERD COMPLICATIONS/CHIEF COMPLAINT: Copd With Acute Exacerbation. HISTORY OF PRESENT ILLNESS: 74 y/o W with a pmh of COPD, diastolic HF, pulmonary htn, psoriasis, htn, dm2, htn and gerd who presents to the ED complaining of increasing sob x1 month. Patient reported that she had decreased exercise tolerance and is increasingly sob and she does less and less and it was affecting her daily life and routine. She also reported a cough, that is worse at night when she lays down, and is associated with some yellow-colored sputum and had some increased edema of her legs. Patient reported that she has been told she has copd but had never been prescribed an inhaler. Patient states that her thighs are chronically edematous, but feels as though her edema now is worse as her ankles are puffy and thinks her thighs are worse. HOSPITAL COURSE: In the ED, she was mildly hypoxemic and was placed on 2L NC. Given the edema, she was given lasix 40 IV once with a robust response and also given IV solumedrol with resolution of her hypoxemia by day 2 of admission. By the time I met her on day 2 morning rounds, she was clear to auscultation and had mild LE edema without crackles, wheezing or rhonchi and was eager to be discharged home and reported feeling great. I am not sending her home with a combination albuterol/ipratropium inhaler as well as an albuterol PRN inhaler, 3 d more of prednisone 40 PO daily and will place her back on her home lasix 20mg daily. I ran into her PCP in the hallway who described sending her to the ED in rabia volume overloaded state that has cleared dramatically improved. She will be seeing him shortly in clinic and will pursue PFTs for definitive diagnosis of likely COPD as well. DISCHARGE MEDICATIONS: Please see below. ALLERGIES: Please see below. PHYSICAL EXAMINATION ON DISCHARGE: VITAL SIGNS: Please see below. PHYSICAL EXAMINATION: VITAL SIGNS: Please see below GENERAL APPEARANCE: 74 year old W, resting in bed in NAD HEENT: NCAT, No scleral icterus, MMM CARDIOVASCULAR: RRR, no m/r/g LUNGS: CTAB, no rales, rhonchi or wheezing ABDOMEN: Normoactive bowel sounds, soft, NTND EXTREMITIES: Mild edema noted at b/l ankles. Pretibial edema per known baseline. No overlying erythema or obvious skin changes. Pulses intact. NEUROLOGICAL:Speech clear. A+Ox3. CN 2-12 intact. No focal deficits PSYCHIATRIC: AOx3, Mood and affect appear appropriate LABORATORY DATA: Please see below. IMAGING: Chest x-ray: The lungs are well inflated and free of infiltrate. Pleural angles are sharp. Heart size is normal. Pulmonary vasculature is not increased. Monitoring electrodes are present. IMPRESSION: No active disease. CT angio chest: FINDINGS: Pulmonary arteries: There is enlargement of the central pulmonary arteries, findings which can be associated with pulmonary arterial hypertension which should be correlated clinically. There are no pulmonary emboli. Aorta: There is moderate atherosclerosis in the thoracic aorta. There is no aortic dissection or aneurysm. Thyroid: Nodular appearance of the thyroid gland with asymmetrically enlarged right lobe. Correlation with thyroid ultrasound could be considered. Lungs: Centrilobular and paraseptal emphysema most pronounced in the upper lung zones. Findings are stable in comparison to 11/25/2017. Bibasilar atelectasis. Pleural spaces: Unremarkable. No pneumothorax. No pleural effusion. Heart: There is mild atherosclerotic calcification of the coronary arteries. Lymph nodes: Unremarkable. No enlarged lymph nodes. Bones/joints: The spine demonstrates mild degenerative changes. Soft tissues: Unremarkable. IMPRESSION: 1. Centrilobular and paraseptal emphysema most pronounced in the upper lung zones. Findings are stable in comparison to 11/25/2017. 2. Nodular appearance of the thyroid gland with asymmetrically enlarged right lobe. Correlation with thyroid ultrasound could be considered. 3. There is no aortic dissection or aneurysm. 4. There is enlargement of the central pulmonary arteries, findings which can be associated with pulmonary arterial hypertension which should be correlated clinically. 5. There are no pulmonary emboli. PROGNOSIS: Good ACTIVITY: As tolerated DIET: 2g sodium DISCHARGE PLAN: Home with combivent and albuterol mdis and 3d of pred 40. With PCP follow up. DISPOSITION: 01 Home, Self-Care. DISCHARGE INSTRUCTIONS: Home with combivent and albuterol mdis and 3d of pred 40. With PCP follow up. ITEMS TO FOLLOWUP ON ON OUTPATIENT: COPD - needs official PFTs for obstructive disease evaluation CHF volume assessment DISCHARGE CONDITION: Stable TIME SPENT ON DISCHARGE: 45 minutes. Vital Signs/I&Os Vital Signs Date Time Temp Pulse Resp B/P (MAP) Pulse Ox O2 Delivery O2 Flow Rate FiO2 05/22/20 08:05 89 Room Air 05/22/20 08:00 97.7 86 18 131/58 (82) 2.0 I&O- Last 24 Hours up to 6 AM 05/22/20 05:59 Intake Total 0 ml Output Total 775 ml Balance -775 ml Laboratory Data Labs 24H Laboratory Tests 2 05/21/20 16:49: Immature Granulocyte % (Auto) 0.5, Neutrophils (%) (Auto) 59.5, Lymphocytes (%) (Auto) 29.2, Monocytes (%) (Auto) 8.2H, Eosinophils (%) (Auto) 2.0, Basophils (%) (Auto) 0.6, Neutrophils # (Auto) 3.8, Lymphocytes # (Auto) 1.9, Monocytes # (Auto) 0.5, Eosinophils # (Auto) 0.1, Basophils # (Auto) 0.0, Nucleated Red Blo od Cells % (auto) 0.0, Magnesium Level 1.5L, Total Bilirubin 0.2, Direct Bilirubin < 0.1, Aspartate Amino Transf (AST/SGOT) 15, Alanine Aminotransferase (ALT/SGPT) 15, Alkaline Phosphatase 115, GI-Akx-Z-Type Natriuretic Peptide 137H, Total Protein 6.7, Albumin 3.3, Albumin/Globulin Ratio 1.0L, Thyroid Stimulating Hormone (TSH) 0.666, Thyroxine (T4) 7.4 05/21/20 16:52: POC Glucose (Misc Panel) 109H, POC Sodium (Misc Panel) 140, POC Potassium (Misc Panel) 4.0, POC Chloride (Misc Panel) 98, POC Total CO2 (Misc Panel) 32.0H, POC Blood Urea Nitrogen (Misc Panel 14, POC Ionized Calcium (Misc Panel) 4.6, POC Creatinine (Misc Panel) 0.9, POC Hematocrit (Misc Panel) 41.0 05/21/20 16:54: POC Troponin I (Misc) 0.00 05/22/20 00:08: Bedside Glucose (Misc Panel) 234H 05/22/20 05:34: Nucleated Red Blood Cells % (auto) 0.0, Anion Gap 6L, Glomerular Filtration Rate > 60.0, Estimated Mean Plasma Glucose 126H, Hemoglobin A1c 6.0, Calcium Level 9.4, Magnesium Level 1.3L, XK-Ysz-V-Type Natriuretic Peptide 194H CBC/BMP Laboratory Tests 05/21/20 16:49 05/22/20 05:34 FSBS Laboratory Tests Test 05/22/20 00:08 Range/Units Bedside Glucose (Misc Panel) 234 83-110 MG/DL Microbiology Microbiology 05/21/20 Respiratory Virus Panel (PCR) (JEET) - Final, Complete Discharge Medications Scheduled Adalimumab (Humira Pen) 40 Mg/0.8 Ml Pen.ij.kit, 40 MG SC Q2WK, (Reported) EVERY OTHER MONDAY Amlodipine Besylate (Norvasc) 5 Mg Tablet, 5 MG PO DAILY, (Reported) Aspirin (Aspirin EC) 81 Mg Tab, 81 MG PO QHS, (Reported) Carbamazepine (Carbamazepine) 200 Mg Tablet, 200 MG PO Q2D, (Reported) Carvedilol (Coreg) 12.5 Mg Tablet, 25 MG PO DAILY, (Reported) Cyanocobalamin (Vitamin B-12) (Vitamin B-12) 1,000 Mcg Tablet, 1,000 MCG PO DAILY, (Reported) Cyclobenzaprine HCl (Cyclobenzaprine HCl) 10 Mg Tablet, 10 MG PO TID, (Reported) Ergocalciferol (Vitamin D2) (Vitamin D2) 50,000 Units Cap, 50,000 UNITS PO QWEEK, (Reported) THURSDAYS Ferrous Sulfate (Ferrous Sulfate) 325 Mg Tablet.dr, 325 MG PO DAILY, (Reported) Fish Oil/Dha/Epa (Fish Oil 1,200 mg Fish Oil) 1 Each Capsule, 1,200 MG PO DAILY, (Reported) Furosemide (Furosemide) 20 Mg Tablet, 20 MG PO DAILY, (Reported) Ipratropium/Albuterol Sulfate (Combivent Respimat 20-100 Mcg) 4 Gm Mist.inhal, 2 PUFF INH TID Lisinopril (Lisinopril) 20 Mg Tab, 20 MG PO BID, (Reported) Magnesium Oxide (Magnesium Oxide) 500 Mg Tablet, 500 MG PO DAILY, (Reported) Omeprazole (Omeprazole) 40 Mg Capsule.dr, 40 MG PO DAILY, (Reported) Oxybutynin Chloride (Oxybutynin Chloride ER) 10 Mg Tab, 10 MG PO DAILY, (Reported) Prednisone (Prednisone) 20 Mg Tablet, 40 MG PO DAILY Scheduled PRN Acetaminophen (Tylenol Extra Strength) 500 Mg Tablet, 1,000 MG PO Q6H PRN for PAIN / FEVER, (Reported) Albuterol Sulfate (Proair Hfa) 8.5 Gm Hfa.aer.ad, 2 PUFF INH Q4-6HP PRN for wheezing Clobetasol Propionate (Clobetasol Propionate) 0.05% 50ML Solution, 1 DOSE TOP BID PRN for PSORIASIS, (Reported) ARMS Ondansetron HCl (Ondansetron HCl) 4 Mg Tablet, 4 MG PO QID PRN for NAUSEA OR VOMITING, (Reported) Oxycodone HCl/Acetaminophen (Oxycodone-Acetaminophen 5-325) 1 Tab Tab, 1 TAB PO TID PRN for PAIN, (Reported) Allergies Coded Allergies: Penicillins (Verified Allergy, Intermediate, SWELLING, 07/14/18) ciprofloxacin (Verified Allergy, Intermediate, "FLOP AROUND', 07/14/18) TAPE (Verified Allergy, Unknown, SURGICAL TAPE, 12/21/16) latex (Verified Allergy, Unknown, 07/15/18) sulfamethoxazole (Verified Allergy, Unknown, 07/14/18) trimethoprim (Verified Allergy, Unknown, 07/14/18) SCOTT ERAZO MD May 22, 2020 14:25
--- NOTE | 2020-05-22 19:44 | ECGEPIP ---
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
[2020-05-22] MEDS ORDERED: IPRATROPIUM 0.5MG/ALBUTEROL 2.5MG INH SOL UD 3ML (DUONEB) NEB SCH (20:00)
[2020-05-22] MEDS ORDERED: ASPIRIN 81MG ENTERIC TABLET PO SCH (21:00)
[2020-05-28] MEDS ORDERED: VITAMIN D 50,000 UNITS CAPSULE (ERGOCALCIFEROL 1.25MG) PO SCH (09:00)
== END 2020-05-22 12:40 | disposition home or self-care (01) ==
LOC: M ED 15:22 → M ED INP 15:23 → ENRESERV 22:25 → OBSVTOIN 05-22 00:30 → INTOOBSV 05-22 00:30 → M PCU 05-22 00:45
PROVIDERS: ADMIT Internal Medicine; ATTEND Internal Medicine
DX: J44.1 Chronic obstructive pulmonary disease with (acute) exacerbation (principal); I50.32 Chronic diastolic (congestive) heart failure; I27.20 Pulmonary hypertension, unspecified; E11.9 Type 2 diabetes mellitus without complications; I11.0 Hypertensive heart disease with heart failure; K21.9 Gastro-esophageal reflux disease without esophagitis; Z90.49 Acquired absence of other specified parts of digestive tract; E83.42 Hypomagnesemia; L40.9 Psoriasis, unspecified; G47.33 Obstructive sleep apnea (adult) (pediatric); M54.9 Dorsalgia, unspecified; Z79.82 Long term (current) use of aspirin; Z87.891 Personal history of nicotine dependence; Z79.899 Other long term (current) drug therapy; Z88.0 Allergy status to penicillin; Z88.1 Allergy status to other antibiotic agents; Z88.2 Allergy status to sulfonamides; Z88.8 Allergy status to other drugs, medicaments and biological substances; Z91.040 Latex allergy status; Z91.048 Other nonmedicinal substance allergy status
CPT/HCPCS: 36415; 71045; 71275; 80047; 80048; 80076; 83036; 83735; 83880; 84436; 84443; 84484; 85025; 85027; 87798; 93005; 93041; 94640; 94760; 96372; 96374; 96375; 97161; 99285; G0378; J1650; J1940; J2930; J7606; Q9967

== ENCOUNTER → 2020-06-15 | Outpatient (CLI) | payer MEDICARE, OTHER ==
[~2020-06-15] MED LIST changes: +CLOB0.057 TOP; +COMBAER6 INH; +CORE12.5 PO; +FURO20TA2 PO; +PRED20TA PO; +PROAAER10 INH; +VITA50005 PO; -carBAMazepine 200MG TABLET PO SCH
--- NOTE | 2020-06-16 09:09 | ECHO ---
DATE OF PROCEDURE: 06/15/2020 Age: 75 Gender: Female Height: 157 cm Weight: 120 kg REFERRING PHYSICIAN: Nilay Baum MD. INDICATION: Chronic diastolic congestive heart failure. MEASUREMENTS: IVS 1.1 cm LV 4.8 cm LVPW 1.0 cm LA 4.0 cm Aorta 3.3 cm IVC 1.5 cm Left atrial volume index 30 Mitral E wave velocity 98 cm/s Mitral A wave 100 cm/s E prime septal 5.4 cm/s E prime lateral 6.7 cm/s FINDINGS: This study is of rather difficult technical quality corresponding to the patients body habitus. The patient is in sinus rhythm. Left ventricle is normal size and has grossly normal contractility. I estimate EF around 60% to 65%. The right ventricle appears at least mildly enlarged, but normally contractile. The left atrium is mildly enlarged. The right atrium appears normal. The aortic valve has three cusps. It is mildly sclerotic, but mobility is preserved. Mitral and tricuspid valves appear normal. Pulmonic valve was not well seen. No pericardial effusion, but a small amount of pericardial fat pad is noted. Inferior vena cava is normal size. Aortic root and aortic arch appear normal. Doppler interrogation of the aortic valve reveals trace insufficiency and trivial stenosis with mean gradient 12 mmHg. Mitral and tricuspid valves are functionally competent. Mitral inflow pattern and tissue Doppler imaging of the mitral annulus revealed grade 1 diastolic dysfunction. CONCLUSIONS: 1. Study is of fair technical quality, corresponding to patients body habitus. Underlying sinus rhythm. 2. Normal LV size with preserved LV systolic function and grade 1 diastolic dysfunction. 3. Aortic sclerosis resulting in mild stenosis and trivial insufficiency. 4. No significant mitral and tricuspid valvular disease. 5. Likely normal central venous pressure. 6. Unable to estimate pulmonary artery pressure. MTDD
== END ==
LOC: M CARPUL 14:05
PROVIDERS: ATTEND Student in an Organized Health Care Education/Training Program
DX: I50.32 Chronic diastolic (congestive) heart failure (principal)

== ENCOUNTER → 2020-07-15 | Outpatient (CLI) | payer MEDICARE, BC, OTHER ==
--- NOTE | 2020-07-15 13:31 | PFTRPT ---
Site: [facility], [address] [place] [address], [id number] ID: [id number] Name: ROOSEVELT MYERS Visit Date: 07/15/2020 Second ID: [id number] Referring Doctor: PASCUAL NAIDU DO Reviewing Doctor: Ottoniel Martin MD Respiratory Manager: Renata GILLETTE RRT Age: 75 : 1945 Sex: Female Race: Height: 62.00 Inches Weight: 260.00 Lbs BSA: 2.14 Order IDs: [id number] Requested Test(s): <RESP-PFT.PFT B/A> Diagnosis: R09.02 test meet the ATS standards for acceptability and repeatability. Pt was given four puffs of albuterol for post bronchodilator. Review Status: Not Reviewed Pre-Bronch Post-Bronch Pred Actual %Pred Actual %Chng SPIROMETRY FVC (L) 2.61 1.49 57 1.47 -1 FEV1 (L) 1.95 1.07 54 1.03 -3 FEV1/FVC (%) 75 72 95 70 -2 FEF 25% (L/sec) 4.43 3.42 77 3.22 -5 FEF 50% (L/sec) 3.22 0.85 26 0.67 -21 FEF 75% (L/sec) 0.89 0.26 29 0.25 -4 FEF 25-75% (L/sec) 1.59 0.67 42 0.61 -9 FEF Max (L/sec) 5.02 4.22 83 3.94 -6 FIVC (L) 1.61 1.59 -1 FIF 50% (L/sec) 3.59 3.55 98 3.83 7 FIF Max (L/sec) 3.74 4.03 7 MVV (L/min) 79 48 61 Expiratory Time (sec) 6.88 6.93 Back Extrap Vol (L) 0.04 0.04 4 Time To FEFmax (sec) 0.058 0.065 11 LUNG VOLUMES SVC (L) 2.58 1.61 62 IC (L) 2.03 1.16 57 ERV (L) 0.55 0.45 81 TGV (L) 2.72 2.99 109 RV (Pleth) (L) 2.17 2.54 117 TLC (Pleth) (L) 4.75 4.16 87 RV/TLC (Pleth) (%) 45 61 135 DIFFUSION DLCOunc (ml/min/mmHg) 19.25 11.96 62 DL/VA (ml/min/mmHg/L) 4.05 4.32 106 VA (L) 4.75 2.77 58 BHT (sec) 10.04 IVC (L) 1.52 TLC (SB) (L) 2.92 AIRWAYS RESISTANCE Raw (cmH2O/L/s) 1.86 1.02 54 Gaw (L/s/cmH2O) 1.03 0.98 95 sRaw (cmH2O*s) 4.76 2.67 56 sGaw (1/cmH2O*s) 0.20 0.37 187
== END ==
LOC: M CARPUL 12:54
PROVIDERS: ATTEND Family Medicine
DX: R09.02 Hypoxemia (principal)

== ENCOUNTER → 2020-09-25 | Outpatient (REF) | payer MEDICARE, BC, OTHER ==
[~2020-09-25] MED LIST changes: +ERGO500029 PO; +OMEP40CA4 PO; -OMEP40CA97 PO; -VITA50005 PO
== END ==
LOC: M LAB REF 13:09
PROVIDERS: ATTEND Nurse Practitioner Family
DX: E83.42 Hypomagnesemia (principal)

== ENCOUNTER → 2020-11-06 | Outpatient (CLI) | payer MEDICARE, BC, OTHER ==
--- NOTE | 2020-11-06 10:46 | REP ---
INDICATION: PSORIASIS VULGARIS. COMPARISON: 05/21/2020 a portable exam TECHNIQUE: PA and lateral FINDINGS: There is cardiomegaly status quo. There is mild interstitial fibrosis status quo. No acute patchy parenchymal opacities or pleural effusions have developed. There is no change in the osseous structures. IMPRESSION: Stable appearing chronic changes without evidence of acute cardiopulmonary disease. <Electronically signed by Oc Muller > 11/06/20 1040
== END ==
LOC: M PLAIMG 09:54
PROVIDERS: ATTEND Nurse Practitioner Family
DX: L40.0 Psoriasis vulgaris (principal); Z51.81 Encounter for therapeutic drug level monitoring; Z79.899 Other long term (current) drug therapy; I51.7 Cardiomegaly; J84.89 Other specified interstitial pulmonary diseases

== ENCOUNTER → 2021-02-12 | Outpatient (CLI) | payer MEDICARE, BC, OTHER ==
[~2021-02-12] MED LIST changes: -OMEP-221 PO; +OMEP40CA5 PO
[2021-02-12 13:30] LABS: HEMOGLOBIN A1c 5.9 %
[2021-02-12 13:38] LABS: ALBUMIN 3.5 GM/DL (3.2-5.2); ALT/SGPT 21 U/L (12-78); BILIRUBIN,TOTAL 0.2 MG/DL (0.2-1.0); BLOOD UREA NITROGEN 26 MG/DL (7-18); CALCIUM LEVEL 9.2 MG/DL (8.8-10.2); CARBON DIOXIDE LEVEL 28 MEQ/L (21-32); CHLORIDE LEVEL 107 MEQ/L (98-107); CHOLESTEROL LEVEL 219 MG/DL (<200); CHOLESTEROL RISK RATIO 3.268 (<5); CREATININE FOR GFR 0.94 MG/DL (0.55-1.30); GLOMERULAR FILTRATION RATE > 60.0 (>39); GLUCOSE, FASTING 136 MG/DL (70-100); HDL CHOLESTEROL 67 MG/DL (>40); LDL CHOLESTEROL 104 MG/DL (<100); NON-HDL-C 152 MG/DL; POTASSIUM SERUM 4.5 MEQ/L (3.5-5.1); SODIUM LEVEL 141 MEQ/L (136-145); TOTAL PROTEIN 6.7 GM/DL (6.4-8.2); TRIGLYCERIDES LEVEL 242 MG/DL (<150)
[2021-02-12 13:46] LABS: TOTAL 25(OH) VITAMIN D 38.5 NG/ML (30.0-100.0)
== END ==
LOC: M PLALAB 09:55
PROVIDERS: ATTEND Student in an Organized Health Care Education/Training Program
DX: R73.03 Prediabetes (principal); E55.9 Vitamin D deficiency, unspecified; I10 Essential (primary) hypertension

== ENCOUNTER → 2021-02-24 | Outpatient (CLI) | payer MEDICARE, BC, OTHER | LOC: M RAD 13:38 | PROVIDERS: ATTEND Internal Medicine Cardiovascular Disease | DX: R09.89 Other specified symptoms and signs involving the circulatory and respiratory systems (principal); I65.23 Occlusion and stenosis of bilateral carotid arteries ==

== ENCOUNTER → 2021-05-18 | Outpatient (REF) | payer MEDICARE, BC, OTHER ==
[~2021-05-18] MED LIST changes: +CHOL4POW14 PO; -CHOL4POW3 PO
== END ==
LOC: M LAB REF 16:51
PROVIDERS: ATTEND Nurse Practitioner Family
DX: N39.0 Urinary tract infection, site not specified (principal)

== ENCOUNTER → 2021-06-01 | Outpatient (CLI) | payer MEDICARE, BC, OTHER ==
[2021-06-01 12:14] LABS: APPEARANCE, URINE CLOUDY (CLEAR); BACTERIA, URINE AUTO 2+ (NEGATIVE); BILIRUBIN, URINE AUTO NEGATIVE (NEGATIVE); BLOOD, URINE BLOOD NEGATIVE (NEGATIVE); COLOR, URINE YELLOW (YELLOW); GLUCOSE, URINE (UA) AUTO NEGATIVE (NEGATIVE); KETONE, URINE AUTO NEGATIVE (NEGATIVE); LEUKOCYTE ESTERASE, URINE AUTO 3+ (NEGATIVE); MUCUS, URINE SMALL (NEGATIVE); NITRITE, URINE AUTO NEGATIVE (NEGATIVE); PROTEIN, URINE AUTO 2+ mg/dL (NEGATIVE); RBC, URINE AUTO 6 /HPF (0-3); SPECIFIC GRAVITY URINE AUTO 1.016 (1.002-1.035); SQUAMOUS EPITHELIAL CELL UR AU 2 /HPF (0-6); UROBILINOGEN, URINE AUTO 0.2 mg/dL (0.0-2.0); WBC, URINE AUTO TNTC /HPF (0-3)
== END ==
LOC: M PLALAB 10:16
PROVIDERS: ATTEND Student in an Organized Health Care Education/Training Program
DX: R30.0 Dysuria (principal)

== ENCOUNTER → 2021-08-18 | Outpatient (REF) | payer MEDICARE, OTHER ==
[~2021-08-18] MED LIST changes: +CHOL378P3 PO; -CHOL4POW14 PO
== END ==
LOC: M SFHCPLAZ 11:35
PROVIDERS: ATTEND Family Medicine
DX: E55.9 Vitamin D deficiency, unspecified (principal); I10 Essential (primary) hypertension; E11.9 Type 2 diabetes mellitus without complications

== ENCOUNTER → 2021-08-20 | Outpatient (CLI) | payer MEDICARE, OTHER ==
[2021-08-20 10:38] LABS: BASO # 0.1 10^3/uL (0.0-0.2); BASO % 0.9 % (0.0-1.0); EOS # 0.1 10^3/uL (0.0-0.5); EOS % 2.1 % (0.0-3.0); HEMATOCRIT 38.4 % (36.0-47.0); LYMPH # 2.1 10^3/uL (1.5-5.0); LYMPH % 36.9 % (24.0-44.0); MEAN CORPUSCULAR HGB CONC 31.3 g/dl (32.0-36.5); MEAN CORPUSCULAR VOLUME 89.5 fl (80.0-96.0); MONO # 0.6 10^3/uL (0.0-0.8); MONO % 9.5 % (2.0-8.0); NEUTROPHILS # 2.9 10^3/uL (1.5-8.5); NEUTROPHILS % 50.1 % (36.0-66.0); PLATELET COUNT, AUTOMATED 175 10^3/uL (150-450); RED BLOOD COUNT 4.29 10^6/uL (4.00-5.40); WHITE BLOOD COUNT 5.8 10^3/uL (4.0-10.0)
[2021-08-20 10:58] LABS: HEMOGLOBIN A1c 5.9 %
[2021-08-20 11:16] LABS: BLOOD UREA NITROGEN 14 MG/DL (7-18); CALCIUM LEVEL 8.4 MG/DL (8.8-10.2); CARBON DIOXIDE LEVEL 28 MEQ/L (21-32); CHLORIDE LEVEL 100 MEQ/L (98-107); CHOLESTEROL LEVEL 192 MG/DL (<200); CREATININE FOR GFR 0.67 MG/DL (0.55-1.30); GLOMERULAR FILTRATION RATE > 60.0 (>39); GLUCOSE, FASTING 113 MG/DL (70-100); HDL CHOLESTEROL 75 MG/DL (>40); LDL CHOLESTEROL 69 MG/DL (<100); NON-HDL-C 117 MG/DL; POTASSIUM SERUM 4.2 MEQ/L (3.5-5.1); SODIUM LEVEL 133 MEQ/L (136-145); TRIGLYCERIDES LEVEL 242 MG/DL (<150)
[2021-08-20 11:52] LABS: TOTAL 25(OH) VITAMIN D 21.3 NG/ML (30.0-100.0)
[2021-08-20 11:56] LABS: CREATININE, URINE 46.3 MG/DL
== END ==
LOC: M WUC 08:20
PROVIDERS: ATTEND Student in an Organized Health Care Education/Training Program
DX: E55.9 Vitamin D deficiency, unspecified (principal); I10 Essential (primary) hypertension; E11.9 Type 2 diabetes mellitus without complications; Z79.899 Other long term (current) drug therapy

== ENCOUNTER → 2022-01-19 | Outpatient (REF) | payer MEDICARE, OTHER ==
[~2022-01-19] MED LIST changes: -POTA10CA32 PO; +POTA10CA33 PO
[2022-01-19 18:36] LABS: CREATININE,RANDOM URINE 32.5 MG/DL
[2022-01-19 18:37] LABS: TOTAL PROTEIN,RANDOM URINE 232.6 MG/DL (0.0-14.0)
== END ==
LOC: M LAB REF 16:52
PROVIDERS: ATTEND Nurse Practitioner Family
DX: R80.9 Proteinuria, unspecified (principal)

== ENCOUNTER 2022-06-07 06:26 | Day surgery (SDC) | payer MEDICARE, BC, OTHER ==
[~2022-06-07] VITALS: Ht 157.5 cm; Wt 117.5 kg
[~2022-06-07 06:26] MED LIST changes: +APRE30TA3 PO; +CALC1CAP31 PO; +CYCLOPENTOLATE 1% OPHTH SOLN 2ML BTL OD SCH; +FLUT1BLS8 INH; +HUMI40IN2 SQ; +MONT-5 PO; -OTEZ1TAB3 PO; +PHENYLEPHRINE 2.5% OPHTH SOL 2ML OD SCH; +PRES1CHW PO; +PROPARACAINE 0.5% OPHTH SOL 15ML OD ONE; -SING10TA32 PO; +TROPICAMIDE 1% OPHTH SOLN 15ML OD SCH; +TRUL10IN SQ; +UNRESOLVED CLARIFICATION ENTRY XX SCH
[2022-06-07] MEDS ORDERED: BSS IRR 500ML/OMIDRIA 4ML IRR BAG (OR ONLY) As Ordered ONE (06:48)
[2022-06-07] MEDS ORDERED: LIDOCAINE 1% SDV 5ML VIAL As Ordered ONE (06:48)
[2022-06-07] MEDS ORDERED: TOBRADEX OPHTH OINT 3.5 GM As Ordered ONE (07:05)
[2022-06-07] MEDS ORDERED: TOBRAMYCIN 0.3% OPHTH SOLN 5ML OD ONE (07:20)
[2022-06-07] MEDS ORDERED: MIDAZOLAM INJ 2MG/2ML VIAL As Ordered ONE (09:18)
[2022-06-07] MEDS ORDERED: fentaNYL 100 MCG/2 ML INJECTION As Ordered ONE (09:18)
[2022-06-07 09:52] VITALS: BP 140/77
== END 2022-06-07 09:52 | disposition home or self-care (01) ==
LOC: M SDC 06:26
PROVIDERS: ATTEND Ophthalmology
DX: H25.11 Age-related nuclear cataract, right eye (principal); I48.91 Unspecified atrial fibrillation; I10 Essential (primary) hypertension; E78.5 Hyperlipidemia, unspecified; E11.9 Type 2 diabetes mellitus without complications; K57.92 Diverticulitis of intestine, part unspecified, without perforation or abscess without bleeding; K25.9 Gastric ulcer, unspecified as acute or chronic, without hemorrhage or perforation; K21.9 Gastro-esophageal reflux disease without esophagitis; D64.9 Anemia, unspecified; G47.33 Obstructive sleep apnea (adult) (pediatric); Z79.811 Long term (current) use of aromatase inhibitors; Z79.891 Long term (current) use of opiate analgesic; Z79.899 Other long term (current) drug therapy; Z88.0 Allergy status to penicillin; Z88.1 Allergy status to other antibiotic agents; Z88.2 Allergy status to sulfonamides; Z91.040 Latex allergy status; Z91.048 Other nonmedicinal substance allergy status
CPT/HCPCS: 66984; J1097; J2250; J3010; V2632

== ENCOUNTER → 2022-08-10 | Outpatient (CLI) | payer MEDICARE, BC, OTHER ==
[~2022-08-10] MED LIST changes: -CYCLOPENTOLATE 1% OPHTH SOLN 2ML BTL OD SCH; -PHENYLEPHRINE 2.5% OPHTH SOL 2ML OD SCH; -POTA10CA33 PO; +POTA10CA60 PO; -PROPARACAINE 0.5% OPHTH SOL 15ML OD ONE; -TROPICAMIDE 1% OPHTH SOLN 15ML OD SCH; -UNRESOLVED CLARIFICATION ENTRY XX SCH
== END ==
LOC: M RAD 12:27
PROVIDERS: ATTEND Internal Medicine Critical Care Medicine
DX: Z12.2 Encounter for screening for malignant neoplasm of respiratory organs (principal); Z87.891 Personal history of nicotine dependence; R91.8 Other nonspecific abnormal finding of lung field

== ENCOUNTER → 2022-08-30 | Outpatient (CLI) | payer MEDICARE, BC, OTHER ==
[~2022-08-30] MED LIST changes: +BARIUM SULFATE 700 MG TABLET (E-Z-DISK) As Ordered ONE; +E-Z-PAQUE 96% w/w SUSP 176GM BTL As Ordered ONE; +VARIBAR NECTAR 40% w/v 240ML SUSP BTL As Ordered ONE; +VARIBAR PUDDING 40% w/v 230ML TUBE As Ordered ONE
== END ==
LOC: M RAD 10:56
PROVIDERS: ATTEND Internal Medicine Critical Care Medicine
DX: R12 Heartburn (principal); R05.1 Acute cough

== ENCOUNTER 2022-09-20 08:18 | Day surgery (SDC) | payer MEDICARE, BC, OTHER ==
[~2022-09-20] VITALS: Ht 157.5 cm; Wt 117.0 kg
[~2022-09-20 08:18] MED LIST changes: -BARIUM SULFATE 700 MG TABLET (E-Z-DISK) As Ordered ONE; +CYCLOPENTOLATE 1% OPHTH SOLN 2ML BTL OS SCH; +DICL100G10 TD; +DICL100G10 TOP; -DICL1GEL3 TD; -DICL1GEL3 TOP; -E-Z-PAQUE 96% w/w SUSP 176GM BTL As Ordered ONE; +LIDOCAINE 1% SDV 5ML VIAL As Ordered ONE; +OFLOXACIN 0.3 % (OCUFLOX) OPTH SOL 5ML OS SCH; +PHENYLEPHRINE 2.5% OPHTH SOL 2ML OS SCH; +PROPARACAINE 0.5% OPHTH SOL 15ML OS ONE; +TROPICAMIDE 1% OPHTH SOLN 15ML OS SCH; +UNRESOLVED CLARIFICATION ENTRY XX SCH; -VARIBAR NECTAR 40% w/v 240ML SUSP BTL As Ordered ONE; -VARIBAR PUDDING 40% w/v 230ML TUBE As Ordered ONE
[2022-09-20] MEDS ORDERED: MIDAZOLAM INJ 2MG/2ML VIAL As Ordered ONE (08:26)
[2022-09-20] MEDS ORDERED: fentaNYL 100 MCG/2 ML INJECTION As Ordered ONE (08:27)
[2022-09-20] MEDS ORDERED: LIDOCAINE 1% SDV 5ML VIAL SC PRN (10:00)
[2022-09-20] MEDS ORDERED: TOBRADEX OPHTH OINT 3.5 GM As Ordered ONE (10:09)
[2022-09-20] MEDS ORDERED: TOBRAMYCIN 0.3% OPHTH SOLN 5ML OS SCH (10:15)
[2022-09-20] MEDS ORDERED: LABETALOL 100MG/20ML VIAL As Ordered ONE (10:36)
[2022-09-20 10:49] VITALS: BP 188/92; TEMP 97.1; O2SAT 96
== END 2022-09-20 11:05 | disposition home or self-care (01) ==
LOC: M SDC 08:18
PROVIDERS: ATTEND Ophthalmology
DX: H25.12 Age-related nuclear cataract, left eye (principal); I11.0 Hypertensive heart disease with heart failure; I50.9 Heart failure, unspecified; E11.9 Type 2 diabetes mellitus without complications; G47.30 Sleep apnea, unspecified; Z88.1 Allergy status to other antibiotic agents; Z88.0 Allergy status to penicillin; Z88.2 Allergy status to sulfonamides; Z91.040 Latex allergy status; Z91.048 Other nonmedicinal substance allergy status; Z79.899 Other long term (current) drug therapy
CPT/HCPCS: 66984; J1920; J2250; J3010; V2632

== ENCOUNTER → 2022-11-14 | Outpatient (CLI) | payer MEDICARE, BC, OTHER ==
[~2022-11-14] MED LIST changes: -CYCLOPENTOLATE 1% OPHTH SOLN 2ML BTL OS SCH; -LIDOCAINE 1% SDV 5ML VIAL As Ordered ONE; -OFLOXACIN 0.3 % (OCUFLOX) OPTH SOL 5ML OS SCH; -PHENYLEPHRINE 2.5% OPHTH SOL 2ML OS SCH; -PROPARACAINE 0.5% OPHTH SOL 15ML OS ONE; -TROPICAMIDE 1% OPHTH SOLN 15ML OS SCH; -UNRESOLVED CLARIFICATION ENTRY XX SCH
== END ==
LOC: M PLAIMG 09:51
PROVIDERS: ATTEND Internal Medicine Critical Care Medicine
DX: I51.7 Cardiomegaly (principal); R05.1 Acute cough

== ENCOUNTER → 2022-12-14 | Outpatient (REF) | payer MEDICARE, BC, OTHER | LOC: M LAB REF 17:06 | PROVIDERS: ATTEND Nurse Practitioner Family | DX: N39.0 Urinary tract infection, site not specified (principal) ==

== ENCOUNTER 2023-02-17 13:22 | Inpatient (IN) | payer MEDICARE, BC, OTHER ==
[~2023-02-17] VITALS: Ht 157.5 cm; Wt 126.5 kg
[~2023-02-17 13:22] MED LIST changes: +ALBU8.5H INH; +LEVA45AE INH
[2023-02-17] MEDS ORDERED: PERCOCET 5MG/325MG TAB PO PRN (15:15)
[2023-02-17] MEDS ORDERED: DEXTROSE 50% 50ML SYRINGE IV PRN (15:15)
[2023-02-17] MEDS ORDERED: GLUCOSE 4GM CHEW TABLET PO PRN (15:15)
[2023-02-17] MEDS ORDERED: diphenhydrAMINE CREAM 30GM TOP PRN (15:15)
[2023-02-17] MEDS ORDERED: GLUCAGON INJ 1MG VIAL SC PRN (15:15)
[2023-02-17] MEDS ORDERED: ALBUTEROL 90 MCG/ACT 8GM HFA INHALER INH PRN (15:15)
[2023-02-17] MEDS ORDERED: VANCOMYCIN HCL 1,000 MG, VIAL MATE ADAPTER 1 EACH in D5W 250 ML IV SCH (15:15)
[2023-02-17 15:30] VITALS: BP 111/53; TEMP 97.9; O2SAT 100
[2023-02-17] MEDS: CYCLOBENZAPRINE 10MG TABLET PO SCH ×2 (16:00→20:49)
[2023-02-17] MEDS: PANTOPRAZOLE 40MG TAB (PROTONIX) PO SCH (18:38)
[2023-02-17] MEDS: INSULIN LISPRO (NovoLOG) PER UNIT SC SCH ×2 (18:39→20:29)
[2023-02-17] MEDS: NS 1,000 ML IV SCH (18:39)
[2023-02-17 20:00] VITALS: BP 112/55; TEMP 98; O2SAT 97
[2023-02-17] MEDS: HEPARIN SOD (PORCINE) 5000UNITS/ML 1ML VIAL/SYRINGE SC SCH (20:49)
[2023-02-17] MEDS: GABAPENTIN 300 MG CAP PO SCH (20:49)
[2023-02-17] MEDS: ASPIRIN 81MG ENTERIC TABLET PO SCH (20:50)
[2023-02-17] MEDS: CARVedilol 12.5 MG TAB PO SCH (20:50)
[2023-02-17] MEDS: NYSTATIN 100,000 UNITS/GM TOPICAL PWD 15GM TOP SCH (21:00)
[2023-02-18] MEDS: NS 1,000 ML IV SCH ×3 (03:16→22:54)
[2023-02-18 06:00] VITALS: BP 113/54; TEMP 97.8; O2SAT 96
[2023-02-18] MEDS ORDERED: VANCOMYCIN INTERMITTENT/PULSE DOSING BY CLINICAL PHARMACIST PER DOSING PROTOCOL XX SCH (06:00)
[2023-02-18] MEDS: HEPARIN SOD (PORCINE) 5000UNITS/ML 1ML VIAL/SYRINGE SC SCH ×3 (06:40→21:08)
[2023-02-18 07:44] LABS: BASO % 0.4 % (0.0-1.0); EOS # 0.1 10^3/uL (0.0-0.5); EOS % 2.5 % (0.0-3.0); HEMOGLOBIN 10.6 g/dl (12.0-15.5); LYMPH # 1.7 10^3/uL (1.5-5.0); LYMPH % 32.3 % (24.0-44.0); MEAN CORPUSCULAR HEMOGLOBIN 28.7 pg (27.0-33.0); MEAN CORPUSCULAR HGB CONC 31.2 g/dl (32.0-36.5); MEAN CORPUSCULAR VOLUME 92.1 fl (80.0-96.0); MONO # 0.6 10^3/uL (0.0-0.8); MONO % 10.9 % (2.0-8.0); NEUTROPHILS # 2.8 10^3/uL (1.5-8.5); NEUTROPHILS % 53.5 % (36.0-66.0); PLATELET COUNT, AUTOMATED 175 10^3/uL (150-450); RED BLOOD COUNT 3.69 10^6/uL (4.00-5.40); WHITE BLOOD COUNT 5.2 10^3/uL (4.0-10.0)
[2023-02-18 08:17] LABS: ALBUMIN 2.6 G/DL (3.2-5.2); BILIRUBIN,TOTAL 0.3 MG/DL (0.3-1.2); CALCIUM LEVEL 7.8 MG/DL (8.3-10.6); GLOMERULAR FILTRATION RATE 16.2 (>39); PERCENT SATURATION 16.8 % (13.2-45.0); POTASSIUM SERUM 4.8 MMOL/L (3.5-5.1); TOTAL PROTEIN 5.4 G/DL (5.7-8.2)
[2023-02-18 08:18] LABS: TOTAL 25(OH) VITAMIN D 49.2 NG/ML (20.0-100.0)
[2023-02-18 08:19] LABS: FERRITIN 70.6 NG/ML (7.3-270.7); FOLATE 16.3 NG/ML (>5.4)
[2023-02-18 08:25] LABS: HEMOGLOBIN A1c 5.6 % (4.0-6.0)
[2023-02-18] MEDS: CYANOCOBALAMIN 500 MCG TAB PO SCH (08:59)
[2023-02-18] MEDS: CYCLOBENZAPRINE 10MG TABLET PO SCH (08:59)
[2023-02-18] MEDS: GABAPENTIN 300 MG CAP PO SCH (08:59)
[2023-02-18] MEDS: CARVedilol 12.5 MG TAB PO SCH ×2 (08:59→21:09)
[2023-02-18] MEDS: CALCITRIOL 0.25 MCG CAP (S0169) PO SCH (08:59)
[2023-02-18] MEDS: INSULIN LISPRO (NovoLOG) PER UNIT SC SCH ×4 (08:59→19:33)
[2023-02-18] MEDS: PANTOPRAZOLE 40MG TAB (PROTONIX) PO SCH (08:59)
[2023-02-18] MEDS: NYSTATIN 100,000 UNITS/GM TOPICAL PWD 15GM TOP SCH ×2 (10:00→21:10)
[2023-02-18 14:00] VITALS: BP 110/56; TEMP 97.8; O2SAT 99
[2023-02-18 20:00] VITALS: BP 130/62; TEMP 98.6; O2SAT 98
[2023-02-18] MEDS: ASPIRIN 81MG ENTERIC TABLET PO SCH (21:08)
[2023-02-18] MEDS: ACETAMINOPHEN 500 MG TAB PO PRN (21:09)
[2023-02-19 06:00] VITALS: BP 130/63; TEMP 98.9; O2SAT 99
[2023-02-19] MEDS: HEPARIN SOD (PORCINE) 5000UNITS/ML 1ML VIAL/SYRINGE SC SCH ×3 (06:05→21:42)
[2023-02-19] MEDS: NS 1,000 ML IV SCH ×2 (08:32→19:44)
[2023-02-19] MEDS: INSULIN LISPRO (NovoLOG) PER UNIT SC SCH ×4 (08:33→19:35)
[2023-02-19] MEDS: PANTOPRAZOLE 40MG TAB (PROTONIX) PO SCH (08:35)
[2023-02-19] MEDS: CALCITRIOL 0.25 MCG CAP (S0169) PO SCH (08:35)
[2023-02-19] MEDS: CYANOCOBALAMIN 500 MCG TAB PO SCH (08:35)
[2023-02-19] MEDS: CARVedilol 12.5 MG TAB PO SCH ×2 (08:36→19:43)
[2023-02-19] MEDS: NYSTATIN 100,000 UNITS/GM TOPICAL PWD 15GM TOP SCH ×2 (08:36→19:43)
[2023-02-19 08:50] LABS: BASO % 0.4 % (0.0-1.0); EOS # 0.1 10^3/uL (0.0-0.5); EOS % 1.9 % (0.0-3.0); HEMATOCRIT 31.4 % (36.0-47.0); HEMOGLOBIN 9.8 g/dl (12.0-15.5); LYMPH # 1.6 10^3/uL (1.5-5.0); LYMPH % 30.3 % (24.0-44.0); MEAN CORPUSCULAR HEMOGLOBIN 28.9 pg (27.0-33.0); MEAN CORPUSCULAR HGB CONC 31.2 g/dl (32.0-36.5); MEAN CORPUSCULAR VOLUME 92.6 fl (80.0-96.0); MONO # 0.5 10^3/uL (0.0-0.8); MONO % 9.8 % (2.0-8.0); PLATELET COUNT, AUTOMATED 184 10^3/uL (150-450); RED BLOOD COUNT 3.39 10^6/uL (4.00-5.40); WHITE BLOOD COUNT 5.2 10^3/uL (4.0-10.0)
[2023-02-19] MEDS ORDERED: VITAMIN D 50,000 UNITS CAPSULE (ERGOCALCIFEROL 1.25MG) PO SCH (09:00)
[2023-02-19] MEDS ORDERED: VANCOMYCIN HCL 500 MG in D5W MINI-BAG PLUS 100 ML IV SCH (09:00)
[2023-02-19] MEDS ORDERED: carBAMazepine 200MG TABLET PO SCH (09:00)
[2023-02-19 09:16] LABS: CALCIUM LEVEL 7.7 MG/DL (8.3-10.6); CREATININE FOR GFR 2.67 MG/DL (0.55-1.30); GLOMERULAR FILTRATION RATE 18.5 (>39); POTASSIUM SERUM 4.9 MMOL/L (3.5-5.1)
[2023-02-19 13:53] VITALS: BP 135/63; TEMP 98.6; O2SAT 99
[2023-02-19] MEDS ORDERED: LACTULOSE 20GM/30ML SYRUP UDC PO ONE (14:00)
[2023-02-19] MEDS: ASPIRIN 81MG ENTERIC TABLET PO SCH (19:42)
[2023-02-19] MEDS: ACETAMINOPHEN 500 MG TAB PO PRN (19:42)
[2023-02-19 20:00] VITALS: BP 136/61; TEMP 98.1; O2SAT 96
[2023-02-20] VITALS (8 sets, daily range): BP systolic 122–155; BP diastolic 60–78; TEMP 97.2–97.9; O2SAT 95–97
[2023-02-20] MEDS ORDERED: ONDANSETRON 4MG 2ML VIAL IV PRN (04:00)
[2023-02-20] MEDS: NS 1,000 ML IV SCH (04:04)
[2023-02-20] MEDS: HEPARIN SOD (PORCINE) 5000UNITS/ML 1ML VIAL/SYRINGE SC SCH ×2 (05:35→13:44)
[2023-02-20] MEDS: ACETAMINOPHEN 500 MG TAB PO PRN (06:22)
[2023-02-20 07:07] LABS: BASO % 0.7 % (0.0-1.0); EOS # 0.1 10^3/uL (0.0-0.5); EOS % 0.9 % (0.0-3.0); HEMATOCRIT 34.3 % (36.0-47.0); HEMOGLOBIN 10.5 g/dl (12.0-15.5); LYMPH # 1.1 10^3/uL (1.5-5.0); LYMPH % 19.1 % (24.0-44.0); MEAN CORPUSCULAR HEMOGLOBIN 28.5 pg (27.0-33.0); MEAN CORPUSCULAR HGB CONC 30.6 g/dl (32.0-36.5); MEAN CORPUSCULAR VOLUME 93.2 fl (80.0-96.0); MONO # 0.4 10^3/uL (0.0-0.8); MONO % 7.7 % (2.0-8.0); NEUTROPHILS # 3.9 10^3/uL (1.5-8.5); NEUTROPHILS % 70.7 % (36.0-66.0); PLATELET COUNT, AUTOMATED 192 10^3/uL (150-450); RED BLOOD COUNT 3.68 10^6/uL (4.00-5.40); WHITE BLOOD COUNT 5.5 10^3/uL (4.0-10.0)
[2023-02-20 07:35] LABS: BLOOD UREA NITROGEN 49 MG/DL (9-23); CALCIUM LEVEL 8.5 MG/DL (8.3-10.6); CARBON DIOXIDE LEVEL 19 MMOL/L (20-31); CHLORIDE LEVEL 110 MMOL/L (98-107); GLOMERULAR FILTRATION RATE 24.4 (>39); GLUCOSE, FASTING 158 MG/DL (74-106); POTASSIUM SERUM 4.8 MMOL/L (3.5-5.1); SODIUM LEVEL 137 MMOL/L (136-145)
[2023-02-20] MEDS: CALCITRIOL 0.25 MCG CAP (S0169) PO SCH (08:19)
[2023-02-20] MEDS: INSULIN LISPRO (NovoLOG) PER UNIT SC SCH ×2 (08:19→13:43)
[2023-02-20] MEDS: CYANOCOBALAMIN 500 MCG TAB PO SCH (08:20)
[2023-02-20] MEDS: CARVedilol 12.5 MG TAB PO SCH (08:20)
[2023-02-20] MEDS: PANTOPRAZOLE 40MG TAB (PROTONIX) PO SCH (08:21)
[2023-02-20] MEDS: NYSTATIN 100,000 UNITS/GM TOPICAL PWD 15GM TOP SCH (08:21)
[2023-02-20 09:13] LABS: VANCOMYCIN RANDOM 11.1 UG/ML
[2023-02-20] MEDS ORDERED: VANCOMYCIN INTERMITTENT/PULSE DOSING BY CLINICAL PHARMACIST PER DOSING PROTOCOL XX SCH (09:40)
[2023-02-20] MEDS ORDERED: VANCOMYCIN HCL 500 MG in D5W MINI-BAG PLUS 100 ML IV ONE (10:00)
[2023-02-20] MEDS ORDERED: PANTOPRAZOLE 40MG VIAL IV ONE (10:40)
[2023-02-20] MEDS: NITROGLYCERIN 0.4MG SUBL TABLET SL SCH ×2 (10:45→10:58)
[2023-02-20 10:51] LABS: ALBUMIN 2.4 G/DL (3.2-5.2); ALKALINE PHOSPHATASE 89 U/L (46-116); ALT/SGPT < 9 U/L (7.0-40); AST/SGOT 9 U/L (<34); BILIRUBIN,DIRECT < 0.1 MG/DL (<0.4); BILIRUBIN,TOTAL 0.2 MG/DL (0.3-1.2); TOTAL PROTEIN 5.3 G/DL (5.7-8.2)
[2023-02-20 11:23] LABS: ABG BASE EXCESS -10.3 (-2.0-2.0); ABG HCO3 17.8 MMOL/L (22.0-26.0); ABG O2 SATURATION 98.1 % (95.0-99.0); ABG PARTIAL PRESSURE CO2 49.1 mmHg (35.0-45.0); ABG PARTIAL PRESSURE O2 147.1 mmHg (75.0-100.0); ABG STANDARD HCO3 16.2 MMOL/L. (22.0-26.0); ABG TOTAL CO2 19.3 MMOL/L (23.0-31.0)
[2023-02-20 11:26] LABS: ABG pH (ARTERIAL) 7.177 UNITS (7.350-7.450)
[2023-02-20 11:35] LABS: CK-MB VALUE MASS < 1.0 NG/ML (<3.6)
[2023-02-20 11:37] LABS: CPK CREATINE PHOSPHOKINASE 44 U/L (34-145); MB/CK RELATIVE INDEX 2.27 (< OR =4)
[2023-02-20] MEDS ORDERED: LACTULOSE 20GM/30ML SYRUP UDC PR ONE (12:00)
[2023-02-20] MEDS ORDERED: SODIUM BICARBONATE 150 MEQ in STERILE WATER LITER BAG 1,000 ML IV ONE (12:30)
== END 2023-02-20 15:15 | disposition short-term general hospital (02) | DRG 947 ==
LOC: M PM&R 15:00
PROVIDERS: ADMIT Student in an Organized Health Care Education/Training Program; ATTEND Student in an Organized Health Care Education/Training Program
DX: R53.81 Other malaise (principal); G92.8 Other toxic encephalopathy; Z68.43 Body mass index [BMI] 50.0-59.9, adult; N17.9 Acute kidney failure, unspecified; L03.112 Cellulitis of left axilla; L02.412 Cutaneous abscess of left axilla; E87.1 Hypo-osmolality and hyponatremia; I50.32 Chronic diastolic (congestive) heart failure; I13.0 Hypertensive heart and chronic kidney disease with heart failure and stage 1 through stage 4 chronic kidney disease, or unspecified chronic kidney disease; E72.20 Disorder of urea cycle metabolism, unspecified; R13.12 Dysphagia, oropharyngeal phase; G47.33 Obstructive sleep apnea (adult) (pediatric); J44.9 Chronic obstructive pulmonary disease, unspecified; M81.0 Age-related osteoporosis without current pathological fracture; L40.9 Psoriasis, unspecified; K28.9 Gastrojejunal ulcer, unspecified as acute or chronic, without hemorrhage or perforation; G25.81 Restless legs syndrome; K21.9 Gastro-esophageal reflux disease without esophagitis; M54.50 Low back pain, unspecified; R09.02 Hypoxemia; G89.29 Other chronic pain; L72.3 Sebaceous cyst; D64.9 Anemia, unspecified; N18.9 Chronic kidney disease, unspecified; E87.8 Other disorders of electrolyte and fluid balance, not elsewhere classified; N32.81 Overactive bladder; E66.01 Morbid (severe) obesity due to excess calories; E55.9 Vitamin D deficiency, unspecified; R33.9 Retention of urine, unspecified; T42.6X5A Adverse effect of other antiepileptic and sedative-hypnotic drugs, initial encounter; L29.9 Pruritus, unspecified; Z90.49 Acquired absence of other specified parts of digestive tract; Z88.0 Allergy status to penicillin; Z88.1 Allergy status to other antibiotic agents; Z91.040 Latex allergy status; Z91.048 Other nonmedicinal substance allergy status; Z87.891 Personal history of nicotine dependence; Z74.09 Other reduced mobility; Z74.1 Need for assistance with personal care; Z79.82 Long term (current) use of aspirin; Z79.899 Other long term (current) drug therapy; Z85.41 Personal history of malignant neoplasm of cervix uteri

== ENCOUNTER 2023-02-20 10:22 | Inpatient (IN) | payer MEDICARE, BC, OTHER ==
[2023-02-20] VITALS (14 sets, daily range): BP systolic 139–202; BP diastolic 60–90; TEMP 97.9–98.8; O2SAT 94–99
[~2023-02-20] VITALS: Ht 157.5 cm; Wt 116.8 kg
[2023-02-20] MEDS: TIOTROPIUM INHALER/CAPSULE (SPIRIVA) INH SCH (08:00)
[2023-02-20] MEDS ORDERED: VANCOMYCIN HCL 1,000 MG, VIAL MATE ADAPTER 1 EACH in D5W 250 ML IV SCH (11:30)
[2023-02-20] MEDS ORDERED: VANCOMYCIN INTERMITTENT/PULSE DOSING BY CLINICAL PHARMACIST PER DOSING PROTOCOL XX SCH (11:55)
[2023-02-20] MEDS ORDERED: SODIUM BICARBONATE 150 MEQ in STERILE WATER LITER BAG 1,000 ML IV ONE (12:15)
[2023-02-20] MEDS ORDERED: hydrALAZINE 20MG/ML 1ML VIAL IV SCH (16:00)
[2023-02-20 16:17] LABS: VENOUS BASE EXCESS -9.1 (-2.0-2.0); VENOUS HCO3 18.3 MMOL/L (23.0-27.0); VENOUS O2 SATURATION 98.6 % (60.0-80.0); VENOUS PARTIAL PRESSURE CO2 45.4 mmHg (38.0-50.0); VENOUS PARTIAL PRESSURE O2 227.8 mmHg (30.0-50.0); VENOUS PH 7.223 UNITS (7.330-7.430); VENOUS STANDARD HCO3 17.2 MMOL/L; VENOUS TOTAL CO2 19.7 MMOL/L (24.0-28.0)
[2023-02-20] MEDS ORDERED: ONDANSETRON 4MG 2ML VIAL IV ONE (16:40)
[2023-02-20] MEDS ORDERED: ACETAMINOPHEN 500 MG TAB PO PRN (16:40)
[2023-02-20] MEDS ORDERED: HOME MED LIST COMPLETE! XX SCH (16:45)
[2023-02-20] MEDS ORDERED: ONDANSETRON 4MG 2ML VIAL As Ordered ONE ×2 (16:46→16:51)
[2023-02-20 16:52] LABS: HEMOGLOBIN A1c 5.6 % (4.0-6.0)
[2023-02-20] MEDS ORDERED: hydrALAZINE 20MG/ML 1ML VIAL IV STA (18:11)
[2023-02-20 18:46] LABS: CK-MB VALUE MASS < 1.0 NG/ML (<3.6)
[2023-02-20 18:48] LABS: CPK CREATINE PHOSPHOKINASE 43 U/L (34-145); MB/CK RELATIVE INDEX 2.32 (< OR =4)
[2023-02-20] MEDS: SYMBICORT 160/4.5MCG INHALER 6GM INH SCH (19:00)
[2023-02-20] MEDS: IPRATROPIUM 0.5MG/ALBUTEROL 2.5MG INH SOL UD 3ML (DUONEB) NEB SCH (19:00)
[2023-02-20] MEDS ORDERED: ASPIRIN 81MG ENTERIC TABLET PO SCH (21:00)
[2023-02-20] MEDS: CARVedilol 12.5 MG TAB PO SCH (21:20)
[2023-02-20] MEDS ORDERED: HEPARIN SOD (PORCINE) 5000UNITS/ML 1ML VIAL/SYRINGE SQ SCH (22:00)
[2023-02-21] VITALS (19 sets, daily range): BP systolic 135–184; BP diastolic 62–77; TEMP 97.7–98.3; O2SAT 90–100
[2023-02-21] MEDS: hydrALAZINE 20MG/ML 1ML VIAL IV PRN (00:07)
[2023-02-21 01:37] LABS: CK-MB VALUE MASS < 1.0 NG/ML (<3.6)
[2023-02-21 01:48] LABS: CPK CREATINE PHOSPHOKINASE 40 U/L (34-145)
[2023-02-21] MEDS: IPRATROPIUM 0.5MG/ALBUTEROL 2.5MG INH SOL UD 3ML (DUONEB) NEB SCH ×4 (02:21→21:26)
[2023-02-21 02:36] LABS: BASO % 0.3 % (0.0-1.0); HEMOGLOBIN 10.5 g/dl (12.0-15.5); LYMPH # 1.1 10^3/uL (1.5-5.0); LYMPH % 12.9 % (24.0-44.0); MEAN CORPUSCULAR HEMOGLOBIN 29.1 pg (27.0-33.0); MEAN CORPUSCULAR HGB CONC 31.8 g/dl (32.0-36.5); MEAN CORPUSCULAR VOLUME 91.4 fl (80.0-96.0); MONO # 0.7 10^3/uL (0.0-0.8); MONO % 8.4 % (2.0-8.0); NEUTROPHILS # 6.6 10^3/uL (1.5-8.5); NEUTROPHILS % 77.1 % (36.0-66.0); PLATELET COUNT, AUTOMATED 227 10^3/uL (150-450); RED BLOOD COUNT 3.61 10^6/uL (4.00-5.40); WHITE BLOOD COUNT 8.6 10^3/uL (4.0-10.0)
[2023-02-21 06:02] LABS: BASO % 0.2 % (0.0-1.0); HEMATOCRIT 34.3 % (36.0-47.0); HEMOGLOBIN 10.9 g/dl (12.0-15.5); LYMPH # 1.2 10^3/uL (1.5-5.0); LYMPH % 14.3 % (24.0-44.0); MEAN CORPUSCULAR HEMOGLOBIN 29.2 pg (27.0-33.0); MEAN CORPUSCULAR HGB CONC 31.8 g/dl (32.0-36.5); MONO # 0.6 10^3/uL (0.0-0.8); MONO % 7.1 % (2.0-8.0); NEUTROPHILS # 6.3 10^3/uL (1.5-8.5); NEUTROPHILS % 76.8 % (36.0-66.0); PLATELET COUNT, AUTOMATED 225 10^3/uL (150-450); RED BLOOD COUNT 3.73 10^6/uL (4.00-5.40); WHITE BLOOD COUNT 8.2 10^3/uL (4.0-10.0)
[2023-02-21 06:23] LABS: VANCOMYCIN RANDOM 11.9 UG/ML
[2023-02-21 06:26] LABS: ALBUMIN 2.5 G/DL (3.2-5.2); ALKALINE PHOSPHATASE 89 U/L (46-116); ALT/SGPT 10 U/L (7.0-40); AST/SGOT 11 U/L (<34); BILIRUBIN,DIRECT < 0.1 MG/DL (<0.4); BILIRUBIN,TOTAL 0.3 MG/DL (0.3-1.2); BLOOD UREA NITROGEN 45 MG/DL (9-23); CALCIUM LEVEL 8.6 MG/DL (8.3-10.6); CARBON DIOXIDE LEVEL 20 MMOL/L (20-31); CHLORIDE LEVEL 113 MMOL/L (98-107); CREATININE FOR GFR 1.73 MG/DL (0.55-1.30); GLOMERULAR FILTRATION RATE 30.5 (>39); GLUCOSE, FASTING 154 MG/DL (74-106); POTASSIUM SERUM 4.3 MMOL/L (3.5-5.1); SODIUM LEVEL 141 MMOL/L (136-145); TOTAL PROTEIN 5.6 G/DL (5.7-8.2)
[2023-02-21] MEDS: TIOTROPIUM INHALER/CAPSULE (SPIRIVA) INH SCH ×2 (07:21→21:26)
[2023-02-21] MEDS: SYMBICORT 160/4.5MCG INHALER 6GM INH SCH ×2 (07:21→21:26)
[2023-02-21] MEDS ORDERED: VANCOMYCIN HCL 500 MG in D5W MINI-BAG PLUS 100 ML IV SCH (08:00)
[2023-02-21] MEDS: CARVedilol 12.5 MG TAB PO SCH ×2 (08:45→20:04)
[2023-02-21] MEDS: carBAMazepine 200MG TABLET PO SCH (08:45)
[2023-02-21] MEDS: CALCITRIOL 0.25 MCG CAP (S0169) PO SCH (08:45)
[2023-02-21] MEDS: CYANOCOBALAMIN 500 MCG TAB PO SCH (08:46)
[2023-02-21 10:26] LABS: VENOUS BASE EXCESS -7.9 (-2.0-2.0); VENOUS HCO3 17.3 MMOL/L (23.0-27.0); VENOUS O2 SATURATION 98.7 % (60.0-80.0); VENOUS PARTIAL PRESSURE CO2 34.2 mmHg (38.0-50.0); VENOUS PH 7.322 UNITS (7.330-7.430); VENOUS TOTAL CO2 18.4 MMOL/L (24.0-28.0)
[2023-02-21 11:02] LABS: FREE T4 0.92 NG/DL (0.89-1.76); THYROID STIMULATING HORMONE 0.118 uIU/ML (0.55-4.78)
[2023-02-21] MEDS ORDERED: INSULIN LISPRO (NovoLOG) PER UNIT SC SCH (21:00)
[2023-02-21] MEDS: PERCOCET 5MG/325MG TAB PO PRN (22:40)
[2023-02-22] VITALS (10 sets, daily range): BP systolic 138–182; BP diastolic 61–82; TEMP 96–98.3; O2SAT 92–99
[2023-02-22] MEDS: IPRATROPIUM 0.5MG/ALBUTEROL 2.5MG INH SOL UD 3ML (DUONEB) NEB SCH ×4 (02:11→20:30)
[2023-02-22 06:50] LABS: BASO % 0.5 % (0.0-1.0); EOS % 0.7 % (0.0-3.0); HEMATOCRIT 29.7 % (36.0-47.0); HEMOGLOBIN 9.3 g/dl (12.0-15.5); LYMPH # 1.2 10^3/uL (1.5-5.0); LYMPH % 20.7 % (24.0-44.0); MEAN CORPUSCULAR HEMOGLOBIN 28.9 pg (27.0-33.0); MEAN CORPUSCULAR HGB CONC 31.3 g/dl (32.0-36.5); MEAN CORPUSCULAR VOLUME 92.2 fl (80.0-96.0); MONO # 0.6 10^3/uL (0.0-0.8); NEUTROPHILS # 3.9 10^3/uL (1.5-8.5); NEUTROPHILS % 66.4 % (36.0-66.0); PLATELET COUNT, AUTOMATED 209 10^3/uL (150-450); RED BLOOD COUNT 3.22 10^6/uL (4.00-5.40); WHITE BLOOD COUNT 5.8 10^3/uL (4.0-10.0)
[2023-02-22 07:01] LABS: ALBUMIN 2.5 G/DL (3.2-5.2); ALKALINE PHOSPHATASE 78 U/L (46-116); ALT/SGPT < 9 U/L (7.0-40); AST/SGOT 13 U/L (<34); BILIRUBIN,DIRECT 0.1 MG/DL (<0.4); BILIRUBIN,TOTAL 0.3 MG/DL (0.3-1.2); BLOOD UREA NITROGEN 37 MG/DL (9-23); CALCIUM LEVEL 8.6 MG/DL (8.3-10.6); CARBON DIOXIDE LEVEL 20 MMOL/L (20-31); CHLORIDE LEVEL 113 MMOL/L (98-107); CREATININE FOR GFR 1.45 MG/DL (0.55-1.30); GLOMERULAR FILTRATION RATE 37.4 (>39); GLUCOSE, FASTING 141 MG/DL (74-106); POTASSIUM SERUM 3.7 MMOL/L (3.5-5.1); SODIUM LEVEL 143 MMOL/L (136-145); TOTAL PROTEIN 5.2 G/DL (5.7-8.2)
[2023-02-22] MEDS ORDERED: INSULIN LISPRO (NovoLOG) PER UNIT SC SCH (07:30)
[2023-02-22] MEDS: SYMBICORT 160/4.5MCG INHALER 6GM INH SCH ×2 (09:08→20:30)
[2023-02-22 10:41] LABS: HEMATOCRIT 31.1 % (36.0-47.0); HEMOGLOBIN 9.7 g/dl (12.0-15.5)
[2023-02-22] MEDS: PANTOPRAZOLE SODIUM 40 MG in D5W 50 ML IV SCH ×5 (10:52→21:23)
[2023-02-22] MEDS: CALCITRIOL 0.25 MCG CAP (S0169) PO SCH (10:53)
[2023-02-22] MEDS: CYANOCOBALAMIN 500 MCG TAB PO SCH (10:53)
[2023-02-22] MEDS: SUCRALFATE 1 GM TAB PO SCH ×2 (10:59→15:10)
[2023-02-22] MEDS: CARVedilol 12.5 MG TAB PO SCH (10:59)
[2023-02-22] MEDS: NS 1,000 ML IV SCH ×2 (11:40→22:59)
[2023-02-22 16:28] LABS: HEMATOCRIT 30.2 % (36.0-47.0); HEMOGLOBIN 9.4 g/dl (12.0-15.5)
[2023-02-22] MEDS ORDERED: METOPROLOL 5 MG/5 ML VIAL IV STA (17:55)
[2023-02-22] MEDS ORDERED: METOPROLOL TART 25 MG TABLET PO SCH ×2 (17:55→21:00)
[2023-02-22 22:16] LABS: HEMATOCRIT 28.5 % (36.0-47.0); HEMOGLOBIN 8.9 g/dl (12.0-15.5)
[2023-02-23] VITALS (7 sets, daily range): BP systolic 172–186; BP diastolic 64–79; TEMP 97.4–98.9; O2SAT 93–98
[2023-02-23] MEDS: SUCRALFATE 1 GM TAB PO SCH ×4 (00:21→21:16)
[2023-02-23] MEDS: PANTOPRAZOLE SODIUM 40 MG in D5W 50 ML IV SCH ×2 (02:00→10:17)
[2023-02-23] MEDS: IPRATROPIUM 0.5MG/ALBUTEROL 2.5MG INH SOL UD 3ML (DUONEB) NEB SCH ×4 (02:12→20:13)
[2023-02-23] MEDS: TIOTROPIUM INHALER/CAPSULE (SPIRIVA) INH SCH (07:31)
[2023-02-23] MEDS: SYMBICORT 160/4.5MCG INHALER 6GM INH SCH ×2 (07:32→20:13)
[2023-02-23 07:37] LABS: BASO % 0.4 % (0.0-1.0); EOS # 0.1 10^3/uL (0.0-0.5); EOS % 1.2 % (0.0-3.0); HEMATOCRIT 27.7 % (36.0-47.0); HEMOGLOBIN 8.9 g/dl (12.0-15.5); LYMPH # 1.5 10^3/uL (1.5-5.0); LYMPH % 21.9 % (24.0-44.0); MEAN CORPUSCULAR HEMOGLOBIN 28.8 pg (27.0-33.0); MEAN CORPUSCULAR HGB CONC 32.1 g/dl (32.0-36.5); MEAN CORPUSCULAR VOLUME 89.6 fl (80.0-96.0); MONO # 0.8 10^3/uL (0.0-0.8); MONO % 10.9 % (2.0-8.0); NEUTROPHILS # 4.5 10^3/uL (1.5-8.5); PLATELET COUNT, AUTOMATED 233 10^3/uL (150-450); RED BLOOD COUNT 3.09 10^6/uL (4.00-5.40); WHITE BLOOD COUNT 6.9 10^3/uL (4.0-10.0)
[2023-02-23 08:09] LABS: ALBUMIN 2.6 G/DL (3.2-5.2); BILIRUBIN,DIRECT 0.2 MG/DL (<0.4); BILIRUBIN,TOTAL 0.4 MG/DL (0.3-1.2); CALCIUM LEVEL 8.9 MG/DL (8.3-10.6); CREATININE FOR GFR 1.21 MG/DL (0.55-1.30); GLOMERULAR FILTRATION RATE 46.1 (>39); POTASSIUM SERUM 2.9 MMOL/L (3.5-5.1); TOTAL PROTEIN 5.4 G/DL (5.7-8.2)
[2023-02-23] MEDS ORDERED: VITAMIN D 50,000 UNITS CAPSULE (ERGOCALCIFEROL 1.25MG) PO SCH (09:00)
[2023-02-23] MEDS ORDERED: POTASSIUM CHLORIDE 10MEQ SR TABLET PO ONE (09:40)
[2023-02-23] MEDS ORDERED: POTASSIUM CHLORIDE 10% LIQ 20MEQ/15ML UDC PO ONE (09:40)
[2023-02-23 10:02] LABS: MAGNESIUM LEVEL 1.3 MG/DL (1.8-2.4)
[2023-02-23] MEDS ORDERED: LOPERAMIDE 2 MG CAPLET PO ONE (10:10)
[2023-02-23] MEDS: CALCITRIOL 0.25 MCG CAP (S0169) PO SCH (10:17)
[2023-02-23] MEDS: CYANOCOBALAMIN 500 MCG TAB PO SCH (10:17)
[2023-02-23] MEDS: carBAMazepine 200MG TABLET PO SCH (10:18)
[2023-02-23] MEDS: INSULIN LISPRO (NovoLOG) PER UNIT SC SCH ×4 (10:22→21:00)
[2023-02-23] MEDS: METOPROLOL TART 50 MG TAB PO SCH ×2 (10:22→21:16)
[2023-02-23] MEDS: KCL 10MEQ/100ML SWI (KRUN) 10 MEQ in IV 1 EA IV SCH ×4 (10:23→15:36)
[2023-02-23] MEDS ORDERED: LIDOCAINE 1% MDV 20ML VIAL As Ordered ONE (13:23)
[2023-02-23] MEDS ORDERED: SODIUM CHLORIDE 0.9% INJ 10 ML SYR IV PRN (14:50)
[2023-02-23 16:19] LABS: CALCIUM LEVEL 8.5 MG/DL (8.3-10.6); CREATININE FOR GFR 1.2 MG/DL (0.55-1.30); GLOMERULAR FILTRATION RATE 46.5 (>39); POTASSIUM SERUM 3.4 MMOL/L (3.5-5.1)
[2023-02-23] MEDS ORDERED: KCL 10MEQ/100ML SWI (KRUN) 10 MEQ in IV 1 EA IV SCH (16:30)
[2023-02-23] MEDS: SODIUM CHLORIDE 0.9% INJ 10 ML SYR IV SCH (18:09)
[2023-02-23] MEDS: PANTOPRAZOLE 40MG VIAL IV SCH (21:16)
[2023-02-23] MEDS: hydrALAZINE 20MG/ML 1ML VIAL IV PRN (22:54)
[2023-02-24] VITALS (7 sets, daily range): BP systolic 133–184; BP diastolic 63–78; TEMP 97.2–97.8; O2SAT 96–98
[2023-02-24] MEDS: IPRATROPIUM 0.5MG/ALBUTEROL 2.5MG INH SOL UD 3ML (DUONEB) NEB SCH ×4 (01:05→19:47)
[2023-02-24] MEDS ORDERED: cloNIDine 0.1MG TABLET PO ONE (02:05)
[2023-02-24] MEDS: hydrALAZINE 20MG/ML 1ML VIAL IV PRN (05:08)
[2023-02-24] MEDS: SUCRALFATE 1 GM TAB PO SCH ×3 (05:08→23:19)
[2023-02-24] MEDS: SODIUM CHLORIDE 0.9% INJ 10 ML SYR IV SCH ×2 (05:09→17:33)
[2023-02-24 06:29] LABS: BASO % 0.5 % (0.0-1.0); EOS # 0.1 10^3/uL (0.0-0.5); EOS % 1.5 % (0.0-3.0); HEMATOCRIT 26.7 % (36.0-47.0); HEMOGLOBIN 8.8 g/dl (12.0-15.5); LYMPH % 25.9 % (24.0-44.0); MEAN CORPUSCULAR HEMOGLOBIN 29.1 pg (27.0-33.0); MEAN CORPUSCULAR VOLUME 88.4 fl (80.0-96.0); MONO # 0.9 10^3/uL (0.0-0.8); MONO % 11.7 % (2.0-8.0); NEUTROPHILS # 4.7 10^3/uL (1.5-8.5); NEUTROPHILS % 59.5 % (36.0-66.0); PLATELET COUNT, AUTOMATED 231 10^3/uL (150-450); RED BLOOD COUNT 3.02 10^6/uL (4.00-5.40); WHITE BLOOD COUNT 7.8 10^3/uL (4.0-10.0)
[2023-02-24 07:16] LABS: CALCIUM LEVEL 8.3 MG/DL (8.3-10.6); CREATININE FOR GFR 1.11 MG/DL (0.55-1.30); GLOMERULAR FILTRATION RATE 50.9 (>39); MAGNESIUM LEVEL 1.1 MG/DL (1.8-2.4); POTASSIUM SERUM 2.8 MMOL/L (3.5-5.1)
[2023-02-24] MEDS: SYMBICORT 160/4.5MCG INHALER 6GM INH SCH ×2 (08:11→19:47)
[2023-02-24] MEDS: TIOTROPIUM INHALER/CAPSULE (SPIRIVA) INH SCH (08:11)
[2023-02-24] MEDS: POTASSIUM CHLORIDE 10MEQ SR TABLET PO SCH ×3 (08:25→21:23)
[2023-02-24] MEDS: PANTOPRAZOLE 40MG VIAL IV SCH ×2 (08:25→21:23)
[2023-02-24] MEDS: MAGNESIUM OXIDE 400MG TAB (MAG-OX) PO SCH ×2 (08:25→21:28)
[2023-02-24] MEDS: CALCITRIOL 0.25 MCG CAP (S0169) PO SCH (08:26)
[2023-02-24] MEDS: **hydrALAZINE HCL** 25 MG TAB PO SCH ×2 (08:27→21:27)
[2023-02-24] MEDS: METOPROLOL TART 50 MG TAB PO SCH ×2 (08:27→21:26)
[2023-02-24] MEDS: CYANOCOBALAMIN 500 MCG TAB PO SCH (08:27)
[2023-02-24] MEDS: KCL 10MEQ/100ML SWI (KRUN) 10 MEQ in IV 1 EA IV SCH ×4 (08:28→18:27)
[2023-02-24] MEDS: MAG SULF 1GM/100ML (MAG RUN) 1 GM in IV 1 EA IV SCH ×4 (08:28→12:18)
[2023-02-24] MEDS: INSULIN LISPRO (NovoLOG) PER UNIT SC SCH ×4 (08:29→19:51)
[2023-02-24 15:15] LABS: CALCIUM LEVEL 8.8 MG/DL (8.3-10.6); CREATININE FOR GFR 1.13 MG/DL (0.55-1.30); GLOMERULAR FILTRATION RATE 49.8 (>39); MAGNESIUM LEVEL 2.2 MG/DL (1.8-2.4); POTASSIUM SERUM 3.2 MMOL/L (3.5-5.1)
[2023-02-24 15:24] LABS: CLOSTRIDIUM DIFFICILE PCR NEGATIVE (NEGATIVE)
[2023-02-24] MEDS: LOPERAMIDE 2 MG CAPLET PO PRN ×2 (21:27→23:19)
[2023-02-25] MEDS: LOPERAMIDE 2 MG CAPLET PO PRN ×3 (00:24→12:28)
[2023-02-25 00:40] VITALS: BP 162/70; TEMP 97.9; O2SAT 97
[2023-02-25] MEDS: hydrALAZINE 20MG/ML 1ML VIAL IV PRN (01:58)
[2023-02-25] MEDS: IPRATROPIUM 0.5MG/ALBUTEROL 2.5MG INH SOL UD 3ML (DUONEB) NEB SCH ×3 (02:00→13:39)
[2023-02-25] MEDS: PERCOCET 5MG/325MG TAB PO PRN (03:11)
[2023-02-25 04:32] VITALS: BP 158/62; TEMP 97.1; O2SAT 92
[2023-02-25] MEDS: SUCRALFATE 1 GM TAB PO SCH (06:42)
[2023-02-25] MEDS: SODIUM CHLORIDE 0.9% INJ 10 ML SYR IV SCH (06:43)
[2023-02-25 07:38] VITALS: BP 154/58; TEMP 97.4; O2SAT 94
[2023-02-25] MEDS: SYMBICORT 160/4.5MCG INHALER 6GM INH SCH (08:00)
[2023-02-25] MEDS: TIOTROPIUM INHALER/CAPSULE (SPIRIVA) INH SCH (08:00)
[2023-02-25 08:08] LABS: BASO # 0.1 10^3/uL (0.0-0.2); BASO % 0.5 % (0.0-1.0); EOS # 0.5 10^3/uL (0.0-0.5); EOS % 5.1 % (0.0-3.0); HEMATOCRIT 29.5 % (36.0-47.0); HEMOGLOBIN 9.4 g/dl (12.0-15.5); LYMPH # 2.2 10^3/uL (1.5-5.0); LYMPH % 22.9 % (24.0-44.0); MEAN CORPUSCULAR HEMOGLOBIN 28.9 pg (27.0-33.0); MEAN CORPUSCULAR HGB CONC 31.9 g/dl (32.0-36.5); MEAN CORPUSCULAR VOLUME 90.8 fl (80.0-96.0); MONO # 1.1 10^3/uL (0.0-0.8); NEUTROPHILS # 5.6 10^3/uL (1.5-8.5); NEUTROPHILS % 59.1 % (36.0-66.0); PLATELET COUNT, AUTOMATED 279 10^3/uL (150-450); RED BLOOD COUNT 3.25 10^6/uL (4.00-5.40); WHITE BLOOD COUNT 9.5 10^3/uL (4.0-10.0)
[2023-02-25 08:35] LABS: CREATININE FOR GFR 1.21 MG/DL (0.55-1.30); GLOMERULAR FILTRATION RATE 46.1 (>39); POTASSIUM SERUM 4.1 MMOL/L (3.5-5.1)
[2023-02-25] MEDS: PANTOPRAZOLE 40MG VIAL IV SCH (08:44)
[2023-02-25] MEDS: INSULIN LISPRO (NovoLOG) PER UNIT SC SCH ×3 (08:45→17:25)
[2023-02-25] MEDS: CALCITRIOL 0.25 MCG CAP (S0169) PO SCH (08:46)
[2023-02-25] MEDS: LACTOBACILLUS ACIDOPHILUS CAP (BACID) PO SCH ×3 (08:46→17:24)
[2023-02-25] MEDS: POTASSIUM CHLORIDE 10MEQ SR TABLET PO SCH ×2 (08:47→17:24)
[2023-02-25] MEDS: **hydrALAZINE HCL** 25 MG TAB PO SCH ×2 (08:49→18:39)
[2023-02-25] MEDS: METOPROLOL TART 50 MG TAB PO SCH (08:50)
[2023-02-25] MEDS: carBAMazepine 200MG TABLET PO SCH (08:51)
[2023-02-25] MEDS: CYANOCOBALAMIN 500 MCG TAB PO SCH (08:51)
[2023-02-25] MEDS: MAGNESIUM OXIDE 400MG TAB (MAG-OX) PO SCH (08:51)
[2023-02-25] MEDS ORDERED: METAMUCIL (PSYLLIUM) PACKET PO SCH (09:00)
[2023-02-25 11:57] VITALS: BP 151/67; TEMP 98; O2SAT 98
[2023-02-25] MEDS ORDERED: LOMOTIL 2.5MG/0.025MG TABLET PO ONE (14:00)
[2023-02-25 16:00] VITALS: BP 154/64; TEMP 97.6; O2SAT 96
[2023-02-25] MEDS ORDERED: AMLO1TAB25 PO (17:29)
[2023-02-25] MEDS ORDERED: RISATAB3 PO (17:29)
[2023-02-25] MEDS ORDERED: HYDR25TA PO (17:29)
[2023-02-25] MEDS ORDERED: LOPR1TAB6 PO (17:29)
[2023-02-25 18:39] VITALS: BP 154/64
== END 2023-02-25 18:42 | disposition home health service (06) | DRG 682 ==
LOC: M PCU 10:22 → M ICU 15:07 → M PCU 02-21 20:41
PROVIDERS: ADMIT General Practice; ATTEND Student in an Organized Health Care Education/Training Program
PROC: B246ZZZ Ultrasonography of Right and Left Heart (ICD-10-PCS; principal; 2023-02-20)
PROC: 05HB33Z Insertion of Infusion Device into Right Basilic Vein, Percutaneous Approach (ICD-10-PCS; 2023-02-23)
DX: N17.9 Acute kidney failure, unspecified (principal); G93.41 Metabolic encephalopathy; E87.4 Mixed disorder of acid-base balance; L02.412 Cutaneous abscess of left axilla; I50.32 Chronic diastolic (congestive) heart failure; L03.112 Cellulitis of left axilla; Z68.43 Body mass index [BMI] 50.0-59.9, adult; E87.1 Hypo-osmolality and hyponatremia; K92.1 Melena; R13.10 Dysphagia, unspecified; J44.9 Chronic obstructive pulmonary disease, unspecified; G47.33 Obstructive sleep apnea (adult) (pediatric); D64.9 Anemia, unspecified; I11.0 Hypertensive heart disease with heart failure; E66.01 Morbid (severe) obesity due to excess calories; E11.9 Type 2 diabetes mellitus without complications; K76.82 Hepatic encephalopathy; R07.9 Chest pain, unspecified; R54 Age-related physical debility; M81.0 Age-related osteoporosis without current pathological fracture; E55.9 Vitamin D deficiency, unspecified; R19.7 Diarrhea, unspecified; I48.0 Paroxysmal atrial fibrillation; M54.50 Low back pain, unspecified; G25.81 Restless legs syndrome; K21.9 Gastro-esophageal reflux disease without esophagitis; Z90.49 Acquired absence of other specified parts of digestive tract; Z79.82 Long term (current) use of aspirin; Z79.899 Other long term (current) drug therapy; Z88.0 Allergy status to penicillin; Z88.1 Allergy status to other antibiotic agents; Z91.040 Latex allergy status; Z91.048 Other nonmedicinal substance allergy status; Z87.891 Personal history of nicotine dependence

== ENCOUNTER → 2023-03-02 | Outpatient (CLI) | payer MEDICARE, BC, OTHER ==
[~2023-03-02] MED LIST changes: +AMLO1TAB25 PO; +HYDR25TA PO; +LOPR1TAB6 PO; +RISATAB3 PO
[2023-03-02 16:44] LABS: BASO % 0.5 % (0.0-1.0); EOS # 0.2 10^3/uL (0.0-0.5); EOS % 3.2 % (0.0-3.0); HEMATOCRIT 27.6 % (36.0-47.0); HEMOGLOBIN 8.2 g/dl (12.0-15.5); LYMPH # 1.8 10^3/uL (1.5-5.0); LYMPH % 29.5 % (24.0-44.0); MEAN CORPUSCULAR HEMOGLOBIN 28.9 pg (27.0-33.0); MEAN CORPUSCULAR HGB CONC 29.7 g/dl (32.0-36.5); MEAN CORPUSCULAR VOLUME 97.2 fl (80.0-96.0); MONO # 0.7 10^3/uL (0.0-0.8); MONO % 11.5 % (2.0-8.0); NEUTROPHILS # 3.4 10^3/uL (1.5-8.5); NEUTROPHILS % 54.5 % (36.0-66.0); PLATELET COUNT, AUTOMATED 186 10^3/uL (150-450); RED BLOOD COUNT 2.84 10^6/uL (4.00-5.40); WHITE BLOOD COUNT 6.2 10^3/uL (4.0-10.0)
[2023-03-02 16:51] LABS: HEMOGLOBIN A1c 5.6 % (4.0-6.0)
[2023-03-02 17:12] LABS: ALBUMIN 2.7 G/DL (3.2-5.2); BILIRUBIN,TOTAL 0.2 MG/DL (0.3-1.2); CALCIUM LEVEL 7.9 MG/DL (8.3-10.6); CREATININE FOR GFR 1.87 MG/DL (0.55-1.30); GLOMERULAR FILTRATION RATE 27.9 (>39); POTASSIUM SERUM 4.7 MMOL/L (3.5-5.1); TOTAL PROTEIN 5.7 G/DL (5.7-8.2)
[2023-03-02 17:14] LABS: FERRITIN 46.4 NG/ML (7.3-270.7)
== END ==
LOC: M LAB 15:50
PROVIDERS: ATTEND Family Medicine
DX: D64.9 Anemia, unspecified (principal); Z12.11 Encounter for screening for malignant neoplasm of colon; I50.32 Chronic diastolic (congestive) heart failure; N17.9 Acute kidney failure, unspecified; N18.2 Chronic kidney disease, stage 2 (mild); E11.9 Type 2 diabetes mellitus without complications

== ENCOUNTER → 2023-03-02 | Outpatient (CLI) | payer MEDICARE, BC, OTHER | LOC: M RAD 15:05 | PROVIDERS: ATTEND Family Medicine | DX: M79.89 Other specified soft tissue disorders (principal) ==

== ENCOUNTER → 2023-03-03 | Outpatient (REF) | payer MEDICARE, OTHER ==
[2023-03-03 11:40] LABS: CREATININE, URINE 69.2 MG/DL
[2023-03-03 11:41] LABS: MAU/CREAT RATIO 83.8 MCG/MG (0.0-30.0)
== END ==
LOC: M SFHCPLAZ 10:31
PROVIDERS: ATTEND Family Medicine
DX: D64.9 Anemia, unspecified (principal); Z12.11 Encounter for screening for malignant neoplasm of colon; E11.9 Type 2 diabetes mellitus without complications; I50.32 Chronic diastolic (congestive) heart failure; N17.9 Acute kidney failure, unspecified; N18.2 Chronic kidney disease, stage 2 (mild)

== ENCOUNTER → 2023-03-08 | Outpatient (REF) | payer MEDICARE, OTHER ==
[2023-03-08 18:29] LABS: PERCENT SATURATION 14.7 % (13.2-45.0)
[2023-03-08 18:32] LABS: FERRITIN 36.5 NG/ML (7.3-270.7)
== END ==
LOC: M LAB REF 17:12
PROVIDERS: ATTEND Nurse Practitioner Family
DX: N39.0 Urinary tract infection, site not specified (principal); D50.9 Iron deficiency anemia, unspecified; B96.4 Proteus (mirabilis) (morganii) as the cause of diseases classified elsewhere

== ENCOUNTER → 2023-04-21 | Outpatient (CLI) | payer MEDICARE, BC ==
[~2023-04-21] MED LIST changes: -HYDR25TA PO; +HYDR25TA88 PO; +ISOVUE-370 76% 100ML VIAL ONE
== END ==
LOC: M PLAIMG 08:14
PROVIDERS: ATTEND Nurse Practitioner Family
DX: I70.0 Atherosclerosis of aorta (principal); M79.604 Pain in right leg; R60.0 Localized edema
CPT/HCPCS: 74174; Q9967

== ENCOUNTER → 2023-05-17 | Outpatient (CLI) | payer MEDICARE, BC ==
[~2023-05-17] MED LIST changes: -ISOVUE-370 76% 100ML VIAL ONE
== END ==
LOC: M RAD 09:19
PROVIDERS: ATTEND Student in an Organized Health Care Education/Training Program
DX: I51.7 Cardiomegaly (principal); J81.1 Chronic pulmonary edema; R91.1 Solitary pulmonary nodule

== ENCOUNTER → 2023-05-30 | Outpatient (CLI) | payer MEDICARE, BC ==
[2023-05-30 15:57] LABS: BASO # 0.1 10^3/uL (0.0-0.2); BASO % 0.9 % (0.0-1.0); EOS # 0.4 10^3/uL (0.0-0.5); EOS % 4.8 % (0.0-3.0); HEMATOCRIT 31.6 % (36.0-47.0); HEMOGLOBIN 9.2 g/dl (12.0-15.5); LYMPH # 2.4 10^3/uL (1.5-5.0); LYMPH % 30.6 % (24.0-44.0); MEAN CORPUSCULAR HEMOGLOBIN 26.1 pg (27.0-33.0); MEAN CORPUSCULAR HGB CONC 29.1 g/dl (32.0-36.5); MEAN CORPUSCULAR VOLUME 89.5 fl (80.0-96.0); MONO # 0.9 10^3/uL (0.0-0.8); MONO % 11.1 % (2.0-8.0); NEUTROPHILS # 4.2 10^3/uL (1.5-8.5); NEUTROPHILS % 52.2 % (36.0-66.0); PLATELET COUNT, AUTOMATED 215 10^3/uL (150-450); RED BLOOD COUNT 3.53 10^6/uL (4.00-5.40); WHITE BLOOD COUNT 7.9 10^3/uL (4.0-10.0)
[2023-05-30 16:00] LABS: ALBUMIN 3.1 G/DL (3.2-5.2); BILIRUBIN,TOTAL 0.2 MG/DL (0.3-1.2); CALCIUM LEVEL 8.7 MG/DL (8.3-10.6); CHOLESTEROL RISK RATIO 2.22 (<5); CREATININE FOR GFR 1.31 MG/DL (0.55-1.30); HDL CHOLESTEROL 63.4 MG/DL (>40); LDL CHOLESTEROL 50.8 MG/DL (<100); NON-HDL-C 77.6 MG/DL; POTASSIUM SERUM 3.8 MMOL/L (3.5-5.1); TOTAL PROTEIN 6.5 G/DL (5.7-8.2)
[2023-05-30 16:24] LABS: CREATININE, URINE 44.3 MG/DL; MAU/CREAT RATIO 180.5 MCG/MG (0.0-30.0)
== END ==
LOC: M PLALAB 12:24
PROVIDERS: ATTEND Student in an Organized Health Care Education/Training Program
DX: M79.89 Other specified soft tissue disorders (principal); Z79.899 Other long term (current) drug therapy; E55.9 Vitamin D deficiency, unspecified

== ENCOUNTER → 2023-05-30 | Outpatient (REF) | payer MEDICARE, BC | LOC: M SFHCPLAZ 13:13 | PROVIDERS: ATTEND Student in an Organized Health Care Education/Training Program | DX: M79.89 Other specified soft tissue disorders (principal) ==

== ENCOUNTER → 2023-06-05 | Outpatient (REF) | payer MEDICARE, BC | LOC: M SFHCPLAZ 13:27 | PROVIDERS: ATTEND Student in an Organized Health Care Education/Training Program | DX: M79.89 Other specified soft tissue disorders (principal) ==

== ENCOUNTER 2023-06-20 11:35 | Inpatient (IN) | payer MEDICARE, BC ==
[~2023-06-20] VITALS: Ht 157.5 cm; Wt 114.4 kg
[~2023-06-20 11:35] MED LIST changes: -POTA10CA60 PO; +POTA10CA70 PO; +TRUL10IN SC; -TRUL10IN SQ
[2023-06-20] MEDS ORDERED: OCUVTAB4 PO (11:56)
[2023-06-20] MEDS ORDERED: FURO40TA2 PO (11:56)
[2023-06-20] MEDS ORDERED: HYDR25TA87 PO (11:56)
[2023-06-20 12:52] LABS: BASO % 0.5 % (0.0-1.0); EOS # 0.3 10^3/uL (0.0-0.5); HEMATOCRIT 27.5 % (36.0-47.0); HEMOGLOBIN 8.2 g/dl (12.0-15.5); LYMPH # 2.1 10^3/uL (1.5-5.0); LYMPH % 28.1 % (24.0-44.0); MEAN CORPUSCULAR HEMOGLOBIN 25.5 pg (27.0-33.0); MEAN CORPUSCULAR HGB CONC 29.8 g/dl (32.0-36.5); MEAN CORPUSCULAR VOLUME 85.7 fl (80.0-96.0); MONO # 0.7 10^3/uL (0.0-0.8); MONO % 8.9 % (2.0-8.0); NEUTROPHILS # 4.2 10^3/uL (1.5-8.5); NEUTROPHILS % 58.1 % (36.0-66.0); PLATELET COUNT, AUTOMATED 203 10^3/uL (150-450); RED BLOOD COUNT 3.21 10^6/uL (4.00-5.40); WHITE BLOOD COUNT 7.3 10^3/uL (4.0-10.0)
[2023-06-20 13:09] LABS: INR 1.04; PARTIAL THROMBOPLASTIN TIME 27.1 SECONDS (24.8-34.2); PROTHROMBIN TIME 13.3 SECONDS (12.5-14.5)
[2023-06-20 13:17] LABS: ALBUMIN 3.1 G/DL (3.2-5.2); ALKALINE PHOSPHATASE 102 U/L (46-116); ALT/SGPT 11 U/L (7.0-40); AST/SGOT 27 U/L (<34); BILIRUBIN,DIRECT < 0.1 MG/DL (<0.4); BILIRUBIN,TOTAL 0.3 MG/DL (0.3-1.2); BLOOD UREA NITROGEN 19 MG/DL (9-23); CARBON DIOXIDE LEVEL 27 MMOL/L (20-31); CHLORIDE LEVEL 102 MMOL/L (98-107); CK-MB VALUE MASS < 1.0 NG/ML (<3.6); CREATININE FOR GFR 1.27 MG/DL (0.55-1.30); GLOMERULAR FILTRATION RATE 43.4 (>39); GLUCOSE, FASTING 105 MG/DL (74-106); SODIUM LEVEL 136 MMOL/L (136-145); TOTAL PROTEIN 6.7 G/DL (5.7-8.2)
[2023-06-20 13:19] LABS: THYROID STIMULATING HORMONE 1.011 uIU/ML (0.55-4.78)
[2023-06-20 13:20] LABS: CPK CREATINE PHOSPHOKINASE 50 U/L (34-145)
[2023-06-20] MEDS: **hydrALAZINE HCL** 25 MG TAB PO ONE (13:39)
[2023-06-20] MEDS: PANTOPRAZOLE 40MG VIAL IV ONE (13:39)
[2023-06-20] MEDS: IPRATROPIUM 0.5MG/ALBUTEROL 2.5MG INH SOL UD 3ML (DUONEB) NEB ONE (13:46)
[2023-06-20 15:02] LABS: CK-MB VALUE MASS < 1.0 NG/ML (<3.6); CPK CREATINE PHOSPHOKINASE 36 U/L (34-145); MB/CK RELATIVE INDEX 2.77 (< OR =4)
[2023-06-20 16:53] LABS: D-DIMER QUANT 1.12 ug/mL (<0.5)
[2023-06-20] MEDS ORDERED: DEXTROSE 50% 50ML SYRINGE IV PRN (17:15)
[2023-06-20] MEDS ORDERED: GLUCAGON INJ 1MG VIAL SC PRN (17:15)
[2023-06-20] MEDS ORDERED: GLUCOSE 4 GM CHEW PO PRN (17:15)
[2023-06-20] MEDS ORDERED: ISOVUE-370 76% 100ML VIAL As Ordered ONE (17:21)
[2023-06-20] MEDS ORDERED: IPRATROPIUM 0.5MG/ALBUTEROL 2.5MG INH SOL UD 3ML (DUONEB) NEB PRN (17:55)
[2023-06-20] MEDS ORDERED: AMLO1TAB25 PO (17:57)
[2023-06-20] MEDS ORDERED: ALIG4CAP PO (17:57)
[2023-06-20] MEDS ORDERED: HOME MED LIST COMPLETE! XX SCH (18:05)
[2023-06-20 18:55] VITALS: TEMP 97; O2SAT 97
[2023-06-20 19:13] VITALS: BP 168/70
[2023-06-20] MEDS: FUROSEMIDE 40MG/4ML VIAL IV SCH (20:54)
[2023-06-20] MEDS: CYCLOBENZAPRINE 10MG TABLET PO SCH (20:55)
[2023-06-20] MEDS: **hydrALAZINE HCL** 25 MG TAB PO SCH (20:55)
[2023-06-20] MEDS: CARVedilol 12.5 MG TAB PO SCH (20:55)
[2023-06-20] MEDS: oxyBUTYnin *DITROPAN XL* 5 MG TABCR PO SCH (20:55)
[2023-06-20] MEDS: carBAMazepine 200MG TABLET PO SCH (20:55)
[2023-06-20] MEDS: PANTOPRAZOLE 40MG VIAL IV SCH (20:55)
[2023-06-20] MEDS: INSULIN LISPRO (NovoLOG) PER UNIT SC SCH ×2 (20:56)
[2023-06-20] MEDS: GABAPENTIN 300 MG CAP PO SCH (20:56)
[2023-06-20] MEDS ORDERED: PANTOPRAZOLE 40MG TAB (PROTONIX) PO SCH (21:00)
[2023-06-20] MEDS: SYMBICORT 160/4.5MCG INHALER 6GM INH SCH (21:43)
[2023-06-20 23:00] VITALS: BP 134/63; TEMP 97.4; O2SAT 97
[2023-06-21] VITALS (9 sets, daily range): BP systolic 118–180; BP diastolic 56–81; TEMP 97.2–98.7; O2SAT 91–97
[2023-06-21 05:43] LABS: HEMATOCRIT 25.2 % (36.0-47.0); HEMOGLOBIN 7.6 g/dl (12.0-15.5); MEAN CORPUSCULAR HEMOGLOBIN 25.2 pg (27.0-33.0); MEAN CORPUSCULAR HGB CONC 30.2 g/dl (32.0-36.5); MEAN CORPUSCULAR VOLUME 83.7 fl (80.0-96.0); PLATELET COUNT, AUTOMATED 169 10^3/uL (150-450); RED BLOOD COUNT 3.01 10^6/uL (4.00-5.40); WHITE BLOOD COUNT 6.1 10^3/uL (4.0-10.0)
[2023-06-21 06:08] LABS: CALCIUM LEVEL 7.8 MG/DL (8.3-10.6); CREATININE FOR GFR 1.27 MG/DL (0.55-1.30); GLOMERULAR FILTRATION RATE 43.4 (>39); MAGNESIUM LEVEL 1.2 MG/DL (1.8-2.4); POTASSIUM SERUM 3.2 MMOL/L (3.5-5.1)
[2023-06-21] MEDS ORDERED: MAG SULF 1GM/100ML (MAG RUN) 1 GM in IV 1 EA IV SCH (07:00)
[2023-06-21] MEDS: TIOTROPIUM INHALER/CAPSULE (SPIRIVA) INH SCH (07:20)
[2023-06-21 08:19] LABS: PERCENT SATURATION 5.2 % (13.2-45.0)
[2023-06-21 08:22] LABS: FERRITIN 6.9 NG/ML (7.3-270.7); FOLATE 15.57 NG/ML (>5.4)
[2023-06-21] MEDS: MAG SULF 1GM/100ML (MAG RUN) 1 GM in IV 1 EA IV SCH (08:28)
[2023-06-21] MEDS: MAGNESIUM OXIDE 400MG TAB (MAG-OX) PO SCH (08:29)
[2023-06-21] MEDS: POTASSIUM CHLORIDE 10MEQ SR TABLET PO SCH (08:29)
[2023-06-21] MEDS: CYANOCOBALAMIN 500 MCG TAB PO SCH (12:49)
[2023-06-21] MEDS: FERRIC CARBOXYMALTOSE INJ 750 MG, VIAL MATE ADAPTER 1 EACH in NS 250 ML IV ONE (17:07)
[2023-06-21 18:54] LABS: CALCIUM LEVEL 8.7 MG/DL (8.3-10.6); CREATININE FOR GFR 1.29 MG/DL (0.55-1.30); GLOMERULAR FILTRATION RATE 42.7 (>39); MAGNESIUM LEVEL 2.5 MG/DL (1.8-2.4); POTASSIUM SERUM 3.5 MMOL/L (3.5-5.1)
[2023-06-22 04:32] VITALS: BP 137/60; TEMP 97.6; O2SAT 95
[2023-06-22 06:14] LABS: HEMATOCRIT 24.9 % (36.0-47.0); HEMOGLOBIN 7.3 g/dl (12.0-15.5); MEAN CORPUSCULAR HEMOGLOBIN 24.8 pg (27.0-33.0); MEAN CORPUSCULAR HGB CONC 29.3 g/dl (32.0-36.5); MEAN CORPUSCULAR VOLUME 84.7 fl (80.0-96.0); PLATELET COUNT, AUTOMATED 175 10^3/uL (150-450); RED BLOOD COUNT 2.94 10^6/uL (4.00-5.40); WHITE BLOOD COUNT 6.1 10^3/uL (4.0-10.0)
[2023-06-22 06:47] LABS: CALCIUM LEVEL 8.1 MG/DL (8.3-10.6); CREATININE FOR GFR 1.38 MG/DL (0.55-1.30); GLOMERULAR FILTRATION RATE 39.5 (>39); MAGNESIUM LEVEL 2.1 MG/DL (1.8-2.4); POTASSIUM SERUM 3.6 MMOL/L (3.5-5.1)
[2023-06-22 07:26] VITALS: BP 137/63; TEMP 97.5; O2SAT 92
[2023-06-22 11:38] VITALS: BP 145/70; TEMP 97.5; O2SAT 96
[2023-06-22] MEDS: POTASSIUM CHLORIDE 10MEQ SR TABLET PO SCH (13:25)
[2023-06-22] MEDS: PERCOCET 5MG/325MG TAB PO PRN (13:32)
[2023-06-22] MEDS ORDERED: CHOLESTYRAMINE 4GM PWD PKT PO PRN (16:40)
[2023-06-22 19:14] LABS: CALCIUM LEVEL 8.3 MG/DL (8.3-10.6); CREATININE FOR GFR 1.37 MG/DL (0.55-1.30); GLOMERULAR FILTRATION RATE 39.8 (>39); MAGNESIUM LEVEL 1.8 MG/DL (1.8-2.4); POTASSIUM SERUM 3.8 MMOL/L (3.5-5.1)
[2023-06-22 23:41] VITALS: BP 146/63; TEMP 98.2; O2SAT 92
[2023-06-23 06:07] LABS: HEMATOCRIT 27.1 % (36.0-47.0); HEMOGLOBIN 7.8 g/dl (12.0-15.5); MEAN CORPUSCULAR HEMOGLOBIN 24.5 pg (27.0-33.0); MEAN CORPUSCULAR HGB CONC 28.8 g/dl (32.0-36.5); MEAN CORPUSCULAR VOLUME 85.2 fl (80.0-96.0); PLATELET COUNT, AUTOMATED 192 10^3/uL (150-450); RED BLOOD COUNT 3.18 10^6/uL (4.00-5.40)
[2023-06-23 06:35] LABS: CALCIUM LEVEL 8.6 MG/DL (8.3-10.6); CREATININE FOR GFR 1.37 MG/DL (0.55-1.30); GLOMERULAR FILTRATION RATE 39.8 (>39); MAGNESIUM LEVEL 1.7 MG/DL (1.8-2.4); POTASSIUM SERUM 4.1 MMOL/L (3.5-5.1)
[2023-06-23 07:25] VITALS: BP 142/67; TEMP 97.3; O2SAT 94
[2023-06-23] MEDS: MAG SULF 1GM/100ML (MAG RUN) 1 GM in IV 1 EA IV ONE (09:49)
[2023-06-23 10:24] VITALS: BP 130/65; TEMP 97.7; O2SAT 92
[2023-06-23] MEDS ORDERED: JARD1TAB PO (10:24)
[2023-06-23] MEDS: FUROSEMIDE 100MG/10ML VIAL IV SCH (11:22)
[2023-06-23 14:00] VITALS: BP 129/66; TEMP 98.1; O2SAT 87
[2023-06-23 19:37] VITALS: BP 130/66; TEMP 98.6; O2SAT 90
[2023-06-23] MEDS: PANTOPRAZOLE 40MG TAB (PROTONIX) PO SCH (20:39)
[2023-06-23] MEDS: diphenhydrAMINE 50MG/ML VIAL IM ONE (22:04)
[2023-06-24 05:46] VITALS: BP 97/57; TEMP 98.1; O2SAT 88
[2023-06-24 07:31] LABS: HEMATOCRIT 25.7 % (36.0-47.0); HEMOGLOBIN 7.4 g/dl (12.0-15.5); MEAN CORPUSCULAR HEMOGLOBIN 24.9 pg (27.0-33.0); MEAN CORPUSCULAR HGB CONC 28.8 g/dl (32.0-36.5); MEAN CORPUSCULAR VOLUME 86.5 fl (80.0-96.0); PLATELET COUNT, AUTOMATED 178 10^3/uL (150-450); RED BLOOD COUNT 2.97 10^6/uL (4.00-5.40)
[2023-06-24 07:48] LABS: CALCIUM LEVEL 8.3 MG/DL (8.3-10.6); CREATININE FOR GFR 1.69 MG/DL (0.55-1.30); GLOMERULAR FILTRATION RATE 31.2 (>39); MAGNESIUM LEVEL 1.9 MG/DL (1.8-2.4); POTASSIUM SERUM 3.7 MMOL/L (3.5-5.1)
[2023-06-24 08:19] VITALS: O2SAT 94
[2023-06-24] MEDS: DIAPER RELIEF PASTE (DESITIN) 60GM TOP PRN (12:49)
[2023-06-24] MEDS: POTASSIUM CHLORIDE 10MEQ SR TABLET PO ONE (14:38)
[2023-06-24 14:40] VITALS: BP 151/68; TEMP 97.9; O2SAT 96
[2023-06-24 16:38] VITALS: BP 146/65
[2023-06-24] MEDS: diphenhydrAMINE CREAM 30GM TOP PRN (16:38)
[2023-06-24] MEDS: FUROSEMIDE 100MG/10ML VIAL IV SCH (16:40)
[2023-06-24 20:12] VITALS: BP 125/74; TEMP 98.6; O2SAT 92
[2023-06-25] VITALS (7 sets, daily range): BP systolic 95–135; BP diastolic 40–70; TEMP 97.7–97.9; O2SAT 94–96
[2023-06-25 06:26] LABS: HEMATOCRIT 26.4 % (36.0-47.0); HEMOGLOBIN 7.4 g/dl (12.0-15.5); MEAN CORPUSCULAR HEMOGLOBIN 24.4 pg (27.0-33.0); MEAN CORPUSCULAR VOLUME 87.1 fl (80.0-96.0); PLATELET COUNT, AUTOMATED 182 10^3/uL (150-450); RED BLOOD COUNT 3.03 10^6/uL (4.00-5.40); WHITE BLOOD COUNT 5.6 10^3/uL (4.0-10.0)
[2023-06-25 06:49] LABS: CALCIUM LEVEL 8.1 MG/DL (8.3-10.6); CREATININE FOR GFR 1.62 MG/DL (0.55-1.30); GLOMERULAR FILTRATION RATE 32.8 (>39); MAGNESIUM LEVEL 1.6 MG/DL (1.8-2.4); POTASSIUM SERUM 3.9 MMOL/L (3.5-5.1)
[2023-06-25] MEDS: MAG SULF 1GM/100ML (MAG RUN) 1 GM in IV 1 EA IV SCH (10:03)
[2023-06-25] MEDS: NYSTATIN 100,000 UNITS/GM TOPICAL PWD 15GM TOP SCH (12:16)
[2023-06-26] VITALS (7 sets, daily range): BP systolic 88–141; BP diastolic 50–71; TEMP 97.7–98.1; O2SAT 90–97
[2023-06-26 07:07] LABS: BASO % 0.6 % (0.0-1.0); EOS # 0.5 10^3/uL (0.0-0.5); EOS % 6.5 % (0.0-3.0); HEMOGLOBIN 8.3 g/dl (12.0-15.5); LYMPH # 2.4 10^3/uL (1.5-5.0); LYMPH % 34.8 % (24.0-44.0); MEAN CORPUSCULAR HEMOGLOBIN 25.1 pg (27.0-33.0); MEAN CORPUSCULAR HGB CONC 28.6 g/dl (32.0-36.5); MEAN CORPUSCULAR VOLUME 87.6 fl (80.0-96.0); MONO # 0.7 10^3/uL (0.0-0.8); MONO % 10.1 % (2.0-8.0); NEUTROPHILS # 3.3 10^3/uL (1.5-8.5); NEUTROPHILS % 47.3 % (36.0-66.0); PLATELET COUNT, AUTOMATED 205 10^3/uL (150-450); RED BLOOD COUNT 3.31 10^6/uL (4.00-5.40); WHITE BLOOD COUNT 6.9 10^3/uL (4.0-10.0)
[2023-06-26 07:38] LABS: CALCIUM LEVEL 8.5 MG/DL (8.3-10.6); CHOLESTEROL RISK RATIO 2.43 (<5); CREATININE FOR GFR 1.61 MG/DL (0.55-1.30); HDL CHOLESTEROL 58.4 MG/DL (>40); LDL CHOLESTEROL 54.6 MG/DL (<100); NON-HDL-C 83.6 MG/DL; POTASSIUM SERUM 4.2 MMOL/L (3.5-5.1)
[2023-06-26] MEDS: ATORVASTATIN 20 MG TAB PO SCH (07:48)
[2023-06-26] MEDS: FUROSEMIDE 40MG/4ML VIAL IV SCH (07:50)
[2023-06-26] MEDS: FERROUS GLUCONATE 324 MG TAB PO SCH (14:31)
[2023-06-26] MEDS: FUROSEMIDE 100MG/10ML VIAL IV SCH (16:51)
[2023-06-26] MEDS: guaiFENesin 200 MG TAB PO SCH (21:13)
[2023-06-27 04:15] VITALS: BP 145/74; TEMP 98.6; O2SAT 98
[2023-06-27 06:08] VITALS: O2SAT 97
[2023-06-27 07:21] LABS: CALCIUM LEVEL 8.2 MG/DL (8.3-10.6); CREATININE FOR GFR 1.47 MG/DL (0.55-1.30); GLOMERULAR FILTRATION RATE 36.7 (>39); MAGNESIUM LEVEL 1.6 MG/DL (1.8-2.4); POTASSIUM SERUM 3.9 MMOL/L (3.5-5.1)
[2023-06-27 07:59] LABS: HEMATOCRIT 27.5 % (36.0-47.0); HEMOGLOBIN 7.7 g/dl (12.0-15.5); MEAN CORPUSCULAR HEMOGLOBIN 24.7 pg (27.0-33.0); MEAN CORPUSCULAR VOLUME 88.1 fl (80.0-96.0); PLATELET COUNT, AUTOMATED 174 10^3/uL (150-450); RED BLOOD COUNT 3.12 10^6/uL (4.00-5.40); WHITE BLOOD COUNT 5.6 10^3/uL (4.0-10.0)
[2023-06-27] MEDS: MAG SULF 1GM/100ML (MAG RUN) 1 GM in IV 1 EA IV SCH (09:45)
[2023-06-27 09:46] VITALS: BP 141/78
[2023-06-27] MEDS ORDERED: ATOR40TA75 PO (11:04)
[2023-06-27] MEDS ORDERED: FURO40TA2 PO (11:06)
[2023-06-27] MEDS ORDERED: FERR32TA PO (11:06)
[2023-06-27] MEDS ORDERED: POTA-151 PO (11:08)
[2023-06-27] MEDS ORDERED: METO25TA PO (11:17)
[2023-06-27] MEDS ORDERED: FERR325T3 PO (12:44)
[2023-06-27 13:20] LABS: HEMATOCRIT 28.7 % (36.0-47.0); HEMOGLOBIN 8.4 g/dl (12.0-15.5)
== END 2023-06-27 14:20 | disposition home health service (06) | DRG 291 ==
LOC: M ED 11:35 → M ED INP 17:11 → M PCU 18:52 → M MSPAV 06-23 10:24
PROVIDERS: ADMIT Student in an Organized Health Care Education/Training Program; ATTEND Student in an Organized Health Care Education/Training Program
PROC: B246ZZZ Ultrasonography of Right and Left Heart (ICD-10-PCS; principal; 2023-06-21)
DX: I11.0 Hypertensive heart disease with heart failure (principal); I50.33 Acute on chronic diastolic (congestive) heart failure; A04.72 Enterocolitis due to Clostridium difficile, not specified as recurrent; J96.11 Chronic respiratory failure with hypoxia; N17.9 Acute kidney failure, unspecified; E11.9 Type 2 diabetes mellitus without complications; G47.33 Obstructive sleep apnea (adult) (pediatric); J44.9 Chronic obstructive pulmonary disease, unspecified; E66.01 Morbid (severe) obesity due to excess calories; L40.9 Psoriasis, unspecified; M54.50 Low back pain, unspecified; G89.29 Other chronic pain; E87.6 Hypokalemia; E04.1 Nontoxic single thyroid nodule; I25.10 Atherosclerotic heart disease of native coronary artery without angina pectoris; G25.81 Restless legs syndrome; E83.42 Hypomagnesemia; I27.20 Pulmonary hypertension, unspecified; M81.0 Age-related osteoporosis without current pathological fracture; D50.9 Iron deficiency anemia, unspecified; R33.9 Retention of urine, unspecified; K21.9 Gastro-esophageal reflux disease without esophagitis; Z11.52 Encounter for screening for COVID-19; Z99.81 Dependence on supplemental oxygen; Z85.41 Personal history of malignant neoplasm of cervix uteri; Z90.49 Acquired absence of other specified parts of digestive tract; Z90.79 Acquired absence of other genital organ(s); Z98.41 Cataract extraction status, right eye; Z87.891 Personal history of nicotine dependence; Z79.899 Other long term (current) drug therapy; Z88.1 Allergy status to other antibiotic agents; Z91.040 Latex allergy status; Z91.048 Other nonmedicinal substance allergy status

== ENCOUNTER → 2023-07-04 | Outpatient (CLI) | payer MEDICARE, BC ==
[~2023-07-04] MED LIST changes: +ALIG4CAP PO; +FERR32TA PO; +HYDR25TA87 PO; +JARD1TAB PO; +METO25TA PO; +OCUVTAB4 PO; +POTA-151 PO
[2023-07-04 18:19] LABS: PERCENT SATURATION 22.5 % (13.2-45.0)
== END ==
LOC: M PLALAB 14:46
PROVIDERS: ATTEND Student in an Organized Health Care Education/Training Program
DX: D50.0 Iron deficiency anemia secondary to blood loss (chronic) (principal)

== ENCOUNTER → 2023-07-04 | Outpatient (CLI) | payer MEDICARE, BC ==
[2023-07-04 17:56] LABS: HEMATOCRIT 33.8 % (36.0-47.0); HEMOGLOBIN 9.7 g/dl (12.0-15.5); MEAN CORPUSCULAR HEMOGLOBIN 25.6 pg (27.0-33.0); MEAN CORPUSCULAR HGB CONC 28.7 g/dl (32.0-36.5); MEAN CORPUSCULAR VOLUME 89.2 fl (80.0-96.0); PLATELET COUNT, AUTOMATED 210 10^3/uL (150-450); RED BLOOD COUNT 3.79 10^6/uL (4.00-5.40); WHITE BLOOD COUNT 7.1 10^3/uL (4.0-10.0)
[2023-07-04 18:18] LABS: CALCIUM LEVEL 8.6 MG/DL (8.3-10.6); CREATININE FOR GFR 1.35 MG/DL (0.55-1.30); GLOMERULAR FILTRATION RATE 40.5 (>39); MAGNESIUM LEVEL 1.6 MG/DL (1.8-2.4); POTASSIUM SERUM 3.6 MMOL/L (3.5-5.1)
== END ==
LOC: M PLALAB 14:42
PROVIDERS: ATTEND Student in an Organized Health Care Education/Training Program
DX: N17.9 Acute kidney failure, unspecified (principal); D50.9 Iron deficiency anemia, unspecified

== ENCOUNTER → 2023-08-02 | Outpatient (CLI) | payer MEDICARE, BC | LOC: M RAD 09:50 | PROVIDERS: ATTEND Student in an Organized Health Care Education/Training Program | DX: E04.1 Nontoxic single thyroid nodule (principal) | CPT/HCPCS: 78014; A9516 ==

== ENCOUNTER → 2023-09-06 | Outpatient (CLI) | payer MEDICARE, BC ==
[~2023-09-06] MED LIST changes: +E-Z-GAS II EFFERVESCENT PACKET (SODIUM BICARB./CITRIC ACID/SIMETHICONE) As Ordered ONE; +E-Z-HD 98% w/w 340GM SUSP BTL As Ordered ONE; +E-Z-PAQUE 96% w/w SUSP 176GM BTL As Ordered ONE; -FLUO0.0114 TOP; +FLUO0.0133 TOP
== END ==
LOC: M RAD 09:57
PROVIDERS: ATTEND Internal Medicine Gastroenterology
DX: R13.10 Dysphagia, unspecified (principal)

== ENCOUNTER 2023-11-06 14:35 | Day surgery (SDC) | payer MEDICARE, BC ==
[~2023-11-06] VITALS: Ht 157.5 cm; Wt 108.5 kg
[~2023-11-06 14:35] MED LIST changes: -E-Z-GAS II EFFERVESCENT PACKET (SODIUM BICARB./CITRIC ACID/SIMETHICONE) As Ordered ONE; -E-Z-HD 98% w/w 340GM SUSP BTL As Ordered ONE; -E-Z-PAQUE 96% w/w SUSP 176GM BTL As Ordered ONE; +GABA-1172 PO; -GABA-282 PO; +IPRA0.00 INH; +VANC250C10 PO; -VANC250C3 PO
[2023-11-06] MEDS ORDERED: fentaNYL 100 MCG/2 ML INJECTION As Ordered ONE (17:33)
[2023-11-06] MEDS ORDERED: LIDOCAINE 2% 100MG/5ML SDV (FOR ANES.) As Ordered ONE (17:33)
[2023-11-06] MEDS ORDERED: propofoL 200 MG/20 ML VIAL As Ordered ONE (17:33)
[2023-11-06 17:51] VITALS: BP 160/72; TEMP 96.8; O2SAT 95
== END 2023-11-06 17:53 | disposition home or self-care (01) ==
LOC: M SDC 14:35
PROVIDERS: ATTEND Internal Medicine Gastroenterology
DX: R13.12 Dysphagia, oropharyngeal phase (principal); I48.91 Unspecified atrial fibrillation; E11.9 Type 2 diabetes mellitus without complications; I50.9 Heart failure, unspecified; I11.0 Hypertensive heart disease with heart failure; G47.30 Sleep apnea, unspecified; Z91.048 Other nonmedicinal substance allergy status; Z91.040 Latex allergy status; Z88.1 Allergy status to other antibiotic agents; Z79.899 Other long term (current) drug therapy
CPT/HCPCS: 43235; 43450; A4649; J3010

== ENCOUNTER → 2024-03-21 | Outpatient (CLI) | payer MEDICARE, BC ==
[~2024-03-21] MED LIST changes: -ALIG4CAP PO; +ALIG4CAP3 PO; -VANC250C10 PO; +VANC250C12 PO
== END ==
LOC: M PLAIMG 15:12
PROVIDERS: ATTEND Physician Assistant Medical
DX: J40 Bronchitis, not specified as acute or chronic (principal); I51.7 Cardiomegaly

== ENCOUNTER → 2024-04-17 | Outpatient (REF) | payer MEDICARE, BC ==
[~2024-04-17] MED LIST changes: -FLUO0.0118 TOP; +FLUO0.0131 TOP
== END ==
LOC: M LAB REF 11:05
PROVIDERS: ATTEND Internal Medicine Critical Care Medicine
DX: J18.9 Pneumonia, unspecified organism (principal)

== ENCOUNTER 2024-06-25 10:50 | Day surgery (SDC) | payer MEDICARE, BC ==
[~2024-06-25] VITALS: Ht 157.5 cm; Wt 111.1 kg
[~2024-06-25 10:50] MED LIST changes: +LIDOCAINE 2% 100MG/5ML SDV (FOR ANES.) As Ordered ONE; +MAGN400T33 PO; +METO1TAB7 PO; -PREG50CA PO; +PREG50CA87 PO; +PROA1AER2 IN; +[UNRECOGNIZED DRUG - OTHER] TOP; +propofoL 200 MG/20 ML VIAL As Ordered ONE
[2024-06-25 13:42] VITALS: BP 160/80; O2SAT 98
== END 2024-06-25 13:46 | disposition home or self-care (01) ==
LOC: M OPP 10:50
PROVIDERS: ATTEND Internal Medicine Gastroenterology
DX: R13.13 Dysphagia, pharyngeal phase (principal); R13.12 Dysphagia, oropharyngeal phase; I48.91 Unspecified atrial fibrillation; G47.30 Sleep apnea, unspecified; Z88.1 Allergy status to other antibiotic agents; Z91.040 Latex allergy status; Z91.048 Other nonmedicinal substance allergy status; Z79.82 Long term (current) use of aspirin; Z79.84 Long term (current) use of oral hypoglycemic drugs; Z79.891 Long term (current) use of opiate analgesic; Z79.51 Long term (current) use of inhaled steroids; Z79.85 Long-term (current) use of injectable non-insulin antidiabetic drugs; Z79.899 Other long term (current) drug therapy; J44.9 Chronic obstructive pulmonary disease, unspecified

== ENCOUNTER → 2024-08-19 | Outpatient (CLI) | payer MEDICARE, BC ==
[~2024-08-19] MED LIST changes: -LIDOCAINE 2% 100MG/5ML SDV (FOR ANES.) As Ordered ONE; +LISI40TA10 PO; -LISI40TA4 PO; -PRAV20TA2 PO; +PRAV20TA78 PO; -propofoL 200 MG/20 ML VIAL As Ordered ONE
[2024-08-19 18:57] LABS: BASO # 0.0 10^3/uL (0.0-0.2); BASO % 0.5 % (0.0-1.0); EOS # 0.2 10^3/uL (0.0-0.5); EOS % 1.8 % (0.0-3.0); LYMPH # 2.3 10^3/uL (1.5-5.0); LYMPH % 28.2 % (24.0-44.0); MONO # 0.7 10^3/uL (0.0-0.8); MONO % 8.9 % (2.0-8.0); NEUTROPHILS # 5.0 10^3/uL (1.5-8.5); NEUTROPHILS % 60.4 % (36.0-66.0); PLATELET COUNT, AUTOMATED 164 10^3/uL (150-450)
[2024-08-19 19:26] LABS: CREATININE, URINE 56.9 MG/DL; MALB URINE SIEMENS 145.0 MG/L; MAU/CREAT RATIO 254.8 MCG/MG (0.0-30.0)
[2024-08-19 19:28] LABS: ALT/SGPT 12.0 U/L (7.0-40); AST/SGOT 20.0 U/L (<34); CALCIUM LEVEL 9.0 MG/DL (8.3-10.6); CARBON DIOXIDE LEVEL 27.0 MMOL/L (20-31); CHLORIDE LEVEL 104.0 MMOL/L (98-107); CHOLESTEROL LEVEL 106.0 MG/DL (<200); CHOLESTEROL RISK RATIO 1.53 (<5); CREATININE FOR GFR 1.4 MG/DL (0.55-1.30); GLOMERULAR FILTRATION RATE 38.5 (>39); LDL CHOLESTEROL 16.7 MG/DL (<100); NON-HDL-C 37.1 MG/DL; POTASSIUM SERUM 5.1 MMOL/L (3.5-5.1); SODIUM LEVEL 143.0 MMOL/L (136-145); TRIGLYCERIDES LEVEL 102.0 MG/DL (<150)
[2024-08-19 19:29] LABS: FREE T4 1.16 NG/DL (0.89-1.76)
[2024-08-19 19:38] LABS: ESTIMATED AVERAGE GLUCOSE 108.0 MG/DL (60-110)
== END ==
LOC: M PLALAB 14:39
PROVIDERS: ATTEND Student in an Organized Health Care Education/Training Program
DX: Z00.00 Encounter for general adult medical examination without abnormal findings (principal); I10 Essential (primary) hypertension; E55.9 Vitamin D deficiency, unspecified; I48.0 Paroxysmal atrial fibrillation; E11.9 Type 2 diabetes mellitus without complications

== ENCOUNTER → 2024-09-12 | Outpatient (CLI) | payer MEDICARE, BC | LOC: M RAD 08:10 | PROVIDERS: ATTEND Student in an Organized Health Care Education/Training Program | DX: R47.81 Slurred speech (principal); R91.1 Solitary pulmonary nodule ==

== ENCOUNTER → 2024-09-30 | Outpatient (CLI) | payer MEDICARE, BC ==
[2024-09-30 13:37] LABS: BASO # 0.0 10^3/uL (0.0-0.2); BASO % 0.5 % (0.0-1.0); EOS # 0.2 10^3/uL (0.0-0.5); EOS % 2.6 % (0.0-3.0); LYMPH # 2.2 10^3/uL (1.5-5.0); LYMPH % 36.0 % (24.0-44.0); MONO # 0.5 10^3/uL (0.0-0.8); MONO % 8.1 % (2.0-8.0); NEUTROPHILS # 3.2 10^3/uL (1.5-8.5); NEUTROPHILS % 52.5 % (36.0-66.0); PLATELET COUNT, AUTOMATED 173 10^3/uL (150-450)
[2024-09-30 14:13] LABS: ALT/SGPT 14 U/L (7.0-40); AST/SGOT 23 U/L (<34); CALCIUM LEVEL 9.1 MG/DL (8.3-10.6); CARBON DIOXIDE LEVEL 31 MMOL/L (20-31); CHLORIDE LEVEL 105 MMOL/L (98-107); CREATININE FOR GFR 1.53 MG/DL (0.55-1.30); GLOMERULAR FILTRATION RATE 34.6 (>39); PHOSPHORUS LEVEL 4.1 MG/DL (2.4-5.1); POTASSIUM SERUM 5.0 MMOL/L (3.5-5.1); SODIUM LEVEL 144 MMOL/L (136-145)
[2024-09-30 14:15] LABS: HEPATITIS B SURFACE ANTIBODY NEGATIVE (POSITIVE)
[2024-09-30 14:40] LABS: HIV 1&2 SCREEN NEGATIVE (NEGATIVE)
[2024-09-30 14:48] LABS: HEPATITIS C VIRUS ABY INDEX 0.09 INDEX (<0.8)
== END ==
LOC: M PLALAB 10:14
PROVIDERS: ATTEND Nurse Practitioner Family
DX: L40.0 Psoriasis vulgaris (principal); Z79.899 Other long term (current) drug therapy; Z51.81 Encounter for therapeutic drug level monitoring

== ENCOUNTER 2024-10-11 17:14 | Emergency (ER) | payer MEDICARE, BC ==
[~2024-10-11] VITALS: Ht 157.5 cm; Wt 111.8 kg
[2024-10-11] MEDS: FUROSEMIDE 20 MG TAB PO ONE (19:42)
[2024-10-11] MEDS: amLODIPine 5 MG TAB PO ONE (19:42)
[2024-10-11 19:52] LABS: BASO # 0.0 10^3/uL (0.0-0.2); BASO % 0.4 % (0.0-1.0); EOS # 0.1 10^3/uL (0.0-0.5); EOS % 1.1 % (0.0-3.0); LYMPH # 1.6 10^3/uL (1.5-5.0); LYMPH % 16.5 % (24.0-44.0); MONO # 0.7 10^3/uL (0.0-0.8); MONO % 6.7 % (2.0-8.0); NEUTROPHILS # 7.4 10^3/uL (1.5-8.5); NEUTROPHILS % 74.9 % (36.0-66.0); PLATELET COUNT, AUTOMATED 181 10^3/uL (150-450)
[2024-10-11 19:56] LABS: ERYTHROCYTE SEDIMENTATION RATE 38 mm/hr (0-30)
[2024-10-11] MEDS ORDERED: ISOVUE-370 76% 100 ML VIAL As Ordered ONE (20:09)
[2024-10-11] MEDS ORDERED: AMOX500T2 PO (21:04)
[2024-10-11] MEDS: AUGMENTIN 875 MG TAB PO ONE (21:06)
[2024-10-11 21:11] VITALS: BP 158/88; TEMP 96.8; O2SAT 97
== END 2024-10-11 21:20 | disposition home or self-care (01) ==
LOC: M ED 17:14
DX: K11.21 Acute sialoadenitis (principal); E11.9 Type 2 diabetes mellitus without complications; I50.9 Heart failure, unspecified; J44.9 Chronic obstructive pulmonary disease, unspecified; G43.909 Migraine, unspecified, not intractable, without status migrainosus; G25.81 Restless legs syndrome; Z79.82 Long term (current) use of aspirin; Z79.899 Other long term (current) drug therapy; Z88.1 Allergy status to other antibiotic agents; Z91.89 Other specified personal risk factors, not elsewhere classified; Z91.040 Latex allergy status
CPT/HCPCS: 70491; 80047; 85025; 85652; 86140; 99284; Q9967

== ENCOUNTER → 2024-10-16 | Outpatient (REF) | payer MEDICARE, BC ==
[~2024-10-16] MED LIST changes: +AMOX500T2 PO; +CARB-19 PO; -CARB1TAB20 PO
== END ==
LOC: M LAB REF 12:57
PROVIDERS: ATTEND Internal Medicine Critical Care Medicine
DX: J18.9 Pneumonia, unspecified organism (principal)

== ENCOUNTER → 2024-12-26 | Outpatient (CLI) | payer MEDICARE, BC | LOC: M PLAIMG 14:20 | PROVIDERS: ATTEND Family Medicine | DX: G89.29 Other chronic pain (principal); M54.9 Dorsalgia, unspecified; M47.812 Spondylosis without myelopathy or radiculopathy, cervical region; M47.816 Spondylosis without myelopathy or radiculopathy, lumbar region; M53.86 Other specified dorsopathies, lumbar region ==